=== PATIENT | male | born 1960 | race Caucasian/White ===

== ENCOUNTER 2020-01-01 16:14 | Emergency (ER) | payer MEDICARE, SELFPAY ==
--- NOTE | 2020-01-01 | XR_ITS ---
EXAMINATION: XR FINGER, RIGHT CLINICAL INFORMATION: Cut right second digit with saw COMPARISON: None TECHNIQUE: 3 views of the right second digit. FINDINGS: There is mild soft tissue swelling. On 2 views, there is a faint radiopacity seen just lateral to the PIP joint - this may be related to the skin disruption. No metallic foreign bodies are seen. The underlying bones appear unremarkable without evidence of fracture. IMPRESSION: No bony injury. Soft tissues as described above.
--- NOTE | 2020-01-01 19:10 | ED_ITS ---
HPI - Wound/Laceration General Chief Complaint: Wound/Laceration Stated Complaint: FINGER LAC Time Seen by Provider: 01/01/20 19:09 Source: patient Mode of arrival: ambulatory Limitations: no limitations History of Present Illness HPI narrative: Patient using a hole saw which bounced and cut his finger Onset (ago): hour(s) (3) Extremity Location: right: hand (2nd digit) Place: home Patient tetanus UTD: No Context: accidental Associated symptoms: pain Related Data Previous Rx's Medication Instructions Recorded cephalexin [Keflex] 500 mg PO QID #20 cap 01/01/20 oxycodone-acetaminophen [Percocet] 1 tab PO Q8H PRN #10 tab 01/01/20 Allergies Allergy/AdvReac Type Severity Reaction Status Date / Time morphine [MORPHINE] Allergy Unknown ITCHY Unverified 12/17/19 15:33 Sulfa (Sulfonamide Allergy Unknown ITCHY Unverified 12/17/19 15:33 Antibiotics) [SULFA (SULFONAMIDE ANTIBIOTICS)] morphine Allergy Unknown Itching Uncoded 01/01/20 20:06 Sulfa Allergy Unknown Itching Uncoded 01/01/20 20:06 Review of Systems Constitutional: Constitutional: Reports no additional constitutional complaints Eyes: Eyes: Reports no additional eye complaints ENT: Denies dizziness Cardiovascular: Cardiovascular: Reports no additional cardiovascular complaints Respiratory: Respiratory: Reports as per HPI Gastrointestinal: Gastrointestinal: Reports no additional gastrointestinal complaints Musculoskeletal: Musculoskeletal: Reports no additional musculoskeletal complaints Integumentary/Breasts: Skin/Breast: Denies rash Neurologic: Reports system reviewed and no additional complaints, except as documented, Denies dizziness and Denies Sensory deficit (Neuro) Psychiatric: Psychiatric: Denies anxiety [facility] Past Medical History Medical History (Updated 01/01/20 @ 20:52 by Alexi Ackerman MD) Blood clot in vein Social History Social History Smoking Status: Former smoker Smoked in Last 30 Days: No Use of substances other than those prescribed or required for medical reasons: No Advance Directives: No Advance Directives Information Provided: Yes Physical Exam Vital Signs and I&O and Narrative: Vital Signs and I&O: Vital Signs Temp 98.1 F 01/01/20 19:54 Pulse 71 01/01/20 19:54 Resp 20 01/01/20 19:54 BP 129/76 01/01/20 19:54 Pulse Ox 97 01/01/20 19:54 Intake & Output 01/01/20 01/01/20 01/02/20 06:59 18:59 06:59 Weight 83.007 kg Body Mass Index 27.0 Const: General: healthy appearing Nutritional Appearance: average body habitus Orientation/consciousness: oriented to person and patient oriented x3 Limitations: no limitations HENMT: Head: Yes normal to inspection Ears: external ears normal General nose exam: Normal external nose present Mouth: Normal oral and palatal mucosa present and oropharynx normal Throat: Yes posterior oropharynx normal Eyes: General: appearance normal, both eyes and all related structures Neck: Other: supple Neck: Yes normal visual inspection Chest: Chest palpation & inspection: normal inspection of the chest Resp: Auscultation: clear to auscultation bilaterally Cardio: Jugular venous distension: no JVD Rate: regular rate Rhythm: regular rhythm Heart sounds: S1 normal heart sound present and S2 normal heart sound present GI: Inspection: Yes normal to inspection Palpation (GI): Soft to palpation, nontender and No hepatosplenomegaly present Auscultation: normal bowel sounds : General: Yes no CVA tenderness Back/Spine/Pelvis: Back: no CVA tenderness Skin: Other: 5 cm laceration curved and jagged Neuro: General: oriented to person and patient oriented x3 Cranial nerves: Yes CN's II-XII intact bilaterally Motor exam (neuro): 5/5 motor strength present throughout Sensory Exam: No Sensory deficit (Neuro) Extrem: Other: 2nd digit right with laceration over dip. Patient unable to e xtend finger consistent with extensor tendon laceration. sensory intact. laceration 4cm Psych: Appearance: grossly normal Course Reevaluation(s) Reevaluation #1: sutured and splinted Time: 20:48 Procedures Laceration Laceration 1: Site: hand (2nd digit dorsal surface) Side (If applicable): right Size (cm): 5 Depth: involves tendon Local Anesthetic: lidocaine 1% Pre-repair: wound explored and irrigated extensively Skin layer closed with: nylon (5-0) Size (cm): 5-0 Number of sutures: 9 Technique: simple, interrupted MDM - Wound/Laceration MDM Narrative Medical decision making narrative: laceration with extensor tendon laceration Discharge Plan Discharge Clinical Impression: Laceration Patient Disposition: Home, Self-Care Instructions: Care For Your Stitches (ED), Finger Laceration (ED) Additional Instructions: Call Dr. Horner hand surgeon Prescriptions: New cephalexin [Keflex] 500 mg capsule 500 mg PO QID Qty: 20 RF: 0 oxycodone-acetaminophen [Percocet] 5-325 mg tablet 1 tab PO Q8H PRN (Reason: pain) Qty: 10 RF: 0
[2020-01-01 19:20] VITALS: BP 133/80; PULSE 88; RESP 16; TEMP 37.2; O2SAT 97; BMI 27.0
[2020-01-01 19:54] VITALS: BP 129/76; PULSE 71; RESP 20; TEMP 36.7; O2SAT 97
[2020-01-01] MEDS: cephALEXin 500 MG CAPSULE PO (20:07)
[2020-01-01] MEDS: Lidocaine HCl 1 % MPF 5 ML VIAL ×2 (21:00)
== END 2020-01-01 21:00 | disposition home or self-care (01) ==
PROVIDERS: Emergency Provider Emergency Medicine; PCP Internal Medicine
DX: S61.210A Laceration without foreign body of right index finger without damage to nail, initial encounter (principal); M79.641 Pain in right hand; W29.8XXA Contact with other powered hand tools and household machinery, initial encounter; Y93.9 Activity, unspecified; Y92.009 Unspecified place in unspecified non-institutional (private) residence as the place of occurrence of the external cause; Z87.891 Personal history of nicotine dependence; Z23 Encounter for immunization
CPT/HCPCS: 12002; 73140; 90471; 99284

== ENCOUNTER 2020-01-19 05:47 | Outpatient (REF) | payer MEDICARE, SELFPAY ==
--- NOTE | 2020-01-19 10:38 | FL_ITS ---
EXAMINATION: XR FLUOROSCOPY WITH IMAGES CLINICAL INFORMATION: Intervertebral disc degeneration, lumbosacral region COMPARISON: Fluoroscopy with images 09/08/2019 TECHNIQUE: Fluoroscopy performed by Dr. Eddi Smith. Fluoroscopy time: 0.3 minutes DAP: 3.59 Gycm2 Images: 1 FINDINGS: There is a spinal needle overlying the outer left L5 neural foramen. There is contrast in the nerve sheath with transforaminal epidural extension. No visible vascular communication. IMPRESSION: Fluoroscopy for pain management procedure.
== END 2020-01-19 05:48 | disposition home or self-care (01) ==
LOC: HO.RADIR 05:47
PROVIDERS: Visit Provider Anesthesiology
DX: M51.37 Other intervertebral disc degeneration, lumbosacral region (principal)
CPT/HCPCS: 64483; J3300; Q9967

== ENCOUNTER 2020-01-20 08:38 | Outpatient (REF) | payer MEDICARE, SELFPAY ==
[2020-01-20 12:08] LABS: Free T4 (Free Thyroxine) 0.75 ng/dL (0.71-1.85); Thyroid Stimulating Hormone 0.36 mIU/mL (0.32-4.0)
[2020-01-21 20:02] LABS: Triiodothyronine T3 Free 2.2 pg/mL (2.3-4.2)
== END 2020-01-20 08:39 | disposition home or self-care (01) ==
LOC: HO.HMGCLDS 08:38
PROVIDERS: PCP Internal Medicine; Visit Provider Nurse Practitioner Family
DX: E03.8 Other specified hypothyroidism (principal)
CPT/HCPCS: 84439; 84443; 84481

== ENCOUNTER 2020-02-15 10:57 | Outpatient (REF) | payer MEDICARE, SELFPAY ==
[2020-02-15 13:56] LABS: MANUAL DIFF FLAG NO
[2020-02-15 14:03] LABS: Basophils Percent Auto 0.5 % (0-2); Eosinophils Absolute Auto 0.1 X10*3/uL (0.0-0.4); Eosinophils Percent Auto 1.3 % (0-4); Hematocrit 50.4 % (42-52); Hemoglobin 16.5 g/dl (14.0-18.0); Imm Gran Abs Auto 0.03 X10*3/uL (0.00-0.03); Imm Gran Pct Auto 0.4 % (0.0-0.4); Lymphocytes Absolute Auto 2.2 X10*3/uL (1.2-4.9); Lymphocytes Percent Auto 25.8 % (20-40); Mean Corpuscular HGB Conc 32.7 g/dl (31.0-36.0); Mean Corpuscular Hemoglobin 30.3 pg (27.0-33.0); Mean Corpuscular Volume 92.6 fL (80-98); Mean Platelet Volume 9.3 fL (9.4-12.4); Monocytes Absolute Auto 0.4 X10*3/uL (0.1-1.2); Monocytes Percent Auto 5.1 % (2-11); Neutrophils Absolute Auto 5.6 X10*3/uL (2.0-8.3); Neutrophils Percent Auto 66.9 % (45-73); Platelet Count 283 X10*3/uL (160-400); Red Blood Count 5.44 X10*6/uL (4.60-5.80); Red Cell Distribution Width 13.3 % (11.0-16.0); White Blood Count 8.4 X10*3/uL (4.8-10.8)
[2020-02-15 14:21] LABS: Alanine Aminotransferase 17 U/L (0-40); Albumin Level 4.2 g/dL (3.5-5.0); Alkaline Phosphatase 54 U/L (39-117); Anion Gap 13 (12-20); Aspartate Amino Transferase 14 U/L (5-37); Bilirubin Total 0.4 mg/dL (0.0-1.0); Blood Urea Nitrogen 9 mg/dL (9-16); Calcium 8.8 mg/dL (8.4-10.2); Carbon Dioxide 28 mmol/L (22-29); Chloride 102 mmol/L (96-108); Estimated Glomerular Filt Rate > 60; Glucose Random 84 mg/dL (60-115); Magnesium 2.4 mg/dL (1.6-2.6); Potassium 4.8 mmol/l (3.3-5.1); Sodium 138 mmol/L (135-145); Total Protein 6.4 g/dL (6.5-8.0)
[2020-02-18 16:47] LABS: Iodine, Serum/Plasma 47 mcg/L (52-109)
== END 2020-02-15 10:58 | disposition home or self-care (01) ==
LOC: HO.HMGCLDS 10:57
PROVIDERS: PCP Internal Medicine; Visit Provider Nurse Practitioner Family
DX: R53.82 Chronic fatigue, unspecified (principal); M79.18 Myalgia, other site
CPT/HCPCS: 36415; 80053; 83735; 83789; 85025

== ENCOUNTER 2020-04-14 11:02 | Outpatient (REF) | payer BC, SELFPAY ==
[2020-04-14 14:55] LABS: Influenza A PCR NEGATIVE (Negative); Influenza B PCR NEGATIVE (Negative); Resp Syncy Virus RNA Qual PCR NEGATIVE (Negative); SARS COV2 PCR INHOUSE NEGATIVE (Negative)
== END 2020-04-14 11:03 | disposition home or self-care (01) ==
LOC: HO.LAB 11:02
PROVIDERS: Visit Provider Nurse Practitioner Family
DX: J06.9 Acute upper respiratory infection, unspecified (principal); Z20.822 Contact with and (suspected) exposure to COVID-19
CPT/HCPCS: 0241U; 36415

== ENCOUNTER 2020-05-03 07:57 | Outpatient (REF) | payer BC, SELFPAY ==
--- NOTE | 2020-05-03 08:04 | FL_ITS ---
INDICATION: Intraoperative fluoroscopy. FLUOROSCOPY: Fluoroscopy Time: 0.2 minutes Dose: 14.1 mGy Images saved: 1 FINDINGS: A single intraoperative fluoroscopic image is submitted during lumbar spine injection. Correlation with operative report. Evaluation is limited secondary to fluoroscopic technique. IMPRESSION: Intra-operative fluoroscopic imaging provided by radiology during lumbar spine injection. Please refer to operative note for further information.
== END 2020-05-03 07:58 | disposition home or self-care (01) ==
LOC: HO.RADIR 07:57
PROVIDERS: Visit Provider Anesthesiology
DX: M51.37 Other intervertebral disc degeneration, lumbosacral region (principal)
CPT/HCPCS: 64483; J3300; Q9967

== ENCOUNTER → 2020-06-06 11:44 | Outpatient (BNVA) | payer BC, SELFPAY | PROVIDERS: PCP Internal Medicine; Visit Provider Anesthesiology ==

== ENCOUNTER 2020-06-20 09:01 | Outpatient (REF) | payer MEDICARE, SELFPAY ==
--- NOTE | ~2020-06-20 | CT_ITS ---
EXAMINATION: CT CHEST SCREENING CLINICAL INFORMATION: Smoking history COMPARISON: Previous chest CT scans most recent May 2019 TECHNIQUE: Multidetector volumetric CT imaging of the chest is performed without contrast using low dose technique. Additional 2D coronal and sagittal reformatted images and axial 3D maximum intensity projection (MIP) images are generated on the CT workstation. This CT examination was performed using dose optimization techniques as appropriate, variously including the following: *Automated exposure control *Adjustment of mA and/or kV according to patient size (this includes techniques or standardized protocols for targeted exams where dose is matched to indication/reason for exam; i.e. extremities or head) *Use of iterative reconstruction technique DLP: 65 mGy-cm FINDINGS: LUNGS: There is evidence of paraseptal emphysema. There is a linear scarring or subsegmental atelectasis seen in both lower lobes. There is mild bilateral lower lobe traction bronchiolectasis. No endobronchial or endotracheal lesion is seen. MEDIASTINUM: There is mild coronary artery calcification. The mediastinum is otherwise normal. PLEURA: There is no pleural effusion. No pleural mass or thickening. AXILLA: No chest wall mass or enlarged axillary lymph nodes are seen. There are collateral vessels seen in the right anterior chest wall. UPPER ABDOMEN: The gallbladder has been removed. OSSEOUS STRUCTURES: There are degenerative changes of the spine. CT/CT lung screening IMPRESSION: Emphysema. Bilateral lower lobe scarring or subsegmental atelectasis and traction bronchiolectasis. Mild coronary artery calcification. ASSESSMENT: Lung-RADS category 2: Benign RECOMMENDATION: Annual low-dose chest CT follow-up recommended.
== END 2020-06-20 09:02 | disposition home or self-care (01) ==
LOC: HO.CT 09:01
PROVIDERS: Visit Provider Surgery
DX: Z12.2 Encounter for screening for malignant neoplasm of respiratory organs (principal); F17.210 Nicotine dependence, cigarettes, uncomplicated
CPT/HCPCS: 71271

== ENCOUNTER → 2020-07-26 11:15 | Outpatient (BNVA) | payer MEDICARE, SELFPAY | PROVIDERS: PCP Internal Medicine; Visit Provider Physician Assistant | DX: M77.02 Medial epicondylitis, left elbow (principal) | CPT/HCPCS: 20550; 20600; 99202; J1020 ==

== ENCOUNTER 2020-08-23 06:13 | Outpatient (REF) | payer MEDICARE, SELFPAY ==
--- NOTE | ~2020-08-23 | FL_ITS ---
EXAMINATION: XR FLUOROSCOPY WITH IMAGES CLINICAL INFORMATION: Lumbar radiculopathy. COMPARISON: None. TECHNIQUE: Fluoroscopy performed by Jimena Barillas NP Fluoroscopy time: 0.3 minutes DAP: 1.99 Gycm2 Images: 1 FINDINGS: A single PA projection image obtained in OR reveals needle positioned lateral to the L5 vertebra with contrast opacifying the epidural space. The soft tissues are unremarkable. FL/FL guidance in treatment room IMPRESSION: Fluoroscopy was provided to ELLEN Patel for L5-S1 epidural injection.
== END 2020-08-23 06:14 | disposition home or self-care (01) ==
LOC: HO.RADIR 06:13
PROVIDERS: Visit Provider Anesthesiology
DX: M54.16 Radiculopathy, lumbar region (principal)
CPT/HCPCS: 64483; J3300; Q9967

== ENCOUNTER 2020-10-12 10:21 | Outpatient (REF) | payer MEDICARE, SELFPAY ==
[2020-10-12 11:12] LABS: MANUAL DIFF FLAG NO
[2020-10-12 11:26] LABS: Basophils Percent Auto 0.5 % (0-2); Eosinophils Absolute Auto 0.1 X10*3/uL (0.0-0.4); Eosinophils Percent Auto 1.2 % (0-4); Hematocrit 49.9 % (42-52); Hemoglobin 16.3 g/dl (14.0-18.0); Imm Gran Abs Auto 0.03 X10*3/uL (0.00-0.03); Imm Gran Pct Auto 0.4 % (0.0-0.4); Lymphocytes Absolute Auto 2.3 X10*3/uL (1.2-4.9); Lymphocytes Percent Auto 30.4 % (20-40); Mean Corpuscular HGB Conc 32.7 g/dl (31.0-36.0); Mean Corpuscular Hemoglobin 30.9 pg (27.0-33.0); Mean Corpuscular Volume 94.7 fL (80-98); Mean Platelet Volume 8.8 fL (9.4-12.4); Monocytes Absolute Auto 0.4 X10*3/uL (0.1-1.2); Monocytes Percent Auto 5.1 % (2-11); Neutrophils Absolute Auto 4.6 X10*3/uL (2.0-8.3); Neutrophils Percent Auto 62.4 % (45-73); Platelet Count 267 X10*3/uL (160-400); Red Blood Count 5.27 X10*6/uL (4.60-5.80); Red Cell Distribution Width 13.5 % (11.0-16.0); White Blood Count 7.4 X10*3/uL (4.8-10.8)
[2020-10-16 17:32] LABS: Testosterone, Free 172.1 pg/mL (35.0-155.0); Testosterone, Total 667 ng/dL (250-1100)
== END 2020-10-12 10:22 | disposition home or self-care (01) ==
LOC: HO.HMGCLDS 10:21
PROVIDERS: PCP Internal Medicine; Visit Provider Nurse Practitioner Family
DX: E29.1 Testicular hypofunction (principal)
CPT/HCPCS: 36415; 84402; 84403; 85025

== ENCOUNTER 2020-12-08 11:01 | Outpatient (REF) | payer MEDICARE, SELFPAY ==
[2020-12-08 14:43] LABS: Free T4 (Free Thyroxine) 0.65 ng/dL (0.71-1.85); Thyroid Stimulating Hormone 1.71 uIU/mL (0.32-4.0)
[2020-12-10 01:56] LABS: DHEA Sulfate 84 mcg/dL (24-244)
[2020-12-10 03:05] LABS: Triiodothyronine T3 Free 2.5 pg/mL (2.3-4.2)
[2020-12-15 18:47] LABS: Testosterone, Total 288 ng/dL (250-1100)
[2020-12-15 19:52] LABS: Dihydrotestosterone 19 ng/dL (12-65)
[2020-12-17 03:32] LABS: Estradiol Free 0.28 pg/mL; Estradiol, Ultrasensitive 10 pg/mL
== END 2020-12-08 11:02 | disposition home or self-care (01) ==
LOC: HO.HMGCLDS 11:01
PROVIDERS: PCP Internal Medicine; Visit Provider Nurse Practitioner Family
DX: E29.1 Testicular hypofunction (principal); E03.8 Other specified hypothyroidism
CPT/HCPCS: 36415; 82627; 82642; 82670; 82681; 84402; 84403; 84439; 84443; 84481

== ENCOUNTER → 2020-12-14 16:08 | Outpatient (BNVA) | payer MEDICARE, SELFPAY | PROVIDERS: PCP Internal Medicine; Visit Provider Anesthesiology | DX: M51.36 Other intervertebral disc degeneration, lumbar region (principal); M54.16 Radiculopathy, lumbar region; M51.37 Other intervertebral disc degeneration, lumbosacral region | CPT/HCPCS: Q3014 ==

== ENCOUNTER 2020-12-27 06:29 | Outpatient (REF) | payer MEDICARE, SELFPAY ==
--- NOTE | ~2020-12-27 | FL_ITS ---
EXAMINATION: FL FLUOROSCOPY GUIDANCE FOR EPIDURAL INJECTION CLINICAL INFORMATION: Radiculopathy. COMPARISON: None TECHNIQUE: A single AP view of the lumbar spine was obtained under fluoroscopy. FINDINGS: A single AP view of the lumbar spine reveals the needle positioned at the right L5-S1 extradural space with contrast opacifying the epidural space and the adjacent soft tissues. The visualized disc heights and the vertebral heights are normal. FLUOROSCOPY TIME: 0.5 minutes DOSE: 23.7 mGy DAP: 6.46 Gy/cm2 FL/FL guidance in treatment room IMPRESSION: Fluoroscopy was provided to Jimena Barillas for pain management.
== END 2020-12-27 06:30 | disposition home or self-care (01) ==
LOC: HO.RADIR 06:29
PROVIDERS: Visit Provider Anesthesiology
DX: M51.37 Other intervertebral disc degeneration, lumbosacral region (principal)
CPT/HCPCS: 64483; J3300; Q9967

== ENCOUNTER 2021-03-14 06:00 | Outpatient (REF) | payer MEDICARE, SELFPAY ==
--- NOTE | ~2021-03-14 | FL_ITS ---
EXAMINATION: XR FLUOROSCOPY WITH IMAGES CLINICAL INFORMATION: M54.16 - Radiculopathy, lumbar region COMPARISON: Fluoroscopic spot 12/27/2020 TECHNIQUE: Fluoroscopy performed by Dr. Eddi Smith. Fluoroscopy time: 0.2 minutes DAP: 1.35 Gycm2 Images: 1 FINDINGS: There is a spinal needle overlying the outer left L5 neural foramen. There is contrast seen in the respective nerve sheath along with transforaminal epidural extension is suggested. No visible vascular communication. FL/FL guidance in treatment room IMPRESSION: Fluoroscopy for pain management procedures.
== END 2021-03-14 06:01 | disposition home or self-care (01) ==
LOC: HO.RADIR 06:00
PROVIDERS: Visit Provider Anesthesiology
DX: M54.16 Radiculopathy, lumbar region (principal); M51.37 Other intervertebral disc degeneration, lumbosacral region
CPT/HCPCS: 64483; J3300; Q9967

== ENCOUNTER 2021-05-05 11:58 | Outpatient (REF) | payer MEDICARE, SELFPAY ==
[2021-05-05 14:23] LABS: Prostate Specific Antigen 2.09 ng/mL (<0.05-4.0)
== END 2021-05-05 11:59 | disposition home or self-care (01) ==
LOC: HO.HMGCLDS 11:58
PROVIDERS: Visit Provider Nurse Practitioner Family
DX: Z12.5 Encounter for screening for malignant neoplasm of prostate (principal); N39.43 Post-void dribbling; R39.11 Hesitancy of micturition
CPT/HCPCS: 36415; 84153

== ENCOUNTER 2021-05-31 08:53 | Outpatient (REF) | payer MEDICARE, SELFPAY ==
[2021-05-31 11:15] LABS: Hematocrit 49.7 % (42.0-52.0); Mean Corpuscular HGB Conc 32.2 g/dl (31.0-36.0); Mean Corpuscular Hemoglobin 30.7 pg (27.0-33.0); Mean Corpuscular Volume 95.4 fL (80.0-98.0); Mean Platelet Volume 8.9 fL (9.4-12.4); Platelet Count 319 X10*3/uL (160-400); Red Blood Count 5.21 X10*6/uL (4.60-5.80); Red Cell Distribution Width 13.1 % (11.0-16.0); White Blood Count 7.3 X10*3/uL (4.8-10.8)
[2021-05-31 11:18] LABS: Appearance Urine CLEAR; Color Urine YELLOW; Glucose Urine UA NEG (NEG); Leukocyte Esterase Urine NEG (NEG); Nitrite Urine NEG (NEG); Urine Blood NEG (NEG); Urine Ketones NEG (NEG); Urine Protein NEG (NEG-TRACE)
[2021-05-31 11:46] LABS: TSH reflex Free T4 1.55 uIU/mL (0.32-4.0)
[2021-05-31 11:48] LABS: Mucus Urine 3+ /LPF; RBC Urine 0 /HPF (0); Squamous Epithelial Cell Urine TRACE /LPF; WBC Urine 0-2 /HPF (0-4)
[2021-05-31 12:03] LABS: Alanine Aminotransferase 28 U/L (0-40); Albumin Level 4.2 g/dL (3.5-5.0); Alkaline Phosphatase 61 U/L (39-117); Anion Gap 12 (12-20); Aspartate Amino Transferase 21 U/L (5-37); Bilirubin Total 0.7 mg/dL (0.0-1.0); Blood Urea Nitrogen 7 mg/dL (9-16); Calcium 9.7 mg/dL (8.4-10.2); Carbon Dioxide 27 mmol/L (22-29); Chloride 106 mmol/L (96-108); Cholesterol 302 mg/dL; Estimated Glomerular Filt Rate > 60; Glucose Fasting 105 mg/dL (60-99); HDL Cholesterol 49 mg/dL; LDL Cholesterol Calculated 202 mg/dl; Potassium 4.9 mmol/L (3.3-5.1); Sodium 140 mmol/L (135-145); Total Protein 6.7 g/dL (6.5-8.0); Triglycerides 259 mg/dL
== END 2021-05-31 08:54 | disposition home or self-care (01) ==
LOC: HO.HMGCLDS 08:53
PROVIDERS: PCP Internal Medicine; Visit Provider Internal Medicine
DX: Z00.00 Encounter for general adult medical examination without abnormal findings (principal); J44.9 Chronic obstructive pulmonary disease, unspecified; F17.200 Nicotine dependence, unspecified, uncomplicated
CPT/HCPCS: 36415; 80053; 80061; 81001; 84443; 85027

== ENCOUNTER 2021-06-02 09:35 | Outpatient (REF) | payer MEDICARE, SELFPAY | END 2021-06-02 09:36 | disposition home or self-care (01) | LOC: HO.LNP 09:35 | PROVIDERS: PCP Internal Medicine | DX: N40.0 Benign prostatic hyperplasia without lower urinary tract symptoms (principal); F17.200 Nicotine dependence, unspecified, uncomplicated; Z71.6 Tobacco abuse counseling | CPT/HCPCS: 51798; 87086; 99202 ==

== ENCOUNTER 2021-07-20 13:39 | Outpatient (REF) | payer MEDICARE, SELFPAY ==
--- NOTE | ~2021-07-20 | US_ITS ---
EXAMINATION: COLOR-FLOW DUPLEX IMAGING OF THE BILATERAL LOWER EXTREMITY ARTERIAL SYSTEM. VELOCITY MEASUREMENTS THROUGHOUT THE FEMORAL ARTERIES Interventional Radiologist: Imer Valdez M.D., F.S.I.R., F.A.C.R. CLINICAL INFORMATION: This is a 61-year-old male with history of smoking, hyperlipidemia, peripheral vascular disease. RIGHT FEMORAL RUNOFF VELOCITIES: The right common femoral artery measures 101 cm/s and triphasic. The right profunda femoral artery is 53 cm/s and is triphasic. Right proximal superficial femoral artery measures 102 cm/s and triphasic. Mid superficial femoral artery is 99 cm/s and triphasic. Distal right superficial femoral artery measures 94 cm/s and is triphasic. Right popliteal velocity measures 75 cm/s and is triphasic. The posterior tibial artery velocity measures 89 cm/s and was monophasic. LEFT FEMORAL RUNOFF VELOCITIES: The left common femoral artery measures 146 cm/s and triphasic. The left profunda femoral artery is 71 cm/s and is triphasic. Left proximal superficial femoral artery measures 98 cm/s and triphasic. Mid superficial femoral artery is 90 cm/s and triphasic. Distal left superficial femoral artery measures 109 cm/s and is triphasic. Left popliteal velocity measures 69 cm/s and is triphasic. The posterior tibial artery velocity measures 139 cm/s and was monophasic. US/US arterial duplex LE BI IMPRESSION: 1. There is no evidence of hemodynamically significant stenosis on noninvasive testing.
== END 2021-07-20 13:40 | disposition home or self-care (01) ==
LOC: HO.US 13:39
PROVIDERS: Visit Provider Internal Medicine
DX: I73.9 Peripheral vascular disease, unspecified (principal)
CPT/HCPCS: 93925

== ENCOUNTER 2021-08-29 08:47 | Outpatient (REF) | payer MEDICARE, SELFPAY ==
[2021-08-29 11:52] LABS: Alanine Aminotransferase 25 U/L (0-40); Albumin Level 4.2 g/dL (3.5-5.0); Alkaline Phosphatase 62 U/L (39-117); Anion Gap 10 (12-20); Aspartate Amino Transferase 17 U/L (5-37); Bilirubin Total 0.8 mg/dL (0.0-1.0); Blood Urea Nitrogen 11 mg/dL (9-16); Calcium 9.5 mg/dL (8.4-10.2); Carbon Dioxide 26 mmol/L (22-29); Chloride 109 mmol/L (96-108); Cholesterol 169 mg/dL; Estimated Glomerular Filt Rate > 60; Glucose Fasting 95 mg/dL (60-99); HDL Cholesterol 42 mg/dL; LDL Cholesterol Calculated 98 mg/dl; Potassium 4.9 mmol/L (3.3-5.1); Sodium 140 mmol/L (135-145); Total Protein 6.5 g/dL (6.5-8.0); Triglycerides 147 mg/dL
== END 2021-08-29 08:48 | disposition home or self-care (01) ==
LOC: HO.HMGCLDS 08:47
PROVIDERS: Visit Provider Internal Medicine
DX: E78.5 Hyperlipidemia, unspecified (principal)
CPT/HCPCS: 36415; 80053; 80061

== ENCOUNTER 2022-03-20 07:59 | Outpatient (REF) | payer MEDICARE, SELFPAY ==
--- NOTE | ~2022-03-20 | CT_ITS ---
EXAMINATION: CT CHEST SCREENING CLINICAL INFORMATION: Nicotine dependence COMPARISON: 06/20/2020 TECHNIQUE: Multidetector volumetric CT imaging of the chest is performed without contrast using low dose technique. Additional 2D coronal and sagittal reformatted images and axial 3D maximum intensity projection (MIP) images are generated on the CT workstation. This CT examination was performed using dose optimization techniques as appropriate, variously including the following: *Automated exposure control *Adjustment of mA and/or kV according to patient size (this includes techniques or standardized protocols for targeted exams where dose is matched to indication/reason for exam; i.e. extremities or head) *Use of iterative reconstruction technique DLP: 58 mGy-cm FINDINGS: LUNGS: The central airways are patent. Mild bibasilar atelectasis. Mild paraseptal emphysema with apical predominance. No dense consolidation. No pulmonary nodule identified. MEDIASTINUM: Normal heart size. No pericardial effusion. No mediastinal lymphadenopathy. CORONARY ARTERY CALCIFICATION: Mild. PLEURA: There is no pleural effusion. No pleural mass or thickening. No pneumothorax. AXILLA: No lymphadenopathy. Superficial varices in the right chest wall. UPPER ABDOMEN: No acute abnormality. Cholecystectomy. OSSEOUS STRUCTURES: No acute or suspicious osseous abnormality. Mild degenerative changes throughout the spine. CT/CT lung screening IMPRESSION: Mild emphysema. No pulmonary nodule identified. ASSESSMENT: Lung-RADS category 1: Negative RECOMMENDATION: Routine annual low-dose CT screening in 12 months.
== END 2022-03-20 08:00 | disposition home or self-care (01) ==
LOC: HO.CT 07:59
PROVIDERS: PCP Internal Medicine; Visit Provider Surgery
DX: Z12.2 Encounter for screening for malignant neoplasm of respiratory organs (principal); F17.210 Nicotine dependence, cigarettes, uncomplicated
CPT/HCPCS: 71271

== ENCOUNTER 2022-06-28 06:50 | Day surgery (SDC) | payer MEDICARE, SELFPAY ==
--- NOTE | ~2022-06-28 | IR_ITS ---
EXAMINATION: FL FLUOROSCOPY GUIDANCE FOR SPINE INJECTION CLINICAL INFORMATION: Low back pain. COMPARISON: 03/14/2021 TECHNIQUE: Intraoperative fluoroscopy for left L5-S1 transforaminal injection. FINDINGS: Needle and contrast seen overlying the L5 neural foramina. FLUOROSCOPY TIME: 4.1 minutes DOSE AREA PRODUCT: 2736 cGy-cm2 (centigray-centimeter squared) IR/IR inj epidural lumb/sac IMPRESSION: Intraoperative fluoroscopy for pain management procedure.
[2022-06-28 06:56] VITALS: BP 138/85; PULSE 79; RESP 19; TEMP 36.1; O2SAT 95; BMI 26.6
[2022-06-28 07:28] LABS: MANUAL DIFF FLAG NO
[2022-06-28 07:31] LABS: Basophils Percent Auto 0.6 % (0-2); Eosinophils Absolute Auto 0.1 X10*3/uL (0.0-0.4); Hematocrit 44.5 % (42.0-52.0); Hemoglobin 14.6 g/dl (14.0-18.0); Imm Gran Abs Auto 0.01 X10*3/uL (0.00-0.03); Imm Gran Pct Auto 0.2 % (0.0-0.4); Lymphocytes Absolute Auto 1.9 X10*3/uL (1.2-4.9); Lymphocytes Percent Auto 27.9 % (20-40); Mean Corpuscular HGB Conc 32.8 g/dl (31.0-36.0); Mean Corpuscular Hemoglobin 29.4 pg (27.0-33.0); Mean Corpuscular Volume 89.7 fL (80.0-98.0); Mean Platelet Volume 8.7 fL (9.4-12.4); Monocytes Absolute Auto 0.4 X10*3/uL (0.1-1.2); Monocytes Percent Auto 6.6 % (2-11); Neutrophils Absolute Auto 4.2 x10*3/uL (2.0-8.3); Neutrophils Percent Auto 62.7 % (45-73); Platelet Count 253 X10*3/uL (160-400); Red Blood Count 4.96 X10*6/uL (4.60-5.80); Red Cell Distribution Width 13.4 % (11.0-16.0); White Blood Count 6.6 X10*3/uL (4.8-10.8)
[2022-06-28 07:35] LABS: INTERNATIONAL NORM RATIO 0.9 (0.9-1.1); Prothrombin Time 9.7 SEC (10.0-13.1)
[2022-06-28 07:37] LABS: Partial Thromboplastin Time 31.4 SEC (26.0-36.4)
[2022-06-28] MEDS: iohexoL 300 MG/ML 100 ML INFUS..BTL IV (09:37)
[2022-06-28 09:40] VITALS: BP 131/80; PULSE 77; RESP 18; TEMP 36.3; O2SAT 97
[2022-06-28] MEDS: Betamet Acet/Betamet Na Ph 30 MG/5 ML VIAL 12 MG IM (09:40)
[2022-06-28] MEDS: BUPivacaine MPF 0.25 % 10 ML VIAL 2 ML INFILTRATI (09:40)
[2022-06-28] MEDS: Lidocaine HCl 1 % MPF 2 ML VIAL 6 ML INFILTRATI (09:47)
[2022-06-28 10:10] VITALS: BP 139/84; PULSE 74; RESP 16; TEMP 36.6; O2SAT 96
[2022-06-28 10:24] VITALS: BP 140/89; PULSE 70; RESP 16; TEMP 36.6; O2SAT 96
== END 2022-06-28 10:30 | disposition home or self-care (01) ==
PROVIDERS: Radiology Diagnostic Radiology; PCP Internal Medicine; Visit Provider Physician Assistant
PROC: 3E0R3GC Introduction of Other Therapeutic Substance into Spinal Canal, Percutaneous Approach (ICD-10-PCS; principal; 2022-06-28 08:30)
DX: M54.16 Radiculopathy, lumbar region (principal); M79.652 Pain in left thigh; M79.651 Pain in right thigh; M51.36 Other intervertebral disc degeneration, lumbar region; Z79.82 Long term (current) use of aspirin; Z79.899 Other long term (current) drug therapy; F17.210 Nicotine dependence, cigarettes, uncomplicated; Z98.890 Other specified postprocedural states
CPT/HCPCS: 36415; 62323; 85025; 85610; 85730; J0702; Q9967

== ENCOUNTER → 2022-09-03 10:00 | Outpatient (BNVA) | payer MEDICARE, SELFPAY | PROVIDERS: PCP Internal Medicine; Referring Provider Internal Medicine; Visit Provider Internal Medicine | DX: R10.9 Unspecified abdominal pain (principal); R14.0 Abdominal distension (gaseous); R19.7 Diarrhea, unspecified; F17.210 Nicotine dependence, cigarettes, uncomplicated | CPT/HCPCS: 99202 ==

== ENCOUNTER 2022-09-18 11:44 | Outpatient (REF) | payer MEDICARE, SELFPAY ==
[2022-09-18 12:08] LABS: MANUAL DIFF FLAG NO
[2022-09-18 12:55] LABS: Hematocrit 46.7 % (42.0-52.0); Hemoglobin 15.2 g/dl (14.0-18.0); Mean Corpuscular HGB Conc 32.5 g/dl (31.0-36.0); Mean Corpuscular Hemoglobin 30.1 pg (27.0-33.0); Mean Corpuscular Volume 92.5 fL (80.0-98.0); Mean Platelet Volume 8.8 fL (9.4-12.4); Platelet Count 280 X10*3/uL (160-400); Red Blood Count 5.05 X10*6/uL (4.60-5.80); Red Cell Distribution Width 13.2 % (11.0-16.0); White Blood Count 7.1 X10*3/uL (4.8-10.8)
[2022-09-18 12:56] LABS: Basophils Percent Auto 0.4 % (0-2); Eosinophils Absolute Auto 0.2 X10*3/uL (0.0-0.4); Eosinophils Percent Auto 2.1 % (0-4); Hematocrit 46.5 % (42.0-52.0); Hemoglobin 15.9 g/dl (14.0-18.0); Imm Gran Abs Auto 0.02 X10*3/uL (0.00-0.03); Imm Gran Pct Auto 0.3 % (0.0-0.4); Lymphocytes Absolute Auto 2.3 X10*3/uL (1.2-4.9); Lymphocytes Percent Auto 32.7 % (20-40); Mean Corpuscular HGB Conc 34.2 g/dl (31.0-36.0); Mean Corpuscular Hemoglobin 31.7 pg (27.0-33.0); Mean Corpuscular Volume 92.8 fL (80.0-98.0); Mean Platelet Volume 8.9 fL (9.4-12.4); Monocytes Absolute Auto 0.4 X10*3/uL (0.1-1.2); Monocytes Percent Auto 5.7 % (2-11); Neutrophils Absolute Auto 4.2 x10*3/uL (2.0-8.3); Neutrophils Percent Auto 58.8 % (45-73); Platelet Count 296 X10*3/uL (160-400); Red Blood Count 5.01 X10*6/uL (4.60-5.80); Red Cell Distribution Width 13.3 % (11.0-16.0); White Blood Count 7.2 X10*3/uL (4.8-10.8)
[2022-09-18 13:56] LABS: C Reactive Protein 0.55 mg/dL (< or = 0.50)
[2022-09-18 14:16] LABS: Ferritin 135 ng/mL (20-250); Vitamin D 25-OH Total 41.5 ng/mL (>30)
[2022-09-19 04:27] LABS: HBS Num1 65.73 mIU/mL (0-7.99); HBc Num1 0.05 S/CO (0.00-0.79); HBsAGNum1 0.47 S/CO (0.00-0.99); HIV AB/AG Nonreactive (Nonreactive); HIV Num 1 0.07 S/CO (0.00-0.99); Hepatitis B Core Antibody Nonreactive (Nonreactive); Hepatitis B Surface Antigen Negative (Negative); ~HepC Num1 0.11 S/CO (0.00-0.79); ~Hepatitis B Surface Antibody REACTIVE (Nonreactive); ~Hepatitis C Antibody Nonreactive (Nonreactive)
[2022-09-19 04:44] LABS: Hepatitis A Antibody IgG Nonreactive (Nonreactive); ~Hepatitis A Antibody IgG 0.19 S/CO (0.00-0.99)
[2022-09-20 17:53] LABS: Immunoglobulin A 168 mg/dL (70-320)
[2022-09-20 22:40] LABS: Transglutaminase IgA <1.0 U/mL
== END 2022-09-18 11:45 | disposition home or self-care (01) ==
LOC: HO.LAB 11:44
PROVIDERS: PCP Internal Medicine; Visit Provider Internal Medicine
DX: Z00.00 Encounter for general adult medical examination without abnormal findings (principal); R10.9 Unspecified abdominal pain; R14.0 Abdominal distension (gaseous); R19.7 Diarrhea, unspecified; E78.5 Hyperlipidemia, unspecified; J44.9 Chronic obstructive pulmonary disease, unspecified
CPT/HCPCS: 36415; 82306; 82728; 82784; 85025; 85027; 86140; 86364; 86704; 86706; 86708; 86803; 87340; 87389

== ENCOUNTER 2022-09-21 07:13 | Outpatient (REF) | payer MEDICARE, SELFPAY ==
[2022-09-21 12:49] LABS: Alanine Aminotransferase 21 U/L (0-40); Albumin Level 4.2 g/dL (3.5-5.0); Alkaline Phosphatase 57 U/L (39-117); Aspartate Amino Transferase 21 U/L (5-37); Bilirubin Total 0.8 mg/dL (0.0-1.0); Blood Urea Nitrogen 12 mg/dL (9-16); Calcium 9.1 mg/dL (8.4-10.2); Chloride 104 mmol/L (96-108); Cholesterol 160 mg/dL; Estimated Glomerular Filt Rate > 60; Glucose Fasting 104 mg/dL (60-99); HDL Cholesterol 46 mg/dL; LDL Cholesterol Calculated 85 mg/dl; Potassium 4.3 mmol/L (3.3-5.1); Sodium 140 mmol/L (135-145); Total Protein 6.5 g/dL (6.5-8.0); Triglycerides 148 mg/dL
[2022-09-21 13:11] LABS: Anion Gap 12 (12-20); Carbon Dioxide 27 mmol/L (22-29)
[2022-09-27 19:59] LABS: Calprotectin, Fecal 219 mcg/g
== END 2022-09-21 07:14 | disposition home or self-care (01) ==
LOC: HO.HMGCLDS 07:13
PROVIDERS: Absent Provider Internal Medicine; PCP Internal Medicine; Visit Provider Internal Medicine
DX: Z00.00 Encounter for general adult medical examination without abnormal findings (principal); E78.5 Hyperlipidemia, unspecified; J44.9 Chronic obstructive pulmonary disease, unspecified; R10.9 Unspecified abdominal pain; R14.0 Abdominal distension (gaseous); R19.7 Diarrhea, unspecified
CPT/HCPCS: 36415; 80053; 80061; 83993

== ENCOUNTER 2022-10-08 09:01 | Outpatient (REF) | payer MEDICARE, SELFPAY ==
--- NOTE | ~2022-10-08 | CT_ITS ---
EXAMINATION: CT ABDOMEN AND PELVIS WITH CONTRAST CLINICAL INFORMATION: R19.7 - Diarrhea, unspecified COMPARISON: Upper chest seen on the 03/20/[address] scan TECHNIQUE: Multidetector volumetric imaging was performed from the superior aspect of the liver through the pubic symphysis following administration of 85 mL Omnipaque 300 intravenous contrast. Sagittal and coronal reformatted images were obtained on the technologist workstation.. This CT examination was performed using dose optimization techniques as appropriate, variously including the following: *Automated exposure control *Adjustment of mA and/or kV according to patient size (this includes techniques or standardized protocols for targeted exams where dose is matched to indication/reason for exam; i.e. extremities or head) *Use of iterative reconstruction technique DLP: 562 mGy-cm FINDINGS: LUNG BASES: Emphysematous changes of the visualized lung bases. No dense consolidation or focal airspace disease. LIVER, GALLBLADDER, AND BILIARY TREE: The liver is normal in size, shape, and attenuation. No focal hepatic lesion or biliary ductal dilatation is present. The gallbladder surgically absent PANCREAS: Unremarkable. SPLEEN: Unremarkable. ADRENAL GLANDS: Unremarkable. KIDNEYS AND URETERS: The kidneys are normal in size, shape, and attenuation. Tiny low-attenuation cortical cysts seen in the kidneys, too small to characterize further. No hydronephrosis, hydroureter, or calculi seen. No perinephric stranding. BLADDER: Decompressed GASTROINTESTINAL TRACT: Scattered colonic diverticulosis but no colonic wall thickening or pericolonic inflammatory change. Normal-appearing appendix in the right lower quadrant. Visualized small bowel is unremarkable. Stomach is decompressed and difficult to assess ABDOMINAL WALL: Postoperative changes from right inguinal hernia repair. No abdominal wall hernia at this time LYMPHOVASCULAR STRUCTURES: Vascular calcification within the aorta iliac system. No bulky adenopathy PELVIC VISCERA: Unremarkable. OSSEOUS STRUCTURES: No acute bony abnormality CT/CT abdomen pelvis w IV con IMPRESSION: Chronic appearing and postoperative changes as described. I do not appreciate any acute intra-abdominal process.
== END 2022-10-08 09:02 | disposition home or self-care (01) ==
LOC: HO.CT 09:01
PROVIDERS: PCP Internal Medicine; Visit Provider Internal Medicine
DX: R10.9 Unspecified abdominal pain (principal); R19.7 Diarrhea, unspecified
CPT/HCPCS: 74177; Q9967

== ENCOUNTER 2022-10-22 13:18 | Outpatient (AMB) | payer MEDICARE, SELFPAY ==
--- NOTE | 2022-10-22 13:20 | A.OFFVIS_ITS ---
Intake Vital Signs 10/22/22 13:21 Height 5 ft 9.5 in Weight 185 lb 3.013 oz BMI 27.0 BP 117/67 Blood Pressure Location Lt brachial Position Sitting Pulse 100 Intake Visit Reasons: 4 week fu Intake Note: Francois presents in the office as a 4 week follow up. CC: Here for lab results - no concerns today. Integration Assistant Required: No Allergies morphine [MORPHINE] Allergy (Unknown, Verified 10/22/22 13:21) ITCHY Sulfa (Sulfonamide Antibiotics) [SULFA (SULFONAMIDE ANTIBIOTICS)] Allergy (Unknown, Verified 10/22/22 13:21) ITCHY HPI HPI Comments History of Present Illness Details This is a 62y.o M with PMH of COPD, BPH, anxiety who presents for screening colonoscopy however as multiple GI issues as below. Pt reports that almost for the past 20 years he has had intermittent RLQ abdominal pain associated with bloating and diarrhea. It feels as if he is blocked up and when he switches himselt to NPO/clear liquids for a few days, it gets better. He also notices worsening of sx with gluten containing foods but has never been diagnsoed with celiac disease. Not associated with fevers, nausea, vomiting. Has been seen by GI in the past, most recently at [facility] and underwent EGD/colo, VCE and was eventually given the diagnosis of IBS. Also describes getting a CTE through a different provider and was told he has narrowing of small intestine but again does not recall being told about IBD. He reports similar sx in his daughter who is in her 30s and is undergoing work up for it. Does smoke 0.5PPD daily, also repors frequent NSAID use at least 2-3 times a week. 10/22/22: Reviewed labs with the pt and that specifically fecal calprotectin came back elevated along with the CRP. CT Abd/pel appeared grossly normal. Pt reports persistent bloating but diarrhea is better now that hes back on gluten restricted diet. [facility] Medical History Annual physical exam Anxiety Benign prostatic hyperplasia Bladder pain Blood clot in vein Claudication COPD (chronic obstructive pulmonary disease) Disc degeneration, lumbar Disc degeneration, lumbosacral Hyperlipidemia Hypothyroidism Left lumbar radiculopathy Thoracic outlet syndrome Tobacco dependence Surgical History History of surgery Hx of colonoscopy Family History Paternal Uncle Colon cancer Paternal Grandmother Colon cancer Other Mental health disorder Social History Housing: House Patient Tobacco Use Status: Current everyday Tobacco user Cigarette Packs Per Day: 0.5 e-Cigarette/Vaping Use: Never Used Current occupational status: disabled Current occupation: left handed Cognitive needs: No Hearing needs: No Vision needs: No Review of Systems Const All systems reviewed & are unremarkable except as noted in HPI and below Physical Exam Vital Signs: Last Vital Signs Pulse 100 10/22/22 13:21 BP 117/67 10/22/22 13:21 BMI result Body Mass Index 27.0 Gen appear: NAD HEENT: nonicteric, no cervical lymphadenopathy Chest: CTA CVS: Regular S1/S2 Abd: soft, nontender, nondistended, bowel sounds + Ext: no peripheral edema Neuro: A/Ox3, noted to move all extremities spontaneously Psych: interacting appropriately Assessment & Plan Assessment & Plan (1) Abdominal pain: Code(s): R10.9 - Unspecified abdominal pain (2) Bloating: Code(s): R14.0 - Abdominal distension (gaseous) (3) Diarrhea: Code(s): R19.7 - Diarrhea, unspecified (4) Tobacco dependence: Code(s): F17.200 - Nicotine dependence, unspecified, uncomplicated Plan Will proceed with diagnostic colo to further investigate change in bowel habits and abd pain to r/o IBD claudette in the light of abnormal fecal calpro. Plan: - Split PEG prep isntructions reviewed the patient - [facility] to be booked in 6-8 weeks - Follow up after colo Medications: New peg 3350-electrolytes 236-22.74-6.74 -5.86 gram (Golytely) as per split prep instructions, until fecal effluent is clear 240 mL PO Q10M 4,000 mL 0RF colonoscopy Discontinued citalopram 30 mg (1.5 x 20 mg) PO DAILY 30 days 45 tabs 6RF Coding Level of Care Code Est Pt Level 4 (33948) Diagnoses Abdominal pain R10.9 Bloating R14.0 Diarrhea R19.7 Tobacco dependence F17.200
[2022-10-22 13:21] VITALS: BP 117/67; PULSE 100; BMI 27.0
== END 2022-10-22 14:34 | disposition home or self-care (01) ==
PROVIDERS: PCP Internal Medicine; Visit Provider Internal Medicine
DX: R10.9 Unspecified abdominal pain (principal); R14.0 Abdominal distension (gaseous); R19.7 Diarrhea, unspecified; F17.200 Nicotine dependence, unspecified, uncomplicated
CPT/HCPCS: 99214

== ENCOUNTER → 2022-10-22 13:18 | Outpatient (BNVA) | payer MEDICARE, SELFPAY | PROVIDERS: PCP Internal Medicine; Visit Provider Internal Medicine | DX: R10.9 Unspecified abdominal pain (principal); R14.0 Abdominal distension (gaseous); R19.7 Diarrhea, unspecified; F17.210 Nicotine dependence, cigarettes, uncomplicated | CPT/HCPCS: 99212 ==

== ENCOUNTER 2022-11-23 15:26 | Outpatient (REF) | payer MEDICARE, SELFPAY ==
[2022-11-23 16:48] LABS: Hematocrit 48.6 % (42.0-52.0); Mean Corpuscular HGB Conc 32.9 g/dl (31.0-36.0); Mean Corpuscular Volume 91.2 fL (80.0-98.0); Mean Platelet Volume 9.1 fL (9.4-12.4); Platelet Count 294 X10*3/uL (160-400); Red Blood Count 5.33 X10*6/uL (4.60-5.80); Red Cell Distribution Width 12.7 % (11.0-16.0); White Blood Count 9.1 X10*3/uL (4.8-10.8)
[2022-11-23 17:04] LABS: Alanine Aminotransferase 17 U/L (0-40); Albumin Level 4.3 g/dL (3.5-5.0); Alkaline Phosphatase 52 U/L (39-117); Anion Gap 12 (12-20); Aspartate Amino Transferase 16 U/L (5-37); Bilirubin Total 0.5 mg/dL (0.0-1.0); Blood Urea Nitrogen 14 mg/dL (9-16); Calcium 9.5 mg/dL (8.4-10.2); Carbon Dioxide 27 mmol/L (22-29); Chloride 103 mmol/L (96-108); Estimated Glomerular Filt Rate > 60; Glucose Random 103 mg/dL (60-115); Potassium 3.7 mmol/L (3.3-5.1); Sodium 138 mmol/L (135-145)
== END 2022-11-23 15:27 | disposition home or self-care (01) ==
LOC: HO.LAB 15:26
PROVIDERS: PCP Internal Medicine; Visit Provider Internal Medicine
DX: R10.9 Unspecified abdominal pain (principal); K57.90 Diverticulosis of intestine, part unspecified, without perforation or abscess without bleeding
CPT/HCPCS: 36415; 80053; 85027; 99212

== ENCOUNTER 2022-11-23 15:26 | Outpatient (AMB) | payer MEDICARE, SELFPAY ==
--- NOTE | 2022-11-23 15:37 | A.OFFVIS_ITS ---
Intake Vital Signs 11/23/22 15:39 Height 5 ft 9.5 in Weight 180 lb 12.465 oz BMI 26.3 BP 135/78 Blood Pressure Location Lt brachial Position Sitting Pulse 89 Intake Visit Reasons: Severe Abdominal Pains Intake Note: Francois presents in the office as a follow up for severe abdominal pains. CC: He states he is feeling terrible. He gets attacks in his stomach that are in the right side of the abdomen and to the back. It happens very frequently and he states that no one seems to be able to find out whats going on. When the pains happen he gets nausea with burping. He has diarrhea at times. 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 Pt reports that almost for the past 20 years he has had intermittent RLQ abdominal pain associated with bloating and diarrhea. It feels as if he is blocked up and when he switches himselt to NPO/clear liquids for a few days, it gets better. He also notices worsening of sx with gluten containing foods but has never been diagnsoed with celiac disease. Not associated with fevers, nausea, vomiting. Has been seen by GI in the past, most recently at [facility] and underwent EGD/colo, VCE and was eventually given the diagnosis of IBS. Also describes getting a CTE through a different provider and was told he has narrowing of small intestine but again does not recall being told about IBD. He reports similar sx in his daughter who is in her 30s and is undergoing work up for it. Does smoke 0.5PPD daily, also repors frequent NSAID use at least 2-3 times a week. 10/22/22: Reviewed labs with the pt and that specifically fecal calprotectin came back elevated along with the CRP. CT Abd/pel appeared grossly normal. Pt reports persistent bloating but diarrhea is better now that hes back on gluten restricted diet. 11/23/22: Came in for urgent visit today for lower abd pain and cramping x 5 days. Went camping last weekend and reports onset of abd pain even before it but got wore within 2 days. Assoc with low grade fevers, chills, nausea and aversion to food. No diarrhea. No sick contacts. Now eating but pain is still persistent and just as severe. Describes it as RLQ pain which radiates to his back. No relation to bowel movements. No dysuria reported. CT Abd/pel from last month with diverticulosis but otherwise normal. Mat for colo in Dec for elevated fecal calpro. [facility] Medical History Annual physical exam Anxiety Benign prostatic hyperplasia Bladder pain Blood clot in vein Claudication COPD (chronic obstructive pulmonary disease) Disc degeneration, lumbar Disc degeneration, lumbosacral Hyperlipidemia Hypothyroidism Left lumbar radiculopathy Thoracic outlet syndrome Tobacco dependence Surgical History History of surgery Hx of colonoscopy Family History Paternal Uncle Colon cancer Paternal Grandmother Colon cancer Other Mental health disorder Social History Housing: House Patient Tobacco Use Status: Current everyday Tobacco user Cigarette Packs Per Day: 0.5 e-Cigarette/Vaping Use: Never Used Current occupational status: disabled Current occupation: left handed Cognitive needs: No Hearing needs: No Vision needs: No Review of Systems Const All systems reviewed & are unremarkable except as noted in HPI and below Physical Exam Vital Signs: Last Vital Signs Pulse 89 11/23/22 15:39 BP 135/78 11/23/22 15:39 BMI result Body Mass Index 26.3 Gen appear: NAD HEENT: nonicteric, no cervical lymphadenopathy Chest: CTA CVS: Regular S1/S2 Abd: soft, tenderness localised to RLQ just below and lateral to umbilicus Ext: no peripheral edema Neuro: A/Ox3, noted to move all extremities spontaneously Psych: interacting appropriately Assessment & Plan Assessment & Plan (1) Abdominal pain: Code(s): R10.9 - Unspecified abdominal pain (2) Diverticulosis: Code(s): K57.90 - Diverticulosis of intestine, part unspecified, without perforation or abscess without bleeding Plan Differentials include infectious colitis, diverticulitis, kidney stone. Strongly recommend CT imaging however pt reluctant to pursue at this time due to high out of pocket cost. Reviewed that can empirically tx with antibiotics for diverticulitis vs colitis however low threshold to go to ER if sx worsen despite it. Labs ordered as below. Cipro 500 BID and Flagyl 500 TID x 10 days sent to pharmacy. Orders: Orders CT abdomen pelvis w IV con Today R10.9 - Unspecified abdominal pain Comprehensive Met. Panel Today R10.9 - Unspecified abdominal pain Complete Blood Count no Diff Today R10.9 - Unspecified abdominal pain GI Panel Today R10.9 - Unspecified abdominal pain Medications: New ciprofloxacin HCl (Cipro) 500 mg PO BID 10 days 20 tabs 0RF metronidazole 500 mg PO TID 10 days 30 tabs 0RF Discontinued citalopram 30 mg (1.5 x 20 mg) PO DAILY 30 days 45 tabs 6RF Coding Level of Care Code Est Pt Level 4 (91846) Diagnoses Abdominal pain R10.9 Diverticulosis K57.90
[2022-11-23 15:39] VITALS: BP 135/78; PULSE 89; BMI 26.3
== END 2022-11-23 16:26 | disposition home or self-care (01) ==
PROVIDERS: PCP Internal Medicine; Visit Provider Internal Medicine
DX: R10.9 Unspecified abdominal pain (principal); K57.90 Diverticulosis of intestine, part unspecified, without perforation or abscess without bleeding
CPT/HCPCS: 99214

== ENCOUNTER 2022-11-24 | Outpatient (REF) | payer MEDICARE, SELFPAY ==
[2022-11-24 13:11] LABS: Campylobacter Not Detected (Not Detect.); Cryptosporidium Not Detected (Not Detect.); Cyclospora cayetanensis Not Detected (Not Detect.); E. coli EAEC Not Detected (Not Detect.); E. coli EPEC Not Detected (Not Detect.); E. coli ETEC Not Detected (Not Detect.); E. coli STEC Not Detected (Not Detect.); Entamoeba histolytica Not Detected (Not Detect.); Giardia lamblia Not Detected (Not Detect.); Plesiomonas shigelloides Not Detected (Not Detect.); Salmonella Not Detected (Not Detect.); Shigella sp./EIEC Not Detected (Not Detect.); Vibrio Not Detected (Not Detect.); Vibrio Cholerae Not Detected (Not Detect.); Yersinia enterocolitica Not Detected (Not Detect.)
[2022-11-24 13:12] LABS: Adenovirus F 40/41 Not Detected (Not Detect.); Astrovirus Not Detected (Not Detect.); Norovirus GI/GII Not Detected (Not Detect.); Rotavirus A Not Detected (Not Detect.); Sapovirus Not Detected (Not Detect.)
== END 2022-11-24 00:01 | disposition home or self-care (01) ==
LOC: HO.LNP
PROVIDERS: Visit Provider Internal Medicine
DX: R10.9 Unspecified abdominal pain (principal)
CPT/HCPCS: 87507

== ENCOUNTER 2023-01-03 06:12 | Day surgery (SDC) | payer MEDICARE, SELFPAY ==
[2023-01-01 08:52] VITALS: BMI 26.6
--- NOTE | 2023-01-02 20:22 | HO.ANESPROP2 ---
HPI - Anesthesia Eval Consult details Narrative: Colonoscopy PMFSH Active Problems Active Problems: All Active Problems (Updated 11/23/22 @ 16:10 by Rosamaria Bustillos MD) Diverticulosis (Acute) Diarrhea (Acute) Bloating (Acute) Abdominal pain (Acute) Claudication (Acute) Hyperlipidemia (Acute) Bladder pain (Acute) Benign prostatic hyperplasia (Acute) Tobacco dependence (Acute) Annual physical exam (Acute) Thoracic outlet syndrome (Acute) Hx of colonoscopy (Acute) Anxiety (Acute) COPD (chronic obstructive pulmonary disease) (Acute) Hypothyroidism (Acute) Medial epicondylitis of left elbow (Acute) Left lumbar radiculopathy (Acute) Disc degeneration, lumbar (Acute) Upper respiratory infection, viral (Acute) Disc degeneration, lumbosacral (Acute) Past Medical History Medical History Annual physical exam Anxiety Benign prostatic hyperplasia Bladder pain Blood clot in vein Claudication COPD (chronic obstructive pulmonary disease) Disc degeneration, lumbar Disc degeneration, lumbosacral Hyperlipidemia Hypothyroidism Left lumbar radiculopathy Thoracic outlet syndrome Tobacco dependence Family History Family History Paternal Uncle Colon cancer Paternal Grandmother Colon cancer Other Mental health disorder Family history of problems with anesthesia: No Surgical History Surgical History History of surgery Hx of colonoscopy History of Problems with Anesthesia: No Social History Social History Housing: House Patient Tobacco Use Status: Current everyday Tobacco user Cigarette Packs Per Day: 0.5 e-Cigarette/Vaping Use: Never Used Current occupational status: disabled Current occupation: left handed Cognitive needs: No Hearing needs: No Vision needs: No Meds Allergies Allergy/AdvReac Type Severity Reaction Status Date / Time morphine [MORPHINE] Allergy Unknown ITCHY Verified 11/23/22 15:40 Sulfa (Sulfonamide Allergy Unknown ITCHY Verified 11/23/22 15:40 Antibiotics) [SULFA (SULFONAMIDE ANTIBIOTICS)] Home Medications Medication Instructions Recorded Confirmed Last Taken Type albuterol sulfate 90 mcg/actuation inhalation 04/14/20 03/19/22 06/28/22 History aerosol inhaler liothyronine 5 mcg tablet mcg PO 04/14/20 03/19/22 06/27/22 History thyroid (pork) 30 mg tablet 30 mg PO DAILY 04/14/20 03/19/22 06/27/22 History aspirin 81 mg tablet,delayed 81 mg PO DAILY 05/31/21 03/19/22 06/25/22 History release (Adult Low Dose Aspirin) nystatin 500,000 unit tablet 500,000 unit PO ONCE 05/31/21 03/19/22 06/27/22 History citalopram 40 mg tablet 40 mg PO 09/03/22 Unknown History testosterone 50 mg/5 gram (1 %) 1 packet topical 09/03/22 Unknown History transdermal gel ciclopirox 8 % topical solution ml topical DAILY 11/23/22 Unknown History Exam Exam Date and Time: January 02, 20232021 Height,Weight and Vital Signs: Height 5 ft 9 in Weight 81.647 kg Airway Mallampati Class: II TM Dist: >3cm Neck ROM: Full Heart: rrr Lungs: cta Assessment and Plan Assessment Anesthesia Assessment: Anesthesia Plan Discussed and Chart Reviewed Final Anesthetic Review Family History of Problems with Anesthesia: No History of Problems with Anesthesia: No NPO: Yes ASA Class: III Final Preanesthetic Review: No Changes in Pt Med Stat, Meds/Allgs Chart Reviewed, Consent Obtained/Reviewed and Anes Risks/Benef Reviewed Patient Risk: Intermediate Procedure Risk: Low Anesthetic Plan Anesthetic Plan: MAC: Disposition: Standard PACU
[2023-01-03 06:56] VITALS: BP 145/82; PULSE 78; RESP 16; TEMP 36.4; O2SAT 96
[2023-01-03 07:11] VITALS: PULSE 75; RESP 16; O2SAT 95
--- NOTE | 2023-01-03 07:47 | MHC.SHP ---
Pre-Procedural Eval Section A Date of Service: 01/03/23 Section B Chief Complaint: Abdominal distension (gaseous), abdominal pain Details of Present Illness: PMH: Annual physical exam Anxiety Benign prostatic hyperplasia Bladder pain Blood clot in vein Claudication COPD (chronic obstructive pulmonary disease) Disc degeneration, lumbar Disc degeneration, lumbosacral Hyperlipidemia Hypothyroidism Left lumbar radiculopathy Thoracic outlet syndrome Tobacco dependence Surgical History History of surgery Hx of colonoscopy Present Medications: see Short Stay Collaborative assessment Allergies: Allergies Allergy/AdvReac Type Severity Reaction Status Date / Time morphine [MORPHINE] Allergy Unknown ITCHY Verified 11/23/22 15:40 Sulfa (Sulfonamide Allergy Unknown ITCHY Verified 11/23/22 15:40 Antibiotics) [SULFA (SULFONAMIDE ANTIBIOTICS)] Review of Systems Review of Systems Comment: 10 point ROS negative Exam Exam Comment: Gen appear: No acute distress HEENT: no icterus Chest: No overt resp distress Abd: soft, nontender, nondistended Psych: Stable affect, answering questions appropriately Neuro: A/Ox3 noted to move all extremities spontaneously Ext: no peripheral edema Plan Diagnosis/Plan: Unchanged I have reviewed the history and physical and performed a pertinent physical examination on my patient. No changes have occurred unless specified. Time Spent With Patient Time: Total time managing care of this patient today ____ minutes.
--- NOTE | 2023-01-03 08:12 | P.OP_ITS ---
Operative Note Operative Note Date of Service: 01/03/23 Narrative: Procedure: Colonoscopy Indication: Chronic diarrhea, elevated fecal calpro Endoscopist: Rosamaria Bustillos MD Anesthesia Provider: Dr Billie Harris Anesthesia type: MAC Instrument: Olympus [id number]-[id number] Consent: Indication, risks vs benefits, and alternatives were discussed with the patient who gave written informed consent to proceed. EKG, pulse, pulse oximetry and blood pressure were monitored throughout the procedure. Please see anesthesia flowsheet. Procedure: The patient was brought to the procedure room and placed in the left lateral decubitus position. IV medications were administered by the anesthesia provider in attendance. A digital rectal exam was performed which was abnormal due to finding of hemorrhoids and enlarged prostate. The colonoscope was then inserted through the anus and advanced through the colon to the cecum at 70 cm,and terminal ileum. Mucosa was carefully examined under high definition white light as the instrument was slowly withdrawn in a retrograde panoramic fashion. Retroflexion was performed in rectum. The procedure was not difficult. There were no immediate obvious complications. The quality of the prep was BBPS: 2+2+2 = adequate Withdrawal time 17 minutes. Limitations: No limitations. Findings: Mucosa: Normal to cecum and terminal ileum. Random cold forceps biopsies were taken from R and L side of the colon to r/o microscopic colitis. Protruding lesions: * 1 sessile polyp of size 4 mm in ascending colon. Cold snare polypectomy was performed. The polyp was completely removed and retrieved. * 2 sessile polyp of size 5-6 mm in sigmoid colon. Cold snare polypectomy was p erformed. The polyps were completely removed and retrieved. * Large internal hemorrhoids without stigmata of recent bleeding. Impression: 1. Normal colon and terminal ileum mucosa (biopsy) 2. Total of 3 polyps removed. 3. External and internal hemorrhoids 4. Prostatomegaly Recommendations: - Follow path results. - Repeat colonoscopy in 3-5 years if all polyps are adenomas, otherwise 7-10 years.
[2023-01-03 08:20] VITALS: BP 131/77; PULSE 76; RESP 16; TEMP 36.1; O2SAT 97
[2023-01-03 08:34] VITALS: BP 150/85; PULSE 75; RESP 16; TEMP 36.1; O2SAT 99
== END 2023-01-03 09:00 | disposition home or self-care (01) ==
PROVIDERS: PCP Internal Medicine; Visit Provider Internal Medicine
PROC: 0DJD8ZZ Inspection of Lower Intestinal Tract, Via Natural or Artificial Opening Endoscopic (ICD-10-PCS; CPT 45378; principal; 2023-01-03 07:30)
DX: R19.5 Other fecal abnormalities (principal); K52.9 Noninfective gastroenteritis and colitis, unspecified; K63.5 Polyp of colon; R10.9 Unspecified abdominal pain; R14.0 Abdominal distension (gaseous); K57.90 Diverticulosis of intestine, part unspecified, without perforation or abscess without bleeding; K64.8 Other hemorrhoids; K64.4 Residual hemorrhoidal skin tags; N40.0 Benign prostatic hyperplasia without lower urinary tract symptoms; J44.9 Chronic obstructive pulmonary disease, unspecified; F17.210 Nicotine dependence, cigarettes, uncomplicated; Z79.82 Long term (current) use of aspirin; Z79.899 Other long term (current) drug therapy; Z88.2 Allergy status to sulfonamides
CPT/HCPCS: 45385; 45380; 88305; 94640

== ENCOUNTER → 2023-01-03 06:12 | Outpatient (BNV) | payer MEDICARE, SELFPAY | PROVIDERS: PCP Internal Medicine; Visit Provider Internal Medicine | DX: K52.9 Noninfective gastroenteritis and colitis, unspecified (principal); D12.2 Benign neoplasm of ascending colon; D12.5 Benign neoplasm of sigmoid colon; K64.8 Other hemorrhoids; K63.89 Other specified diseases of intestine | CPT/HCPCS: 45380; 45385 ==

== ENCOUNTER 2023-01-10 08:30 | Outpatient (AMB) | payer MEDICARE, SELFPAY ==
[2023-01-10 08:31] VITALS: BP 126/74; PULSE 51; O2SAT 100; BMI 26.9
--- NOTE | 2023-01-10 08:31 | MHC.PC.OV ---
Vital Signs 01/10/23 08:31 Height 5 ft 9 in Weight 182 lb BMI 26.9 BP 126/74 Blood Pressure Location Lt brachial Position Sitting Pulse 51 Pulse Source Pulse Oximeter Pulse Oximetry (%) 100 Oxygen Delivery Method Room Air Intake Visit Reasons: Annual PE Intake Note: Pt is here today for PE. Allergies morphine [MORPHINE] Allergy (Unknown, Verified 01/10/23 08:33) ITCHY Sulfa (Sulfonamide Antibiotics) [SULFA (SULFONAMIDE ANTIBIOTICS)] Allergy (Unknown, Verified 01/10/23 08:33) ITCHY Medication List - Last Reconciled 01/10/23 by Mallory Locke MD albuterol sulfate 90 mcg/actuation inhalation aspirin (Adult Low Dose Aspirin) 81 mg PO DAILY atorvastatin 20 mg PO DAILY ciclopirox 8% mL topical DAILY citalopram 40 mg PO mgwafgvkcdf-nmlvbskfh-fdgosknh 100-62.5-25 mcg (Trelegy Ellipta) 1 inh inhalation DAILY liothyronine mcg PO nystatin 500,000 units PO ONCE tamsulosin (Flomax) 0.4 mg PO BEDTIME testosterone 1 packet topical thyroid (pork) 30 mg PO DAILY Tobacco use date assessed: 01/10/23 Dental Screening Dental Screen Date: 01/10/23 Did you have a dental visit in the last 12 months?: Yes Did you have a dental problem in the last 6 months where you did not have access to dental care?: No Was dental information given to patient?: Patient has dentist HPI Annual PE HPI Details Pt presents for PE. PFS Medical History (Updated 01/10/23 @ 09:03 by Mallory Locke MD) History of fracture of left ankle Hyperlipidemia Bladder pain Benign prostatic hyperplasia Tobacco dependence Annual physical exam Thoracic outlet syndrome Anxiety COPD (chronic obstructive pulmonary disease) Hypothyroidism Left lumbar radiculopathy Disc degeneration, lumbar Disc degeneration, lumbosacral Blood clot in vein Surgical History History of cholecystectomy History of surgery Hx of colonoscopy Family History Paternal Uncle Colon cancer Paternal Grandmother Colon cancer Other Mental health disorder Social History Housing: House Patient Tobacco Use Status: Current everyday Tobacco user Tobacco use type: Cigarette Cigarette Packs Per Day: 0.5 Cigarettes Per Day: 10 e-Cigarette/Vaping Use: Never Used Current occupational status: disabled Current occupation: left handed Cognitive needs: No Hearing needs: No Vision needs: No Questionnaire PHQ-9 Over the last 2 weeks, how often have you been bothered by any of the following problems? 1. Little interest or pleasure in doing things: several days 2. Feeling down, depressed, or hopeless: several days 3. Trouble falling or staying asleep, or sleeping too much: not at all 4. Feeling tired or having little energy: more than half the days 5. Poor appetite or overeating: not at all 6. Feeling bad about yourself - or that you are a failure or have let yourself or your family down: several days 7. Trouble concentrating on things, such as reading the newspaper or watching television: not at all 8. Moving or speaking so slowly that other people could have noticed. Or the opposite - being so fidgety or restless that you have been moving around a lot more than usual: not at all 9. Thoughts that you would be better off or of hurting yourself in some way: not at all Total score: 5 Depression Screening Interpretation: Negative Depression Screening Done: Yes Source: Developed by Drs. Rusty Morales, Roxana Mercer, Devante Cote and colleagues, with an educational milton from [employer]. Thrive Questionnaire Date Thrive assessed: 01/10/23 I am a: Patient What is your living situation today?: I have a steady place to live Within the past 12 months, did the food you bought not last and you didn't have the money to get more?: Never true Within the past 12 months, did you worry whether your food would run out before you got money to buy more?: Never true Do you have trouble paying for medicines?: No Do you have trouble getting transportation to medical appointments?: No Do you have trouble paying your heating and electricity bill?: No Do you have trouble taking care of your child, family member or friend?: No Do you have trouble with day-to-day activities such as bathing, preparing meals, shopping, managing finances, etc.?: No Are you currently unemployed and looking for a job?: No Are you interested in more education?: No Please select the resources that you would like help with: None AUDIT C Alcohol Use Questionnaire (AUDIT-C) 1. How often do you have a drink containing alcohol?: Monthly or less 2. How many drinks containing alcohol do you have on a typical day when you are drinking?: 1 or 2 3. How often do you have six or more drinks on one occasion?: Never Total Score: 1 CLAUDE-7 AMB Questionnaire CLAUDE-7 Date CLAUDE - 7 assessed: 01/10/23 Feeling nervous, anxious, or on edge: 1 = Several days Not being able to stop or control worryin = Several days Worrying too much about different things: 2 = More than half the days Trouble relaxin = Not at all Being so restless that it is hard to sit still: 0 = Not at all Becoming easily annoyed or irritable: 1 = Several days Feeling afraid as if something awful might happen: 0 = Not at all Total CLAUDE-7 score (0-4 normal; 5-9 mild; 10-14 moderate; 15-21 severe): 5 Source: Developed by Drs. Rusty Morales, Roxana Mercer, Devante Cote and colleagues, with an educational milton from [employer]. Review of Systems Const All systems reviewed & are unremarkable except as noted in HPI and below Reports no additional complaints Eyes Reports no additional complaints ENT Reports no additional complaints Card Reports no additional complaints Resp Reports no additional complaints GI Reports no additional complaints Reports no additional complaints Musc Reports no additional complaints Physical exam (Primary Care) Vital Signs: Last Vital Signs Pulse 51 01/10/23 08:31 BP 126/74 01/10/23 08:31 Pulse Ox 100 01/10/23 08:31 Oxygen Delivery Method Room Air 01/10/23 08:31 BMI result Body Mass Index 26.9 Tobacco/Smoking Status: Tobacco use Status Tobacco use date assessed 01/10/23 01/10/23 08:37 Patient Tobacco Use Status Current everyday Tobacco 01/10/23 08:31 Tobacco use type Cigarette 01/10/23 08:31 e-Cigarette/Vaping Use Never Used 01/10/23 08:31 Depression Screening Interpretation: Negative Thrive Assessment: Date of Thrive Assessment Date Thrive assessed 05/31/21 01/10/23 08:31 Const General: no acute distress HENMT Ears: hearing grossly normal bilaterally Mouth: Normal oral and palatal mucosa present Throat: Yes posterior oropharynx normal Neck Neck: Yes no lymphadenopathy and Yes supple Resp Effort & Inspection: normal respiratory effort Auscultation: clear to auscultation bilaterally Cardio Rhythm: regular rhythm Heart sounds: S1 normal heart sound present and S2 normal heart sound present GI Inspection: Yes normal to inspection Palpation (GI): Soft to palpation Percussion: Yes normal to percussion Assessment and Plan Assessment & Plan (1) Hyperlipidemia: Code(s): E78.5 - Hyperlipidemia, unspecified Plan: cont statin (2) Annual physical exam: Code(s): Z00.00 - Encounter for general adult medical examination without abnormal findings Plan: well balanced diet, regular exercise, tobacco quitting discussed (3) COPD (chronic obstructive pulmonary disease): Comment: f/u Dr. Saavedra Code(s): J44.9 - Chronic obstructive pulmonary disease, unspecified Plan: cont Trelegy (4) Hypothyroidism: Comment: [facility] Code(s): E03.9 - Hypothyroidism, unspecified Plan: cont thyroid replacement, check TSH Orders: Orders Comprehensive [place]. Panel Fast Today E03.9 - Hypothyroidism, unspecified, E78.5 - Hyperlipidemia, unspecified, J44.9 - Chronic obstructive pulmonary disease, unspecified, Z00.00 - Encounter for general adult medical examination without abnormal findings Complete Blood Count Auto Diff Today E03.9 - Hypothyroidism, unspecified, E78.5 - Hyperlipidemia, unspecified, J44.9 - Chronic obstructive pulmonary disease, unspecified, Z00.00 - Encounter for general adult medical examination without abnormal findings Lipid Panel Today E03.9 - Hypothyroidism, unspecified, E78.5 - Hyperlipidemia, unspecified, J44.9 - Chronic obstructive pulmonary disease, unspecified, Z00.00 - Encounter for general adult medical examination without abnormal findings Testosterone, Free/Total Today E03.9 - Hypothyroidism, unspecified, E78.5 - Hyperlipidemia, unspecified, J44.9 - Chronic obstructive pulmonary disease, unspecified, Z00.00 - Encounter for general adult medical examination without abnormal findings TSH reflex Free T4 Today E03.9 - Hypothyroidism, unspecified, E78.5 - Hyperlipidemia, unspecified, J44.9 - Chronic obstructive pulmonary disease, unspecified, Z00.00 - Encounter for general adult medical examination without abnormal findings PSA,Total (Free>4and<10) Today E03.9 - Hypothyroidism, unspecified, E78.5 - Hyperlipidemia, unspecified, J44.9 - Chronic obstructive pulmonary disease, unspecified, Z00.00 - Encounter for general adult medical examination without abnormal findings UA w Microscopic Today E03.9 - Hypothyroidism, unspecified, E78.5 - Hyperlipidemia, unspecified, J44.9 - Chronic obstructive pulmonary disease, unspecified, Z00.00 - Encounter for general adult medical examination without abnormal findings Coding Level of Care Code Est Pt Prev Care 40-64y(97050) Diagnoses Hyperlipidemia E78.5 Annual physical exam Z00.00 COPD (chronic obstructive pulmonary disease) J44.9 Hypothyroidism E03.9
== END 2023-01-10 09:14 | disposition home or self-care (01) ==
PROVIDERS: PCP Internal Medicine; Visit Provider Internal Medicine
DX: E78.5 Hyperlipidemia, unspecified (principal); Z00.00 Encounter for general adult medical examination without abnormal findings; J44.9 Chronic obstructive pulmonary disease, unspecified; E03.9 Hypothyroidism, unspecified
CPT/HCPCS: 99396

== ENCOUNTER 2023-01-14 09:03 | Outpatient (AMB) | payer MEDICARE, SELFPAY ==
--- NOTE | 2023-01-14 09:07 | A.OFFVIS_ITS ---
Intake Vital Signs 01/14/23 09:13 Height 5 ft 9 in Weight 182 lb 15.739 oz BMI 27.0 BP 141/79 H Blood Pressure Location Lt brachial Position Sitting Pulse 82 Intake Visit Reasons: S/p colon Intake Note: Francois presents in the office as a follow up colonoscopy. CC: No concerns since his procedure. He states that the antibiotics worked - he is no longer bloated but he still has diarrhea in the mornings. Allergies morphine [MORPHINE] Allergy (Unknown, Verified 01/14/23 09:13) ITCHY Sulfa (Sulfonamide Antibiotics) [SULFA (SULFONAMIDE ANTIBIOTICS)] Allergy (Unknown, Verified 01/14/23 09:13) ITCHY HPI HPI Comments History of Present Illness Details This is a 62y.o M with PMH of COPD, BPH, anxiety who presents for screening colonoscopy however as multiple GI issues as below. Pt reports that almost for the past 20 years he has had intermittent RLQ abdominal pain associated with bloating and diarrhea. It feels as if he is blocked up and when he switches himselt to NPO/clear liquids for a few days, it gets better. He also notices worsening of sx with gluten containing foods but has never been diagnsoed with celiac disease. Not associated with fevers, nausea, vomiting. Has been seen by GI in the past, most recently at [facility] and un derwent EGD/colo, VCE and was eventually given the diagnosis of IBS. Also describes getting a CTE through a different provider and was told he has narrowing of small intestine but again does not recall being told about IBD. He reports similar sx in his daughter who is in her 30s and is undergoing work up for it. Does smoke 0.5PPD daily, also repors frequent NSAID use at least 2-3 times a week. 10/22/22: Reviewed labs with the pt and that specifically fecal calprotectin came back elevated along with the CRP. CT Abd/pel appeared grossly normal. Pt reports persistent bloating but diarrhea is better now that hes back on gluten restricted diet. 11/23/22: Came in for urgent visit today for lower abd pain and cramping x 5 days. Went camping last weekend and reports onset of abd pain even before it but got wore within 2 days. Assoc with low grade fevers, chills, nausea and aversion to food. No diarrhea. No sick contacts. Now eating but pain is still persistent and just as severe. Describes it as RLQ pain which radiates to his back. No relation to bowel movements. No dysuria reported. CT Abd/pel from last month with diverticulosis but otherwise normal. Mat for colo in Dec for elevated fecal calpro. 01/03/23: [place] Impression: 1. Normal colon and terminal ileum mucos a (biopsy) 2. Total of 3 polyps removed. 3. External and internal hemorrhoids 4. Prostatomegaly Path: A. Colon, right, biopsy: Mildly active colitis. B. Colon, ascending, polypectomy: Colonic mucosa with mild surface hyperplastic changes. C. Colon, left, biopsy: Colonic mucosa within normal limits. D. Colon, sigmoid, polypectomies (2): Hyperplastic mucosal polyp 01/14/23: Pt had already started to feel better even before the colo since taking Abx prescribed empirically for infectious colitis vs diverticulitis. See documentation 11/23. [place] results and path reviewed. Acute colitis, likely had resolving infectious colitis, no stigmata of background chronicity noted on path - this was reviewed and confirmed by the reading pathologist again. Pt also wonders if had SIBO since sx resolved after Abx course and advised that given overlapping sx of infectious colitis, SIBO and IBS difficult to determine and while mildly elevated fecal calpro can be seen with SIBO would not expect acute colitis changes. Also reports 3-4 frequent BMs in the morning which has been a chronic issue for him. To recall pt is s/p CCY. [facility] Medical History (Updated 01/10/23 @ 09:03 by Mallory Locke MD) History of fracture of left ankle Hyperlipidemia Bladder pain Benign prostatic hyperplasia Tobacco dependence Annual physical exam Thoracic outlet syndrome Anxiety COPD (chronic obstructive pulmonary disease) Hypothyroidism Left lumbar radiculopathy Disc degeneration, lumbar Disc degeneration, lumbosacral Blood clot in vein Surgical History History of cholecystectomy History of surgery Hx of colonoscopy Family History Paternal Uncle Colon cancer Paternal Grandmother Colon cancer Other Mental health disorder Social History Housing: House Patient Tobacco Use Status: Current everyday Tobacco user Tobacco use type: Cigarette Cigarette Packs Per Day: 0.5 Cigarettes Per Day: 10 e-Cigarette/Vaping Use: Never Used Current occupational status: disabled Current occupation: left handed Cognitive needs: No Hearing needs: No Vision needs: No Review of Systems Const All systems reviewed & are unremarkable except as noted in HPI and below Physical Exam Vital Signs: Last Vital Signs Pulse 82 01/14/23 09:13 BP 141/79 H 01/14/23 09:13 BMI result Body Mass Index 27.0 Gen appear: NAD HEENT: nonicteric, no cervical lymphadenopathy Chest: CTA CVS: Regular S1/S2 Abd: soft, mild tenderness in RLQ, small reducible umbilical hernia Ext: no peripheral edema Neuro: A/Ox3, noted to move all extremities spontaneously Psych: interacting appropriately Assessment & Plan Assessment & Plan (1) Abdominal pain: Code(s): R10.9 - Unspecified abdominal pain (2) Diarrhea: Code(s): R19.7 - Diarrhea, unspecified Plan Abd bloating and pain resolved since receivng Abx at last visit. As above, reviewed that in hind sight difficult to determine if his sx were due to infectious colitis vs diverticulitis vs SIBO as a CT was not pursued at that time. Limited role of breath test for SIBO at this juncture since sx resolved but can be considered in future if they recur. No evidence of chronic including microscopic colitis on colo/path. Reviewed that morning diarrhea in the absence of correlating abd pain could be secondary to bile acid diarrhea and to trial loperamide in AM which can be repeated through the day as needed. If no significant response to loperamide, can trial cholestyramine. In terms of CRC screening, next colo due in 10 years. Pt prefers to follow up as needed. Medications: New loperamide (Anti-Diarrheal (loperamide)) 2 mg PO BID 30 days 60 caps 0RF loose stool Coding Level of Care Code Est Pt Level 4 (33376) Diagnoses Abdominal pain R10.9 Diarrhea R19.7
[2023-01-14 09:13] VITALS: BP 141/79; PULSE 82; BMI 27.0
== END 2023-01-14 09:35 | disposition home or self-care (01) ==
PROVIDERS: PCP Internal Medicine; Visit Provider Internal Medicine
DX: R10.9 Unspecified abdominal pain (principal); R19.7 Diarrhea, unspecified
CPT/HCPCS: 99214

== ENCOUNTER → 2023-01-14 09:03 | Outpatient (BNVA) | payer MEDICARE, SELFPAY | PROVIDERS: PCP Internal Medicine; Visit Provider Internal Medicine | DX: R10.9 Unspecified abdominal pain (principal); R19.7 Diarrhea, unspecified | CPT/HCPCS: 99212 ==

== ENCOUNTER 2023-02-19 10:21 | Outpatient (AMB) | payer MEDICARE, SELFPAY ==
--- NOTE | 2023-02-19 10:23 | MHC.OFFVIS ---
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 He was last seen in our office in [address] Smith and has underwent repeated Left L5-S1 TFESI injection for left sided radiculopathy with good relief. Patient reports since then he underwent left L5-S1 discectomy on 04/20/21 and redo left L5-S1 minimally invasive discectomy on 12/21/[address] Kelly. His last follow up with Dr. Kelly was on 06/15/22 for ongoing left buttock and left leg pain and had another left L5-S1 TFESI at [facility]. He was supposed to follow up if pain is not improved but has not made any follow up since last injection by Neurosurgery providers. Today he reports of low back pain that radiates to his left buttock and left thigh and into his lower leg laterally and posteriorly with associated intermittent weakness. Patient notes that he has history of left ankle surgery with metalic hardware in place. Patient reports he does not have any significant numbness or tingling in his left lower extremity. He reports about 4 weeks ago he was getting out of car and felt a stabbing pain with spasming and locking sensation in his left lower back for about 2 weeks. This improved after seeing chiropractors, NSAIDs and heat therapy. Patient reports his movements improved but he continues to be in significant pain that affects his daily functioning, activities, mood, sleep and social interactions. Pain is worse with walking, weight bearing or bending down and relieved in reclined supine position. He rates pain at 8/10 and cannot tolerate standing, sitting or walking during today's visit. Patient constantly adjusts his reclined position to alleviate his symptoms. Denies any fever, chills, weight loss, abdominal or groin pain, bladder or bowel dysfunction or saddle anesthesia. PRIOR Dr. Smith 12/14/20: Francois presents today as a follow-up after yet another L5-S1 left transforaminal epidural steroid injection. He reports better activities of daily living pain reduction about 80%, better social interaction, better mobility. The injection was done on 05/03/2020. It has been 6 months of excellent pain relief. Patient reported that his pain started to come back when he up lift the weight more than 30 lb and immediately felt pain going back into his leg. I will schedule his injection as L5-S1 left transforaminal epidural steroid injection accordingly without sedation. History of pain for 8 years, without any inciting events or trauma. He denies any surgical history to his back. He had some injections in his lower back about 7 years ago by thoracic medicine specialist at [place] however does not recall if these were particularly helpful. He has previously tried PT, home traction, chiropractic treatment, and Tylenol/Ibuprofen for his pain without significant benefit. . He reports a constant aching left-sided lower back pain with shooting radiation down his posterior left leg extending to bottom of his left foot. This is associated with numbness and tingling. At times he feels weakness in the left leg. His PCP ordered an MRI of his lumbar spine however this was apparently denied. He denies any fever, chills, saddle anesthesia, or bowel/bladder dysfunction. [facility] Medical History (Updated 02/19/23 @ 20:20 by SONA Almendarez) History of fracture of left ankle Hyperlipidemia Bladder pain Benign prostatic hyperplasia Tobacco dependence Annual physical exam Thoracic outlet syndrome Anxiety COPD (chronic obstructive pulmonary disease) Hypothyroidism Left lumbar radiculopathy Disc degeneration, lumbar Disc degeneration, lumbosacral Blood clot in vein Surgical History (Updated 02/19/23 @ 20:20 by SONA Almendarez) History of lumbar discectomy (12/21/21) History of cholecystectomy History of surgery Hx of colonoscopy Family History Paternal Uncle Colon cancer Paternal Grandmother Colon cancer Other Mental health disorder (Reviewed 02/19/23 @ 10:34 by KASSY Almendarez Housing: House Patient Tobacco Use Status: Current everyday Tobacco user Tobacco use type: Cigarette Cigarette Packs Per Day: 0.5 Cigarettes Per Day: 10 e-Cigarette/Vaping Use: Never Used Current occupational status: disabled Current occupation: left handed Cognitive needs: No Hearing needs: No Vision needs: No Review of Systems Const All systems reviewed & are unremarkable except as noted in HPI and below Physical Exam Vital Signs: Last Vital Signs Pulse 98 02/19/23 10:30 BP 165/74 H 02/19/23 10:30 Pulse Ox 97 02/19/23 10:30 Oxygen Delivery Method Room Air 02/19/23 10:30 BMI result Body Mass Index 27.1 General: Appears afebrile. Alert and oriented. Mood and affect appropriate. Follows and participates in conversation appropriately. Respiratory effort is unlabored. No cough. Able to transition from sit to stand unassisted. Ambulates with bilaterally normal heel strike and toe off, reports pain with heel walking on the left. Back/Spine/Pelvis Other: Limited back exam due to moderate to severe pain reproduced with extension, flexion and bending. Antalgic gait with limping. Demonstrates 5/5 right and 4/5 left strength of quadriceps as well as flexion/dorsiflexion of bilateral feet against resistance. 2+ pedal pulses bilaterally. Seated straight leg rise with dorsiflexion negative bilaterally. Diminished patellar and achilles reflexes bilaterally. Facet loading test positive bilaterally. Parul sign, Saad?s, Pelvic compression and Stinchfield tests are negative bilaterally. No groin pain with I/E hip rotations. Significant paraspinals tenderness mostly on the left side, lower back. Valsalva maneuver negative. Cervical Spine: cervical ROM normal and No Cervical spine tenderness Thoracic/Lumbar Spine: thoracic and lumbar spine normal to inspection, Thoracic/lumbar spine scar(s), pain with thoraco-lumbar ROM, paraspinal muscle tenderness, thoraco-lumbar ROM limited, No thoracic spinal tenderness and lumbar spinal tenderness at L5 Pelvis: buttock tenderness on the left Sacroiliac joints: bilaterally nontender Results Reviewed Results Reviewed: Assessment & Plan Assessment & Plan (1) Lumbar post-laminectomy syndrome: Code(s): M96.1 - Postlaminectomy syndrome, not elsewhere classified (2) Muscle spasm of back: Code(s): M62.830 - Muscle spasm of back (3) Left lumbar radiculopathy: Code(s): M54.16 - Radiculopathy, lumbar region (4) Disc degeneration, lumbar: Code(s): M51.36 - Other intervertebral disc degeneration, lumbar region (5) History of lumbar discectomy: Onset Date: 12/21/21 Comment: 04/20/21 Left L5-S1 discectomy Dr. Kelly 12/21/21 Redo Left L5-S1 Minimally invasive discectomy Code(s): Z98.890 - Other specified postprocedural states Plan Lumbar spine imaging to assess degree of degenerative changes, any subluxation, listhesis, compression fractures or pars defects. Patient is status post back surgeries x2 left L5-S1 discectomy and redo MIS with symptoms similar prior to his back surgeries. He underwent multiple Left L5-S1 TFESI prior back surgery by Dr. Smith and earlier this year by Neurosurgically with continued symptoms. We discussed interventional treatments for short and longer term pain management as well as consideration of returning to Dr. Kelly. At this time, will proceed with Caudal LISA with catheter with sedation and fluoroscopy. Expectations, risks and benefits were reviewed. Patient is aware he will be contacted to schedule this procedure. In meantime, for significant acute on chronic back pain with chronic left radiculopathy, I will provide him short script of oxycodone, lidocaine patch, NSAID and muscle relaxant. Side effects and precautions were discussed with patient and his today. We also discussed neuromodulation with SCS trial and implant for a longer term pain relief if no sustained relief after Caudal ILSA. All questions were answered and the patient is in agreement of plan. Follow-up after injections and sooner as needed. Orders: Orders XR lumbar spine 6V w bending Today M54.16 - Radiculopathy, lumbar region, M96.1 - Postlaminectomy syndrome, not elsewhere classified Medications: New lidocaine 5% 1 patch topical DAILY 30 days 30 ea 0RF pain M54.16 - Radiculopathy, lumbar region, M96.1 - Postlaminectomy syndrome, not elsewhere classified diclofenac potassium Take it with food and full glass of water. Avoid other NSAIDs. 50 mg PO BID PRN 60 tabs 0RF pain M54.16 - Radiculopathy, lumbar region, M96.1 - Postlaminectomy syndrome, not elsewhere classified cyclobenzaprine 5 mg PO TID PRN 90 tabs 0RF muscle spasm M54.16 - Radiculopathy, lumbar region, M62.830 - Muscle spasm of back, M96.1 - Postlaminectomy syndrome, not elsewhere classified oxycodone Partial Fill upon patient request. 5 mg PO Q8H 10 days PRN 30 tabs 0RF pain M54.16 - Radiculopathy, lumbar region, M96.1 - Postlaminectomy syndrome, not elsewhere classified Coding Level of Care Code Est Pt Level 4 (85351) Diagnoses Lumbar post-laminectomy syndrome M96.1 Muscle spasm of back M62.830 Left lumbar radiculopathy M54.16 Disc degeneration, lumbar M51.36 History of lumbar discectomy Z98.890
[2023-02-19 10:30] VITALS: BP 165/74; PULSE 98; O2SAT 97; BMI 27.1
== END 2023-02-19 11:06 | disposition home or self-care (01) ==
PROVIDERS: PCP Internal Medicine; Visit Provider Nurse Practitioner Family
DX: M96.1 Postlaminectomy syndrome, not elsewhere classified (principal); M62.830 Muscle spasm of back; M54.16 Radiculopathy, lumbar region; M51.36 Other intervertebral disc degeneration, lumbar region; Z98.890 Other specified postprocedural states
CPT/HCPCS: 99214

== ENCOUNTER → 2023-02-19 10:21 | Outpatient (BNVA) | payer MEDICARE, SELFPAY | PROVIDERS: PCP Internal Medicine; Visit Provider Nurse Practitioner Family | DX: M96.1 Postlaminectomy syndrome, not elsewhere classified (principal); M62.830 Muscle spasm of back; M54.16 Radiculopathy, lumbar region; M51.36 Other intervertebral disc degeneration, lumbar region; Z98.890 Other specified postprocedural states | CPT/HCPCS: 99212 ==

== ENCOUNTER 2023-02-19 11:13 | Outpatient (REF) | payer MEDICARE, SELFPAY ==
--- NOTE | ~2023-02-19 | XR_ITS ---
EXAMINATION: XR LUMBOSACRAL SPINE WITH OBLIQUES CLINICAL INFORMATION: Postlaminectomy syndrome, not elsewhere classified. Best obtainable images due to patient pain per technologist. COMPARISON: MRI lumbar spine of 03/04/2019. Radiographs lumbar spine of 02/16/2019. TECHNIQUE: 9 views of the lumbar spine inclusive of flexion and extension views. FINDINGS: Surgical clips in the right upper quadrant of the abdomen. Redemonstration of multiple endplate changes characteristic of Schmorl's nodes, better characterized on prior MRI. Slight rightward curvature of the lumbar spine. Facet arthritis in the lower lumbar spine. Mild multilevel lumbar spondylosis. Alignment maintained on flexion and extension views. Moderate loss of disc space height at L5-S1. Degenerative changes in the imaged lower thoracic spine. XR/XR lumbar spine 6V w bending IMPRESSION: Multilevel lumbar spondylosis with moderate loss of disc space height at L5-S1.
== END 2023-02-19 11:14 | disposition home or self-care (01) ==
LOC: HO.XRAY 11:13
PROVIDERS: PCP Internal Medicine; Visit Provider Nurse Practitioner Family
DX: M96.1 Postlaminectomy syndrome, not elsewhere classified (principal); M54.16 Radiculopathy, lumbar region
CPT/HCPCS: 72114

== ENCOUNTER 2023-03-08 08:47 | Outpatient (REF) | payer MEDICARE, SELFPAY ==
--- NOTE | ~2023-03-08 | CT_ITS ---
EXAMINATION: CT CHEST LOW-DOSE SCREENING WITHOUT CONTRAST HISTORY: Asymptomatic patient meeting criteria for lung screening. No history of lung carcinoma. PATIENT PACK-YEAR HISTORY: 39 Current Smoker: Yes If former smoker, years since quitting: Not applicable COMPARISON: Low dose screening CT scan of lungs on 03/20/2022 TECHNIQUE: Multidetector volumetric non-contrast CT imaging of the chest was obtained on a Definition 64 scanner using low dose screening CT technique. Axial thin section 0.625 mm reformations in soft tissue and lung windows were obtained. Sagittal and coronal reformations were obtained. Axial MIP images were also created and reviewed. RECONSTRUCTED WIDTH: 1.25 mm x 1.[address] examination was performed using dose optimization techniques as appropriate, variously including the following: *Automated exposure control *Adjustment of mA and/or kV according to patient size (this includes techniques or standardized protocols for targeted exams where dose is matched to indication/reason for exam; i.e. extremities or head) *Use of iterative reconstruction technique TOTAL EXAM DLP: 54 mGy-cm CTDIvol: 1.40 mGy FINDINGS: LUNGS: Paraseptal emphysematous bullae are seen at medial border of right middle lobe medial inferior left lower lobe beneath the left ventricle. Sagittal reoriented atelectasis is seen along the medial border of bilateral lower lobe posterior basal segments. No effusion or pneumothorax. Central airways patent. -At least one micronodule (nodule measuring less than 4 mm) is present without interval change. LYMPHATIC STRUCTURES: No mediastinal, hilar or axillary adenopathy or free fluid collection. THYROID GLAND: Unremarkable to the extent seen. CARDIOVASCULAR STRUCTURES: Aortic and heart size normal. Moderate coronary artery calcifications. No pericardial effusion. UPPER ABDOMEN: Included portions of the solid organs in the upper abdomen unremarkable on noncontrast imaging. Surgical clips are seen in the gallbladder fossa. OSSEOUS STRUCTURES: No suspicious focal findings. SPINAL COMPRESSION: Absent. Multilevel degenerative thoracic disc disease is seen. CT/CT lung screening IMPRESSION: No findings suspicious for malignancy/pulmonary nodule(s)/other. LUNG-RADS CATEGORY ASSESSMENT: 2: Benign INCIDENTAL FINDINGS (S CATEGORY): Finding: No incidental findings. Significance category: Normal or normal variant. RECOMMENDATION: Low dose lung CT. overall in 1 year. Visual estimate of coronary calcified plaque burden: Moderate. However, this exam cannot replace a dedicated cardiac CT calcium score for accurate assessment.
== END 2023-03-08 08:48 | disposition home or self-care (01) ==
LOC: HO.CT 08:47
PROVIDERS: PCP Internal Medicine; Visit Provider Physician Assistant Medical
DX: Z12.2 Encounter for screening for malignant neoplasm of respiratory organs (principal); F17.210 Nicotine dependence, cigarettes, uncomplicated
CPT/HCPCS: 71271

== ENCOUNTER 2023-03-14 10:43 | Day surgery (SDC) | payer MEDICARE, SELFPAY ==
[2023-03-12 11:52] VITALS: BMI 27.1
[2023-03-12 14:35] VITALS: BMI 27.0
--- NOTE | 2023-03-13 10:26 | HO.ANESPROP2 ---
Documented by User: Grace Osorio NP 03/13/23 10:29 HPI - Anesthesia Eval Consult details Narrative: 63yo M for Caudal Epidural Steroid Injection with catheter s/p colo 12/2022 with MAC PMF Active Problems Active Problems: All Active Problems (Updated 02/19/23 @ 20:20 by SONA Almendarez) History of lumbar discectomy (Acute 12/21/21) Muscle spasm of back (Acute) Lumbar radiculopathy (Acute) Lumbar post-laminectomy syndrome (Acute) Diverticulosis (Acute) Diarrhea (Acute) Bloating (Acute) Abdominal pain (Acute) Medial epicondylitis of left elbow (Acute) Upper respiratory infection, viral (Acute) Hyperlipidemia (Acute) Bladder pain (Acute) Benign prostatic hyperplasia (Acute) Tobacco dependence (Acute) Annual physical exam (Acute) Thoracic outlet syndrome (Acute) Hx of colonoscopy (Acute) Anxiety (Acute) COPD (chronic obstructive pulmonary disease) (Acute) Hypothyroidism (Acute) Left lumbar radiculopathy (Acute) Disc degeneration, lumbar (Acute) Disc degeneration, lumbosacral (Acute) Past Medical History Medical History History of fracture of left ankle Hyperlipidemia Bladder pain Benign prostatic hyperplasia Tobacco dependence Annual physical exam Thoracic outlet syndrome Anxiety COPD (chronic obstructive pulmonary disease) Hypothyroidism Left lumbar radiculopathy Disc degeneration, lumbar Disc degeneration, lumbosacral Blood clot in vein Family History Family History Paternal Uncle Colon cancer Paternal Grandmother Colon cancer Other Mental health disorder Family history of problems with anesthesia: No Surgical History Surgical History (Updated 03/14/23 @ 10:55 by Sharifa Shane RN) Hx of hand surgery History of ankle surgery History of lumbar discectomy (12/21/21) History of cholecystectomy History of surgery Hx of colonoscopy History of Problems with Anesthesia: No Social History Social History (Updated 03/12/23 @ 14:39 by Catia Butcher RN) Housing: House Are you a primary out of school hours care worker to a significant other at home: No Do you presently have visiting nurse or other home services: No Patient Tobacco Use Status: Current everyday Tobacco user Tobacco use type: Cigarette Cigarette Packs Per Day: 0.75 Cigarettes Per Day: 15.0 Years Smoked: 40 Smoked in Last 30 Days: Yes e-Cigarette/Vaping Use: Never Used Use of substances other than those prescribed or required for medical reasons: Yes Substance Use Type: Marijuana Substance Use Frequency: Occasionally Have you been hit, kicked, punched, or otherwise hurt by someone within the past year? If so, by whom?: No Are you DNR?: No Advance Directives: No Advance Directives Information Provided: Yes Advance Directives on File: No Recently lost weight without trying: No Nutrition Risks: No Nutritional Risk Poor oral hygiene: No Current occupational status: disabled Current occupation: left handed Cognitive needs: No Hearing needs: No Vision needs: No Meds Allergies Allergy/AdvReac Type Severity Reaction Status Date / Time morphine [MORPHINE] Allergy Intermediate ITCHY Verified 03/14/23 10:55 Sulfa (Sulfonamide Allergy Intermediate ITCHY Verified 03/14/23 10:55 Antibiotics) [SULFA (SULFONAMIDE ANTIBIOTICS)] Home Medications Medication Instructions Recorded Confirmed Last Taken Type albuterol sulfate 90 mcg/actuation inhalation Q4-6H PRN Shortness Of 04/14/20 01/10/23 06/28/22 History aerosol inhaler Breath Or Wheezing liothyronine 5 mcg tablet mcg PO 04/14/20 01/10/23 03/14/23 08:00 History thyroid (pork) 30 mg tablet 30 mg PO DAILY 04/14/20 03/12/23 03/14/23 08:00 History aspirin 81 mg tablet,delayed 81 mg PO DAILY 05/31/21 03/12/23 02/28/23 History release (Adult Low Dose Aspirin) citalopram 40 mg tablet 40 mg PO 09/03/22 01/10/23 Unknown History testosterone 50 mg/5 gram (1 %) 1 packet topical 09/03/22 01/10/23 Unknown History transdermal gel ciclopirox 8 % topical solution ml topical DAILY 11/23/22 01/10/23 Unknown History Exam Height,Weight and Vital Signs: Height 5 ft 9 in Weight 83.007 kg Pertinent Lab Results Pertinent Lab Results: Laboratory Tests 11/23/22 16:18 WBC 9.1 Hgb 16.0 Hct 48.6 Plt Count 294 Sodium 138 Potassium 3.7 Chloride 103 Carbon Dioxide 27 BUN 14 Creatinine 0.89 Assessment and Plan Assessment Anesthesia Assessment: Chart Reviewed Final Anesthetic Review Family History of Problems with Anesthesia: No History of Problems with Anesthesia: No Documented by User: Marquis Monterroso MD 03/14/23 12:55 PMFSH Past Medical History Medical History History of fracture of left ankle Hyperlipidemia Bladder pain Benign prostatic hyperplasia Tobacco dependence Annual physical exam Thoracic outlet syndrome Anxiety COPD (chronic obstructive pulmonary disease) Hypothyroidism Left lumbar radiculopathy Disc degeneration, lumbar Disc degeneration, lumbosacral Blood clot in vein Family History Family History Paternal Uncle Colon cancer Paternal Grandmother Colon cancer Other Mental health disorder Surgical History Surgical History (Updated 03/14/23 @ 10:55 by Sharifa Shane RN) Hx of hand surgery History of ankle surgery History of lumbar discectomy (12/21/21) History of cholecystectomy History of surgery Hx of colonoscopy Social History Social History (Updated 03/12/23 @ 14:39 by Catia Butcher RN) Housing: House Are you a primary out of school hours care worker to a significant other at home: No Do you presently have visiting nurse or other home services: No Patient Tobacco Use Status: Current everyday Tobacco user Tobacco use type: Cigarette Cigarette Packs Per Day: 0.75 Cigarettes Per Day: 15.0 Years Smoked: 40 Smoked in Last 30 Days: Yes e-Cigarette/Vaping Use: Never Used Use of substances other than those prescribed or required for medical reasons: Yes Substance Use Type: Marijuana Substance Use Frequency: Occasionally Have you been hit, kicked, punched, or otherwise hurt by someone within the past year? If so, by whom?: No Are you DNR?: No Advance Directives: No Advance Directives Information Provided: Yes Advance Directives on File: No Recently lost weight without trying: No Nutrition Risks: No Nutritional Risk Poor oral hygiene: No Current occupational status: disabled Current occupation: left handed Cognitive needs: No Hearing needs: No Vision needs: No Meds Allergies Allergy/AdvReac Type Severity Reaction Status Date / Time morphine [MORPHINE] Allergy Intermediate ITCHY Verified 03/14/23 10:55 Sulfa (Sulfonamide Allergy Intermediate ITCHY Verified 03/14/23 10:55 Antibiotics) [SULFA (SULFONAMIDE ANTIBIOTICS)] Home Medications Medication Instructions Recorded Confirmed Last Taken Type albuterol sulfate 90 mcg/actuation inhalation Q4-6H PRN Shortness Of 04/14/20 01/10/23 06/28/22 History aerosol inhaler Breath Or Wheezing liothyronine 5 mcg tablet mcg PO 04/14/20 01/10/23 03/14/23 08:00 History thyroid (pork) 30 mg tablet 30 mg PO DAILY 04/14/20 03/12/23 03/14/23 08:00 History aspirin 81 mg tablet,delayed 81 mg PO DAILY 05/31/21 03/12/23 02/28/23 History release (Adult Low Dose Aspirin) citalopram 40 mg tablet 40 mg PO 09/03/22 01/10/23 Unknown History testosterone 50 mg/5 gram (1 %) 1 packet topical 09/03/22 01/10/23 Unknown History transdermal gel ciclopirox 8 % topical solution ml topical DAILY 11/23/22 01/10/23 Unknown History Exam Airway Mallampati Class: I TM Dist: >3cm Neck ROM: Full Loose/Missing/Broken Teeth: No Heart: ok Lungs: ok Assessment and Plan Assessment Anesthesia Assessment: Anesthesia Plan Discussed Final Anesthetic Review NPO: Yes ASA Class: II Final Preanesthetic Review: No Changes in Pt Med Stat, Meds/Allgs Chart Reviewed, Consent Obtained/Reviewed and Anes Risks/Benef Reviewed Patient Risk: Intermediate Procedure Risk: Intermediate Anesthetic Plan Anesthetic Plan: MAC: and Agree w/ Assess. and Plan Disposition: Standard PACU
--- NOTE | ~2023-03-14 | FL_ITS ---
EXAMINATION: XR FLUOROSCOPY WITH IMAGES CLINICAL INFORMATION: Caudal epidural steroid injection with catheter. COMPARISON: None available. TECHNIQUE: Fluoroscopy Supervised By: Dr. Eddi Smith. Fluoroscopy Time: 0.2 minutes. Cumulative Dose: 3.62 mGy. DAP: 0.0629 Gycm2. Images: 3. FINDINGS: Initial image demonstrates needle projecting over the spinal canal of the lower sacrum. Later images demonstrate left-sided epidural contrast opacification of the lower lumbar spine and sacrum on the left. FL/FL guidance in OR IMPRESSION: Fluoroscopy guidance for pain management procedure.
[2023-03-14 10:58] VITALS: BMI 26.1
[2023-03-14 11:00] VITALS: BP 160/94; PULSE 83; RESP 15; TEMP 36.3; O2SAT 98
[2023-03-14] MEDS: Lactated Ringers 1,000 ML 100 ML IVCONT (11:15)
--- NOTE | 2023-03-14 13:13 | PM.OP ---
Brief Operative Note Date of Service: 03/14/23 Pre-op diagnosis: postlaminectomy syndrome Post-op diagnosis: same Procedure: caudal LISA with catheter Surgeon: Eddi Smith MD Anesthesia: MAC Was an Tape Edge Machine Operator used for this Procedure?: No Estimated blood loss (mL): 0 Condition: stable Disposition: PACU
--- NOTE | 2023-03-14 13:14 | W.PM.OPN ---
Operative Note Operative Note Date of Service: 03/14/23 Narrative: CAUDAL EPIDURAL STEROID INJECTION WITH CATHETER AFTER OBTAINING INFORMED CONSENT AND EXPLANATION ABOUT RISKS AND BENEFITS, INCLUDING BUT NOT LIMITED TO NERVE DAMAGE EPIDURAL HEMATOMA EPIDURAL ABSCESS AND OTHER UNSPECIFIED RISKS. THE PATIENT WAS POSITIONED PRONE ON THE OPERATING TABLE [employer] MONITORS WERE APPLIED AND PATIENT WAS DEEPLY SEDATED. TIME-OUT WAS OBTAINED DELINEATING CORRECT SIDE AND SITE OF THE PROCEDURE, PATIENT NAME AND DATE OF , NEED OF THE ANTIBIOTIC WHICH IS NONE FOR THIS PROCEDURE, RISK OF FIRE. LOWER BACK IN TIRE BUTTOCKS AND INTERGLUTEAL CREASE WERE PREPPED WITH CHLORAPREP AND DRAPED WITH STERILE UTILITY TOWELS. C-ARM WAS BROUGHT OVER THE OPERATING FIELD AND PICTURE OF PATIENT'S PELVIS WITH SACRAL HIATUS SUPERIMPOSED ON SYMPHYSIS PUBIS IMAGE WAS OBTAINED ON THE SCREEN. 2.CM BELOW THE SACRAL HIATUS OPENING INJECTION OF THE LOCAL ANESTHETIC 2.% WAS PERFORMED INTO THE SKIN. AFTER THAT 18 GAUGE 10 CM TOUHY NEEDLE WAS INSERTED THROUGH THE SKIN WHEAL AND ADVANCED TO WERE THE OPENING OF SACRAL HIATUS AND SACRAL CANAL UNDER ANTERIOR POSTERIOR LATERAL INTERMITTENT VIEWS. WHEN TIP OF THE NEEDLE ENTERED THE SACRAL CANAL INJECTION OF THE CONTRAST PERFORMED DELINEATING EPIDURAL SPREAD OF THE CONTRAST. AFTER THAT 22 GAUGE EPIDURAL CATHETER WAS INSERTED THROUGH THE NEEDLE AND ADVANCED INTO THE NEEDLE UNTIL RESISTANCE WAS MET AT 22 CM. C-ARM WAS TURNED INTO AP POSITION AND INJECTION OF THE CONTRAST WAS PERFORMED INTO THE CATHETER. THE SPREAD OF THE CONTRAST WAS IN ANTERIOR EPIDURAL SPACE L5-S1 VERTEBRA. AFTER THAT NORMAL SALINE 0.9% 30 CC WAS INJECTED INTO THE CATHETER. AFTER THAT INJECTION OF THE LIDOCAINE 2% 3 CC MIXED WITH KENALOG 40 MG WAS INJECTED INTO THE CATHETER. THE PATIENT TOLERATED PROCEDURE FAIRLY WELL. THE NEEDLE WAS REMOVED EN MASS RESIDUAL CATHETER THE TIP OF THE EPIDURAL CATHETER WAS INTACT . STERILE DRESSING WITH BACITRACIN WAS APPLIED..
[2023-03-14 13:23] VITALS: BP 123/75; PULSE 84; RESP 18; TEMP 36.7; O2SAT 94
[2023-03-14 13:28] VITALS: BP 127/76; PULSE 76; RESP 16; O2SAT 94
[2023-03-14 13:30] VITALS: BP 133/80; PULSE 72; RESP 18; O2SAT 94
[2023-03-14 13:35] VITALS: BP 141/84; PULSE 72; RESP 16; O2SAT 94
[2023-03-14 13:50] VITALS: BP 147/90; PULSE 74; RESP 16; TEMP 36.7; O2SAT 94
== END 2023-03-14 14:30 | disposition home or self-care (01) ==
PROVIDERS: PCP Internal Medicine; Visit Provider Anesthesiology
PROC: 3E0R3GC Introduction of Other Therapeutic Substance into Spinal Canal, Percutaneous Approach (ICD-10-PCS; CPT 62322; principal; 2023-03-14 12:20)
DX: M96.1 Postlaminectomy syndrome, not elsewhere classified (principal); M54.16 Radiculopathy, lumbar region; M51.36 Other intervertebral disc degeneration, lumbar region; M62.830 Muscle spasm of back; J44.9 Chronic obstructive pulmonary disease, unspecified; E78.5 Hyperlipidemia, unspecified; E03.9 Hypothyroidism, unspecified; N40.0 Benign prostatic hyperplasia without lower urinary tract symptoms; Z98.890 Other specified postprocedural states; Z88.2 Allergy status to sulfonamides; Z88.5 Allergy status to narcotic agent; F17.210 Nicotine dependence, cigarettes, uncomplicated
CPT/HCPCS: 62323; J2250; J2704; J2795; J3010; J3301; Q9965

== ENCOUNTER → 2023-03-14 10:43 | Outpatient (BNV) | payer MEDICARE, SELFPAY | PROVIDERS: PCP Internal Medicine; Visit Provider Anesthesiology | DX: M96.1 Postlaminectomy syndrome, not elsewhere classified (principal) | CPT/HCPCS: 62323 ==

== ENCOUNTER 2023-03-28 09:53 | Outpatient (AMB) | payer MEDICARE, SELFPAY ==
--- NOTE | 2023-03-28 09:59 | A.OFFVIS_ITS ---
Intake Vital Signs 03/28/23 10:07 Height 5 ft 9.5 in Weight 181 lb BMI 26.3 BP 138/88 Blood Pressure Location Lt brachial Position Sitting Respiration 17 Pulse 96 Pulse Source Pulse Oximeter Pulse Oximetry (%) 98 Oxygen Delivery Method Room Air Intake Visit Reasons: Follow Up/Procedure Discussion Allergies morphine [MORPHINE] Allergy (Intermediate, Verified 03/28/23 10:07) ITCHY Sulfa (Sulfonamide Antibiotics) [SULFA (SULFONAMIDE ANTIBIOTICS)] Allergy (Intermediate, Verified 03/28/23 10:07) ITCHY HPI HPI Comments History of Present Illness Details Francois is back in my office after the Caudal LISA with catheter which was performed on . He denies significant pain relieve from this injection, pain relieve was less than 25% and lasted less than the week. After that his pain came back to pre-existing level.He was last seen in our office in 2020 underwent repeated Left L5-S1 TFESI injection for left sided radiculopathy with good relief. H/o left L5-S1 discectomy on 04/20/21 and redo left L5-S1 minimally invasive discectomy on 12/21/[address] Kelly. His last follow up with Dr. Kelly was on 06/15/22 for ongoing left buttock and left leg pain and had another left L5-S1 TFESI at [facility]. He was supposed to follow up if pain is not improved but has not made any follow up since last injection by Neurosurgery providers. Immediately after his surgery he experience up to 80% of pain relieve. He enjoyed good pain relieve for 6-8 months until mis December 2022 when he was sitting up into his truck he started to fill again pain to his left buttock and left thigh and into his lower leg laterally and posteriorly with associated intermittent weakness in the left LE. This improved after seeing chiropractors, NSAIDs and heat therapy. Patient reports his movements improved but he continues to be in significant pain that affects his daily functioning, activities, mood, sleep and social interactions. Pain is worse with walking, weight bearing or bending down and relieved in reclined supine position. He rates pain at 8/10 and cannot tolerate standing, sitting or walking during today's visit. Patient constantly adjusts his reclined position to alleviate his symptoms. Denies any fever, chills, weight loss, abdominal or groin pain, bladder or bowel dysfunction or saddle anesthesia.He did not go with this pain complaints back to DR. Kelly. He wants to schedule an appointment with this surgeon in the nearest future. H/o left ankle surgery with metalic hardware in place. Denies numbness or tingling in his left lower extremity. This improved after seeing chiropractors, NSAIDs and heat therapy. L5-S1 left transforaminal epidural steroid injection 05/03/2020 resulted in improvement activities of daily living pain reduction about 80%, better social interaction, better mobility for 6 months of excellent pain relief. the same procedure was performed on. Before that on 01/18/2021 he went for yet another L5-S1 left TFESI after which he had 5-6 months susteained pain relieve. History of pain for 8 years, without any inciting events or trauma. He denies any surgical history to his back. He had some injections in his lower back about 7 years ago by personal lines agent at [place] however does not recall if these were particularly helpful. He has previously tried PT, home traction, chiropractic treatment, and Tylenol/Ibuprofen for his pain without significant benefit. [facility] Medical History History of fracture of left ankle Hyperlipidemia Bladder pain Benign prostatic hyperplasia Tobacco dependence Annual physical exam Thoracic outlet syndrome Anxiety COPD (chronic obstructive pulmonary disease) Hypothyroidism Left lumbar radiculopathy Disc degeneration, lumbar Disc degeneration, lumbosacral Blood clot in vein Surgical History (Updated 03/14/23 @ 10:55 by Sharifa Shane RN) Hx of hand surgery History of ankle surgery History of lumbar discectomy (12/21/21) History of cholecystectomy History of surgery Hx of colonoscopy Family History Paternal Uncle Colon cancer Paternal Grandmother Colon cancer Other Mental health disorder Social History (Updated 03/12/23 @ 14:39 by Catia Butcher RN) Housing: House Are you a primary director day care center to a significant other at home: No Do you presently have visiting nurse or other home services: No Patient Tobacco Use Status: Current everyday Tobacco user Tobacco use type: Cigarette Cigarette Packs Per Day: 0.75 Cigarettes Per Day: 15.0 Years Smoked: 40 e-Cigarette/Vaping Use: Never Used Substance Use Type: Marijuana Current occupational status: disabled Current occupation: left handed Cognitive needs: No Hearing needs: No Vision needs: No Review of Systems Const All systems reviewed & are unremarkable except as noted in HPI and below Physical Exam Vital Signs: Last Vital Signs Pulse 96 03/28/23 10:07 Resp 17 03/28/23 10:07 BP 138/88 03/28/23 10:07 Pulse Ox 98 03/28/23 10:07 Oxygen Delivery Method Room Air 03/28/23 10:07 BMI result Body Mass Index 26.3 General: Appears afebrile. Alert and oriented. Mood and affect appropriate. Follows and participates in conversation appropriately. Respiratory effort is unlabored. No cough. Able to transition from sit to stand unassisted. Ambulates with bilaterally normal heel strike and toe off, reports pain with heel walking on the left. Back/Spine/Pelvis Other: Limited back exam due to moderate to severe pain reproduced with extension, flexion and bending. Antalgic gait with limping. Demonstrates 5/5 right and 4/5 left strength of quadriceps as well as flexion/dorsiflexion of bilateral feet against resistance. 2+ pedal pulses bilaterally. Seated straight leg rise with dorsiflexion negative bilaterally. Diminished patellar and achilles reflexes bilaterally. Facet loading test positive bilaterally. Parul sign, Saad?s, Pelvic compression and Stinchfield tests are negative bilaterally. No groin pain with I/E hip rotations. Significant paraspinals tenderness mostly on the left side, lower back. Valsalva maneuver negative. Cervical Spine: cervical ROM normal and No Cervical spine tenderness Thoracic/Lumbar Spine: thoracic and lumbar spine normal to inspection, Thoracic/lumbar spine scar(s), pain with thoraco-lumbar ROM, paraspinal muscle tenderness, thoraco-lumbar ROM limited, No thoracic spinal tenderness and lumbar spinal tenderness at L5 Pelvis: buttock tenderness on the left Sacroiliac joints: bilaterally nontender Assessment & Plan Assessment & Plan (1) Lumbar post-laminectomy syndrome: Code(s): M96.1 - Postlaminectomy syndrome, not elsewhere classified (2) Muscle spasm of back: Code(s): M62.830 - Muscle spasm of back (3) Left lumbar radiculopathy: Code(s): M54.16 - Radiculopathy, lumbar region (4) Disc degeneration, lumbar: Code(s): M51.36 - Other intervertebral disc degeneration, lumbar region (5) History of lumbar discectomy: Onset Date: 12/21/21 Comment: 04/20/21 Left L5-S1 discectomy Dr. Kelly 12/21/21 Redo Left L5-S1 Minimally invasive discectomy Code(s): Z98.890 - Other specified postprocedural states Plan Patient is status post back surgeries x2 left L5-S1 discectomy and redo MIS with symptoms similar prior to his back surgeries. He underwent multiple Left L5-S1 TFESI prior back surgery by Dr. Smith and earlier this year by Neurosurgically with continued symptoms. We discussed interventional treatments for short and longer term pain management as well as consideration of returning to Dr. Kelly. He will schedule a f/u appointment with Dr. Kelly. Caudal LISA with catheter resulted in minimal pain relive less than a week. Neuromodulation explained, brochures about ITDD and SCS were given to the patient. He will go for psychological evaluation while getting information from the brochures. I explained him that I do not mind to try both modalities and see which one will give him the best pain relive. Patient Instructions: I hereby testify that I spent 30 minutes in conversation with this patient, evaluating his prior record, planning his care and organizing his note. Coding Level of Care Code Est Pt Level 4 (84923) Diagnoses Lumbar post-laminectomy syndrome M96.1 Muscle spasm of back M62.830 Left lumbar radiculopathy M54.16 Disc degeneration, lumbar M51.36 History of lumbar discectomy Z98.890
[2023-03-28 10:07] VITALS: BP 138/88; PULSE 96; RESP 17; O2SAT 98; BMI 26.3
== END 2023-03-28 10:49 | disposition home or self-care (01) ==
PROVIDERS: PCP Internal Medicine; Visit Provider Anesthesiology
DX: M96.1 Postlaminectomy syndrome, not elsewhere classified (principal); M62.830 Muscle spasm of back; M54.16 Radiculopathy, lumbar region; M51.36 Other intervertebral disc degeneration, lumbar region; Z98.890 Other specified postprocedural states
CPT/HCPCS: 99214

== ENCOUNTER → 2023-03-28 09:53 | Outpatient (BNVA) | payer MEDICARE, SELFPAY | PROVIDERS: PCP Internal Medicine; Visit Provider Anesthesiology | DX: M96.1 Postlaminectomy syndrome, not elsewhere classified (principal); M62.830 Muscle spasm of back; M54.16 Radiculopathy, lumbar region; M51.36 Other intervertebral disc degeneration, lumbar region; Z98.890 Other specified postprocedural states | CPT/HCPCS: 99212 ==

== ENCOUNTER 2023-06-05 13:55 | Outpatient (AMB) | payer MEDICARE, SELFPAY ==
--- NOTE | 2023-06-05 13:59 | A.OFFVIS_ITS ---
Intake Vital Signs 06/05/23 14:00 Height 5 ft 9.5 in Weight 189 lb 9.561 oz BMI 27.6 BP 137/70 Blood Pressure Location Lt brachial Position Sitting Pulse 90 Intake Visit Reasons: Abdominal pain Intake Note: Francois presents in the office for abdominal pains. CC: He states that he gets bloating in his abdomen. He states Abx took care of it but now he is back to bloating and diarrhea. Allergies morphine [MORPHINE] Allergy (Intermediate, Verified 06/05/23 14:04) ITCHY Sulfa (Sulfonamide Antibiotics) [SULFA (SULFONAMIDE ANTIBIOTICS)] Allergy (Intermediate, Verified 06/05/23 14:04) ITCHY HPI HPI Comments History of Present Illness Details This is a 62y.o M with PMH of COPD, BPH, anxiety who presents for screening colonoscopy however as multiple GI issues as below. Pt reports that almost for the past 20 years he has had intermittent RLQ abdominal pain associated with bloating and diarrhea. It feels as if he is blocked up and when he switches himselt to NPO/clear liquids for a few days, it gets better. He also notices worsening of sx with gluten containing foods but has never been diagnsoed with celiac disease. Not associated with fevers, nausea, vomiting. Has been seen by GI in the past, most recently at [facility] and underwent EGD/colo, VCE and was eventually given the diagnosis of IBS. Also describes getting a CTE through a different provider and was told he has narrowing of small intestine but again does not recall being told about IBD. He reports similar sx in his daughter who is in her 30s and is undergoing work up for it. Does smoke 0.5PPD daily, also repors frequent NSAID use at least 2-3 times a week. 10/22/22: Reviewed labs with the pt and that specifically fecal calprotectin came back elevated along with the CRP. CT Abd/pel appeared grossly normal. Pt reports persistent bloating but diarrhea is better now that hes back on gluten restricted diet. 11/23/22: Came in for urgent visit today for lower abd pain and cramping x 5 days. Went camping last weekend and reports onset of abd pain even before it but got wore within 2 days. Assoc with low grade fevers, chills, nausea and aversion to food. No diarrhea. No sick contacts. Now eating but pain is still persistent and just as severe. Describes it as RLQ pain which radiates to his back. No relation to bowel movements. No dysuria reported. CT Abd/pel from last month with diverticulosis but otherwise normal. Mat for colo in Dec for elevated fecal calpro. 01/03/23: [facility] Impression: 1. Normal colon and terminal ileum mucos a (biopsy) 2. Total of 3 polyps removed. 3. External and internal hemorrhoids 4. Prostatomegaly Path: A. Colon, right, biopsy: Mildly active colitis. B. Colon, ascending, polypectomy: Colonic mucosa with mild surface hyperplastic changes. C. Colon, left, biopsy: Colonic mucosa within normal limits. D. Colon, sigmoid, polypectomies (2): Hyperplastic mucosal polyp 01/14/23: Pt had already started to feel better even before the colo since taking Abx prescribed empirically for infectious colitis vs diverticulitis. See documentation 11/23. [facility] results and path reviewed. Acute colitis, likely had resolving infectious colitis, no stigmata of background chronicity noted on path - this was reviewed and confirmed by the reading pathologist again. Pt also wonders if had SIBO since sx resolved after Abx course and advised that given overlapping sx of infectious colitis, SIBO and IBS difficult to determine and while mildly elevated fecal calpro can be seen with SIBO would not expect acute colitis changes. Also reports 3-4 frequent BMs in the morning which has been a chronic issue for him. To recall pt is s/p CCY. 06/05/23: Reports sx had gone away after Abx trial for 3 months and then returned a couple of months ago - mainly bloating, burping. Some nausea without vomiting. Also has frequent BMs with up to 5-6 BMs per day which are formed but soft. No fevers or chills. No unintentional weight loss. [facility] Medical History History of fracture of left ankle Hyperlipidemia Bladder pain Benign prostatic hyperplasia Tobacco dependence Annual physical exam Thoracic outlet syndrome Anxiety COPD (chronic obstructive pulmonary disease) Hypothyroidism Left lumbar radiculopathy Disc degeneration, lumbar Disc degeneration, lumbosacral Blood clot in vein Surgical History (Updated 06/05/23 @ 14:04 by JAXON Trevizo) History of esophagogastroduodenoscopy (EGD) Hx of hand surgery History of ankle surgery History of lumbar discectomy (12/21/21) History of cholecystectomy History of surgery Hx of colonoscopy Family History Paternal Uncle Colon cancer Paternal Grandmother Colon cancer Other Mental health disorder Social History Housing: House Are you a primary critical care clinical nurse specialist to a significant other at home: No Do you presently have visiting nurse or other home services: No Patient Tobacco Use Status: Current everyday Tobacco user Tobacco use type: Cigarette Cigarette Packs Per Day: 0.75 Cigarettes Per Day: 15.0 Years Smoked: 40 e-Cigarette/Vaping Use: Never Used Substance Use Type: Marijuana Current occupational status: disabled Current occupation: left handed Cognitive needs: No Hearing needs: No Vision needs: No Review of Systems Const All systems reviewed & are unremarkable except as noted in HPI and below Physical Exam Vital Signs: Last Vital Signs Pulse 90 06/05/23 14:00 BP 137/70 06/05/23 14:00 BMI result Body Mass Index 27.6 Gen appear: NAD HEENT: nonicteric, no cervical lymphadenopathy Chest: CTA CVS: Regular S1/S2 Abd: soft, nontender, mildly distended, bowel sounds + Ext: no peripheral edema Neuro: A/Ox3, noted to move all extremities spontaneously Psych: interacting appropriately Assessment & Plan Assessment & Plan (1) Abdominal pain: Code(s): R10.9 - Unspecified abdominal pain (2) Diarrhea: Code(s): R19.7 - Diarrhea, unspecified Plan Has episodic abd bloating, pain and diarrhea which resolved with Abx last time. Offered testing for SIBO vs empirically treating again and pt prefers testing. Informed of OOP cost. No evidence of chronic including microscopic colitis on colo/path. Plan: - SIBO testing - Soluble fiber supplementation - F/up in 8 weeks Coding Level of Care Code Est Pt Level 3 (65033) Diagnoses Abdominal pain R10.9 Diarrhea R19.7
[2023-06-05 14:00] VITALS: BP 137/70; PULSE 90; BMI 27.6
== END 2023-06-05 14:17 | disposition home or self-care (01) ==
PROVIDERS: PCP Internal Medicine; Visit Provider Internal Medicine
DX: R10.9 Unspecified abdominal pain (principal); R19.7 Diarrhea, unspecified
CPT/HCPCS: 99213

== ENCOUNTER → 2023-06-05 13:55 | Outpatient (BNVA) | payer MEDICARE, SELFPAY | PROVIDERS: PCP Internal Medicine; Visit Provider Internal Medicine | DX: R10.9 Unspecified abdominal pain (principal); R19.7 Diarrhea, unspecified | CPT/HCPCS: 99212 ==

== ENCOUNTER 2023-08-09 07:19 | Outpatient (REF) | payer MEDICARE, SELFPAY ==
[2023-08-09 10:26] LABS: MANUAL DIFF FLAG NO
[2023-08-09 10:52] LABS: Basophils Percent Auto 0.6 % (0-2); Eosinophils Absolute Auto 0.1 X10*3/uL (0.0-0.4); Eosinophils Percent Auto 2.1 % (0-4); Hematocrit 45.5 % (42.0-52.0); Imm Gran Abs Auto 0.01 X10*3/uL (0.00-0.03); Imm Gran Pct Auto 0.2 % (0.0-0.4); Lymphocytes Absolute Auto 1.8 X10*3/uL (1.2-4.9); Lymphocytes Percent Auto 27.8 % (20-40); Mean Corpuscular Hemoglobin 30.5 pg (27.0-33.0); Mean Corpuscular Volume 92.7 fL (80.0-98.0); Mean Platelet Volume 9.2 fL (9.4-12.4); Monocytes Absolute Auto 0.4 X10*3/uL (0.1-1.2); Monocytes Percent Auto 5.8 % (2-11); Neutrophils Percent Auto 63.5 % (45-73); Platelet Count 291 X10*3/uL (160-400); Red Blood Count 4.91 X10*6/uL (4.60-5.80); White Blood Count 6.3 X10*3/uL (4.8-10.8)
[2023-08-09 11:15] LABS: Alanine Aminotransferase 18 U/L (0-40); Albumin Level 4.1 g/dL (3.5-5.0); Alkaline Phosphatase 48 U/L (39-117); Anion Gap 13 (12-20); Aspartate Amino Transferase 17 U/L (5-37); Bilirubin Total 0.2 mg/dL (0.0-1.0); Blood Urea Nitrogen 13 mg/dL (9-16); Calcium 9.5 mg/dL (8.4-10.2); Carbon Dioxide 25 mmol/L (22-29); Chloride 108 mmol/L (96-108); Cholesterol 186 mg/dL (<200); Estimated Glomerular Filt Rate > 60; Glucose Fasting 117 mg/dL (60-99); HDL Cholesterol 43 mg/dL (>40); LDL Cholesterol Calculated 118 mg/dL (<100); Potassium 4.2 mmol/L (3.3-5.1); Sodium 142 mmol/L (135-145); Total Protein 6.6 g/dL (6.5-8.0); Triglycerides 128 mg/dL (<150)
[2023-08-09 11:23] LABS: PSA,Total (Free>4and<10) 1.64 ng/mL (0.00-4.00)
[2023-08-09 11:31] LABS: TSH reflex Free T4 2.02 uIU/mL (0.32-4.0)
[2023-08-09 11:32] LABS: Free T4 (Free Thyroxine) 0.68 ng/dL (0.71-1.85); Thyroid Stimulating Hormone 2.26 uIU/mL (0.32-4.0)
[2023-08-10 10:23] LABS: Triiodothyronine T3 Free 2.9 pg/mL (2.3-4.2)
[2023-08-10 20:57] LABS: DHEA Sulfate 54 mcg/dL (20-217)
[2023-08-12 13:13] LABS: Thyroglobulin 14.8 ng/mL; Thyroglobulin Antibodies <1 IU/mL (< or = 1); Thyroid Peroxidase Antibodies <1 IU/mL (<9)
[2023-08-15 18:08] LABS: Testosterone, Free 81.6 pg/mL (35.0-155.0); Testosterone, Total 434 ng/dL (250-1100)
[2023-08-17 04:19] LABS: Dihydrotestosterone 53 ng/dL (12-65)
== END 2023-08-09 07:20 | disposition home or self-care (01) ==
LOC: HO.HMGCLDS 07:19
PROVIDERS: Physician Assistant Surgical; PCP Internal Medicine; Referring Provider Nurse Practitioner Family; Visit Provider Internal Medicine
DX: Z00.00 Encounter for general adult medical examination without abnormal findings (principal); Z12.5 Encounter for screening for malignant neoplasm of prostate; E78.5 Hyperlipidemia, unspecified; J44.9 Chronic obstructive pulmonary disease, unspecified; E03.9 Hypothyroidism, unspecified; N40.1 Benign prostatic hyperplasia with lower urinary tract symptoms
CPT/HCPCS: 36415; 80053; 80061; 82627; 82642; 84153; 84402; 84403; 84432; 84439; 84443; 84481; 85025; 86376; 86800

== ENCOUNTER 2023-08-12 09:27 | Outpatient (AMB) | payer MEDICARE, SELFPAY ==
--- NOTE | 2023-08-12 09:30 | MHC.OFFVIS ---
Vital Signs 08/12/23 09:39 Height 5 ft 9 in Weight 188 lb 6 oz BMI 27.8 BP 163/91 H Blood Pressure Location Lt brachial Position Sitting Pulse 83 Intake Visit Reasons: 8 week follow up Sibo Intake Note: Patient is seen in office for 8 weeks follow up visit, following Sibo. Pt c/o: continued bloating was better after antbx then came back a month later, waiting for breath test results. Instructor Of Spanish Required: No Accompanied by: Self / Same As Patient Allergies morphine [MORPHINE] Allergy (Intermediate, Verified 08/12/23 09:41) ITCHY Sulfa (Sulfonamide Antibiotics) [SULFA (SULFONAMIDE ANTIBIOTICS)] Allergy (Intermediate, Verified 08/12/23 09:41) ITCHY HPI Comments Details: This is a 62y.o M with PMH of COPD, BPH, anxiety who presents for screening colonoscopy however as multiple GI issues as below. Pt reports that almost for the past 20 years he has had intermittent RLQ abdominal pain associated with bloating and diarrhea. It feels as if he is blocked up and when he switches himselt to NPO/clear liquids for a few days, it gets better. He also notices worsening of sx with gluten containing foods but has never been diagnsoed with celiac disease. Not associated with fevers, nausea, vomiting. Has been seen by GI in the past, most recently at [facility] and underwent EGD/colo, VCE and was eventually given the diagnosis of IBS. Also describes getting a CTE through a different provider and was told he has narrowing of small intestine but again does not recall being told about IBD. He reports similar sx in his daughter who is in her 30s and is undergoing work up for it. Does smoke 0.5PPD daily, also repors frequent NSAID use at least 2-3 times a week. 10/22/22: Reviewed labs with the pt and that specifically fecal calprotectin came back elevated along with the CRP. CT Abd/pel appeared grossly normal. Pt reports persistent bloating but diarrhea is better now that hes back on gluten restricted diet. 11/23/22: Came in for urgent visit today for lower abd pain and cramping x 5 days. Went camping last weekend and reports onset of abd pain even before it but got wore within 2 days. Assoc with low grade fevers, chills, nausea and aversion to food. No diarrhea. No sick contacts. Now eating but pain is still persistent and just as severe. Describes it as RLQ pain which radiates to his back. No relation to bowel movements. No dysuria reported. CT Abd/pel from last month with diverticulosis but otherwise normal. Mat for colo in Dec for elevated fecal calpro. 01/03/23: [place] Impression: 1. Normal colon and terminal ileum mucosa (biopsy) 2. Total of 3 polyps removed. 3. External and internal hemorrhoids 4. Prostatomegaly Path: A. Colon, right, biopsy: Mildly active colitis. B. Colon, ascending, polypectomy: Colonic mucosa with mild surface hyperplastic changes. C. Colon, left, biopsy: Colonic mucosa within normal limits. D. Colon, sigmoid, polypectomies (2): Hyperplastic mucosal polyp 01/14/23: Pt had already started to feel better even before the colo since taking Abx prescribed empirically for infectious colitis vs diverticulitis. See documentation 11/23. [place] results and path reviewed. Acute colitis, likely had resolving infectious colitis, no stigmata of background chronicity noted on path - this was reviewed and confirmed by the reading pathologist again. Pt also wonders if had SIBO since sx resolved after Abx course and advised that given overlapping sx of infectious colitis, SIBO and IBS difficult to determine and while mildly elevated fecal calpro can be seen with SIBO would not expect acute colitis changes. Also reports 3-4 frequent BMs in the morning which has been a chronic issue for him. To recall pt is s/p CCY. 06/05/23: Reports sx had gone away after Abx trial for 3 months and then returned a couple of months ago - mainly bloating, burping. Some nausea without vomiting. Also has frequent BMs with up to 5-6 BMs per day which are formed but soft. No fevers or chills. No unintentional weight loss. 08/12/23: Had to take another course of antibiotic. Cipro sent, which he completed just 2 days ago. Reports improvement in bloating, belching and bowel habits. Currently no abdominal pain. SIBO results negative. [facility] Medical History (Updated 07/29/23 @ 08:59 by Rosamaria Bustillos MD) History of fracture of left ankle Hyperlipidemia Bladder pain Benign prostatic hyperplasia Tobacco dependence Annual physical exam Thoracic outlet syndrome Anxiety COPD (chronic obstructive pulmonary disease) Hypothyroidism Left lumbar radiculopathy Disc degeneration, lumbar Disc degeneration, lumbosacral Blood clot in vein Surgical History History of esophagogastroduodenoscopy (EGD) Hx of hand surgery History of ankle surgery History of lumbar discectomy (12/21/21) History of cholecystectomy History of surgery Hx of colonoscopy Family History Paternal Uncle Colon cancer Paternal Grandmother Colon cancer Other Mental health disorder Social History Housing: House Are you a primary animal care supervisor to a significant other at home: No Do you presently have visiting nurse or other home services: No Patient Tobacco Use Status: Current everyday Tobacco user Tobacco use type: Cigarette Cigarette Packs Per Day: 0.75 Cigarettes Per Day: 15.0 Years Smoked: 40 e-Cigarette/Vaping Use: Never Used Substance Use Type: Marijuana Current occupational status: disabled Current occupation: left handed Cognitive needs: No Hearing needs: No Vision needs: No Review of Systems Const All systems reviewed & are unremarkable except as noted in HPI and below Physical Exam Vital Signs: Last Vital Signs Pulse 83 08/12/23 09:39 BP 163/91 H 08/12/23 09:39 BMI result Body Mass Index 27.8 No acute distress Abdomen soft, nontender Alert and oriented x3, normal gait Assessment & Plan Assessment & Plan (1) Abdominal pain: Code(s): R10.9 - Unspecified abdominal pain Category: Medical (2) Diarrhea: Code(s): R19.7 - Diarrhea, unspecified Category: Medical (3) Small intestinal bacterial overgrowth: Code(s): K63.8219 - Small intestinal bacterial overgrowth, unspecified Category: Medical Plan Discussed with the patient, the clinically most consistent with SIBO. We will recommend titrating off omeprazole to minimize recurrence. In addition, also reviewed low FODMAP diet. If has recurrence in <3m, will review other options such as elemental diet versus prophylactic antibiotic therapy. Also reviewed potential adverse effects to frequent antibiotic use including but not limited to C diff. Follow-up in 3-4 months Medications: Discontinued ciprofloxacin HCl (Cipro) Discontinued Reason: Doctor's Order 500 mg PO BID 10 days 20 tabs 0RF K63.8219 - Small intestinal bacterial overgrowth, unspecified Coding Level of Care Code Est Pt Level 3 (09322) Diagnoses Abdominal pain R10.9 Diarrhea R19.7 Small intestinal bacterial overgrowth K63.8219
[2023-08-12 09:39] VITALS: BP 163/91; PULSE 83; BMI 27.8
== END 2023-08-12 10:12 | disposition home or self-care (01) ==
PROVIDERS: PCP Internal Medicine; Visit Provider Internal Medicine
DX: R10.9 Unspecified abdominal pain (principal); R19.7 Diarrhea, unspecified; K63.8219 Small intestinal bacterial overgrowth, unspecified
CPT/HCPCS: 99213

== ENCOUNTER → 2023-08-12 09:27 | Outpatient (BNVA) | payer MEDICARE, SELFPAY | PROVIDERS: PCP Internal Medicine; Visit Provider Internal Medicine | DX: R10.9 Unspecified abdominal pain (principal); K63.8219 Small intestinal bacterial overgrowth, unspecified; R19.7 Diarrhea, unspecified | CPT/HCPCS: 99212 ==

== ENCOUNTER 2023-08-14 09:12 | Outpatient (AMB) | payer MEDICARE, SELFPAY ==
[2023-08-14 09:16] VITALS: BP 138/88; PULSE 77; O2SAT 97; BMI 27.5
--- NOTE | 2023-08-14 09:16 | A.OFFPC_ITS ---
Vital Signs 08/14/23 09:16 Height 5 ft 9 in Weight 186 lb BMI 27.5 BP 138/88 Blood Pressure Location Rt brachial Position Sitting Pulse 77 Pulse Source Pulse Oximeter Pulse Oximetry (%) 97 Oxygen Delivery Method Room Air Intake Visit Reasons: patient feel weak and tired Intake Note: Pt is here today for a sick visit. Pt c/o feeling weak and tired,headaches at night amd sweating. Allergies morphine [MORPHINE] Allergy (Intermediate, Verified 08/14/23 09:19) ITCHY Sulfa (Sulfonamide Antibiotics) [SULFA (SULFONAMIDE ANTIBIOTICS)] Allergy (Intermediate, Verified 08/14/23 09:19) ITCHY atorvastatin Adverse Reaction (Intermediate, Verified 08/14/23 10:33) myalgia Medication List - Last Reconciled 08/14/23 by Mallory Locke MD albuterol sulfate 90 mcg/actuation inhalation Q4-6H PRN aspirin (Adult Low Dose Aspirin) 81 mg PO DAILY citalopram 30 mg PO ihnlgfpuvhp-eyhhctkdx-kjrroddo 100-62.5-25 mcg (Trelegy Ellipta) 1 inh inhalation DAILY liothyronine mcg PO rosuvastatin (Crestor) 20 mg PO DAILY tamsulosin (Flomax) 0.4 mg PO BEDTIME testosterone 1 packet topical thyroid (pork) 30 mg PO DAILY Tobacco use date assessed: 08/14/23 Fall risk assessment: No Falls in past year Last assessed Fall Risk: 08/14/23 Dental Screening Dental Screen Date: 08/14/23 Did you have a dental visit in the last 12 months?: Yes Did you have a dental problem in the last 6 months where you did not have access to dental care?: No Was dental information given to patient?: Patient has dentist HPI patient feel weak and tired HPI Details Patient presents for the follow-up of hyperlipidemia and COPD. He stopped taking atorvastatin because of muscle aches. He reports episode of chest pain radiating to his back occasionally with physical activity but also at rest lasting a few minutes and worsening dyspnea on exertion. Patient denies palpitations, PND orthopnea. he has intermittent wheezing and cough on and off but COPD is overall well controlled on Trelegy. Patient continues to smoke a pack a day and is trying to quit. he follows up with [facility] for hypothyroidism. [facility] Medical History History of fracture of left ankle Hyperlipidemia Bladder pain Benign prostatic hyperplasia Tobacco dependence Annual physical exam Thoracic outlet syndrome Anxiety COPD (chronic obstructive pulmonary disease) Hypothyroidism Left lumbar radiculopathy Disc degeneration, lumbar Disc degeneration, lumbosacral Blood clot in vein Surgical History History of esophagogastroduodenoscopy (EGD) Hx of hand surgery History of ankle surgery History of lumbar discectomy (12/21/21) History of cholecystectomy History of surgery Hx of colonoscopy Family History Paternal Uncle Colon cancer Paternal Grandmother Colon cancer Other Mental health disorder Social History Housing: House Are you a primary nursing care attendant to a significant other at home: No Do you presently have visiting nurse or other home services: No Patient Tobacco Use Status: Current everyday Tobacco user Tobacco use type: Cigarette Cigarette Packs Per Day: 0.75 Cigarettes Per Day: 15.0 Years Smoked: 40 e-Cigarette/Vaping Use: Never Used Substance Use Type: Marijuana service: No Current occupational status: disabled Current occupation: left handed Cognitive needs: No Hearing needs: No Vision needs: No Questionnaire Thrive Questionnaire Date Thrive assessed: 01/10/23 AUDIT C Alcohol Use Questionnaire (AUDIT-C) 1. How often do you have a drink containing alcohol?: Monthly or less 2. How many drinks containing alcohol do you have on a typical day when you are drinking?: 1 or 2 3. How often do you have six or more drinks on one occasion?: Never Total Score: 1 CLAUDE-7 AMB Questionnaire CLAUDE-7 Date CLAUDE - 7 assessed: 01/10/23 Source: Developed by Drs. Rusty Morales, Roxana Mercer, Devante Cote and colleagues, with an educational milton from [employer] Review of Systems Const All systems reviewed & are unremarkable except as noted in HPI and below Eyes Reports no additional complaints ENT Reports no additional complaints Card Reports no additional complaints Resp Reports no additional complaints GI Reports no additional complaints Reports no additional complaints Physical exam (Primary Care) Vital Signs: Last Vital Signs Pulse 77 08/14/23 09:16 Pulse Ox 97 08/14/23 09:16 Oxygen Delivery Method Room Air 08/14/23 09:16 BMI result Body Mass Index 27.5 Tobacco/Smoking Status: Tobacco use Status Tobacco use date assessed 08/14/23 08/14/23 09:19 Patient Tobacco Use Status Current everyday Tobacco 08/14/23 09:17 Tobacco use type Cigarette 08/14/23 09:17 e-Cigarette/Vaping Use Never Used 08/14/23 09:17 Thrive Assessment: Date of Thrive Assessment Date Thrive assessed 01/10/23 08/14/23 09:17 Const General: no acute distress HENMT Head: Yes normal to inspection Mouth: Normal oral and palatal mucosa present Resp Effort & Inspection: normal respiratory effort Auscultation: clear to auscultation bilaterally Cardio Rhythm: regular rhythm Heart sounds: S1 normal heart sound present and S2 normal heart sound present GI Inspection: Yes normal to inspection Palpation (GI): Soft to palpation Assessment and Plan Assessment & Plan (1) Chest pain: Code(s): R07.9 - Chest pain, unspecified Plan: EKG showed normal sinus rhythm no ST-T changes, patient will be referred for nuclear stress test (2) COPD (chronic obstructive pulmonary disease): Comment: f/u Dr. Saavedra Code(s): J44.9 - Chronic obstructive pulmonary disease, unspecified Plan: Continue Trelegy and tobacco quitting discussed with the patient (3) HTN (hypertension): Code(s): I10 - Essential (primary) hypertension Plan: Start 80 mg of valsartan ,check basic metabolic panel in 2 weeks ,follow-up in 6 weeks. Low-sodium diet regular physical activity discussed with the (4) Hyperlipidemia: Comment: Intolerant to atorvastatin Code(s): E78.5 - Hyperlipidemia, unspecified Plan: Start 20 mg of Crestor and Co Q10 check lipid profile in 6 weeks (5) Hypothyroidism: Comment: [facility] Code(s): E03.9 - Hypothyroidism, unspecified Plan: Continue thyroid replacement Orders: Orders NM cardiolite stress test Today R07.9 - Chest pain, unspecified Comprehensive [place]. Panel Fast 6 Weeks E78.5 - Hyperlipidemia, unspecified, I10 - Essential (primary) hypertension, J44.9 - Chronic obstructive pulmonary disease, unspecified AMB EKG-In Office Today I10 - Essential (primary) hypertension, R07.9 - Chest pain, unspecified CA stress test Today R07.9 - Chest pain, unspecified Basic Metabolic Panel 2 Weeks E78.5 - Hyperlipidemia, unspecified, I10 - Essential (primary) hypertension, J44.9 - Chronic obstructive pulmonary disease, unspecified Lipid Panel 6 Weeks E78.5 - Hyperlipidemia, unspecified, I10 - Essential (primary) hypertension, J44.9 - Chronic obstructive pulmonary disease, unspecified Complete Blood Count Auto Diff 6 Weeks E78.5 - Hyperlipidemia, unspecified, I10 - Essential (primary) hypertension, J44.9 - Chronic obstructive pulmonary disease, unspecified Medications: New rosuvastatin (Crestor) 20 mg PO DAILY 90 tabs 1RF Coding Level of Care Code Est Pt Level 5 (11549) Diagnoses Chest pain R07.9 COPD (chronic obstructive pulmonary disease) J44.9 HTN (hypertension) I10 Hyperlipidemia E78.5 Hypothyroidism E03.9
== END 2023-08-14 10:34 | disposition home or self-care (01) ==
PROVIDERS: PCP Internal Medicine; Visit Provider Internal Medicine
DX: R07.9 Chest pain, unspecified (principal); J44.9 Chronic obstructive pulmonary disease, unspecified; I10 Essential (primary) hypertension; E78.5 Hyperlipidemia, unspecified; E03.9 Hypothyroidism, unspecified
CPT/HCPCS: 93000; 99214

== ENCOUNTER 2023-09-04 14:36 | Outpatient (AMB) | payer MEDICARE, SELFPAY ==
[2023-09-04 14:41] VITALS: BP 120/82; PULSE 92; TEMP 37.1; O2SAT 93; BMI 27.5
--- NOTE | 2023-09-04 14:41 | MHC.OFFWIV ---
Intake Vital Signs 09/04/23 14:41 Height 5 ft 9 in Weight 186 lb BMI 27.5 BP 120/82 Blood Pressure Location Rt brachial Position Sitting Pulse 92 Pulse Source Pulse Oximeter Temp 98.8 F Temp Source Oral Pulse Oximetry (%) 93 Oxygen Delivery Method Room Air Intake Visit Reasons: EP diarrhea, tired ?medication change Intake Note: pt is here for diarrhea, fatigue due to changing his cholesterol medication for the last 4 days Patient Tobacco Use Status: Current everyday Tobacco user Allergies morphine [MORPHINE] Allergy (Intermediate, Verified 09/04/23 14:42) ITCHY Sulfa (Sulfonamide Antibiotics) [SULFA (SULFONAMIDE ANTIBIOTICS)] Allergy (Intermediate, Verified 09/04/23 14:42) ITCHY atorvastatin Adverse Reaction (Intermediate, Verified 09/04/23 14:42) myalgia Do you need a note to return to daycare/school/sports/work: No HPI HPI Comments History of Present Illness Details 63 y/o male c/o diarrhea x 4 days after change of cholesterol med (Crestor) by PCP. WAs on atorvastatin and D/C due to myalgias. Denies other symptoms PFSH Medical History History of fracture of left ankle Hyperlipidemia Bladder pain Benign prostatic hyperplasia Tobacco dependence Annual physical exam Thoracic outlet syndrome Anxiety COPD (chronic obstructive pulmonary disease) Hypothyroidism Left lumbar radiculopathy Disc degeneration, lumbar Disc degeneration, lumbosacral Blood clot in vein Surgical History History of esophagogastroduodenoscopy (EGD) Hx of hand surgery History of ankle surgery History of lumbar discectomy (12/21/21) History of cholecystectomy History of surgery Hx of colonoscopy Family History Paternal Uncle Colon cancer Paternal Grandmother Colon cancer Other Mental health disorder Social History Housing: House Are you a primary patient care provider to a significant other at home: No Do you presently have visiting nurse or other home services: No Patient Tobacco Use Status: Current everyday Tobacco user Tobacco use type: Cigarette Cigarette Packs Per Day: 0.75 Cigarettes Per Day: 15.0 Years Smoked: 40 e-Cigarette/Vaping Use: Never Used Substance Use Type: Marijuana service: No Current occupational status: disabled Current occupation: left handed Cognitive needs: No Hearing needs: No Vision needs: No Review of Systems Const All systems reviewed & are unremarkable except as noted in HPI and below Physical Exam Vital Signs: Last Vital Signs Temp 98.8 F 09/04/23 14:41 Pulse 92 09/04/23 14:41 BP 120/82 09/04/23 14:41 Pulse Ox 93 09/04/23 14:41 Oxygen Delivery Method Room Air 09/04/23 14:41 BMI result Body Mass Index 27.5 Assessment & Plan Assessment & Plan (1) Medication adverse effect: Code(s): T50.905A - Adverse effect of unspecified drugs, medicaments and biological substances, initial encounter Plan: The patient will D/C Crestor and contact PCP for new recommendation Plan see plan Coding Level of Care Code Est Pt Level 3 (85283) Diagnoses Medication adverse effect T50.905A
== END 2023-09-04 15:45 | disposition home or self-care (01) ==
PROVIDERS: PCP Internal Medicine; Visit Provider Physician Assistant Medical
DX: T50.905A Adverse effect of unspecified drugs, medicaments and biological substances, initial encounter (principal)
CPT/HCPCS: 99213

== ENCOUNTER 2023-09-21 08:11 | Outpatient (REF) | payer MEDICARE, SELFPAY ==
[2023-09-21 11:29] LABS: MANUAL DIFF FLAG NO
[2023-09-21 11:33] LABS: Basophils Percent Auto 0.5 % (0-2); Eosinophils Absolute Auto 0.2 X10*3/uL (0.0-0.4); Eosinophils Percent Auto 1.9 % (0-4); Hematocrit 46.3 % (42.0-52.0); Hemoglobin 15.2 g/dl (14.0-18.0); Imm Gran Abs Auto 0.02 X10*3/uL (0.00-0.03); Imm Gran Pct Auto 0.2 % (0.0-0.4); Lymphocytes Percent Auto 23.9 % (20-40); Mean Corpuscular HGB Conc 32.8 g/dl (31.0-36.0); Mean Corpuscular Hemoglobin 30.2 pg (27.0-33.0); Monocytes Absolute Auto 0.6 X10*3/uL (0.1-1.2); Monocytes Percent Auto 6.8 % (2-11); Neutrophils Absolute Auto 5.7 x10*3/uL (2.0-8.3); Neutrophils Percent Auto 66.7 % (45-73); Platelet Count 292 X10*3/uL (160-400); Red Blood Count 5.03 X10*6/uL (4.60-5.80); Red Cell Distribution Width 13.7 % (11.0-16.0); White Blood Count 8.5 X10*3/uL (4.8-10.8)
[2023-09-21 11:59] LABS: Alanine Aminotransferase 14 U/L (0-40); Albumin Level 4.1 g/dL (3.5-5.0); Alkaline Phosphatase 51 U/L (39-117); Anion Gap 10 (12-20); Aspartate Amino Transferase 14 U/L (5-37); Bilirubin Total 0.5 mg/dL (0.0-1.0); Blood Urea Nitrogen 11 mg/dL (9-16); Calcium 9.3 mg/dL (8.4-10.2); Carbon Dioxide 28 mmol/L (22-29); Chloride 106 mmol/L (96-108); Cholesterol 230 mg/dL (<200); Estimated Glomerular Filt Rate > 60; Glucose Fasting 102 mg/dL (60-99); Glucose Random 101 mg/dL (60-115); HDL Cholesterol 42 mg/dL (>40); LDL Cholesterol Calculated 155 mg/dL (<100); Potassium 4.5 mmol/L (3.3-5.1); Sodium 139 mmol/L (135-145); Total Protein 6.5 g/dL (6.5-8.0); Triglycerides 165 mg/dL (<150)
[2023-09-21 12:05] LABS: PSA,Total (Free>4and<10) 1.91 ng/mL (0.00-4.00)
[2023-09-21 14:32] LABS: Appearance Urine Turbid; Color Urine Yellow; Glucose Urine UA Negative (Negative); Leukocyte Esterase Urine Negative (Negative); Nitrite Urine Negative (Negative); Specific Gravity - Urine >= 1.030 (1.005-1.025); Urine Blood Negative (Negative); Urine Ketones Trace mg/dL (Negative); Urine Protein Trace mg/dL (Neg-Trace)
[2023-09-21 14:38] LABS: Bacteria Urine None Seen (None Seen); Hyaline Casts Urine 0-2 /LPF (0-2); RBC Urine 0-2 /HPF (0-2); Squamous Epithelial Cell Urine 0-2 /HPF (0-2); WBC Urine 0-5 /HPF (0-5)
[2023-09-26 21:09] LABS: Testosterone, Free 53.3 pg/mL (35.0-155.0); Testosterone, Total 323 ng/dL (250-1100)
== END 2023-09-21 08:12 | disposition home or self-care (01) ==
LOC: HO.HMGCLDS 08:11
PROVIDERS: PCP Internal Medicine; Visit Provider Internal Medicine
DX: Z00.00 Encounter for general adult medical examination without abnormal findings (principal); E78.5 Hyperlipidemia, unspecified; J44.9 Chronic obstructive pulmonary disease, unspecified; E03.9 Hypothyroidism, unspecified; I10 Essential (primary) hypertension; Z12.5 Encounter for screening for malignant neoplasm of prostate
CPT/HCPCS: 36415; 80048; 80053; 80061; 81001; 84153; 84402; 84403; 85025

== ENCOUNTER 2023-09-26 07:54 | Outpatient (AMB) | payer MEDICARE, SELFPAY ==
[2023-09-26 07:49] VITALS: BP 128/64; PULSE 97; O2SAT 92; BMI 27.6
--- NOTE | 2023-09-26 07:49 | MHC.PC.OV ---
Vital Signs 09/26/23 07:49 Height 5 ft 9 in Weight 187 lb BMI 27.6 BP 128/64 Blood Pressure Location Lt brachial Position Sitting Pulse 97 Pulse Source Pulse Oximeter Pulse Oximetry (%) 92 Oxygen Delivery Method Room Air Intake Visit Reasons: 6 week follow up Intake Note: Pt is here today for his 6 wks f/u Allergies morphine [MORPHINE] Allergy (Intermediate, Verified 09/26/23 07:50) ITCHY Sulfa (Sulfonamide Antibiotics) [SULFA (SULFONAMIDE ANTIBIOTICS)] Allergy (Intermediate, Verified 09/26/23 07:50) ITCHY atorvastatin Adverse Reaction (Intermediate, Verified 09/26/23 07:50) myalgia rosuvastatin [From Crestor] Adverse Reaction (Intermediate, Verified 09/26/23 08:21) Diarrhea Medication List - Last Reconciled 09/26/23 by Mallory Locke MD albuterol sulfate 90 mcg/actuation inhalation Q4-6H PRN aspirin (Adult Low Dose Aspirin) 81 mg PO DAILY citalopram 40 mg PO doxycycline hyclate 100 mg PO BID mahgoepvsmg-kacqguggd-wondogtt 100-62.5-25 mcg (Trelegy Ellipta) 1 inh inhalation DAILY tamsulosin (Flomax) 0.4 mg PO BEDTIME testosterone 1 packet topical thyroid (pork) 30 mg PO DAILY valsartan 80 mg PO DAILY Tobacco use date assessed: 09/26/23 Dental Screening Dental Screen Date: 09/26/23 Did you have a dental visit in the last 12 months?: Yes Did you have a dental problem in the last 6 months where you did not have access to dental care?: No Was dental information given to patient?: Patient has dentist HPI 6 week follow up HPI Details Pt presents for f/u HTN, COPD, hyperlipid. Patient could not tolerate Crestor , developed diarrhea. [facility] Medical History History of fracture of left ankle Hyperlipidemia Bladder pain Benign prostatic hyperplasia Tobacco dependence Annual physical exam Thoracic outlet syndrome Anxiety COPD (chronic obstructive pulmonary disease) Hypothyroidism Left lumbar radiculopathy Disc degeneration, lumbar Disc degeneration, lumbosacral Blood clot in vein Surgical History History of esophagogastroduodenoscopy (EGD) Hx of hand surgery History of ankle surgery History of lumbar discectomy (12/21/21) History of cholecystectomy History of surgery Hx of colonoscopy Family History Paternal Uncle Colon cancer Paternal Grandmother Colon cancer Other Mental health disorder Social History Housing: House Are you a primary wound care coordinator to a significant other at home: No Do you presently have visiting nurse or other home services: No Patient Tobacco Use Status: Current everyday Tobacco user Tobacco use type: Cigarette Cigarette Packs Per Day: 0.75 Cigarettes Per Day: 15.0 Years Smoked: 40 e-Cigarette/Vaping Use: Never Used Substance Use Type: Marijuana service: No Current occupational status: disabled Current occupation: left handed Cognitive needs: No Hearing needs: No Vision needs: No Questionnaire PHQ-9 Over the last 2 weeks, how often have you been bothered by any of the following problems? 1. Little interest or pleasure in doing things: not at all 2. Feeling down, depressed, or hopeless: not at all 3. Trouble falling or staying asleep, or sleeping too much: not at all 4. Feeling tired or having little energy: not at all 5. Poor appetite or overeating: not at all 6. Feeling bad about yourself - or that you are a failure or have let yourself or your family down: not at all 7. Trouble concentrating on things, such as reading the newspaper or watching television: not at all 8. Moving or speaking so slowly that other people could have noticed. Or the opposite - being so fidgety or restless that you have been moving around a lot more than usual: not at all 9. Thoughts that you would be better off or of hurting yourself in some way: not at all Total score: 0 Depression Screening Interpretation: Negative Depression Screening Done: Yes 60654 - PHQ-9 Billing: Yes Source: Developed by Drs. Rusty Morales, Roxana Mercer, Devante Cote and colleagues, with an educational milton from [employer]. Thrive Questionnaire Date Thrive assessed: 09/26/23 I am a: Patient What is your living situation today?: I have a steady place to live Within the past 12 months, did the food you bought not last and you didn't have the money to get more?: Never true Within the past 12 months, did you worry whether your food would run out before you got money to buy more?: Never true Do you have trouble paying for medicines?: No Do you have trouble getting transportation to medical appointments?: No Do you have trouble paying your heating and electricity bill?: No Do you have trouble taking care of your child, family member or friend?: No Do you have trouble with day-to-day activities such as bathing, preparing meals, shopping, managing finances, etc.?: No Are you currently unemployed and looking for a job?: No Are you interested in more education?: No THRIVE Score: 0 AUDIT C Alcohol Use Questionnaire (AUDIT-C) 1. How often do you have a drink containing alcohol?: Monthly or less 2. How many drinks containing alcohol do you have on a typical day when you are drinking?: 1 or 2 3. How often do you have six or more drinks on one occasion?: Never Total Score: 1 CLAUDE-7 AMB Questionnaire CLAUDE-7 Date CLAUDE - 7 assessed: 09/26/23 Feeling nervous, anxious, or on edge: 0 = Not at all Not being able to stop or control worryin = Not at all Worrying too much about different things: 0 = Not at all Trouble relaxin = Not at all Being so restless that it is hard to sit still: 0 = Not at all Becoming easily annoyed or irritable: 0 = Not at all Feeling afraid as if something awful might happen: 0 = Not at all Total CLAUDE-7 score (0-4 normal; 5-9 mild; 10-14 moderate; 15-21 severe): 0 Source: Developed by Drs. Rusty Morales, Roxana Mercer, Devante Cote and colleagues, with an educational milton from [employer]. Review of Systems Const All systems reviewed & are unremarkable except as noted in HPI and below Eyes Reports no additional complaints ENT Reports no additional complaints Card Reports no additional complaints Resp Reports no additional complaints GI Reports no additional complaints Reports no additional complaints Physical exam (Primary Care) Vital Signs: Last Vital Signs Pulse 97 09/26/23 07:49 BP 128/64 09/26/23 07:49 Pulse Ox 87 L 09/26/23 07:49 Oxygen Delivery Method Room Air 09/26/23 07:49 BMI result Body Mass Index 27.6 Tobacco/Smoking Status: Tobacco use Status Tobacco use date assessed 09/26/23 09/26/23 07:52 Patient Tobacco Use Status Current everyday Tobacco 09/26/23 07:52 Tobacco use type Cigarette 09/26/23 07:52 e-Cigarette/Vaping Use Never Used 09/26/23 07:52 PHQ-9: PHQ-9 Score PHQ-9: Total score 0 09/26/23 07:55 Depression Screening Interpretation: Negative Thrive Assessment: Date of Thrive Assessment Date Thrive assessed 09/26/23 09/26/23 07:55 Const General: no acute distress HENMT Head: Yes normal to inspection Ears: hearing grossly normal bilaterally Face and sinus: Yes normal facial exam Eyes General: appearance normal, both eyes and all related structures Neck Neck: Yes no lymphadenopathy and Yes supple Resp Effort & Inspection: normal respiratory effort Auscultation: clear to auscultation bilaterally Cardio Rhythm: regular rhythm Heart sounds: S1 normal heart sound present and S2 normal heart sound present GI Inspection: Yes normal to inspection Palpation (GI): Soft to palpation Percussion: Yes normal to percussion Auscultation: normal bowel sounds Assessment and Plan Assessment & Plan (1) Hypothyroidism: Comment: [facility] Code(s): E03.9 - Hypothyroidism, unspecified Plan: Continue thyroid replacement (2) Annual physical exam: Code(s): Z00.00 - Encounter for general adult medical examination without abnormal findings Plan: Well-balanced diet regular physical activity discussed with the patient. (3) HTN (hypertension): Code(s): I10 - Essential (primary) hypertension Plan: Continue valsartan (4) Hyperlipidemia: Comment: Intolerant to atorvastatin, myalgia and Crestor, diarrhea Code(s): E78.5 - Hyperlipidemia, unspecified Plan: Try simvastatin/ezetimibe and check lipid profile in 2 months (5) Tobacco dependence: Code(s): F17.200 - Nicotine dependence, unspecified, uncomplicated Plan: Tobacco quitting discussed with the patient (6) COPD (chronic obstructive pulmonary disease): Comment: f/u Dr. Saavedra Code(s): J44.9 - Chronic obstructive pulmonary disease, unspecified Plan: Continue Trelegy and follow-up with lung cancer screening program, follow-up in 4 months with a fasting labs before Orders: Orders Lipid Panel 4 Months E03.9 - Hypothyroidism, unspecified, I10 - Essential (primary) hypertension, Z00.00 - Encounter for general adult medical examination without abnormal findings Comprehensive [place]. Panel Fast 4 Months E03.9 - Hypothyroidism, unspecified, I10 - Essential (primary) hypertension, Z00.00 - Encounter for general adult medical examination without abnormal findings Complete Blood Count Auto Diff 4 Months E03.9 - Hypothyroidism, unspecified, I10 - Essential (primary) hypertension, Z00.00 - Encounter for general adult medical examination without abnormal findings TSH reflex Free T4 4 Months E03.9 - Hypothyroidism, unspecified, I10 - Essential (primary) hypertension, Z00.00 - Encounter for general adult medical examination without abnormal findings Medications: New ezetimibe-simvastatin 10-40 mg 1 tab PO DAILY 90 tabs 0RF Coding Level of Care Code Est Pt Level 4 (89057) Diagnoses Hypothyroidism E03.9 Annual physical exam Z00.00 HTN (hypertension) I10 Hyperlipidemia E78.5 Tobacco dependence F17.200 COPD (chronic obstructive pulmonary disease) J44.9
== END 2023-09-26 10:02 | disposition home or self-care (01) ==
LOC: HO.HMGC 07:54
PROVIDERS: PCP Internal Medicine; Visit Provider Internal Medicine
DX: E03.9 Hypothyroidism, unspecified (principal); J44.9 Chronic obstructive pulmonary disease, unspecified; Z00.00 Encounter for general adult medical examination without abnormal findings; I10 Essential (primary) hypertension; E78.5 Hyperlipidemia, unspecified
CPT/HCPCS: 99214

== ENCOUNTER 2023-09-26 08:27 | Outpatient (REF) | payer MEDICARE, SELFPAY ==
[2023-09-27 11:43] LABS: Lyme Abs Screen <0.90 index
== END 2023-09-26 08:28 | disposition home or self-care (01) ==
LOC: HO.HMGCLDS 08:27
PROVIDERS: PCP Internal Medicine; Visit Provider Internal Medicine
DX: T14.8XXA Other injury of unspecified body region, initial encounter (principal); W57.XXXA Bitten or stung by nonvenomous insect and other nonvenomous arthropods, initial encounter; Y93.9 Activity, unspecified; Y92.9 Unspecified place or not applicable; Y99.9 Unspecified external cause status
CPT/HCPCS: 36415; 86617; 86618

== ENCOUNTER → 2023-10-14 08:04 | Outpatient (REF) | payer MEDICARE, SELFPAY ==
--- NOTE | ~2023-10-14 | NM_ITS ---
Lexiscan Myocardial perfusion study Indication: Chest pain Technique: The patient was brought in for a Lexiscan perfusion study on 10/14/2023 and was injected 0.4 mg of Lexiscan intravenously. Within a minute of this injection 25 mCi of sestamibi was given intravenously. Images were obtained using the SPECT gamma camera interlaced with the gating device. Images were obtained in supine position. Resting perfusion study was performed on 10/15/2023. Patient was administered 25 mCi of sestamibi intravenously at rest. Images were then obtained in supine position. Images were processed with the software and compared side to side in short axis, horizontal long axis and vertical long axis views. Total DLP 84mGy-cm. Findings: Raw acquisition reviewed. The stress perfusion study showed diminished tracer uptake along the inferior wall, basal part of septum/inferior septum. There is some improvement with CT attenuation correction suggesting components of diaphragmatic attenuation artifact The gated study shows normal LV systolic function with calculated LVEF of 55%. LV cavity is normal in size. The gated study shows diminished contractility in the inferior wall and basal parts of inferior septum/septum. Resting study shows diminished tracer uptake along the inferior wall mostly towards the apex. There is improvement with CT attenuation correction suggestive of diaphragmatic attenuation artifact. Gating at rest reveals diminished inferior wall motion with ejection fraction at 38%. The findings are consistent with mixed reversible/fixed perfusion defect along the inferior wall. NM/NM cardiolite stress test Impression: 1. Myocardial perfusion imaging study shows mixed ischemia/infarct pattern along the inferior wall. 2. Gated LVEF is 55% during stress and 38% during rest. Correlate with echocardiogram. 3. Transient ischemic dilatation not present. EKG component of the test reported separately.
--- NOTE | 2023-10-14 08:08 | CA_ITS ---
Acquisition Time: 2023-10-14 08:05:46 Total Exercise Time: 00:06:18 Test Indications: Chest Pain Medications: SEE H Protocol: TIFFANIE Max HR: 125 BPM 80% of Pred: 156 BPM Max BP: 146/082 mmHG Max Work Load: 7.0 METS Exercise stress test exercise 6 min 18 sec of Tiffanie protocol achieving 78-80%, with moderate SOB, no chest discomfort, without arrhythmias, with normotensive response to exercise, with nondiagnositic EKGs. Once breathing returned to normal test changed to pharmacoligical stress test. Pharmacological stress test with Lexiscan injection while sitting and kicking his legs, without anginal symptoms, without arrhythmias, with normotensive response to exercise, with nondiagnoisitic EKGs. Aminophylline 75mg IVP given to reverse Lexiscan,.Nuclear images pending. Test reviewed with Dr. Bose Referred By: Mallory Locke Overread By: Zaina Yarbrough
== END ==
LOC: HO.CARD 08:04
PROVIDERS: PCP Internal Medicine; Visit Provider Internal Medicine
DX: R07.9 Chest pain, unspecified (principal)
CPT/HCPCS: 78452; 93017; A9500; J0280; J2785

== ENCOUNTER → 2023-10-14 08:08 | Outpatient (BNV) | payer MEDICARE, SELFPAY | PROVIDERS: PCP Internal Medicine; Visit Provider Nurse Practitioner | DX: R07.9 Chest pain, unspecified (principal) | CPT/HCPCS: 78452; 93016; 93018 ==

== ENCOUNTER → 2023-10-31 12:48 | Outpatient (REF) | payer MEDICARE, SELFPAY ==
--- NOTE | 2023-10-31 12:53 | CA_ITS ---
Transthoracic Echocardiogram Patient (Last, First, Middle): Francois Howard, Gender: Male Date of : 1960 Age: 63 Procedure Date: 10/31/2023 Procedure Type: Transthoracic Echocardiogram Location: OP Height: 175.26 cm Weight: 83.46 kg BSA: 1.99 m2 Heart Rate: 82 bpm BP: 132 / 78 mmHg Core Analyst: TO Referring MD: Mallory Locke MD Shop Estimator: Quintin Bose MD Symptoms: I25.10 - Atherosclerotic heart disease of [place] coronary artery without... Study Quality: Adequate ECG Rhythm: Sinus Conclusions: - Low normal LV ejection fraction, otherwise normal study Findings Procedure Information Contrast agent, definity, is being given per protocol without apparent complications. Left Ventricle Normal left ventricular cavity size. There is normal left ventricular wall thickness. The left ventricular systolic function is low normal. The visually estimated ejection fraction is between 50-55%. Spectral Doppler is indicative of an impaired relaxation filling pattern. E/E prime ratio is <8, consistent with normal filling pressures. Right Ventricle Normal right ventricular cavity size and systolic function. Atria Both atria are normal in size. There is no evidence of interatrial shunt. Aortic Valve Normal aortic valve structure and function. There is no aortic valve stenosis. There is no aortic valve regurgitation. Mitral Valve Normal mitral valve structure and function. There is trace mitral valve regurgitation. There is no mitral valve stenosis. Pulmonic Valve The pulmonic valve is likely normal. Tricuspid Valve Normal tricuspid valve structure. Tricuspid regurgitation envelope is inadequate for calculation of right ventricular systolic pressure. Normal right atrial pressure. Great Vessels The aorta was not well visualized. The pulmonary artery was not well visualized. Venous The inferior vena cava is normal in size and collapses greater than 50% with inspiration. Pericardium/Pleural There is no evidence of pericardial effusion. Prior Study Comparison No prior study available for comparison. Measurements 2D Linear Measurements IVSd: 0.84 0.6-0.9/0.6-1.0 cm LVIDd: 5.19 3.9-5.3/4.2-5.9 cm LVIDd Index: 2.61 2.4-3.2/2.2-3.1 cm/m2 LVIDs: 3.59 2.0-3.6 cm LVPWd: 0.81 0.7-1.1 cm LA Diam: 2.80 2.7-3.8/3.0-4.0 cm LAIDs Index: 1.41 1.5-2.3 cm/m2 LV Mass: 187.28 67-162/88-224 g LV Mass Index: 94.11 43-95/49-115 g/m2 LVOT Diam: 2.10 3.0+(-)1.3 cm 2D Systolic Function EF 4C: 53.10 >55% EF 2C: 52.90 >55% EF BiP: 53.50 >55% Mitral Valve MV Pk E: 0.49 MV PK A: 0.71 MV Decel Time: 199.00 E/A: 0.70 E'Lateral: 8.70 E'Medial: 5.22 E/E' Med: 9.40 E/E' Lat: 5.70 PHT: 58.00 MVA PHT: 3.79 Decel Cascade: 2.48 Aortic Valve AoV Pk Tavo: 1.12 AoV Mn Tavo: 0.79 AoV VTI: 0.22 AoV Pk Grad: 5.00 Aov Mn Grad: 3.00 LATASHA Cont.VTI: 2.39 LVOT LVOT Pk Tavo: 0.74 LVOT Mn Tavo: 0.50 LVOT VTI: 0.15 LVOT Pk Grad: 2.00 LVOT Mn Grad: 1.00 LVOT Diam: 2.10 LVOT Area: 3.46 Diastolic Function MV Pk E: 0.49 MV Pk A: 0.71 E/A: 0.70 E'Medial: 5.22 E/E' Med: 9.40 E' Laterial: 8.70 E/E' Lat: 5.70 Right Ventricle TAPSE (mm): 19.10 TVS' Tavo: 9.68 Tricuspid Valve RA Press: 3.00 Great Vessels Aorta Sinus of Valsalva: 3.43 2.0-3.5 cm Updated in Other Vendor System with Status of Final Quintin Bose MD electronically signed on 10/31/2023 3:41:52 PM with status of Final
== END ==
LOC: HO.CARD 12:48
PROVIDERS: PCP Internal Medicine; Visit Provider Internal Medicine
DX: I25.10 Atherosclerotic heart disease of native coronary artery without angina pectoris (principal)
CPT/HCPCS: 93306; Q9957

== ENCOUNTER → 2023-10-31 12:53 | Outpatient (BNV) | payer MEDICARE, SELFPAY | PROVIDERS: PCP Internal Medicine; Visit Provider Internal Medicine Cardiovascular Disease | DX: I25.10 Atherosclerotic heart disease of native coronary artery without angina pectoris (principal) | CPT/HCPCS: 93306 ==

== ENCOUNTER 2023-11-21 08:26 | Outpatient (REF) | payer MEDICARE, SELFPAY ==
[2023-11-21 10:46] LABS: Free T4 (Free Thyroxine) 0.74 ng/dL (0.71-1.85)
== END 2023-11-21 08:27 | disposition home or self-care (01) ==
LOC: HO.HMGCLDS 08:26
PROVIDERS: PCP Internal Medicine; Visit Provider Nurse Practitioner Family
DX: E03.8 Other specified hypothyroidism (principal)
CPT/HCPCS: 36415; 84439; 84443; 84481

== ENCOUNTER 2024-01-03 07:39 | Outpatient (REF) | payer MEDICARE, SELFPAY ==
[2024-01-03 10:01] LABS: MANUAL DIFF FLAG NO
[2024-01-03 10:05] LABS: Basophils Absolute Auto 0.1 X10*3/uL (0.0-0.2); Basophils Percent Auto 0.6 % (0-2); Eosinophils Absolute Auto 0.2 X10*3/uL (0.0-0.4); Eosinophils Percent Auto 2.5 % (0-4); Hematocrit 47.9 % (42.0-52.0); Hemoglobin 15.9 g/dl (14.0-18.0); Imm Gran Abs Auto 0.02 X10*3/uL (0.00-0.03); Imm Gran Pct Auto 0.3 % (0.0-0.4); Lymphocytes Absolute Auto 2.5 X10*3/uL (1.2-4.9); Lymphocytes Percent Auto 32.6 % (20-40); Mean Corpuscular HGB Conc 33.2 g/dl (31.0-36.0); Mean Corpuscular Hemoglobin 30.8 pg (27.0-33.0); Mean Corpuscular Volume 92.6 fL (80.0-98.0); Mean Platelet Volume 8.9 fL (9.4-12.4); Monocytes Absolute Auto 0.5 X10*3/uL (0.1-1.2); Monocytes Percent Auto 6.3 % (2-11); Neutrophils Absolute Auto 4.5 x10*3/uL (2.0-8.3); Neutrophils Percent Auto 57.7 % (45-73); Platelet Count 278 X10*3/uL (160-400); Red Blood Count 5.17 X10*6/uL (4.60-5.80); Red Cell Distribution Width 13.5 % (11.0-16.0); White Blood Count 7.7 X10*3/uL (4.8-10.8)
[2024-01-03 11:04] LABS: Alanine Aminotransferase 16 U/L (0-40); Albumin Level 4.1 g/dL (3.5-5.0); Alkaline Phosphatase 51 U/L (39-117); Anion Gap 13 (12-20); Aspartate Amino Transferase 16 U/L (5-37); Bilirubin Total 0.5 mg/dL (0.0-1.0); Blood Urea Nitrogen 11 mg/dL (9-16); Calcium 9.4 mg/dL (8.4-10.2); Carbon Dioxide 25 mmol/L (22-29); Chloride 107 mmol/L (96-108); Cholesterol 291 mg/dL (<200); Estimated Glomerular Filt Rate > 60; Glucose Fasting 112 mg/dL (60-99); HDL Cholesterol 47 mg/dL (>40); LDL Cholesterol Calculated 212 mg/dL (<100); Potassium 4.8 mmol/L (3.3-5.1); Sodium 140 mmol/L (135-145); TSH reflex Free T4 2.29 uIU/mL (0.32-4.0); Total Protein 6.8 g/dL (6.5-8.0); Triglycerides 161 mg/dL (<150)
== END 2024-01-03 07:40 | disposition home or self-care (01) ==
LOC: HO.HMGCLDS 07:39
PROVIDERS: PCP Internal Medicine; Visit Provider Internal Medicine
DX: Z00.00 Encounter for general adult medical examination without abnormal findings (principal); I10 Essential (primary) hypertension; E03.9 Hypothyroidism, unspecified
CPT/HCPCS: 36415; 80053; 80061; 84443; 85025

== ENCOUNTER 2024-01-06 09:32 | Outpatient (AMB) | payer MEDICARE, SELFPAY ==
--- NOTE | 2024-01-06 09:34 | A.OFFVIS_ITS ---
Vital Signs 01/06/24 09:38 Height 5 ft 9 in Weight 192 lb 3.889 oz BMI 28.4 BP 147/76 H Blood Pressure Location Lt brachial Position Sitting Pulse 89 Pulse Source Pulse Oximeter Pulse Oximetry (%) 97 Oxygen Delivery Method Room Air Intake Visit Reasons: 4 month follow up SIBO Intake Note: Patient is seen in office for a 4 month follow up, following Sibo. Pt c/o: still having issues with diarrhea. Cigar Tobacco Rehandler Required: No Accompanied by: Self / Same As Patient Allergies morphine [MORPHINE] Allergy (Intermediate, Verified 01/06/24 09:34) ITCHY Sulfa (Sulfonamide Antibiotics) [SULFA (SULFONAMIDE ANTIBIOTICS)] Allergy (Intermediate, Verified 01/06/24 09:34) ITCHY atorvastatin Adverse Reaction (Intermediate, Verified 01/06/24 09:34) myalgia rosuvastatin [From Crestor] Adverse Reaction (Intermediate, Verified 01/06/24 09:34) Diarrhea HPI Comments Details: This is a 62y.o M with PMH of COPD, BPH, anxiety who presents for screening colonoscopy however as multiple GI issues as below. Pt reports that almost for the past 20 years he has had intermittent RLQ abdominal pain associated with bloating and diarrhea. It feels as if he is blocked up and when he switches himselt to NPO/clear liquids for a few days, it gets better. He also notices worsening of sx with gluten containing foods but has never been diagnsoed with celiac disease. Not associated with fevers, nausea, vomiting. Has been seen by GI in the past, most recently at [facility] and underwent EGD/colo, VCE and was eventually given the diagnosis of IBS. Also describes getting a CTE through a different provider and was told he has narr owing of small intestine but again does not recall being told about IBD. He reports similar sx in his daughter who is in her 30s and is undergoing work up for it. Does smoke 0.5PPD daily, also repors frequent NSAID use at least 2-3 times a week. 10/22/22: Reviewed labs with the pt and that specifically fecal calprotectin came back elevated along with the CRP. CT Abd/pel appeared grossly normal. Pt reports persistent bloating but diarrhea is better now that hes back on gluten restricted diet. 11/23/22: Came in for urgent visit today for lower abd pain and cramping x 5 days. Went camping last weekend and reports onset of abd pain even before it but got wore within 2 days. Assoc with low grade fevers, chills, nausea and aversion to food. No diarrhea. No sick contacts. Now eating but pain is still persistent and just as severe. Describes it as RLQ pain which radiates to his back. No relation to bowel movements. No dysuria reported. CT Abd/pel from last month with diverticulosis but otherwise normal. [facility] for colo in Dec for elevated fecal calpro. 01/03/23: [facility] Impression: 1. Normal colon and terminal ileum mucosa (biopsy) 2. Total of 3 polyps removed. 3. External and internal hemorrhoids 4. Prostatomegaly Path: A. Colon, right, biopsy: Mildly active colitis. B. Colon, ascending, polypectomy: Colonic mucosa with mild surface hyperplastic changes. C. Colon, left, biopsy: Colonic mucosa within normal limits. D. Colon, sigmoid, polypectomies (2): Hyperplastic mucosal polyp 01/14/23: Pt had already started to feel better even before the colo since taking Abx prescribed empirically for infectious colitis vs diverticulitis. See documentation 11/23. [facility] results and path reviewed. Acute colitis, likely had resolving infectious colitis, no stigmata of background chronicity noted on path - this was reviewed and confirmed by the reading pathologist again. Pt also wonders if had SIBO since sx resolved after Abx course and advised that given overlapping sx of infectious colitis, SIBO and IBS difficult to determine and while mildly elevated fecal calpro can be seen with SIBO would not expect acute colitis changes. Also reports 3-4 frequent BMs in the morning which has been a chronic issue for him. To recall pt is s/p CCY. 06/05/23: Reports sx had gone away after Abx trial for 3 months and then returned a couple of months ago - mainly bloating, burping. Some nausea without vomiting. Also has frequent BMs with up to 5-6 BMs per day which are formed but soft. No fevers or chills. No unintentional weight loss. 08/12/23: Had to take another course of antibiotic. Cipro sent, which he completed just 2 days ago. Reports improvement in bloating, belching and bowel habits. Currently no abdominal pain. SIBO results negative. 01/06/24: Here for routine follow up. Happily reports resolution of bloating which was one of his main concerns previously. Has persistent frequent BMs up to 4-5 times per day claudette in AM. Sometimes does have formed BMs. Sticking to gluten free diet. Does not avoid dairy but tries to consume lactose free milk. Has coffee in the morning. s/p CCY as above. [facility] Medical History History of fracture of left ankle Hyperlipidemia Bladder pain Benign prostatic hyperplasia Tobacco dependence Annual physical exam Thoracic outlet syndrome Anxiety COPD (chronic obstructive pulmonary disease) Hypothyroidism Left lumbar radiculopathy Disc degeneration, lumbar Disc degeneration, lumbosacral Blood clot in vein Surgical History History of esophagogastroduodenoscopy (EGD) Hx of hand surgery History of ankle surgery History of lumbar discectomy (12/21/21) History of cholecystectomy History of surgery Hx of colonoscopy Family History Paternal Uncle Colon cancer Paternal Grandmother Colon cancer Other Mental health disorder Social History Housing: House Are you a primary technical healthcare consultant to a significant other at home: No Do you presently have visiting nurse or other home services: No Patient Tobacco Use Status: Current everyday Tobacco user Tobacco use type: Cigarette Cigarette Packs Per Day: 0.75 Cigarettes Per Day: 15.0 Years Smoked: 40 e-Cigarette/Vaping Use: Never Used Substance Use Type: Marijuana service: No Current occupational status: disabled Current occupation: left handed Cognitive needs: No Hearing needs: No Vision needs: No Review of Systems Const All systems reviewed & are unremarkable except as noted in HPI and below Physical Exam No apparent distress Nonicteric Abdomen soft, nondistended Alert and oriented x3, normal gait Assessment & Plan Assessment & Plan (1) Abdominal pain: Code(s): R10.9 - Unspecified abdominal pain Category: Medical (2) Diarrhea: Code(s): R19.7 - Diarrhea, unspecified Category: Medical (3) Small intestinal bacterial overgrowth: Code(s): K63.8219 - Small intestinal bacterial overgrowth, unspecified Category: Medical Plan Ddx include SIBO vs BAM vs IBS. Bloating resolved. Diarrhea persistent claudette in AM. Some foods seem to trigger this more than usual. Plan: - Trial of cholestyramine - pt aware to space this out from his meds - Start slow once a day and increase to BID if needed - Also encouraged to follow up with his sand cutter for food allergy testing - Colorectal ca screening due in 2029. Follow up 4 months Medications: New cholestyramine-aspartame 4 gram (Cholestyramine Light) administer w/meal; avoid other meds within 1hr before or 4-6hr after dose. Start with once a day and can increase to twice a day if needed. 4 grams PO BID 30 days PRN 239.4 grams 1RF diarrhea Coding Level of Care Code Est Pt Level 4 (63721) Diagnoses Abdominal pain R10.9 Diarrhea R19.7 Small intestinal bacterial overgrowth K63.8219
[2024-01-06 09:38] VITALS: BP 147/76; PULSE 89; O2SAT 97; BMI 28.4
== END 2024-01-06 10:00 | disposition home or self-care (01) ==
PROVIDERS: PCP Internal Medicine; Visit Provider Internal Medicine
DX: R10.9 Unspecified abdominal pain (principal); R19.7 Diarrhea, unspecified; K63.8219 Small intestinal bacterial overgrowth, unspecified
CPT/HCPCS: 99214

== ENCOUNTER → 2024-01-06 09:32 | Outpatient (BNVA) | payer MEDICARE, SELFPAY | PROVIDERS: PCP Internal Medicine; Visit Provider Internal Medicine | DX: R10.9 Unspecified abdominal pain (principal); R19.7 Diarrhea, unspecified; K63.8219 Small intestinal bacterial overgrowth, unspecified | CPT/HCPCS: 99212 ==

== ENCOUNTER 2024-01-13 12:29 | Outpatient (AMB) | payer MEDICARE, SELFPAY ==
[2024-01-13 12:31] VITALS: BP 150/82; PULSE 83; O2SAT 97; BMI 28.5
--- NOTE | 2024-01-13 12:31 | MHC.PC.OV ---
Vital Signs 01/13/24 12:31 01/13/24 13:10 Height 5 ft 9 in Weight 193 lb BMI 28.5 BP 150/82 H 146/80 H Blood Pressure Location Rt brachial Rt brachial Position Sitting Sitting Pulse 83 Pulse Source Pulse Oximeter Pulse Oximetry (%) 97 Oxygen Delivery Method Room Air Intake Visit Reasons: Transfer of care, trevon Bustamante Intake Note: pt is here for transfer of care from Dr. Locke, patient is due for PE today. Type Disk Quality Control Supervisor Required: No Accompanied by: Spouse Allergies morphine [MORPHINE] Allergy (Intermediate, Verified 01/13/24 12:33) ITCHY Sulfa (Sulfonamide Antibiotics) [SULFA (SULFONAMIDE ANTIBIOTICS)] Allergy (Intermediate, Verified 01/13/24 12:33) ITCHY atorvastatin Adverse Reaction (Intermediate, Verified 01/13/24 12:33) myalgia rosuvastatin [From Crestor] Adverse Reaction (Intermediate, Verified 01/13/24 12:33) Diarrhea Medication List - Last Reconciled 01/13/24 by FADIA FontanezP- albuterol sulfate 90 mcg/actuation inhalation Q4-6H PRN aspirin (Adult Low Dose Aspirin) 81 mg PO DAILY cholestyramine-aspartame 4 gram (Cholestyramine Light) 4 grams PO BID PRN 30 days citalopram 40 mg PO aqyffeulazh-sxyeomagb-sqgzadww 100-62.5-25 mcg (Trelegy Ellipta) 1 inh inhalation DAILY tamsulosin (Flomax) 0.4 mg PO BEDTIME testosterone 1 packet topical thyroid (pork) 30 mg PO DAILY valsartan 80 mg PO DAILY Tobacco use date assessed: 09/26/23 Fall risk assessment: No Falls in past year Last assessed Fall Risk: 01/13/24 Dental Screening Dental Screen Date: 01/13/24 Did you have a dental visit in the last 12 months?: Yes Did you have a dental problem in the last 6 months where you did not have access to dental care?: No Was dental information given to patient?: Patient has dentist HPI Transfer of care, trevon Bustamante HPI Details New pt is here for a PE. Labs were already performed. Colon screen is up to date. PSA is up to date. Denies dribbling with urination, weak stream, and frequent nocturia. Dyslipidemia: Pt has tried multiple meds in the past including statins and he could not tolerate them. Will send livalo. HTN: Blood pressure is managed with valsartan 80mg. Will increase to 80mg bid. Will have pt monitor his BP at home and record readings. Denies chest pain, shortness of breath, headache, dizziness, and blurred vision. Pt follows up with urology, pulmonology (COPD), and endo (thyroid). Pt goes for low-dose CTs yearly (smoker). [facility] Medical History History of fracture of left ankle Hyperlipidemia Bladder pain Benign prostatic hyperplasia Tobacco dependence Annual physical exam Thoracic outlet syndrome Anxiety COPD (chronic obstructive pulmonary disease) Hypothyroidism Left lumbar radiculopathy Disc degeneration, lumbar Disc degeneration, lumbosacral Blood clot in vein Surgical History History of esophagogastroduodenoscopy (EGD) Hx of hand surgery History of ankle surgery History of lumbar discectomy (12/21/21) History of cholecystectomy History of surgery Hx of colonoscopy Family History Paternal Uncle Colon cancer Paternal Grandmother Colon cancer Other Mental health disorder Social History Housing: House Are you a primary long term acute care registered nurse to a significant other at home: No Do you presently have visiting nurse or other home services: No Patient Tobacco Use Status: Current everyday Tobacco user Tobacco use type: Cigarette Cigarette Packs Per Day: 0.75 Cigarettes Per Day: 15.0 Years Smoked: 40 e-Cigarette/Vaping Use: Never Used Substance Use Type: Marijuana service: No Current occupational status: disabled Current occupation: left handed Cognitive needs: No Hearing needs: No Vision needs: Yes Questionnaire PHQ-9 Over the last 2 weeks, how often have you been bothered by any of the following problems? 1. Little interest or pleasure in doing things: not at all 2. Feeling down, depressed, or hopeless: not at all 3. Trouble falling or staying asleep, or sleeping too much: not at all 4. Feeling tired or having little energy: several days 5. Poor appetite or overeating: several days 6. Feeling bad about yourself - or that you are a failure or have let yourself or your family down: not at all 7. Trouble concentrating on things, such as reading the newspaper or watching television: not at all 8. Moving or speaking so slowly that other people could have noticed. Or the opposite - being so fidgety or restless that you have been moving around a lot more than usual: not at all 9. Thoughts that you would be better off or of hurting yourself in some way: not at all Total score: 2 Depression Screening Interpretation: Negative Depression Screening Done: Yes 85001 - PHQ-9 Billing: Yes Source: Developed by Drs. Rusty Morales, Roxana Mercer, Devante Cote and colleagues, with an educational milton from [employer]. Thrive Questionnaire Date Thrive assessed: 01/13/24 I am a: Patient What is your living situation today?: I have a steady place to live Within the past 12 months, did the food you bought not last and you didn't have the money to get more?: Never true Within the past 12 months, did you worry whether your food would run out before you got money to buy more?: Never true Do you have trouble paying for medicines?: Yes Do you have trouble getting transportation to medical appointments?: No Do you have trouble paying your heating and electricity bill?: No Do you have trouble taking care of your child, family member or friend?: No Do you have trouble with day-to-day activities such as bathing, preparing meals, shopping, managing finances, etc.?: No Are you currently unemployed and looking for a job?: I choose not to answer this question Are you interested in more education?: No Please select the resources that you would like help with: Paying for medicine Currently or been in a relationship where the following occur: No concerns reported THRIVE Score: 0 AUDIT C Alcohol Use Questionnaire (AUDIT-C) 1. How often do you have a drink containing alcohol?: Monthly or less 2. How many drinks containing alcohol do you have on a typical day when you are drinking?: 1 or 2 3. How often do you have six or more drinks on one occasion?: Never Total Score: 1 Score Reviewed/Action Taken: Yes CLAUDE-7 AMB Questionnaire CLAUDE-7 Date CLAUDE - 7 assessed: 01/13/24 Feeling nervous, anxious, or on edge: 1 = Several days Not being able to stop or control worryin = Several days Worrying too much about different things: 1 = Several days Trouble relaxin = Not at all Being so restless that it is hard to sit still: 0 = Not at all Becoming easily annoyed or irritable: 0 = Not at all Feeling afraid as if something awful might happen: 0 = Not at all Total CLAUDE-7 score (0-4 normal; 5-9 mild; 10-14 moderate; 15-21 severe): 3 Source: Developed by Drs. Rusty Morales, Roxana Mercer, Devante Cote and colleagues, with an educational milton from [employer]. CLADUE-7 Assessment Billing CLAUDE-7 Assessment Tool: CLAUDE-7 Assessment 93036 Review of Systems Const Denies chills and Denies fever(s) Eyes Denies blurry vision ENT Denies vertigo, Denies dizziness and Denies sore throat Card Denies chest pain at rest, Denies chest pain with activity, Denies diaphoresis, Denies dyspnea and Denies dyspnea on exertion Resp Denies cough, Denies dyspnea, Denies dyspnea on exertion and Denies wheezing GI Denies abdominal pain, Denies melena, Denies hematochezia, Denies constipation, Denies diarrhea and Denies loose stools Denies hematuria Musc Denies numbness and Denies tingling Skin/Breast Denies lesions Neuro Denies vertigo, Denies dizziness, Denies numbness and Denies tingling Psych Denies anxiety, Denies depression, Denies homicidal ideation, Denies suicidal ideation and Denies other (substance abuse) Aller/Immun Denies wheezing Physical exam (Primary Care) Vital Signs: Last Vital Signs Pulse 83 01/13/24 12:31 BP 150/82 H 01/13/24 12:31 Pulse Ox 97 01/13/24 12:31 Oxygen Delivery Method Room Air 01/13/24 12:31 BMI result Body Mass Index 28.5 Tobacco/Smoking Status: Tobacco use Status Tobacco use date assessed 09/26/23 01/13/24 12:36 Patient Tobacco Use Status Current everyday Tobacco 01/13/24 12:36 Tobacco use type Cigarette 01/13/24 12:36 e-Cigarette/Vaping Use Never Used 01/13/24 12:36 PHQ-9: PHQ-9 Score PHQ-9: Total score 2 01/13/24 12:51 Depression Screening Interpretation: Negative Thrive Assessment: Date of Thrive Assessment Date Thrive assessed 01/13/24 01/13/24 12:36 Currently or been in a relationship where the following occur: No concerns reported Const General: cooperative Nutritional Appearance: well nourished Orientation/consciousness: patient oriented x3 HENMT Head: Yes normal to inspection, Yes normocephalic and Yes atraumatic Ears: TM's normal bilaterally Eyes General: appearance normal, both eyes and all related structures Alignment and Position: alignment normal and position normal Neck Neck: Yes normal visual inspection, Yes no lymphadenopathy and Yes supple Resp Effort & Inspection: normal respiratory effort Auscultation: clear to auscultation bilaterally Cardio Rate: regular rate Rhythm: regular rhythm Heart sounds: S1 normal heart sound present, S2 normal heart sound present and no murmurs GI Palpation (GI): Soft to palpation and nontender Auscultation: normal bowel sounds Male General Exam: Yes normal external exam Penis: normal penis Scrotum: scrotum normal, testes descended bilaterally and no inguinal hernias Testes: no testicular mass Skin Other: right inguinal region with area of macular erythema (tinea) Neuro General: patient oriented x3 Romberg Test: Negative Psych Appearance: grossly normal Mental Status: mental status grossly normal Speech and movement: Normal speech and movement present Affect: normal affect Attitude: cooperative Thought process: Normal thought process present Thought content: Normal thought content present Insight: Good insight present (Psych) Judgement: Good judgement present (Psych) Coding Level of Care Code New Pt Level 3 (12137) New Pt Prev Care 40-64y(99558) Diagnoses Screening PSA (prostate specific antigen) Z12.5 Hyperlipidemia E78.5 HTN (hypertension) I10 Tinea cruris B35.6 COPD (chronic obstructive pulmonary disease) J44.9 Encounter for routine adult physical exam with abnormal findings Z00.01 Additional Codes CLAUDE-7 Assessment Billing - CLAUDE-7 Assessment Tool: CLAUDE-7 Assessment 63330 ([id number]) Assessment & Plan Assessment & Plan (1) Screening PSA (prostate specific antigen): Code(s): Z12.5 - Encounter for screening for malignant neoplasm of prostate Category: Medical Plan: sees a urologist (2) Hyperlipidemia: Comment: Intolerant to atorvastatin, myalgia and Crestor, diarrhea Code(s): E78.5 - Hyperlipidemia, unspecified Category: Medical Plan: starting livalo, repeat labs in 2 months (3) HTN (hypertension): Code(s): I10 - Essential (primary) hypertension Category: Medical Plan: increased valsartan from 80mg daily to 80mg bid, will purchase a cuff, take his BPs at home, send me these. (4) Tinea cruris: Code(s): B35.6 - Tinea cruris Category: Medical Plan: cream sent (5) COPD (chronic obstructive pulmonary disease): Comment: f/u Dr. Saavedra Code(s): J44.9 - Chronic obstructive pulmonary disease, unspecified Category: Medical (6) Encounter for routine adult physical exam with abnormal findings: Code(s): Z00.01 - Encounter for general adult medical examination with abnormal findings Category: Medical Plan: labs Plan The patient agreed to the use of a medical malpractice paralegal for this encounter. Scribed for SONA Da Silva- by barry Chapa scribe, on 01/13/2024 at 12:45 EST. Orders: Orders Prostate Specific Antigen Scr Today Z12.5 - Encounter for screening for malignant neoplasm of prostate Comprehensive [place]. Panel Fast 2 Months E78.5 - Hyperlipidemia, unspecified Lipid Panel 2 Months E78.5 - Hyperlipidemia, unspecified Medications: New pitavastatin calcium (Livalo) 1 mg PO DAILY 30 tabs 2RF clotrimazole-betamethasone 1-0.05 % 1 appl topical BID 2 weeks 45 grams 0RF Changed From valsartan 80 mg PO DAILY 90 tabs 0RF To valsartan 80 mg PO BID 90 days 180 tabs 0RF Refilled valsartan 80 mg PO BID 90 days 180 tabs 0RF
[2024-01-13 13:10] VITALS: BP 146/80
== END 2024-01-13 14:13 | disposition home or self-care (01) ==
PROVIDERS: PCP Internal Medicine; Visit Provider Nurse Practitioner Family
DX: Z00.00 Encounter for general adult medical examination without abnormal findings (principal); E78.5 Hyperlipidemia, unspecified; J44.9 Chronic obstructive pulmonary disease, unspecified; Z12.5 Encounter for screening for malignant neoplasm of prostate; I10 Essential (primary) hypertension; B35.6 Tinea cruris

== ENCOUNTER → 2024-01-13 12:29 | Outpatient (BNVA) | payer MEDICARE, SELFPAY | PROVIDERS: PCP Internal Medicine; Visit Provider Nurse Practitioner Family | DX: Z00.01 Encounter for general adult medical examination with abnormal findings (principal); J44.9 Chronic obstructive pulmonary disease, unspecified; E78.5 Hyperlipidemia, unspecified; I10 Essential (primary) hypertension; B35.6 Tinea cruris | CPT/HCPCS: 96127; 99202; 99386 ==

== ENCOUNTER 2024-01-20 08:52 | Outpatient (AMB) | payer MEDICARE, SELFPAY ==
[2024-01-20 09:22] VITALS: BP 126/80; PULSE 86; O2SAT 97; BMI 28.5
--- NOTE | 2024-01-20 09:22 | AM.OFFWIN_ITS ---
Intake Vital Signs 01/20/24 09:22 Height 5 ft 9 in Weight 193 lb BMI 28.5 BP 126/80 Blood Pressure Location Lt brachial Position Sitting Pulse 86 Pulse Source Pulse Oximeter Pulse Oximetry (%) 97 Oxygen Delivery Method Room Air Intake Visit Reasons: EP ?Tick/belly button [id number] Intake Note: Pt is here today c/o ? tick belly button red Patient Tobacco Use Status: Current everyday Tobacco user Allergies morphine [MORPHINE] Allergy (Intermediate, Verified 01/20/24 09:23) ITCHY Sulfa (Sulfonamide Antibiotics) [SULFA (SULFONAMIDE ANTIBIOTICS)] Allergy (Intermediate, Verified 01/20/24 09:23) ITCHY atorvastatin Adverse Reaction (Intermediate, Verified 01/20/24 09:23) myalgia rosuvastatin [From Crestor] Adverse Reaction (Intermediate, Verified 01/20/24 09:23) Diarrhea HPI EP ?Tick/belly button [id number] HPI Details This note is constructed using voice recognition software. While every effort has been made to ensure accuracy, spacecraft systems engineer errors may have been included. The patient is a 63 year old male who presents to the clinic today with tick bite. He notes that he woke around 01:00 o'clock in the morning with some pain in his umbilical area, and noticed a dark spot there. He has a dog that goes outside, and [place], but he does not know when he would have had the tick attached to him. He denies fever, chills, body aches. [facility] Medical History History of fracture of left ankle Hyperlipidemia Bladder pain Benign prostatic hyperplasia Tobacco dependence Annual physical exam Thoracic outlet syndrome Anxiety COPD (chronic obstructive pulmonary disease) Hypothyroidism Left lumbar radiculopathy Disc degeneration, lumbar Disc degeneration, lumbosacral Blood clot in vein Surgical History History of esophagogastroduodenoscopy (EGD) Hx of hand surgery History of ankle surgery History of lumbar discectomy (12/21/21) History of cholecystectomy History of surgery Hx of colonoscopy Family History Paternal Uncle Colon cancer Paternal Grandmother Colon cancer Other Mental health disorder Social History Housing: House Are you a primary healthcare management consultant to a significant other at home: No Do you presently have visiting nurse or other home services: No Patient Tobacco Use Status: Current everyday Tobacco user Tobacco use type: Cigarette Cigarette Packs Per Day: 0.75 Cigarettes Per Day: 15.0 Years Smoked: 40 e-Cigarette/Vaping Use: Never Used Substance Use Type: Marijuana service: No Current occupational status: disabled Current occupation: left handed Cognitive needs: No Hearing needs: No Vision needs: Yes Review of Systems Const All systems reviewed & are unremarkable except as noted in HPI and below Physical Exam Vital Signs: Last Vital Signs Pulse 86 01/20/24 09:22 BP 126/80 01/20/24 09:22 Pulse Ox 97 01/20/24 09:22 Oxygen Delivery Method Room Air 01/20/24 09:22 BMI result Body Mass Index 28.5 Const General: cooperative, healthy appearing, comfortable, no acute distress and well developed Orientation/consciousness: patient oriented x3 Limitations: no limitations Resp Effort & Inspection: normal respiratory effort and able to speak in complete sentences Skin Other: Tick imbedded in umbilicus. Removed using Medical instruments. No erythema, warmth, discharge to the area. Neuro General: patient oriented x3 Assessment & Plan Assessment & Plan (1) Tick bite: Code(s): W57.XXXA - Bitten or stung by nonvenomous insect and other nonvenomous a rthropods, initial encounter Qualifiers: Encounter type: initial encounter Site of tick bite: abdominal wall Qualified Code(s): S30.861A - Insect bite (nonvenomous) of abdominal wall, initial encounter; W57.XXXA - Bitten or stung by nonvenomous insect and other nonvenomous arthropods, initial encounter Plan: Tick not engorged, however unknown how long this has been on him. We discussed prophylactic treatment versus walk-in wait approach, and elected prophylactic treatment. Advised to take doxycycline with full meal, and sunscreen to prevent photosensitivity. Advised to monitor herself for the next month for any symptoms of tick-borne illness. Plan See above for full details and plan. Medications: New doxycycline hyclate 200 mg (2 x 100 mg) PO ONCE 10 days 2 caps 0RF Coding Level of Care Code Est Pt Level 3 (05920) Diagnoses Tick bite of abdominal wall, initial encounter S30.861A; W57.XXXA Encounter type: initial encounter Site of tick bite: abdominal wall
== END 2024-01-20 09:48 | disposition home or self-care (01) ==
PROVIDERS: PCP Nurse Practitioner Family; Visit Provider Registered Nurse
DX: S30.861A Insect bite (nonvenomous) of abdominal wall, initial encounter (principal); W57.XXXA Bitten or stung by nonvenomous insect and other nonvenomous arthropods, initial encounter

== ENCOUNTER → 2024-01-20 08:52 | Outpatient (BNVA) | payer MEDICARE, SELFPAY | PROVIDERS: PCP Nurse Practitioner Family; Visit Provider Registered Nurse | DX: S30.861A Insect bite (nonvenomous) of abdominal wall, initial encounter (principal); W57.XXXA Bitten or stung by nonvenomous insect and other nonvenomous arthropods, initial encounter; Y93.9 Activity, unspecified; Y92.9 Unspecified place or not applicable; Y99.9 Unspecified external cause status | CPT/HCPCS: 99212 ==

== ENCOUNTER 2024-03-12 09:59 | Outpatient (REF) | payer MEDICARE, SELFPAY | END 2024-03-12 10:00 | disposition home or self-care (01) | LOC: HO.CT 09:59 | PROVIDERS: PCP Nurse Practitioner Family; Visit Provider Physician Assistant Medical | DX: Z12.2 Encounter for screening for malignant neoplasm of respiratory organs (principal); F17.210 Nicotine dependence, cigarettes, uncomplicated | CPT/HCPCS: 71271 ==

== ENCOUNTER → 2024-03-12 10:01 | Outpatient (BNV) | payer MEDICARE, SELFPAY | PROVIDERS: PCP Nurse Practitioner Family; Visit Provider Radiology Diagnostic Radiology | DX: J43.2 Centrilobular emphysema (principal); F17.210 Nicotine dependence, cigarettes, uncomplicated; J98.11 Atelectasis | CPT/HCPCS: 71271 ==

== ENCOUNTER 2024-04-15 08:17 | Outpatient (REF) | payer MEDICARE, SELFPAY ==
[2024-04-15 10:25] LABS: Alanine Aminotransferase 20 U/L (0-40); Albumin Level 4.1 g/dL (3.5-5.0); Anion Gap 12 (12-20); Aspartate Amino Transferase 27 U/L (5-37); Bilirubin Total 0.8 mg/dL (0.0-1.0); Blood Urea Nitrogen 12 mg/dL (9-16); Calcium 9.5 mg/dL (8.4-10.2); Carbon Dioxide 27 mmol/L (22-29); Chloride 107 mmol/L (96-108); Cholesterol 224 mg/dL (<200); Estimated Glomerular Filt Rate > 60; Glucose Fasting 114 mg/dL (60-99); HDL Cholesterol 48 mg/dL (>40); LDL Cholesterol Calculated 149 mg/dL (<100); Sodium 141 mmol/L (135-145); Triglycerides 138 mg/dL (<150)
[2024-04-15 10:35] LABS: Alkaline Phosphatase 47 U/L (39-117)
[2024-04-15 10:36] LABS: Prostate Specific Antigen Scr 2.31 ng/mL (<0.05-4.0)
== END 2024-04-15 08:18 | disposition home or self-care (01) ==
LOC: HO.HMGCLDS 08:17
PROVIDERS: PCP Nurse Practitioner Family; Visit Provider Nurse Practitioner Family
DX: E78.5 Hyperlipidemia, unspecified (principal); Z12.5 Encounter for screening for malignant neoplasm of prostate
CPT/HCPCS: 36415; 80053; 80061; 84153

== ENCOUNTER 2024-04-22 11:13 | Outpatient (REF) | payer MEDICARE, SELFPAY ==
--- NOTE | ~2024-04-22 | XR_ITS ---
CLINICAL HISTORY: RIGHT SHOULDER PAIN Right shoulder three views Comparison: None Findings: Mild degenerative arthritis AC joint. No inferior osteophytes. Intact glenohumeral joint. No acute fracture or dislocation. Soft tissues unremarkable. No acute process evident included right lung. Impression: Mild degenerative arthritis right AC joint. This document has been electronically signed by: Sammy Neff MD on 04/23/2024 12:42:31
--- OUTSIDE RECORDS SUMMARY | 2024-04-22 12:51 | XMS_ITS | Patient Health Record ---
Author Organization [facility] Address [address] [place] [address] Care Team Providers Care Finance Analyst Name Role Phone Mallory Locke MD Primary Care Provider Yanet Terry Unavailable [phone] Allergies Allergen (clinical drug ingredient) Drug/Non Drug Allergy documented on EMR Reaction Allergy Type Onset Date Status sulfamethoxazole / trimethoprim Bactrim itchy skin Drug Allergy Active morphine Morphine itchy skin Drug Allergy Active Reason For Referral No Information Medications Medication SIG (Take, Route, Frequency, Duration) Notes Start Date End Date Status Levothyroxine Sodium Active Nystatin 824491 UNIT 1 tablet Orally Active Citalopram Hydrobromide 20 MG 1 tablet Orally Once a day Active Immunizations Vaccine Route Administration Date Status Comme nts COVID-19 Pfizer BioNTech Vaccine Unknown 06/08/2020 Adm inistered 05/18/2020 Social History Tobacco Use: Social History Observation Description Date Details (start date - stop date) Current Smoker NA - NA Tobacco Use/Smoking Question Answer Notes Are you a: current smoker How many cigarettes a day do you smoke? 31 or mo re Alcohol Screen Question Answer Notes Did you have a drink containing alcohol in the p ast year? Yes Points 0 Interpretation Negative Tobacco use other than smoking: Question Answer Notes Are you an other tobacco user? No Plan Of Treatment No Information Insurance Providers Payer Name Payer Address Payer Phone Subscriber Number Group Number Insured Name Patient Relationship to Insured Coverage Start Date Coverage End Date [employer] [address] [place] [address] [id number] Francois Howard Self - patient is the insured Medical (General) History Medical History History ICD Code Anxiety Back,Hip,and Knee pain Broken bones Lung disease Psoriasis/eczema Reflux ( GERD) thyroid Measles Mumps Chicken pox Surgical History Surgery Date(Month/Year) ankle surgery left 2019 finger surgery Right index 12/2019
--- OUTSIDE RECORDS SUMMARY | 2024-04-22 12:51 | XMS_ITS | Clinical Summary ---
Author Organization [facility] Address [address] [place] [address] Care Team Providers Care Reporting Analyst Name Role Phone Mallory Locke MD Primary Care Provider [phone] Allergies Active Allergy Reactions Criticality Noted Date Comments Morphine 07/03/2013 ER years ago Sulfa (Sulfonamide Antibiotics) 08/2005 Medications Medication Sig Dispensed Refills Start Date End Date Status coenzyme Q-10 200 mg capsule Take by mouth. 300 mg daily Active valsartan (DIOVAN) 80 mg tablet Take 1 tablet (80 mg total) by mouth 1 (one) time each day. Active albuterol HFA (PROAIR HFA ; PROVENTIL HFA ; VENTOLIN HFA) 90 mcg/actuation inhaler INHALE 2 PUFFS INTO THE LUNGS EVERY 6 HOURS NEEDED FOR WHEEZING OR SHORTNESS OF BREATH FOR UP TO 90 DAYS. THIS IS A RESCUE MEDICATION NOT EXCEED 12 INHALATIONS/24 HRS 03/27/2023 Active umeclidinium-vilante roL (Anoro Ellipta) 62.5-25 mcg/actuation inhaler Inhale by mouth. Active econazole nitrate 1 % cream APPLY TWICE DAILY TO FEET FOR 3-4 WEEKS THEN ONCE WEEKLY FOR MAINTENANCE 04/18/2022 Active ketoconazole (NIZORAL) 2 % cream APPLY TWICE DAILY TO FEET FOR 3-4 WEEKS THEN ONCE WEEKLY FOR MAINTENANCE 05/10/2022 Active levothyroxine sodium (TIROSINT) 50 mcg capsule Take 1 capsule (50 mcg total) by mouth 1 (one) time each day. 06/07/2022 Active tamsulosin (FLOMAX) 0.4 mg 24 hr capsule TAKE 1 CAPSULE BY MOUTH AT BEDTIME FOR RETENTION OF URINE 09/25/2021 Active thyroid, pork, (ARMOUR THYROID) 30 mg tablet Take 1 tablet (30 mg total) by mouth 1 (one) time each day. 05/08/2021 Active aspirin 81 mg EC tablet Take 1 tablet (81 mg total) by mouth 1 (one) time each day. Active nystatin (MYCOSTATIN) 500,000 unit tablet 04/26/2021 Active testosterone 50 mg/5 gram (1 %) gel 04/05/2021 Active liothyronine (CYTOMEL) 5 mcg tablet 01/08/2021 Active citalopram (CeleXA) 10 mg tablet Take 0.5 tablets (5 mg total) by mouth 1 (one) time each day. Active Active Problems Problem Noted Date Diagnosed Date Lumbar back pain with radicu lopathy affecting left lower extremity 09/15/2021 Overview (03/10/2024): Last Assessment & Plan: Mr. Howard is status post left L5-S1 microlumbar discectomy x2 with the last surgery in November 2021. He has had a couple of months of pain in the left buttock which is very similar to his preoperative symptoms. He said that he would not consider any more surgery at this time as his pain is not as bad as it was prior to his last surgery. He has had injection therapy in the past with some relief. He aked to get another injection and we will arrange for a left L5-S1 transforaminal epidural steroid injection. He will follow-up afterwards if his pain is not improved. Scarring of lung 10/28/2018 Gastroparesis 02/24/2018 Nicotine dependence, uncomplicated 08/05/2017 Stage 2 moderate COPD by GOLD classification 09/2017 Exposure to asbestos 06/27/2016 Lumbar disc herniation with radiculopathy 2015 Overview (03/10/2024): Last Assessment & Plan: Mr. Howard is here for his second postop visit since a redo left L5-S1 MIS discectomy. Since then, he feels great and is now able to walk up to 1/2 mile at a time. His lower back will get a little sore but it is nowhere near the crippling pain he had preoperatively. He will get some recurrent left buttock pain a few times a week with random activity. There are no radiating symptoms down his left leg. On exam, seated SLR is negative, strength 5/5, sensation light touch intact, gait is steady. Note is made that his hamstrings are very tight. I am glad to see that Mr. Howard is doing so well. We discussed him starting a stretching routine possibly with yoga. He is welcome to see us in the future if there are any new concerns. Scheuermann's disease 02/06/2016 Tobacco use disorder 02/06/2016 Testosterone deficiency 11/01/2010 COPD, moderate 05/17/2010 Overview (03/10/2024): 03/16/10 PFTs Vitamin D deficiency 04/07/2010 Hyperlipidemia 11/04/2009 Anxiety 03/23/2009 HSV-2 (herpes simplex virus 2) infection 009 Erectile dysfunction 05/04/2008 Eustachian tube dysfunction 11/27/2007 Chronic fatigue syndrome 10/27/2005 Overview (03/10/2024): ? porphyria Irritable bowel syndrome 10/27/2005 Immunizations Name Administration Dates Next Due Hepatitis B (Wtnhupr-N-Guqdr , Recombivax HB-Adult) 19yo and older 04/25/2009,10/20/2008,09/21/2008 Pneumococcal polysaccharide 23 valent (Pneumovax 23) 2yo and older 11/05/2017 Td Tetanus diptheria (Tdvax) 7yo and older 11/05 Tdap Tetanus diptheria acell ular pertussis (Boostrix; Adacel) 7yo and older 01/01/2020,10/06/2007 Surgical History Surgery Date Site/Laterality Comments CHOLECYSTECTOMY PROCEDURE: HISTORICAL CHOLECYSTECTOMY OTHER SURGICAL HISTORY PROCEDURE: HISTORY OTHER; COMMENT: anal polyps dr car 2009 ESOPHAGOGASTRODUODENOSCOPY 2007 PROCEDURE: [place] ESOPHAGOGASTRODUODENOSCOPY TRANSORAL DIAGNOSTIC; COMMENT: normal ESOPHAGOGASTRODUODENOSCOPY 07/04/2011 PROCEDURE: [place] ESOPHAGOGASTRODUODENOSCOPY TRANSORAL DIAGNOSTIC; COMMENT: normal; no Lopez's on biopsy COLONOSCOPY 2007 PROCEDURE: HISTORICAL COLONOSCOPY; COMMENT: normal COLONOSCOPY 08/24/2016 PROCEDURE: HISTORICAL COLONOSCOPY; COMMENT: normal, with nl terminal ileum and normal random colonic biopsies LUMBAR LAMINECTOMY 04/20/2021 Left PROCEDURE: HISTORICAL LUMB LAMINECTOMY; COMMENT: left L5-S1 discectomy, Dr. Kelly ANKLE SURGERY PROCEDURE: HISTORICAL ANKLE SURGERY; COMMENT: foot/ankle surgery OTHER SURGICAL HISTORY PROCEDURE: HISTORY OTHER; COMMENT: hemorrhoidectomy OTHER SURGICAL HISTORY 12/21/2021 PROCEDURE: MT LAMOT PRTL FFD EXC DISC REEXPL 1 NTRSPC LUMBAR; COMMENT: Redo left L5-S1 minimally invasive discectomy, Dr. 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 porphyria - abdominal pain attacks HSV-2 (herpes simplex virus 2) infection DX:HSV-2 (herpes simplex vir us 2) infection Vitamin D deficiency 04/07/2010 DX:Vitamin D deficiency Tobacco abuse 11/01/2010 DX:Tobacco abuse Controlled substance agreeme nt terminated 08/24/2015 DX:Controlled substance agre ement terminated; COMMENT: Positive urine drug screen for marijuana he has no medical marijuana card Hypothyroidism DX:Hypothyroidis m Family History Medical History Relation Name Comments Other: 82, alive and well Father as of 10/2009 CABG Mother at the age of 7 0 Relation Name Status Comments Father Alive mild dm djd shahzad anoma liver disease Maternal Grandfather dm stro ke Maternal Grandmother (Age 98) Mother Alive cabg x3 a t age 73 melanoma Paternal Grandfather Alive lung ca ncer Paternal Grandmother (Age 70) co alex liver cancer Sister 1 Alive Sister 2 Alive colon polyps Social History Tobacco Use Types Packs/Day Years Used Date Smoking Tobacco: Light Smoker Cigarettes 0.2 50.5 Started: 11/05/1973 Smokeless Tobacco: Never Alcohol Use Standard Drinks/Week Comments No 0 (1 standard drink = 0.6 oz pur e alcohol) Sex and Gender Information Value Date Recorded Sex Assigned at Not on file Gender Identity Not on file Sexual Orientation Not on file Obstetrics History Last Filed Vital Signs Vital Sign Reading Time Taken Comments Blood Pressure 130/78 12/19/2023 10:48 AM EDT Sitting L Arm Pulse 88 12/19/2023 10:48 AM EDT Temperature - - Respiratory Rate - - Oxygen Saturation - - Inhaled Oxygen Concentration - - Weight 85.6 kg (188 lb 12.8 oz) 12/19/2023 10:48 AM EDT Height 175.3 cm (5' 9 ) 12/19/2023 10:4 8 AM EDT Body Mass Index 27.88 12/19/2023 10:48 AM EDT Plan of Treatment Upcoming Encounters Date Type Department Care Team (Late st Contact Info) Description 06/17/2024 9:45 AM EDT Office Visit Pulmonolgy - [place] [address] [facility] [address] [place] [phone] Arturo Saavedra MD [address] [facility] [address] [place] [address] Health Maintenance Due Date Last Done Comments Hepatitis A Vaccines (1 of 2 - Risk 2-dose series) 1978 Zoster Vaccines (1 of 2) 2009 Pneumococcal Vaccine: 65+ Years (2 of 2 - PCV) 11/05/2018 11/05/2017 Pneumococcal Vaccine: Pediatrics (0 to 5 Years) and At-Risk Patients (6 to 64 Years) (2 of 2 - PCV) 11/05/2018 11/05/2017 RSV Immunization Patients 60 + Years Old (1 - Risk 60-74 years 1-dose series) 2019 Abdominal Aortic Aneurysm (AAA) Screen 03/10/2022 Cholesterol Screening (Lipid Panel) 03/10/2022 08/11/2015 Depression Screening 03/10/2022 Social Influencers of Health Screening 03/10/2022 COVID-19 Vaccine (4 - 2023-2 5 season) 2023 01/10/2021, 06/08/2020, 05/18/2020 Influenza Vaccine (#1) 2023 Falls Risk Assessment 02/06/2024 Colorectal Cancer Screening: Colonoscopy 08/24/2026 08/24/2016 DTaP,Tdap,and Td Vaccines (4 - Td or Tdap) 12/31/2029 01/01/2020, 11/05/2017, 10/06/2007 Hepatitis B Vaccines Completed 04/25/2009, 10/20/2008, 09/21/2008 Hepatitis C Screening Completed 08/24/2015 HIB Vaccines Aged Out No longer eligi ble based on patient's age to complete this topic HPV Vaccines Aged Out No longer eligi ble based on patient's age to complete this topic IPV Vaccines Aged Out No longer eligi ble based on patient's age to complete this topic MMR Vaccines Aged Out No longer eligi ble based on patient's age to complete this topic Meningococcal ACWY Vaccine Aged Out N o longer eligible based on patient's age to complete this topic RSV Immunization Patients Under 20 months Aged Out No longer eligible b ased on patient's age to complete this topic Varicella Vaccines Aged Out No longer eligible based on patient's age to complete this topic Procedures Procedure Name Priority Date/Time Associated Diagnosis Comments COLONOSCOPY Routine 08/24/2016 HEPATITIS C SCREENING Routine 08/24/2015 LIPID PANEL Routine 08/11/2015 from Last 3 Months or Most Recently Relevant to Health Maintenance Results * Colonoscopy (08/24/2016) Colonoscopy No Interpretation , Abstracted Anatomical Region Laterality Modality Other Historical Provider MD SCARLET GLASS E * Hepatitis C Screening (08/24/2015) Hepatitis C Screening Abstracted Historical Provider MD SCARLET GLASS E * (ABNORMAL) Lipid panel (08/11/2015) LDL/HDL Ratio 6(A) 0 - 4 Triglycerides 249(A) 0 - 150 mg/dL Cholesterol 295(A) 0 - 200 mg/dL HDL 50 40 mg/dL LDL Cholesterol 196(A) 0 - 100 mg/dL Blood Venous blood specimen / Unknown Historical Provider LAB BLOOD ORDERAB LES from Last 3 Months or Most Recently Relevant to Health Maintenance Care Teams Reporting Analyst Relationship Specialty Start Date End Date Mallory Locke MD PCP - General Internal Medicine 10/24/18
== END 2024-04-22 11:14 | disposition home or self-care (01) ==
LOC: HO.XRAY 11:13
PROVIDERS: PCP Nurse Practitioner Family; Visit Provider Chiropractor
DX: M25.511 Pain in right shoulder (principal)
CPT/HCPCS: 73030

== ENCOUNTER 2024-05-04 15:28 | Outpatient (AMB) | payer MEDICARE, SELFPAY ==
--- NOTE | 2024-05-04 15:47 | MHC.OFFVIS ---
Vital Signs 05/04/24 15:54 Height 5 ft 9 in Weight 190 lb 8 oz BMI 28.1 BP 134/77 Blood Pressure Location Lt brachial Position Sitting Pulse 101 H Pulse Source Pulse Oximeter Intake Visit Reasons: Radiculopathy, lumbar region Intake Note: Pain today 11/08 Pill Maker Required: No Accompanied by: Self / Same As Patient Allergies morphine [MORPHINE] Allergy (Intermediate, Verified 05/04/24 15:51) ITCHY Sulfa (Sulfonamide Antibiotics) [SULFA (SULFONAMIDE ANTIBIOTICS)] Allergy (Intermediate, Verified 05/04/24 15:51) ITCHY atorvastatin Adverse Reaction (Intermediate, Verified 05/04/24 15:51) myalgia rosuvastatin [From Crestor] Adverse Reaction (Intermediate, Verified 05/04/24 15:51) Diarrhea HPI Comments Details: Francois is back in my office with a new complaint. She reports severe pain in the projection of the right AC joint. The pain prevents him from performing forward thrusting arm inward and outward turning. On the x-ray dictated as below he had very good description of the right AC joint pathology. I offered him to schedule therapeutic right AC joint injection. Patient agreed to go for the procedure. He does not complain on radiculopathic pain in the left lower extremity. In 2022 he received caudal epidural steroid injection with catheter. He reports today that while immediately after the procedure the pain relief was not that dramatic with time it provided him better pain control and he does not complain on lower back or radiculopathic pain today. Prior: H/o left L5-S1 discectomy on 04/20/21 and redo left L5-S1 minimally invasive discectomy on 12/21/[address] Kelly. His last follow up with Dr. Kelly was on 06/15/22 for ongoing left buttock and left leg pain and had another left L5-S1 TFESI at [facility]. He was supposed to follow up if pain is not improved but has not made any follow up since last injection by Neurosurgery providers. Immediately after his surgery he experience up to 80% of pain relieve. He enjoyed good pain relieve for 6-8 months until mis December 2022 when he was sitting up into his truck he started to fill again pain to his left buttock and left thigh and into his lower leg laterally and posteriorly with associated intermittent weakness in the left LE. This improved after seeing chiropractors, NSAIDs and heat therapy. Patient reports his movements improved but he continues to be in significant pain that affects his daily functioning, activities, mood, sleep and social interactions. Pain is worse with walking, weight bearing or bending down and relieved in reclined supine position. He rates pain at 8/10 and cannot tolerate standing, sitting or walking during today's visit. Patient constantly adjusts his reclined position to alleviate his symptoms. Denies any fever, chills, weight loss, abdominal or groin pain, bladder or bowel dysfunction or saddle anesthesia.He did not go with this pain complaints back to DR. Kelly. He wants to schedule an appointment with this surgeon in the nearest future. H/o left ankle surgery with metalic hardware in place. Denies numbness or tingling in his left lower extremity. This improved after seeing chiropractors, NSAIDs and heat therapy. L5-S1 left transforaminal epidural steroid injection 05/03/2020 resulted in improvement activities of daily living pain reduction about 80%, better social interaction, better mobility for 6 months of excellent pain relief. the same procedure was performed on. Before that on 01/18/2021 he went for yet another L5-S1 left TFESI after which he had 5-6 months susteained pain relieve. History of pain for 8 years, without any inciting events or trauma. He denies any surgical history to his back. He had some injections in his lower back about 7 years ago by cook helper fruit at [facility] however does not recall if these were particularly helpful. He has previously tried PT, home traction, chiropractic treatment, and Tylenol/Ibuprofen for his pain without significant benefit. [facility] Medical History (Updated 01/27/24 @ 11:02 by Gloria Vasquez PA-C) Nicotine dependence, cigarettes, uncomplicated History of fracture of left ankle Hyperlipidemia Bladder pain Benign prostatic hyperplasia Thoracic outlet syndrome Anxiety COPD (chronic obstructive pulmonary disease) Hypothyroidism Left lumbar radiculopathy Disc degeneration, lumbar Disc degeneration, lumbosacral Blood clot in vein Surgical History (Updated 01/27/24 @ 11:10 by Gloria Vasquez PA-C) History of hemorrhoidectomy History of esophagogastroduodenoscopy (EGD) Hx of hand surgery History of ankle surgery History of lumbar discectomy (12/21/21) History of cholecystectomy (~2004) Hx of colonoscopy Family History Paternal Uncle Colon cancer Paternal Grandmother Colon cancer Other Mental health disorder Social History Housing: House Are you a primary youth care worker to a significant other at home: No Do you presently have visiting nurse or other home services: No Patient Tobacco Use Status: Current everyday Tobacco user Tobacco use type: Cigarette Cigarette Packs Per Day: 0.75 Cigarettes Per Day: 15.0 Years Smoked: 40 e-Cigarette/Vaping Use: Never Used Substance Use Type: Marijuana service: No Current occupational status: disabled Current occupation: left handed Cognitive needs: No Hearing needs: No Vision needs: Yes Review of Systems Const All systems reviewed & are unremarkable except as noted in HPI and below Physical Exam General: Appears afebrile. Alert and oriented. Mood and affect appropriate. Follows and participates in conversation appropriately. Respiratory effort is unlabored. No cough. Able to transition from sit to stand unassisted. Ambulates with bilaterally normal heel strike and toe off, reports pain with heel walking on the left. Back/Spine/Pelvis Other: Limited back exam due to moderate to severe pain reproduced with extension, flexion and bending. Antalgic gait with limping. Demonstrates 5/5 right and 4/5 left strength of quadriceps as well as flexion/dorsiflexion of bilateral feet against resistance. 2+ pedal pulses bilaterally. Seated straight leg rise with dorsiflexion negative bilaterally. Diminished patellar and achilles reflexes bilaterally. Facet loading test positive bilaterally. Parul sign, Saad?s, Pelvic compression and Stinchfield tests are negative bilaterally. No groin pain with I/E hip rotations. Significant paraspinals tenderness mostly on the left side, lower back. Valsalva maneuver negative. Cervical Spine: cervical ROM normal and No Cervical spine tenderness Thoracic/Lumbar Spine: thoracic and lumbar spine normal to inspection, Thoracic/lumbar spine scar(s), pain with thoraco-lumbar ROM, paraspinal muscle tenderness, thoraco-lumbar ROM limited, No thoracic spinal tenderness and lumbar spinal tenderness at L5 Pelvis: buttock tenderness on the left Sacroiliac joints: bilaterally nontender Extrem Other: On inspection there is large varicosity in the projection of the medial surface of the right arm. Patient states that he has thoracic outlet syndrome. He states that it does not bother him. There is severe tenderness on palpation in projection of the right AC joint. Range of motion in the right arm is significantly limited. Unable to rotate are medially or laterally because it causes him severe pain. Results Reviewed Results Reviewed: RIGHT SHOULDER PAIN Right shoulder three views Comparison: None Findings: Mild degenerative arthritis AC joint. No inferior osteophytes. Intact glenohumeral joint. No acute fracture or dislocation. Soft tissues unremarkable. No acute process evident included right lung. Impression: Mild degenerative arthritis right AC joint. Assessment & Plan Assessment & Plan (1) Lumbar post-laminectomy syndrome: Code(s): M96.1 - Postlaminectomy syndrome, not elsewhere classified Category: Medical (2) Muscle spasm of back: Code(s): M62.830 - Muscle spasm of back Category: Medical (3) Left lumbar radiculopathy: Code(s): M54.16 - Radiculopathy, lumbar region Category: Medical (4) Disc degeneration, lumbar: Code(s): M51.36 - Other intervertebral disc degeneration, lumbar region Category: Medical (5) History of lumbar discectomy: Onset Date: 12/21/21 Comment: 04/20/21 Left L5-S1 discectomy Dr. Kelly 12/21/21 Redo Left L5-S1 Minimally invasive discectomy Code(s): Z98.890 - Other specified postprocedural states Category: Surgical Plan Eventually it looks like that the patient received very good results from a caudal epidural steroid injection with catheter. He had this procedure in 2022 in January and since then he is not complaining on lower back pain anymore. Today he presents in my office with complains on pain in the right shoulder. On physical exam as well as on x-ray dictated as above patient suffers from AC joint arthritis. I offered him intra articular AC joint injection on the right. Patient agreed to go for the procedure. Risks and benefits were explained. I will see him on the injection. Coding Level of Care Code Est Pt Level 3 (15574) Diagnoses Lumbar post-laminectomy syndrome M96.1 Muscle spasm of back M62.830 Left lumbar radiculopathy M54.16 Disc degeneration, lumbar M51.36 History of lumbar discectomy Z98.890
[2024-05-04 15:54] VITALS: BP 134/77; PULSE 101; BMI 28.1
--- OUTSIDE RECORDS SUMMARY | 2024-05-04 16:59 | XMS_ITS | Clinical Summary ---
Author Organization [facility] Address [address] [place] [address] Care Team Providers Care Reel Blade Bender Furnace Tender Name Role Phone Mallory Locke MD Primary Care Provider [phone] Allergies Active Allergy Reactions Criticality Noted Date [...] Name Administration Dates Next Due Hepatitis B (Xqwkfeu-V-Wwgkq , Recombivax HB-Adult) 19yo and older 04/25/2009,10/20/2008,09/21/2008 Pneumococcal polysaccharide 23 valent (Pneumovax 23) 2yo and older 11/05/2017 Td Tetanus diptheria (Tdvax) 7yo and older 11/05 Tdap Tetanus diptheria acell ular pertussis (Boostrix; Adacel) 7yo and older 01/01/2020,10/06/2007 Surgical History Surgery Date Site/Laterality Comments CHOLECYSTECTOMY PROCEDURE: HISTORICAL CHOLECYSTECTOMY OTHER SURGICAL HISTORY PROCEDURE: HISTORY OTHER; COMMENT: anal polyps dr car 2009 ESOPHAGOGASTRODUODENOSCOPY 2007 PROCEDURE: [place] ESOPHAGOGASTRODUODENOSCOPY TRANSORAL DIAGNOSTIC; COMMENT: normal ESOPHAGOGASTRODUODENOSCOPY 07/04/2011 PROCEDURE: [place] ESOPHAGOGASTRODUODENOSCOPY TRANSORAL DIAGNOSTIC; COMMENT: normal; no Lopez's [...] COMMENT: hemorrhoidectomy OTHER SURGICAL HISTORY 12/21/2021 PROCEDURE: [place] LAMOT PRTL FFD EXC DISC REEXPL 1 NTRSPC LUMBAR; COMMENT: Redo left L5-S1 minimally invasive discectomy, Dr. 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 porphyria - [...] 9:45 AM EDT Office Visit Pulmonolgy - [place] [address] [facility] [address] [place] [phone] Arturo Saavedra MD [address] [facility] [address] [place] [address] Health Maintenance Due Date Last Done Comments [...] Procedure Name Priority Date/Time Associated Diagnosis Comments EXTERNAL CT REPORT 04/28/2024 COLONOSCOPY Routine 08/24/2016 HEPATITIS C SCREENING Routine 08/24/2015 LIPID PANEL Routine 08/11/2015 from Last 3 Months or Most Recently Relevant to Health Maintenance Results * External CT Report (04/28/2024) Anatomical Region Laterality Modality Computed Tomogra phy Provider [place] [facility] PROCEDURE S * Colonoscopy (08/24/2016) Colonoscopy No Interpretation , Abstracted Anatomical Region Laterality Modality Other Historical Provider MD SCARLET GLASS E * Hepatitis C Screening (08/24/2015) [facility]ologist [facility] Hepatitis C Screening Abstracted Historical Provider MD SCARLET GLASS E * (ABNORMAL) Lipid panel (08/11/2015) Pathologist [facility] LDL/HDL Ratio 6(A) 0 - 4 Triglycerides 249(A) 0 - 150 mg/dL Cholesterol 295(A) 0 - 200 mg/dL HDL 50 40 mg/dL LDL Cholesterol 196(A) 0 - 100 mg/dL Blood Venous blood specimen / Unknown Historical Provider LAB BLOOD ORDERAB LES from Last 3 Months or Most Recently Relevant to Health Maintenance Care Teams Reel Blade Bender Furnace Tender Relationship Specialty Start Date End Date Mallory Locke MD PCP - General Internal Medicine 10/24/18
== END 2024-05-04 15:58 | disposition home or self-care (01) ==
PROVIDERS: PCP Nurse Practitioner Family; Visit Provider Anesthesiology
DX: M96.1 Postlaminectomy syndrome, not elsewhere classified (principal); M62.830 Muscle spasm of back; M54.16 Radiculopathy, lumbar region; M51.369 Other intervertebral disc degeneration, lumbar region without mention of lumbar back pain or lower extremity pain; Z98.890 Other specified postprocedural states
CPT/HCPCS: 99213

== ENCOUNTER → 2024-05-04 15:28 | Outpatient (BNVA) | payer MEDICARE, SELFPAY | PROVIDERS: PCP Nurse Practitioner Family; Visit Provider Anesthesiology | DX: M96.1 Postlaminectomy syndrome, not elsewhere classified (principal); M62.830 Muscle spasm of back; M54.16 Radiculopathy, lumbar region; M51.360 Other intervertebral disc degeneration, lumbar region with discogenic back pain only; Z98.890 Other specified postprocedural states | CPT/HCPCS: 99212 ==

== ENCOUNTER 2024-06-18 13:16 | Outpatient (AMB) | payer MEDICARE, SELFPAY ==
--- NOTE | 2024-06-18 13:19 | MHC.OFFVIS ---
Vital Signs 06/18/24 13:23 Height 5 ft 9 in Weight 190 lb BMI 28.1 Handedness Left Intake Visit Reasons: New Prob - right shoulder pain Intake Note: Francois is a 64 year old left hand dominant male who presents today for a evaluation of his right shoulder pain, pain started in 04/2024. Patient woke up one day with pain in his shoulder were he is unable to . He states that his pain is on the lateral aspect of the shoulder and it radiates up to his neck and stops at his elbow. Patient notices that his pain is worse when he does overhead reaching, reaching for his back and lifting his arm to the side. He has tried and failed Tylenol, NSAIDs and Ice. Impression (X rays done on 04/23/24): Mild degenerative arthritis right AC joint. Allergies morphine [MORPHINE] Allergy (Intermediate, Verified 06/18/24 13:23) ITCHY Sulfa (Sulfonamide Antibiotics) [SULFA (SULFONAMIDE ANTIBIOTICS)] Allergy (Intermediate, Verified 06/18/24 13:23) ITCHY atorvastatin Adverse Reaction (Intermediate, Verified 06/18/24 13:23) myalgia rosuvastatin [From Crestor] Adverse Reaction (Intermediate, Verified 06/18/24 13:23) Diarrhea HPI HPI New Prob - right shoulder pain: Details: Mr. Howard is a 64-year-old right-hand dominant male who presents to the office today for evaluation of right shoulder pain and stiffness. He reports back in April he was reaching above his head stretching and felt a sharp pain. Ever since then he has had difficulty with overhead activities. Has extreme pain with range of motion. He reports that the pain radiates up to his neck and down to his elbow. Denies any numbness or tingling. [facility] Medical History (Updated 06/18/24 @ 13:39 by Margaret Avendano PA-C) Nicotine dependence, cigarettes, uncomplicated History of fracture of left ankle Hyperlipidemia Bladder pain Benign prostatic hyperplasia Thoracic outlet syndrome Anxiety COPD (chronic obstructive pulmonary disease) Hypothyroidism Left lumbar radiculopathy Disc degeneration, lumbar Disc degeneration, lumbosacral Blood clot in vein Surgical History (Updated 01/27/24 @ 11:10 by Gloria Vasquez PA-C) History of hemorrhoidectomy History of esophagogastroduodenoscopy (EGD) Hx of hand surgery History of ankle surgery History of lumbar discectomy (12/21/21) History of cholecystectomy (~2004) Hx of colonoscopy Family History Paternal Uncle Colon cancer Paternal Grandmother Colon cancer Other Mental health disorder Social History Housing: House Are you a primary senior resident care director to a significant other at home: No Do you presently have visiting nurse or other home services: No Patient Tobacco Use Status: Current everyday Tobacco user Tobacco use type: Cigarette Cigarette Packs Per Day: 0.75 Cigarettes Per Day: 15.0 Years Smoked: 40 e-Cigarette/Vaping Use: Never Used Substance Use Type: Marijuana service: No Current occupational status: disabled Current occupation: left handed Cognitive needs: No Hearing needs: No Vision needs: Yes Review of Systems Const All systems reviewed & are unremarkable except as noted in HPI and below Physical Exam Vital Signs: BMI result Body Mass Index 28.1 Const General: cooperative, healthy appearing and no acute distress Resp Effort & Inspection: normal respiratory effort and able to speak in complete sentences Cardio Rate: regular rate Peripheral pulses: Peripheral pulses 2+ throughout Skin Lesions: no lesions Rashes: no rashes Extrem Other: Right shoulder forward flexion to 90 degrees abduction to 90 degrees able to reach greater trochanteric bursa. No motion with external rotation. Pain with cross-body reach. Unable to assess drop-arm and empty can do to pain on range of motion restrictions. NVI. Office Procedures AMB Joint Injection/Aspiration Joint Injection/Aspiration Primary Site: right shoulder Prep: site was prepped using aseptic technique, ethochloride spray was applied and injection warnings given Injected: 80 mg of, DepoMedrol, with 8 mL of (2% plain lido ) and in the subcromial space Approach Used: posterolateral Procedure: The patient tolerated the procedure well, but had some pain with the injection and there was some relief with the local anesthesia Coding 67319 - Large joint Procedure code (CPT) selection complete Assessment & Plan Assessment & Plan (1) Adhesive capsulitis of right shoulder: Code(s): M75.01 - Adhesive capsulitis of right shoulder Category: Medical Plan: Mr. Howard is a 64-year-old right-hand dominant male who presents to the office today for evaluation of right shoulder pain and stiffness. He reports back in April he was reaching above his head stretching and felt a sharp pain. Ever since then he has had difficulty with overhead activities. Has extreme pain with range of motion. He reports that the pain radiates up to his neck and down to his elbow. Denies any numbness or tingling. While in the office today, The patient was offered a cortisone injection in the right shoulder with ED mg of DepoMedrol. The patient was explained the risks, benefits, and alternatives to receiving this injection. After receiving consent for the injection, the patient had the procedure done while in the office today. The patient tolerated the procedure well with no complications. I have also recommended that the patient attend physical therapy to work on range of motion. Patient understands and accepts. An order has been placed while in the office today. I would like to see him back in 6 weeks, sooner if needed. X-rays of the right shoulder which were obtained on 04/22/2024 and were reviewed by me, Margaret Avendano PA-C, revealed Orders: Orders PT Evaluation and Treatment Today M75.01 - Adhesive capsulitis of right shoulder Coding Level of Care Code New Pt Level 3 (38344) Diagnoses Adhesive capsulitis of right shoulder M75.01 CPT Codes Coding - 28553 Large joint: 09881 - Large joint ([id number])
[2024-06-18 13:23] VITALS: BMI 28.1
--- OUTSIDE RECORDS SUMMARY | 2024-06-18 15:45 | XMS_ITS | Patient Health Record ---
[facility] Address [address] [place] [address] Care Team Providers Care Police Liaison Name Role Phone Mallory Locke MD Primary Care Provider Yanet Terry Unavailable [phone] Allergies Allergen (clinical drug ingredient) Drug/Non Drug Allergy documented on EMR Reaction Allergy Type Onset Date Status sulfamethoxazole / trimethoprim Bactrim itchy skin Drug Allergy Active morphine Morphine itchy skin Drug Allergy Active Reason For Referral No Information Medications Medication SIG (Take, Route, Frequency, Duration) Notes Start Date End Date Status Levothyroxine Sodium Active Nystatin 048954 UNIT 1 tablet Orally Active Citalopram Hydrobromide [...] End Date [employer] [address] [place] [address] [id number] Francois Howard Self - patient is the insured Medical (General) History Medical History History ICD Code Anxiety Back,Hip,and Knee pain Broken bones Lung disease Psoriasis/eczema Reflux ( GERD) thyroid Measles Mumps Chicken pox Surgical History Surgery Date(Month/Year) ankle surgery left 2019 finger surgery Right index 12/2019
--- OUTSIDE RECORDS SUMMARY | 2024-06-18 15:45 | XMS_ITS | Encounter Summary ---
Author Organization [facility] Address [address] [place] [address] Care Team Providers Care Legal Entity Controller Name Role Phone Mallory Locke MD Primary Care Provider [phone] Reason for Referral * Therapy (Routine) - Pending Review Specialty Diagnoses / Procedures Referred By Contac t Referred To Contact Pulmonology Diagnoses Stage 3 severe COPD by GOLD classification (CMS/HCC) Procedures Pulmonary function testing: Spirometry with Bronchodilator, Carbon Monoxide Diffusing Capacity Arturo Saavedra MD [address] [address] Phone: tel: fax: [facility] - [place] [address] [address] Phone: tel: fax: Referral ID Status Reason Start Date Expiration Date V isits Requested Visits Authorized [id number] Pending Review 06/17/2024 06/17/2025 1 1 Reason for Visit * Reason Comments COPD Follow up for COPD. No issues since last visit Encounter Details Date Type Department Care Team (Latest Contact Info) Description 06/17/2024 9:45 AM EDT Office Visit Pulmonol - [place] [address] [phone] Arturo Saavedra MD [address] [address] Stage 3 severe COPD by GOLD classification (CMS/HCC) (Primary Dx) Social History Tobacco Use Types Packs/Day Years Used Date Smoking Tobacco: Light Smoker Cigarettes 0.2 50.6 Started: 11/05/1973 Smokeless Tobacco: Never Tobacco Cessation:Ready to Q uit: Not Asked; Counseling Given: Not Answered Alcohol Use Standard Drinks/Week Comments No 0 (1 standard drink = 0.6 oz pur e alcohol) Sex and Gender Information Value Date Recorded Sex Assigned at Not on file Legal Sex Male 9:56 AM EST Gender Identity Not on file Sexual Orientation Not on file documented as of this encounter Last Filed Vital Signs Vital Sign Reading Time Taken Comments Blood Pressure 148/82 06/17/2024 9:54 AM EDT Pulse 87 06/17/2024 9:54 AM EDT Temperature 36.8 ??C (98.2 ??F) 06/17/2024 9:54 AM ED T Respiratory Rate 18 06/17/2024 9:54 AM EDT Oxygen Saturation 98% 06/17/2024 9:54 AM EDT Inhaled Oxygen Concentration - - Weight 86.2 kg (190 lb) 06/17/2024 9:54 AM EDT Height 177.8 cm (5' 10 ) 06/17/2024 9:54 AM EDT Body Mass Index 27.26 06/17/2024 9:54 AM EDT documented in this encounter Progress Notes * Arturo Saavedra MD - 06/17/2024 9:45 AM EDT ADULT PULMONARY CONSULT CHIEF COMPLAINT or REASON FOR CONSULTATION: COPD (Follow up for COPD. No issues since last visit ) History of Present Illness The patient is a 64-year-old male who presents for evaluation of COPD. He was last seen 6 months ago. He has made efforts to reduce his smoking habit, currently consuminghalf of his previous intake. Despite attempts, he has been unable to quit smoking entirely. He ensures that he smokes outdoors only. He has not required any hospitalizations since his last visit. He rarely uses albuterol, having used it twice in the past week. He typically uses his regular inhaler in the morning. He has previously tried Chantix for smoking cessation but found it unhelpful. He is on Trelegy. SOCIAL HISTORY He admits to smoking but has cut down by half. He is currently staying with his girlfriend. MEDICATIONS Trelegy, albuterol, Chantix (discontinued). ALLERGIES: Allergies Allergen Reactions Morphine ER years ago Sulfa (Sulfonamide Antibiotics) ACTIVE MEDICATIONS: Outpatient Medications Marked as Taking for the 06/17/24 encounter (Office Visit) with Atruro Saavedra MD Medication Sig Dispense Refill albuterol HFA (PROAIR HFA ; PROVENTIL HFA ; VENTOLIN HFA) 90 mcg/actuation inhaler INHALE 2 PUFFS INTO THE LUNGS EVERY 6 HOURS NEEDED FOR WHEEZING OR SHORTNESS OF BREATH FOR UP TO 90 DAYS. THIS AKTIE RESCUE MEDICATION NOT EXCEED 12 INHALATIONS/24 HRS aspirin 81 mg EC tablet Take 1 tablet (81 mg total) by mouth 1 (one) time each day. citalopram (CeleXA) 10 mg tablet Take 0.5 tablets (5 mg total) by mouth 1 (one) time each day. coenzyme Q-10 200 mg capsule Take by mouth. 300 mg daily econazole nitrate 1 % cream APPLY TWICE DAILY TO FEET FOR 3-4 WEEKS THEN ONCE WEEKLY FOR MAINTENANCE ketoconazole (NIZORAL) 2 % cream APPLY TWICE DAILY TO FEET FOR 3-4 WEEKS THEN ONCE WEEKLY FOR MAINTENANCE levothyroxine sodium (TIROSINT) 50 mcg capsule Take 1 capsule (50 mcg total) by mouth 1 (one) time each day. liothyronine (CYTOMEL) 5 mcg tablet nystatin (MYCOSTATIN) 500,000 unit tablet tamsulosin (FLOMAX) 0.4 mg 24 hr capsule TAKE 1 CAPSULE BY MOUTH AT BEDTIME FOR RETENTION OF URINE testosterone 50 mg/5 gram (1 %) gel thyroid, pork, (ARMOUR THYROID) 30 mg tablet Take 1 tablet (30 mg total) by mouth 1 (one) time eachday. umeclidinium-vilanteroL (Anoro Ellipta) 62.5-25 mcg/actuation inhaler Inhale by mouth. valsartan (DIOVAN) 80 mg tablet Take 1 tablet (80 mg total) by mouth 1 (one) time each day. PROVIDER ATTESTS THAT THE MEDICATION LIST WAS OBTAINED, REVIEWED AND UPDATED. REVIEW OF SYSTEMS: GENERAL: No wt lost or fever ENT: +snoring Eye: RESPIRATORY: + cough, wheezing and dyspnea CARDIOVASCULAR: No chest pain, leg swelling or palpitations GI: No abdominal discomfort, MUSCULOSKELETAL: +backpain HEMATOLOGY/LYMPHOLOGY No prolonged bleeding, easy bruisability ENDOCRINE: no DM NEURO: No focal weakness : Psych: no depression PAST MEDICAL HISTORY: Patient Active Problem List Diagnosis Date Noted Lumbar back pain with radiculopathy affecting left lower extremity 09/15/2021 Scarring of lung 10/28/2018 Gastroparesis 02/24/2018 Nicotine dependence, uncomplicated 08/05/2017 Stage 2 moderate COPD by GOLD classification ([facility]) 08/05/2017 Exposure to asbestos 06/27/2016 Lumbar disc herniation with radiculopathy 02/06/2016 Scheuermann's disease 02/06/2016 Tobacco use disorder 02/06/2016 Testosterone deficiency 11/01/2010 COPD, moderate ([facility]) 05/17/2010 Vitamin D deficiency 04/07/2010 Hyperlipidemia 11/04/2009 Anxiety 03/23/2009 HSV-2 (herpes simplex virus 2) infection 09/13/2008 Erectile dysfunction 05/04/2008 Eustachian tube dysfunction 11/27/2007 Chronic fatigue syndrome 10/27/2005 Irritable bowel syndrome 10/27/2005 Past Surgical History: Procedure Laterality Date ANKLE SURGERY PROCEDURE: HISTORICAL ANKLE SURGERY; COMMENT: foot/ankle surgery CHOLECYSTECTOMY PROCEDURE: HISTORICAL CHOLECYSTECTOMY COLONOSCOPY 2007stein PROCEDURE: HISTORICAL COLONOSCOPY; COMMENT: normal COLONOSCOPY 08/24/2016 PROCEDURE: HISTORICAL COLONOSCOPY; COMMENT: normal, with nl terminal ileum and normal random colonic biopsies ESOPHAGOGASTRODUODENOSCOPY 2007 PROCEDURE: NC ESOPHAGOGASTRODUODENOSCOPY TRANSORAL DIAGNOSTIC; COMMENT: normal ESOPHAGOGASTRODUODENOSCOPY 07/04/2011 PROCEDURE: NC ESOPHAGOGASTRODUODENOSCOPY TRANSORAL DIAGNOSTIC; COMMENT: normal; no Lopez's on biopsy LUMBAR LAMINECTOMY Left 04/20/2021 PROCEDURE: HISTORICAL LUMB LAMINECTOMY; COMMENT: left L5-S1 discectomy, Dr. Kelly OTHER SURGICAL HISTORY PROCEDURE: HISTORY OTHER; COMMENT: anal polyps dr car 2008 OTHER SURGICAL HISTORY PROCEDURE: HISTORY OTHER; COMMENT: hemorrhoidectomy OTHER SURGICAL HISTORY 12/21/2021 PROCEDURE: NC LAMOT PRTL FFD EXC DISC REEXPL 1 NTRSPC LUMBAR; COMMENT: Redo left L5-S1 minimally invasive discectomy, Dr. Kelly FAMILY HISTORY: Family History Problem Relation Name Age of Onset CABG Mother at the age of 70 Other (Other: 82, alive and well) Father as of 10/2009 OCCUPATION OR OCCUPATION EXPOSURE: SOCIAL HISTORY Social History Socioeconomic History Marital status: Spouse name: Not on file Number of children: Not on file Years of education: Not on file Highest education level: Not on file Occupational History Not on file Tobacco Use Smoking status: Light Smoker Current packs/day: 0.20 Average packs/day: 0.2 packs/day for 50.6 years (10.1 ttl pk-yrs) Types: Cigarettes Start date: 11/05/1973 Smokeless tobacco: Never Substance and Sexual Activity Alcohol use: No Drug use: No Sexual activity: Not on file Other Topics Concern Not on file Social History Narrative Not on file IMMUNIZATION: Immunization History Administered Date(s) Administered Hepatitis B (Aqudipn-J-Crnjc, Recombivax HB-Adult) 19yo and older 09/21/2008, 10/20/2008, 04/25/2009 Pfizer (ages 12 & older) Bivalent, COVID-19 02/14/2022 Pfizer SARS-CoV-2 COVID-19, mRNA, LNP-S, preservative free 05/18/2020, 06/08/2020, 01/10/2021 Pneumococcal polysaccharide 23 valent (Pneumovax 23) 2yo and older 11/05/2017 Td Tetanus diptheria (Tdvax) 7yo and older 11/05/2017 Tdap Tetanus diptheria acellular pertussis (Boostrix; Adacel) 7yo and older 10/06/2007, 01/01/2020 PHYSICAL EXAM: Visit Vitals BP (!) 148/82 (BP Location: Left arm, Patient Position: Sitting, BP Cuff Size: Adult long) Pulse 87 Temp 36.8 ??C (98.2 ??F) (Temporal) Resp 18 Ht 1.778 m (70 ) Wt 86.2 kg (190 lb) SpO2 98% BMI 27.26 kg/m?? Smoking Status Light Smoker BSA 2.04 m?? PPEARANCE: Alert and in no acute distress. Well nourished, looks his stated age. EYES: Conjunctiva and sclera normal. NOSE/SINUS: Nares normal. Septum midline. Mucosa No drainage or sinus tenderness. MOUTH/THROAT: no erythema or exudates. Mallampati class 2 NECK: Neck supple, thyroid symmetric and of normal size. HEART: RRR with normal S1 and S2, no murmurs, no gallops, no JVD appreciated. LUNG: CTA b/l, no wheezing or bronchial bs. No tenderness, no wheezing, diminished bs ABDOMEN: Bowel sounds normoactive, soft, non-tender EXTREMITIES: no clubbing, cyanosis, or edema. LYMPH NODES: No cervical and supra-clavicular lymphadenopathy. Derm: Prominent veins in right arm NEURO: Awake, alert and oriented x 3, no focalization. DIAGNOSTIC DATA: CARDIOPULMONARY TEST: 08/14/22 INDICATION: SPIROMETRY: FEV1 is 41 % predicted and an FVC is 64 % predicted.The FEV1/FVC ratio is 64% of normal, No significant response to bronchodilators noted. Maximum voluntary ventilation 49% predicted. LUNG VOLUMES: Total lung capacity (TLC): 98% predicted. Residual volume (RV): 149% predicted RV/TLC ratio is 136% of normal End respiratory volume (ERV): 61% predicted DIFFUSION CAPACITY: DLCO 48% predicted. DlCO/VA 51% of predicted COMPARISONS: INTERPRETATION: This pulmonary function test shows Severe obstructive changes with gas trapping consistent with emphysema. The degree of obstruction has worsened significantly since last test in 2018 RADIOLOGIST IMAGING: CT chest [facility]- 03/2024 emphysema- no suspicious nodules ASSESSMENT: ICD-10-CM ICD-9-CM 1. Stage 3 severe COPD by GOLD classification ([facility]) J44.9 496 Pulmonary function testing: Spirometry with Bronchodilator, Carbon Monoxide Diffusing Capacity PLAN: Assessment & Plan 1. Chronic Obstructive Pulmonary Disease (COPD). His lung function has shown a concerning decline over time, with the most recent lung test from 2019 indicating severe COPD and emphysema. The low-dose CT scan from March 12, 2024, did not reveal any suspicious findings but confirmed emphysema. He is currently on Trelegy for COPD management, which is considered effective. He has been strongly advised to cease smoking due to its detrimental impact on his lung health. He has reduced his smoking by half and plans to cut back further. He was encouraged to smoke outdoors if necessary to minimize indoor exposure. He declined additional smoking cessation aids such as patches or Chantix at this time. A pulmonary function test will be scheduled to assess his current lung status. I will check an alpha-1 level Follow-up The patient will follow up in 6 months. - Follow up with Mallory Locke MD for the other co-morbilities. - I spend 32 Minutes on this visit. The patient was educated about his problems, where assessment and plan was reviewed and explained, All questions were answered. This includes: Preparing to see the patient, obtaining and/or reviewing separately obtained history, performing a medically appropriate exam, ordering medications, tests, or procedures, documenting clinical information in the electronic health record, and independently interpreting results. RETURN TO THE NEXT VISIT: Based on physical exam, symptomatology, tests requested and baseline pulmonary evaluation/disease, I instructed the patient to come back to see me in 6 mths for reevaluation after the test has been done or earlier if the patient needed. Thanks Mallory Locke MD for allowing me to have the opportunity to assist in the care of this patient. I have obtained verbal consent from Francois Howard prior to the recording. I have advised Nataly Howard that he may refuse the recording and require the recording to be turned off at any time during this encounter. documented in this encounter Plan of Treatment Upcoming Encounters Date Type Department Care Team (Late st Contact Info) Description 07/22/2024 9:00 AM EDT Ancillary Procedure Pulmonolgy - [place] [address] [phone] Nakia Thorpe 12/28/2024 1:00 PM EDT [facility] [address] [phone] Arturo Saavedra MD [address] [address] Scheduled Orders Name Type Priority Associated Diagnoses Orde r Schedule Pulmonary function testing: Spirometry with Bronchodilator, Carbon Monoxide Diffusing Capacity PFT Routine Stage 3 severe COPD by GOLD classification (CMS/HCC) 1 Occurrences starting 06/17/2024 until 06/17/2025 [id number] Lab Routine Stage 3 severe COPD by GOLD classification (CMS/HCC) 1 Occurrences starting 06/17/2024 until 06/17/2025 documented as of this encounter Visit Diagnoses Diagnosis Stage 3 severe COPD by GOLD classification (CMS/HCC)- Primary documented in this encounter Care Teams Legal Entity Controller Relationship Specialty Start Date End Date Mallory Locke MD PCP - General Internal Medicine 06/05/24 documented as of this encounter
--- OUTSIDE RECORDS SUMMARY | 2024-06-18 15:45 | XMS_ITS | Clinical Summary ---
Author Organization [address] [place] [address] Address [address] [place] [address] Phone Care Team Providers Care Tread Cutter Name Role Phone Mallory Locke MD Primary Care Provider [phone] Allergies Active Allergy Reactions Criticality Noted Date Comments Morphine 07/03/2013 ER years ago Sulfa (Sulfonamide Antibiotics) 08/2005 Medications coenzyme Q-10 200 mg capsule Take by [...] RESCUE MEDICATION NOT EXCEED 12 INHALATIONS/24 HRS 3 Active umeclidinium-vi lanteroL (Anoro Ellipta) 62.5-25 mcg/actuation inhaler Inhale by mouth. Act ava econazole nitrate 1 % cream APPLY TWICE DAILY TO FEET FOR 3-4 WEEKS THEN ONCE WEEKLY FOR MAINTENANCE 3 Active ketoconazole (NIZORAL) 2 % cream APPLY TWICE DAILY TO FEET FOR 3-4 WEEKS THEN ONCE WEEKLY FOR MAINTENANCE 3 Active levothyroxine sodium (TIROSINT) 50 mcg capsule Take 1 capsule (50 mcg total) by mouth 1 (one) time each day. 3 Active tamsulosin (FLOMAX) 0.4 mg 24 hr capsule TAKE 1 CAPSULE BY MOUTH AT BEDTIME FOR RETENTION OF URINE 2 Active thyroid, pork, (ARMOUR THYROID) 30 mg tablet Take 1 tablet (30 mg total) by mouth 1 (one) time each day. 2 Active aspirin 81 mg EC tablet Take 1 tablet (81 mg total) by mouth 1 (one) time each day. Active nystatin (MYCOSTATIN) 500,000 unit tablet 2 Active testosterone 50 mg/5 gram (1 %) gel 2 Active liothyronine (CYTOMEL) 5 mcg tablet 1 Active citalopram (CeleXA) 10 mg tablet Take [...] (03/10/2024): ? porphyria Irritable bowel syndrome 10/27/2005 Encounters Date Type Department Care Team Description 06/17/2024 9:45 AM EDT Office Visit Pulmonolgy - [address] [phone] Arturo Saavedra MD Stage 3 severe COPD by GOLD classification ([facility]) (Primary Dx) from Last 3 Months Immunizations Name Administration Dates Next Due Hepatitis B (Nrdijoi-D-Ndxdm , Recombivax HB-Adult) 19yo and older 04/25/2009,10/20/2008,09/21/2008 Pneumococcal polysaccharide 23 valent (Pneumovax 23) 2yo and older 11/05/2017 Td Tetanus diptheria (Tdvax) 7yo and older 11/05 Tdap Tetanus diptheria acell ular pertussis (Boostrix; Adacel) 7yo and older 01/01/2020,10/06/2007 Surgical History Surgery Date Site/Laterality Comments CHOLECYSTECTOMY PROCEDURE: HISTORICAL CHOLECYSTECTOMY OTHER SURGICAL HISTORY PROCEDURE: HISTORY OTHER; COMMENT: anal polyps dr car 2008 ESOPHAGOGASTRODUODENOSCOPY 2007 Lul PROCEDURE: CT ESOPHAGOGASTRODUODENOSCOPY TRANSORAL DIAGNOSTIC; COMMENT: normal ESOPHAGOGASTRODUODENOSCOPY 07/04/2011 PROCEDURE: CT ESOPHAGOGASTRODUODENOSCOPY TRANSORAL DIAGNOSTIC; COMMENT: normal; no Lopez's on biopsy COLONOSCOPY 2007 Lul PROCEDURE: HISTORICAL COLONOSCOPY; COMMENT: normal COLONOSCOPY 08/24/2016 PROCEDURE: HISTORICAL COLONOSCOPY; COMMENT: normal, with nl terminal ileum and normal random colonic biopsies LUMBAR LAMINECTOMY 04/20/2021 Left PROCEDURE: HISTORICAL LUMB LAMINECTOMY; COMMENT: left L5-S1 discectomy, Dr. Kelly ANKLE SURGERY PROCEDURE: HISTORICAL ANKLE SURGERY; COMMENT: foot/ankle surgery OTHER SURGICAL HISTORY PROCEDURE: HISTORY OTHER; COMMENT: hemorrhoidectomy OTHER SURGICAL HISTORY 12/21/2021 PROCEDURE: CT LAMOT PRTL FFD EXC DISC REEXPL 1 NTRSPC LUMBAR; COMMENT: Redo left L5-S1 minimally invasive discectomy, Dr. 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 porphyria - [...] Mass Index 27.26 06/17/2024 9:54 AM EDT Plan of Treatment Upcoming Encounters Date Type Department Care Team (Late st Contact Info) Description 07/22/2024 9:00 AM EDT Ancillary Procedure Pulmonolgy - [place] 175 [facility] [address] [place] [id number] Nakia Thorpe 12/28/2024 1:00 PM EDT Office Visit Pulmonol - [place] [address] [phone] Arturo Saavedra MD 175 [facility] [address] [place] [address] Health Maintenance Due Date Last Done Comments Hepatitis A Vaccines (1 of 2 - Risk 2-dose series) 1978 Zoster Vaccines (1 of 2) 2009 Abdominal Aortic Aneurysm (AAA) Screen 03/10/2022 Cholesterol Screening (Lipid Panel) 03/10/2022 08/11/2015 Depression Screening 03/10/2022 Medicare Annual Wellness Visit 03/10/2022 Social Influencers of Health Screening 03/10/2022 Pneumococcal Vaccine: 50+ Years (2 of 2 - PCV) 03/27/2022 03/27/2021, 11/05/2017 Pneumococcal Vaccine: Pediatrics (0 to 5 Years) and At-Risk Patients (6 to 64 Years) (2 of 2 - PCV) 03/27/2022 03/27/2021, 11/05/2017 COVID-19 Vaccine (5 - 2023- season) 2023 02/14/2022, 01/10/2021, 06/08/2020, Additional history exists Influenza Vaccine (#1) 2023 Falls Risk Assessment 02/06/2024 Colorectal Cancer Screening: Colonoscopy 08/24/2026 08/24/2016 DTaP,Tdap,and Td Vaccines (4 - Td or Tdap) 12/31/2029 01/01/2020, 11/05/2017, 10/06/2007 Hepatitis B Vaccines Completed 04/25/2009, 10/20/2008, 09/21/2008 Hepatitis C Screening Completed 08/24/2015 RSV Immunization Patients 60+ Years Old Completed 01/23/2023 HIB Vaccines Aged Out No longer eligi [...] patient's age to complete this topic Meningococcal B Vacine Aged Out No lo nger eligible based on patient's age to complete this topic RSV Immunization Patients Under 20 months Aged Out No longer eligible based on [...] Region Laterality Modality Computed Tomogra phy Provider [facility] PROCEDURES Final Result * Colonoscopy (08/24/2016) Colonoscopy No Interpretation , Abstracted Anatomical Region Laterality Modality Other Historical Provider HEALTH MAINTENANCE Final Result * Hepatitis C Screening (08/24/2015) Hepatitis C Screening Abstracted Historical Provider HEALTH MAINTENANCE Final Result * (ABNORMAL) Lipid panel (08/11/2015) Pathologist [facility] [place] LDL/HDL Ratio 6(A) 0 - 4 Triglycerides 249(A) 0 - 150 mg/dL Cholesterol 295(A) 0 - 200 mg/dL HDL 50 >=40 mg/dL LDL Cholesterol 196(A) 0 - 100 mg/dL Blood Venous blood specimen / Unknown Historical Provider LAB BLOOD ORDERABLES Leigh Ann l Result from Last 3 Months or Most Recently Relevant to Health Maintenance Insurance [employer] - [place] MEDICARE ADVANTAGE Care Teams Tread Cutter Relationship Specialty Start Date End Date Mallory Locke MD PCP - General Internal Medicine 06/05/24
== END 2024-06-18 13:38 | disposition home or self-care (01) ==
LOC: HO.HOS 13:17
PROVIDERS: PCP Nurse Practitioner Family; Visit Provider Physician Assistant
DX: M75.01 Adhesive capsulitis of right shoulder (principal)
CPT/HCPCS: 20610; 99203

== ENCOUNTER → 2024-06-18 13:16 | Outpatient (BNVA) | payer MEDICARE, SELFPAY | PROVIDERS: PCP Nurse Practitioner Family; Visit Provider Physician Assistant | DX: M75.01 Adhesive capsulitis of right shoulder (principal) | CPT/HCPCS: 20610; 99202; J1010; J2003 ==

== ENCOUNTER 2024-07-15 09:00 | Outpatient (AMB) | payer MEDICARE, SELFPAY ==
--- NOTE | 2024-07-15 09:04 | A.OFFPC_ITS ---
Vital Signs 07/15/24 09:05 Height 5 ft 9 in Weight 187 lb BMI 27.6 BP 122/80 Blood Pressure Location Lt brachial Position Sitting Respiration 20 Pulse 84 Pulse Source Pulse Oximeter Temp 97.9 F Temp Source Oral Pulse Oximetry (%) 98 Oxygen Delivery Method Room Air Intake Visit Reasons: 6m follow up/HTN Intake Note: Pt is here today for 6 months follow up visit. Allergies morphine [MORPHINE] Allergy (Intermediate, Verified 07/15/24 09:38) ITCHY Sulfa (Sulfonamide Antibiotics) [SULFA (SULFONAMIDE ANTIBIOTICS)] Allergy (Intermediate, Verified 07/15/24 09:38) ITCHY atorvastatin Adverse Reaction (Intermediate, Verified 07/15/24 09:38) myalgia rosuvastatin [From Crestor] Adverse Reaction (Intermediate, Verified 07/15/24 09:38) Diarrhea Medication List - Last Reconciled 07/15/24 by Robby Harley, BLEACH PLANT OPERATOR- albuterol sulfate 90 mcg/actuation inhalation Q4-6H PRN aspirin (Adult Low Dose Aspirin) 81 mg PO DAILY bupropion HCl mg PO cholestyramine-aspartame 4 gram (Cholestyramine Light) 4 grams PO BID PRN 30 days citalopram mg PO DAILY nicotine (Nicoderm CQ) 1 patch transdermal DAILY nicotine (polacrilex) 2 mg buccal Q2H pravastatin 20 mg PO BEDTIME thyroid (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 History of Present Illness The patient is a 64-year-old male presenting with concerns revolving around hypertension management and smoking cessation. He reports stable blood pressure readings with no chest pain. However, he experiences shortness of breath with significant exertion, thought to be secondary to his ongoing smoking habit. The patient currently smokes, with consumption rates indicating a pack lasting approximately three days, and is motivated to cease smoking. Additionally, the patient reports ongoing right shoulder pain, attributed to confirmed mild arthritis as noted on a recent X-ray. He has already started physical therapy for his shoulder condition. Social History - Tobacco use: Currently smoking, with a pack lasting up to three days Health Maintenance - Discussion initiated regarding smoking cessation through patches and as-needed nicotine gum - Colon cancer screening is up to date - Low-dose CAT scans for lung assessment have been performed Review of Systems - Cardiovascular: Denies chest pain, DÍAZ, dizziness, or Blurred vision - Respiratory: Reports shortness of melanie th on exertion - Musculoskeletal: Reports right shoulde r pain Physical Exam General: Cooperative, healthy appearing, comfortable, no acute distress and well developed Orientation: Patient oriented x3 Limitations: No limitations Head: Normal to inspection Ears: Hearing grossly normal bilaterally Nose: Normal external nose present Face and sinus: Normal facial exam Eyes: Appearance normal, both eyes and all related structures Neck: Normal visual inspection and Yes full ROM Respiratory: Coarse, diminished breath sounds, though moving air with faint scattered wheezes Cardiovascular: Regular rate and rhythm. Normal S1 and S2 GI: Normal to inspection. Soft to palpation and nontender Skin: No rashes or lesions noted Neuro: Patient oriented x3 Results - Tests and diagnostics: Recent X-ray sh ows mild arthritis in right shoulder. Plan We will implement a plan for smoking cessation with nicotine replacement therapy, switching from Livalo to pravastatin for lipid management due to insurance constraints. Follow-up labs will occur in two months to re-assess hypertension status. The current management of mild right shoulder arthritis consists of ongoing physical therapy, with an intent to avoid further imaging unless clinically indicated by persistent symptoms. Discussion Notes I discussed the management plan for hypertension, emphasizing the switch to pravastatin due to insurance restrictions. For smoking cessation, the patient was informed about the use of nicotine patches and gum. Notable benefits and potential withdrawal symptoms were explained, highlighting the significant impact on respiratory health. The shoulder pain management was reviewed, emphasizing adherence to physical therapy and absence of further imaging unless symptoms persist. The importance of follow-up in approximately two months for lab reassessment and ongoing hypertension control was also noted. Patient Instructions - Begin nicotine patches and use nicotin e gum as needed for smoking cessation - Adhere to the prescribed pravastatin f or lipid management - Continue with physical therapy for [facility] arthritis management - Return for follow-up in two months for laboratory assessment and hypertension monitoring - Report any new or worsening symptoms t o the clinic promptly [facility] Medical History (Updated 07/15/24 @ 09:24 by Robby Harley [facility]) Nicotine dependence, cigarettes, uncomplicated History of fracture of left ankle Hyperlipidemia Bladder pain Benign prostatic hyperplasia Thoracic outlet syndrome Anxiety COPD (chronic obstructive pulmonary disease) Hypothyroidism Left lumbar radiculopathy Disc degeneration, lumbar Disc degeneration, lumbosacral Blood clot in vein Surgical History (Updated 01/27/24 @ 11:10 by Gloria Vasquez PA-C) History of hemorrhoidectomy History of esophagogastroduodenoscopy (EGD) Hx of hand surgery History of ankle surgery History of lumbar discectomy (12/21/21) History of cholecystectomy (~2004) Hx of colonoscopy Family History Paternal Uncle Colon cancer Paternal Grandmother Colon cancer Other Mental health disorder Social History Housing: House Are you a primary acute care surgeon to a significant other at home: No Do you presently have visiting nurse or other home services: No Patient Tobacco Use Status: Current everyday Tobacco user Tobacco use type: Cigarette Cigarette Packs Per Day: 0.75 Cigarettes Per Day: 15.0 Years Smoked: 40 e-Cigarette/Vaping Use: Never Used Substance Use Type: Marijuana service: No Current occupational status: disabled Current occupation: left handed Cognitive needs: No Hearing needs: No Vision needs: Yes Questionnaire PHQ-9 Over the last 2 weeks, how often have you been bothered by any of the following problems? 1. Little interest or pleasure in doing things: not at all 2. Feeling down, depressed, or hopeless: not at all 3. Trouble falling or staying asleep, or sleeping too much: nearly every day 4. Feeling tired or having little energy: several days 5. Poor appetite or overeating: not at all 6. Feeling bad about yourself - or that you are a failure or have let yourself or your family down: not at all 7. Trouble concentrating on things, such as reading the newspaper or watching television: not at all 8. Moving or speaking so slowly that other people could have noticed. Or the opposite - being so fidgety or restless that you have been moving around a lot more than usual: not at all 9. Thoughts that you would be better off or of hurting yourself in some way: not at all Total score: 4 Depression Screening Interpretation: Negative Depression Screening Done: Yes 57792 - PHQ-9 Billing: Yes Source: Developed by Drs. Rusty Morales, Roxana Mercer, Devante Cote and colleagues, with an educational milton from [employer]. Thrive Questionnaire Date Thrive assessed: 07/15/24 I am a: Patient What is your living situation today?: I have a steady place to live Within the past 12 months, did the food you bought not last and you didn't have the money to get more?: I choose not to answer this question Within the past 12 months, did you worry whether your food would run out before you got money to buy more?: I choose not to answer this question Do you have trouble paying for medicines?: Yes Do you have trouble getting transportation to medical appointments?: No Do you have trouble paying your heating and electricity bill?: No Do you have trouble with day-to-day activities such as bathing, preparing meals, shopping, managing finances, etc.?: I choose not to answer this question Are you currently unemployed and looking for a job?: I choose not to answer this question Are you interested in more education?: I choose not to answer this question Please select the resources that you would like help with: None Currently or been in a relationship where the following occur: I choose not to answer THRIVE Score: 0 AUDIT C Alcohol Use Questionnaire (AUDIT-C) 1. How often do you have a drink containing alcohol?: Never 3. How often do you have six or more drinks on one occasion?: Never Total Score: 0 CLAUDE-7 AMB Questionnaire CLAUDE-7 Date CLAUDE - 7 assessed: 07/15/24 Feeling nervous, anxious, or on edge: 0 = Not at all Not being able to stop or control worryin = Not at all Worrying too much about different things: 0 = Not at all Trouble relaxin = Not at all Being so restless that it is hard to sit still: 0 = Not at all Becoming easily annoyed or irritable: 0 = Not at all Feeling afraid as if something awful might happen: 0 = Not at all Total CLAUDE-7 score (0-4 normal; 5-9 mild; 10-14 moderate; 15-21 severe): 0 Source: Developed by Drs. Rusty Morales, Roxana Mercer, Devante Cote and colleagues, with an educational milton from [employer]. CLAUDE-7 Assessment Billing CLAUDE-7 Assessment Tool: CLAUDE-7 Assessment 35528 Physical exam (Primary Care) Vital Signs: Last Vital Signs Temp 97.9 F 07/15/24 09:05 Pulse 84 07/15/24 09:05 Resp 20 07/15/24 09:05 BP 122/80 07/15/24 09:05 Pulse Ox 98 07/15/24 09:05 Oxygen Delivery Method Room Air 07/15/24 09:05 BMI result Body Mass Index 27.6 Tobacco/Smoking Status: Tobacco use Status Tobacco use date assessed 07/15/24 07/15/24 09:10 Patient Tobacco Use Status Current everyday Tobacco 07/15/24 09:10 Tobacco use type Cigarette 07/15/24 09:10 e-Cigarette/Vaping Use Never Used 07/15/24 09:10 PHQ-9: PHQ-9 Score PHQ-9: Total score 4 07/15/24 09:10 Depression Screening Interpretation: Negative Thrive Assessment: Date of Thrive Assessment Date Thrive assessed 07/15/24 07/15/24 09:10 Currently or been in a relationship where the following occur: I choose not to answer Coding Level of Care Code Est Pt Level 3 (72735) Diagnoses HTN (hypertension) I10 Dyslipidemia E78.5 Additional Codes CLAUDE-7 Assessment Billing - CLAUDE-7 Assessment Tool: CLAUDE-7 Assessment 71119 ([id number]) PHQ-9 - 28483 - PHQ-9 Billing: Yes ([id number]) Assessment & Plan Assessment & Plan (1) HTN (hypertension): Code(s): I10 - Essential (primary) hypertension Category: Medical (2) Dyslipidemia: Code(s): E78.5 - Hyperlipidemia, unspecified Category: Medical Plan . Orders: Orders TSH reflex Free T4 Today E78.5 - Hyperlipidemia, unspecified, I10 - Essential (primary) hypertension Lipid Panel Today E78.5 - Hyperlipidemia, unspecified, I10 - Essential (primary) hypertension Complete Blood Count Auto Diff Today E78.5 - Hyperlipidemia, unspecified, I10 - Essential (primary) hypertension Comprehensive [place]. Panel Fast Today E78.5 - Hyperlipidemia, unspecified, I10 - Essential (primary) hypertension UA CC w/rflx Micro + Cult Today E78.5 - Hyperlipidemia, unspecified, I10 - Essential (primary) hypertension Medications: New pravastatin 20 mg PO BEDTIME 90 tabs 0RF nicotine (polacrilex) 2 mg buccal Q2H 50 ea 0RF nicotine (Nicoderm CQ) 1 patch transdermal DAILY 28 ea 0RF
[2024-07-15 09:05] VITALS: BP 122/80; PULSE 84; RESP 20; TEMP 36.6; O2SAT 98; BMI 27.6
--- OUTSIDE RECORDS SUMMARY | 2024-07-15 09:38 | XMS_ITS | Clinical Summary ---
Author Organization [address] [place] [address] Address [address] [place] [address] Phone Care Team Providers Care Retail Delivery Driver Name Role Phone Mallory Locke MD Primary Care Provider [phone] Allergies Active Allergy Reactions Criticality Noted Date [...] uncomplicated 08/05/2017 Stage 2 moderate COPD by GOL D classification ([facility] V24, [facility] V28) 08/05/2017 Exposure to asbestos 06/27/2016 Lumbar disc [...] disorder 02/06/2016 Testosterone deficiency 11/01/2010 COPD, moderate (CMS/HCC V24, CMS/HCC V28) 2010 Overview (03/10/2024): 03/16/10 PFTs Vitamin D deficiency 04/07/2010 Hyperlipidemia 11/04/2009 Anxiety 03/23/2009 HSV-2 (herpes simplex virus 2) infection 009 Erectile dysfunction 05/04/2008 Eustachian tube dysfunction 11/27/2007 Chronic fatigue syndrome 10/27/2005 Overview (03/10/2024): ? porphyria Irritable bowel syndrome 10/27/2005 Encounters Date Type Department Care Team Description 06/17/2024 9:45 AM EDT Office Visit Pulmonolgy - [address] [phone] Arturo Saavedra MD Stage 3 severe COPD by GOLD classification (CMS/HCC V24, CMS/HCC V28) (Primary Dx) from Last 3 Months Immunizations Name Administration Dates Next Due Hepatitis B (Refotci-U-Zqknr , Recombivax HB-Adult) 19yo and older 04/25/2009,10/20/2008,09/21/2008 Pneumococcal polysaccharide 23 valent (Pneumovax 23) 2yo and older 11/05/2017 Td Tetanus diptheria (Tdvax) 7yo and older 11/05 Tdap Tetanus diptheria acell ular pertussis (Boostrix; Adacel) 7yo and older 01/01/2020,10/06/2007 Surgical History Surgery Date Site/Laterality Comments CHOLECYSTECTOMY PROCEDURE: HISTORICAL CHOLECYSTECTOMY OTHER SURGICAL HISTORY PROCEDURE: HISTORY OTHER; COMMENT: anal polyps dr car 2009 ESOPHAGOGASTRODUODENOSCOPY 2007 PROCEDURE: ME ESOPHAGOGASTRODUODENOSCOPY TRANSORAL DIAGNOSTIC; COMMENT: normal ESOPHAGOGASTRODUODENOSCOPY 07/04/2011 PROCEDURE: ME ESOPHAGOGASTRODUODENOSCOPY TRANSORAL DIAGNOSTIC; COMMENT: normal; no Lopez's [...] COMMENT: hemorrhoidectomy OTHER SURGICAL HISTORY 12/21/2021 PROCEDURE: ME LAMOT PRTL FFD EXC DISC REEXPL 1 NTRSPC LUMBAR; COMMENT: Redo left L5-S1 minimally invasive discectomy, Dr. 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 porphyria - [...] Date Smoking Tobacco: Light Smoker Cigarettes 0.2 50.7 Started: 11/05/1973 Smokeless Tobacco: Never Tobacco Cessation:Ready [...] 9:00 AM EDT Ancillary Procedure Pulmonolgy - [place] [address] [phone] Nakia Thorpe 12/28/2024 1:00 PM EDT [facility] [address] [address] Arturo Saavedra MD [address] [address] Health Maintenance Due Date Last Done Comments Zoster Vaccines (1 of 2) 2009 Abdominal [...] 03/27/2022 03/27/2021, 11/05/2017 COVID-19 Vaccine (5 - season) 2023 02/14/2022, 01/10/2021, 06/08/2020, Additional history exists Falls Risk Assessment 02/06/2024 Influenza Vaccine (Season Ended) 2024 Colorectal Cancer Screening: Colonoscopy 08/24/2026 08/24/2016 DTaP,Tdap,and Td Vaccines (4 - Td or Tdap) 12/31/2029 01/01/2020, 11/05/2017, 10/06/2007 Hepatitis B Vaccines Completed 04/25/2009, 10/20/2008, 09/21/2008 Hepatitis C Screening Completed 08/24/2015 RSV Immunization Adult Patients Completed 01/23/2023 HIB Vaccines Aged Out No longer eligi ble based on patient's age to complete this topic HPV Vaccines Aged Out No longer eligi ble based on patient's age to complete this topic Hepatitis A Vaccines Aged Out No long er eligible based on patient's age to complete this topic IPV Vaccines Aged Out No longer eligi ble based on patient's age to complete this topic MMR Vaccines Aged Out No longer eligi ble based on patient's age to complete this topic Meningococcal ACWY Vaccine Aged Out N o longer eligible based on patient's age to complete this topic Meningococcal B Vaccine Aged Out No l onger eligible based on patient's age to complete [...] Region Laterality Modality Computed Tomogra phy Provider [place] Onbase IMG CT PROCEDURES Final Result * Colonoscopy (08/24/2016) Pathologist [facility] Colonoscopy No Interpretation , Abstracted Anatomical Region Laterality Modality Other Historical Provider HEALTH MAINTENANCE Final Result * Hepatitis C Screening (08/24/2015) Pathologist [facility] Hepatitis C Screening Abstracted [facility] Provider HEALTH MAINTENANCE Final Result * (ABNORMAL) Lipid panel (08/11/2015) [facility] LDL/HDL Ratio 6(A) 0 - 4 Triglycerides 249(A) 0 - 150 mg/dL Cholesterol 295(A) 0 - 200 mg/dL HDL 50 >=40 mg/dL LDL Cholesterol 196(A) 0 - 100 mg/dL Blood Venous blood specimen / Unknown Result [facility] Provider LAB BLOOD ORDERABLES Leigh Ann l Result from Last 3 Months or Most Recently Relevant to Health Maintenance Insurance BLUE CROSS - [place] MEDICARE ADVANTAGE Care Teams Retail Delivery Driver Relationship Specialty Start Date End Date Mallory Locke MD [address] [place] [address] PCP - General Internal Medicine 07/09/24
--- OUTSIDE RECORDS SUMMARY | 2024-07-15 09:39 | XMS_ITS | Patient Health Record ---
Author Organization [facility] Address [address] [place] [address] Care Team Providers Care School Community Relations Coordinator Name Role Phone Mallory Locke MD Primary Care Provider Yanet Terry Unavailable [phone] Allergies Allergen (clinical drug ingredient) Drug/Non Drug Allergy documented on EMR Reaction Allergy Type Onset Date Status sulfamethoxazole / trimethoprim Bactrim itchy skin Drug Allergy Active morphine Morphine itchy skin Drug Allergy Active Reason For Referral No Information Medications Medication SIG (Take, Route, Frequency, Duration) Notes Start Date End Date Status Levothyroxine Sodium Active Nystatin 454306 UNIT 1 tablet Orally Active Citalopram Hydrobromide [...] End Date [employer] [address] [place] [address] [id number] Francois Howard Self - patient is the insured Medical (General) History Medical History History ICD Code Anxiety Back,Hip,and Knee pain Broken bones Lung disease Psoriasis/eczema Reflux ( GERD) thyroid Measles Mumps Chicken pox Surgical History Surgery Date(Month/Year) ankle surgery left 2019 finger surgery Right index 12/2019
== END 2024-07-15 09:49 | disposition home or self-care (01) ==
LOC: HO.HMCC 09:01
PROVIDERS: PCP Internal Medicine; Visit Provider Nurse Practitioner Family
DX: I10 Essential (primary) hypertension (principal); E78.5 Hyperlipidemia, unspecified

== ENCOUNTER → 2024-07-15 09:00 | Outpatient (BNVA) | payer MEDICARE, SELFPAY | PROVIDERS: PCP Internal Medicine; Visit Provider Nurse Practitioner Family | DX: I10 Essential (primary) hypertension (principal); E78.5 Hyperlipidemia, unspecified | CPT/HCPCS: 96127; 99212 ==

== ENCOUNTER 2024-07-30 09:38 | Outpatient (AMB) | payer MEDICARE, SELFPAY ==
--- NOTE | 2024-07-30 09:45 | MHC.OFFVIS ---
Vital Signs 07/30/24 09:47 Height 5 ft 9 in Weight 187 lb BMI 27.6 Handedness Left Intake Visit Reasons: OV-RT shoulder OA last inj 06/18/24 Intake Note: Francois is a 64 year old left hand dominant male who presents today for a follow up of right shoulder OA. At patient last visit on 06/18/24 an injection was given, referred to PT and to follow up in office in 6 weeks. Patient reports he notices his pain is getting better and notices that his ROM is improving. Allergies morphine [MORPHINE] Allergy (Intermediate, Verified 07/15/24 09:38) ITCHY Sulfa (Sulfonamide Antibiotics) [SULFA (SULFONAMIDE ANTIBIOTICS)] Allergy (Intermediate, Verified 07/15/24 09:38) ITCHY atorvastatin Adverse Reaction (Intermediate, Verified 07/15/24 09:38) myalgia rosuvastatin [From Crestor] Adverse Reaction (Intermediate, Verified 07/15/24 09:38) Diarrhea HPI HPI OV-RT shoulder OA last inj 06/18/24: Details: Mr. Howard is a 64-year-old male who presents to the office today for follow-up of right shoulder adhesive capsulitis. At her last appointment on 06/18/2024 patient was given a cortisone injection and referred to physical therapy. He reports a cortisone injection followed by physical therapy has improved his pain and range of motion but continues to have limitations with range of motion. [facility] Medical History (Updated 07/15/24 @ 09:24 by SONA Fontanez-JASMIN) Nicotine dependence, cigarettes, uncomplicated History of fracture of left ankle Hyperlipidemia Bladder pain Benign prostatic hyperplasia Thoracic outlet syndrome Anxiety COPD (chronic obstructive pulmonary disease) Hypothyroidism Left lumbar radiculopathy Disc degeneration, lumbar Disc degeneration, lumbosacral Blood clot in vein Surgical History (Updated 01/27/24 @ 11:10 by Gloria Vasquez PA-C) History of hemorrhoidectomy History of esophagogastroduodenoscopy (EGD) Hx of hand surgery History of ankle surgery History of lumbar discectomy (12/21/21) History of cholecystectomy (~2004) Hx of colonoscopy Family History Paternal Uncle Colon cancer Paternal Grandmother Colon cancer Other Mental health disorder Social History Housing: House Are you a primary respiratory care instructor to a significant other at home: No Do you presently have visiting nurse or other home services: No Patient Tobacco Use Status: Current everyday Tobacco user Tobacco use type: Cigarette Cigarette Packs Per Day: 0.75 Cigarettes Per Day: 15.0 Years Smoked: 40 e-Cigarette/Vaping Use: Never Used Substance Use Type: Marijuana service: No Current occupational status: disabled Current occupation: left handed Cognitive needs: No Hearing needs: No Vision needs: Yes Review of Systems Const All systems reviewed & are unremarkable except as noted in HPI and below Physical Exam Const General: cooperative, healthy appearing and no acute distress Resp Effort & Inspection: normal respiratory effort and able to speak in complete sentences Cardio Rate: regular rate Peripheral pulses: Peripheral pulses 2+ throughout Skin Lesions: no lesions Rashes: no rashes Extrem Other: Right shoulder forward flexion to 120 degrees abduction to 90 degrees able to reach greater trochanteric bursa. No motion with external rotation. Pain with cross-body reach. Unable to assess drop-arm and empty can do to pain on range of motion restrictions. NVI. Assessment & Plan Assessment & Plan (1) Adhesive capsulitis of right shoulder: Code(s): M75.01 - Adhesive capsulitis of right shoulder Category: Medical Plan Mr. Howard is a 64-year-old male who presents to the office today for follow-up of right shoulder adhesive capsulitis. At her last appointment on 06/18/2024 patient was given a cortisone injection and referred to physical therapy. He reports a cortisone injection followed by physical therapy has improved his pain and range of motion but continues to have limitations with range of motion. While the office today, we discussed continuing physical therapy to work on motion. Additionally, we scheduled a follow up appointment for 3 months from his original cortisone injection to repeat another injection if needed. He will follow up around 09/18/2024 for repeat cortisone injection, sooner if needed. Coding Level of Care Code Est Pt Level 3 (57122) Diagnoses Adhesive capsulitis of right shoulder M75.01
[2024-07-30 09:47] VITALS: BMI 27.6
--- OUTSIDE RECORDS SUMMARY | 2024-07-30 10:38 | XMS_ITS | Patient Health Record ---
Author Organization [facility] Address [address] [facility] [place] [address] Care Team Providers Care Credit Charge Authorizer Name Role Phone Mallory Locke MD Primary Care Provider Yanet Terry Unavailable [phone] Allergies Allergen (clinical drug ingredient) Drug/Non Drug Allergy documented on EMR Reaction Allergy Type Onset Date Status sulfamethoxazole / trimethoprim Bactrim itchy skin Drug Allergy Active morphine Morphine itchy skin Drug Allergy Active Reason For Referral No Information Medications Medication SIG (Take, Route, Frequency, Duration) Notes Start Date End Date Status Levothyroxine Sodium Active Nystatin 629260 UNIT 1 tablet Orally Active Citalopram Hydrobromide [...] End Date [employer] [address] [place] [address] [id number] Francois Howard Self - patient is the insured Medical (General) History Medical History History ICD Code Anxiety Back,Hip,and Knee pain Broken bones Lung disease Psoriasis/eczema Reflux ( GERD) thyroid Measles Mumps Chicken pox Surgical History Surgery Date(Month/Year) ankle surgery left 2019 finger surgery Right index 12/2019
--- OUTSIDE RECORDS SUMMARY | 2024-07-30 10:38 | XMS_ITS | Clinical Summary ---
Author Organization 175 [facility] Address [address] [place] [address] Phone Care Team Providers Care Framing Mill Operator Helper Name Role Phone Mallory Locke MD Primary Care Provider [phone] Allergies Active Allergy Reactions Criticality Noted Date [...] 2 moderate COPD by GOL D classification ([facility] V24, [facility] V28) 08/05/2017 Exposure to asbestos 06/27/2016 [...] Encounters Date Type Department Care Team Description 07/22/2024 9:00 AM EDT Ancillary Procedure Pulmonolgy [facility] [address] [facility] [address] [place] [phone] Nakia Thorpe Stage 3 severe COPD by GOLD classification (CMS/HCC V24, CMS/HCC V28) 06/17/2024 9:45 AM EDT Office Visit Pulmonolgy [facility] [address] [facility] [address] [place] [phone] Arturo Saavedra MD Stage 3 severe COPD by GOLD classification (CMS/HCC V24, CMS/HCC V28) (Primary Dx) from Last 3 Months Immunizations Name Administration Dates Next Due Hepatitis B (Xbybltv-L-Yvkzz , Recombivax HB-Adult) 19yo and older 04/25/2009,10/20/2008,09/21/2008 Pneumococcal polysaccharide 23 valent (Pneumovax 23) 2yo and older 11/05/2017 Td Tetanus diptheria (Tdvax) 7yo and older 11/05 Tdap Tetanus diptheria acell ular pertussis (Boostrix; Adacel) 7yo and older 01/01/2020,10/06/2007 Surgical History Surgery Date Site/Laterality Comments CHOLECYSTECTOMY PROCEDURE: HISTORICAL CHOLECYSTECTOMY OTHER SURGICAL HISTORY PROCEDURE: HISTORY OTHER; COMMENT: anal polyps dr car 2008 ESOPHAGOGASTRODUODENOSCOPY 2007 PROCEDURE: NE ESOPHAGOGASTRODUODENOSCOPY TRANSORAL DIAGNOSTIC; COMMENT: normal ESOPHAGOGASTRODUODENOSCOPY 07/04/2011 PROCEDURE: NE ESOPHAGOGASTRODUODENOSCOPY TRANSORAL DIAGNOSTIC; COMMENT: normal; no Lopez's [...] COMMENT: hemorrhoidectomy OTHER SURGICAL HISTORY 12/21/2021 PROCEDURE: NE LAMOT PRTL FFD EXC DISC REEXPL 1 NTRSPC LUMBAR; COMMENT: Redo left L5-S1 minimally invasive discectomy, Dr. Kelly Medical History Medical History Date Comments Irritable bowel syndrome 10/27/2005 DX:Irri table bowel syndrome Thumb fracture 12/01/1979 DX:Thumb fractur e; COMMENT: left Chronic fatigue syndrome 10/27/2005 DX:Communication Spec jed fatigue syndrome; COMMENT: ? porphyria - [...] Care Team (Late st Contact Info) Description 12/28/2024 1:00 PM EDT Office Visit Pulmonol - [place] [address] [facility] [address] [place] [phone] Arturo Saavedra MD [address] [facility] [address] [place] [address] Health Maintenance Due Date Last Done Comments [...] - PCV) 03/27/2022 03/27/2021, 11/05/2017 COVID-19 Vaccine ( season) 2023 02/14/2022, 01/10/2021, 06/08/2020, Additional history [...] Procedure Name Priority Date/Time Associated Diagnosis Comments PULMONARY FUNCTION TESTING Routine 07/22/2024 9:18 AM EDT Stage 3 severe COPD by GOLD classification (CMS/HCC V24, [facility] V28) [id number] Routine 07/22/2024 8 :12 AM EDT Stage 3 severe COPD by GOLD classification (CMS/HCC V24, CMS/HCC V28) COLONOSCOPY Routine 08/24/2016 HEPATITIS C SCREENING Routine 08/24/2015 LIPID PANEL Routine 08/11/2015 from Last 3 Months or Most Recently Relevant to Health Maintenance Results * Pulmonary function testing: Spirometry with Bronchodilator, Carbon Monoxide Diffusing Capacity (07/22/2024 9:18 AM EDT) Impressions Arturo Saavedra MD - 07/22/2024 9:18 AM EDT 07/22/2024 Spirometry FEV1 is 40% normal, FVC 60% normal, FEV1/FVC ratio is decreased, no improvement in FEV1 post bronchodilators Lung volume TLC 104% predicted, RV/TLC is 156% predicted Diffusion DLCO is 51% predicted, DLCO/VA is 48% predicted In summary, this pulm function test is consistent with severe obstructive lung disease with gas trapping us Arturo Saavedra MD PFT ORDERABLES Final Result * [id number] (07/22/2024 8:12 AM EDT) [facility] A-1 Antitrypsin 155 90 - 200 mg/dL LAB CHEMISTRY METHOD 07/22/2024 10:32 AM EDT [facility] Blood Venous blood specimen / Unknown Venipuncture / Unknown 07/22/2024 8:12 AM EDT 07/22/2024 9:28 AM EDT Arturo Saavedra MD LAB BLOOD ORDERABLES Final Resul t [facility] [address] [place] [address], [place] [phone] * Colonoscopy (08/24/2016) [facility] Colonoscopy No Interpretation , Abstracted Anatomical Region Laterality Modality Other Historical Provider HEALTH MAINTENANCE Final Result * Hepatitis C Screening (08/24/2015) [facility]ologist [facility] Hepatitis C Screening Abstracted [facility] Provider HEALTH MAINTENANCE Final Result * (ABNORMAL) Lipid panel (08/11/2015) [facility] LDL/HDL Ratio 6(A) 0 - 4 Triglycerides 249(A) 0 - 150 mg/dL Cholesterol 295(A) 0 - 200 mg/dL HDL 50 >=40 mg/dL LDL Cholesterol 196(A) 0 - 100 mg/dL Blood Venous blood specimen / Unknown [facility] Provider LAB BLOOD ORDERABLES Leigh Ann l Result from Last 3 Months or Most Recently Relevant to Health Maintenance Insurance BLUE CR[place] - [place] MEDICARE ADVANTAGE Care Teams Framing Mill Operator Helper Relationship Specialty Start Date End Date Mallory Locke MD PCP - General Internal Medicine 07/09/24
== END 2024-07-30 09:51 | disposition home or self-care (01) ==
LOC: HO.HOS 09:39
PROVIDERS: PCP Nurse Practitioner Family; Visit Provider Physician Assistant
DX: M75.01 Adhesive capsulitis of right shoulder (principal)
CPT/HCPCS: 99213

== ENCOUNTER → 2024-07-30 09:38 | Outpatient (BNVA) | payer MEDICARE, SELFPAY | PROVIDERS: PCP Nurse Practitioner Family; Visit Provider Physician Assistant | DX: M75.01 Adhesive capsulitis of right shoulder (principal) | CPT/HCPCS: 99212 ==

== ENCOUNTER 2024-08-07 09:00 | Outpatient (RCR) | payer MEDICARE, SELFPAY ==
--- NOTE | 2024-07-10 09:46 | MHC.PT.EP ---
[facility] [place] Office [place] Office [place] Office [address] Lusi Manuel Perales [address] [phone] F: [phone] F: [phone] F: [phone] F: [phone] Physical Therapy Plan of Care Date of Evaluation: 07/10/24 Date of Surgery: n/a Diagnosis: adhesive capsulitis of R shoulder Assessment: Patient is a 64 year old male presenting to PT with complaints of pain in his R shoulder. Pt reports onset of pain began April 2024 due to insidious onset. He presents today with impairments in pain, ROM, shoulder strength, posture. Pt's current occupation is none, with baseline physical activities including ADLs, reaching, lifting, sleep, driving. Pt expresses mcc goal of returning to PLOF, and is motivated to work towards this in PT. Clinical presentation today is most consistent with signs and sx associated with R shoulder pain and pt will benefit from skilled PT 2 week x 4 weeks to address the following problems and impairments noted upon evaluation: pain, ROM, shoulder strength, posture. These problems limit the patient with the following functional activities: ADLs, reaching, lifting, sleep, driving. The prescribed treatment plan of care is medically necessary. Co-morbidities of hx blood clots on blood thinners were identified and taken into considerations of plan of care. Pt was educated on HEP, role of PT, prognosis, POC. Frequency and Duration: The patient will be seen 2 x week x 4 weeks Short Term Goals: Pt will demonstrate improved R shoulder ROM by 20 degrees in 2 weeks. Pt will demonstrate improved R shoulder MMT strength by 1/3 grade in 2 weeks. Catalog Librarian Goals: Pt will demonstrate improved SPADI score by 13 points in 4 weeks for improved functional mobility. Pt will demonstrate improved R shoulder ROM to equal B in 4 weeks for improved ability to reach. Pt will demonstrate ability to lift with min to no pain in 4 weeks for return to PLOF. Treatment Plan: Modalities to reduce pain, spasms and effusion. Manual therapy to restore motion and function. Therapeutic exercise to improve strength and flexibility. Neuromuscular re-education for posture and balance. Therapeutic activities to return to functional activities of daily living. Electronically signed by: Amy Carlton, PT, DPT, ATC Please sign and return to therapist. Thank you for your referral.
--- NOTE | 2024-08-07 09:31 | MHC.PT.DC ---
[facility] [place] Office [place] Office [place] Office [address] Perales [address] [phone] F: [phone] F: [phone] F: [phone] F: [phone] Physical Therapy Discharge Report Diagnosis: adhesive capsulitis of R shoulder Date of Surgery: n/a Date of Evaluation: 07/10/24 Date of Discharge: 08/07/24 Treatments to Date: 5 Cancellations to Date: 0 No Shows to Date: 0 Discharge Status: Patient Elected to Stop Discharge Summary: 08/07/2024: Pt is self d/c from PT. He states his pain is better. Offered to keep his chart open for 30 days incase pain increases however he declines this. Therefore pt will be d/c per his request. Electronically signed by: Amy Carlton, PT, DPT, ATC Please sign and return to therapist. Thank you for your referral.
== END 2024-08-07 09:31 | disposition home or self-care (01) ==
LOC: HO.PTCHIC 09:00
PROVIDERS: PCP Nurse Practitioner Family; Visit Provider Physician Assistant
DX: M75.01 Adhesive capsulitis of right shoulder (principal)
CPT/HCPCS: 97110; 97161

== ENCOUNTER 2024-09-01 08:13 | Outpatient (REF) | payer MEDICARE, SELFPAY ==
--- OUTSIDE RECORDS SUMMARY | 2024-09-01 08:18 | XMS_ITS | Clinical Summary ---
Author Organization 175 [facility] Address [address] [place] [address] Phone Care Team Providers Care Instructor Flying Name Role Phone Mallory Locke MD Primary Care Provider [phone] Allergies Active Allergy Reactions Criticality Noted Date [...] moderate COPD by GOL D classification ([facility] V24, [facility] V28) 08/05/2017 Exposure to asbestos 06/27/2016 Lumbar [...] 07/22/2024 9:00 AM EDT Ancillary Procedure Pulmonolgy [facility] [address] [facility] [address] [place] [phone] Nakia Thorpe Stage 3 severe COPD by GOLD classification (CMS/HCC V24, CMS/HCC V28) 06/17/2024 9:45 AM EDT Office Visit Pulmonolgy [facility] [address] [facility] [address] [place] [phone] Arturo Saavedra MD Stage 3 severe COPD by GOLD classification (CMS/HCC V24, CMS/HCC V28) (Primary Dx) from Last 3 Months Immunizations Name Administration Dates Next Due Hepatitis B (Hmbgbdb-M-Xoqaf , Recombivax HB-Adult) 19yo and older 04/25/2009,10/20/2008,09/21/2008 Pneumococcal polysaccharide 23 valent (Pneumovax 23) 2yo and older 11/05/2017 Td Tetanus diptheria (Tdvax) 7yo and older 11/05 Tdap Tetanus diptheria acell ular pertussis (Boostrix; Adacel) 7yo and older 01/01/2020,10/06/2007 Surgical History Surgery Date Site/Laterality Comments CHOLECYSTECTOMY PROCEDURE: HISTORICAL CHOLECYSTECTOMY OTHER SURGICAL HISTORY PROCEDURE: HISTORY OTHER; COMMENT: anal polyps dr car 2008 ESOPHAGOGASTRODUODENOSCOPY 2007 PROCEDURE: RI ESOPHAGOGASTRODUODENOSCOPY TRANSORAL DIAGNOSTIC; COMMENT: normal ESOPHAGOGASTRODUODENOSCOPY 07/04/2011 PROCEDURE: RI ESOPHAGOGASTRODUODENOSCOPY TRANSORAL DIAGNOSTIC; COMMENT: normal; no Lopez's [...] COMMENT: hemorrhoidectomy OTHER SURGICAL HISTORY 12/21/2021 PROCEDURE: [place] LAMOT PRTL FFD EXC DISC REEXPL 1 NTRSPC LUMBAR; COMMENT: Redo left L5-S1 minimally invasive discectomy, Dr. 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 porphyria - [...] Date Smoking Tobacco: Light Smoker Cigarettes 0.2 50.8 Started: 11/05/1973 Smokeless Tobacco: Never Tobacco Cessation:Ready [...] 1:00 PM EDT Office Visit Pulmonol - [place] [address] [facility] [address] [place] [phone] Arturo Saavedra MD [address] [facility] [address] [place] [address] Health Maintenance Due Date Last Done Comments [...] COPD by GOLD classification (CMS/HCC V24, [facility] V28) [id number] Routine 07/22/2024 8 :12 AM EDT Stage [...] Saavedra MD PFT ORDERABLES Final Result * [id number] (07/22/2024 8:12 AM EDT) [facility] A-1 Antitrypsin 155 90 - 200 mg/dL LAB CHEMISTRY METHOD 07/22/2024 10:32 AM EDT [facility] Blood Venous blood specimen / Unknown Venipuncture / Unknown 07/22/2024 8:12 AM EDT 07/22/2024 9:28 AM EDT Arturo Saavedra MD LAB BLOOD ORDERABLES Final Resul t [facility] [address] [place] [address], [place] [phone] * Colonoscopy (08/24/2016) [facility] Colonoscopy No Interpretation , Abstracted Anatomical Region Laterality Modality Other Historical Provider HEALTH MAINTENANCE Final Result * Hepatitis C Screening (08/24/2015) Pathologist [facility] Hepatitis C Screening Abstracted [facility] Provider HEALTH MAINTENANCE Final Result * (ABNORMAL) Lipid panel (08/11/2015) [facility] LDL/HDL Ratio 6(A) 0 - 4 Triglycerides 249(A) 0 - 150 mg/dL Cholesterol 295(A) 0 - 200 mg/dL HDL 50 >=40 mg/dL LDL Cholesterol 196(A) 0 - 100 mg/dL Blood Venous blood specimen / Unknown [facility] Provider LAB BLOOD ORDERABLES Leigh Ann l Result from Last 3 Months or Most Recently Relevant to Health Maintenance Insurance [employer] - [place] AD[place]ANTAGE Care Teams Instructor Flying Relationship Specialty Start Date End Date Mallory Locke MD PCP - General Internal Medicine 07/09/24
[2024-09-02 13:29] LABS: Free Prostate Spec Ag 0.3 ng/mL; Percent Free Prostate Spec Ag 14 % (calc) (>25); Prostate Specific Ag Total 2.1 ng/mL (< OR = 4.0)
== END 2024-09-01 08:14 | disposition home or self-care (01) ==
LOC: HO.HMGCLDS 08:13
PROVIDERS: PCP Nurse Practitioner Family; Visit Provider Urology
DX: N40.1 Benign prostatic hyperplasia with lower urinary tract symptoms (principal); Z12.5 Encounter for screening for malignant neoplasm of prostate
CPT/HCPCS: 36415; 84154

== ENCOUNTER 2024-09-16 13:06 | Outpatient (AMB) | payer MEDICARE, SELFPAY ==
--- NOTE | 2024-09-16 13:12 | A.OFFVIS_ITS ---
Vital Signs 09/16/24 13:13 Height 5 ft 9 in Weight 187 lb BMI 27.6 BP 129/81 Blood Pressure Location Lt brachial Position Sitting Respiration 18 Pulse 92 Pulse Source Pulse Oximeter Pulse Oximetry (%) 97 Oxygen Delivery Method Room Air Intake Visit Reasons: Back Pain Pin Feather Machine Operator Required: No Allergies morphine (MORPHINE) Allergy (Intermediate, Verified 09/16/24 13:12) ITCHY Sulfa (Sulfonamide Antibiotics) (SULFA (SULFONAMIDE ANTIBIOTICS)) Allergy (Intermediate, Verified 09/16/24 13:12) ITCHY atorvastatin Adverse Reaction (Intermediate, Verified 09/16/24 13:12) myalgia rosuvastatin (From Crestor) Adverse Reaction (Intermediate, Verified 09/16/24 13:12) Diarrhea HPI Comments Details: Francois is back in my office complaining again on the lower back pain. She reports that his pain is increases in severity with walking. Currently sitting his pain is 3/10 however he can not describe his pain as severe as 7/10 when he walks or stands. In the past his pain was successfully managed as the postlaminectomy syndrome pain with caudal epidural steroid injection with catheter. However now on the physical exam as below there is a suspicion that patient has facet joint arthropathy. On the x-ray of the lumbar spine there is multilevel facet joint arthritis and spondylosis. I will schedule this patient on bilateral medial branch block L3-L4 dorsal ramus L5. The patient is interested in the procedure. I will see the patient after the procedure. He did not complain today on acromioclavicular joint pain. Prior: H/o left L5-S1 discectomy on 04/20/21 and redo left L5-S1 minimally invasive discectomy on 12/21/[address] Kelly. His last follow up with Dr. Kelly was on 06/15/22 for ongoing left buttock and left leg pain and had another left L5-S1 TFESI at [facility]. He was supposed to follow up if pain is not improved but has not made any follow up since last injection by Neurosurgery providers. Immediately after his surgery he experience up to 80% of pain relieve. He enjoyed good pain relieve for 6-8 months until mis December 2022 when he was sitting up into his truck he started to fill again pain to his left buttock and left thigh and into his lower leg laterally and posteriorly with associated intermittent weakness in the left LE. This improved after seeing chiropractors, NSAIDs and heat therapy. Patient reports his movements improved but he continues to be in significant pain that affects his daily functioning, activities, mood, sleep and social interactions. Pain is worse with walking, weight bearing or bending down and relieved in reclined supine position. He rates pain at 8/10 and cannot tolerate standing, sitting or walking during today's visit. Patient constantly adjusts his reclined position to alleviate his symptoms. Denies any fever, chills, weight loss, abdominal or groin pain, bladder or bowel dysfunction or saddle anesthesia.He did not go with this pain complaints back to DR. Kelly. He wants to schedule an appointment with this surgeon in the nearest future. H/o left ankle surgery with metalic hardware in place. Denies numbness or tingling in his left lower extremity. This improved after seeing chiropractors, NSAIDs and heat therapy. L5-S1 left transforaminal epidural steroid injection 05/03/2020 resulted in improvement activities of daily living pain reduction about 80%, better social interaction, better mobility for 6 months of excellent pain relief. the same procedure was performed on. Before that on 01/18/2021 he went for yet another L5-S1 left TFESI after which he had 5-6 months susteained pain relieve. History of pain for 8 years, without any inciting events or trauma. He denies any surgical history to his back. He had some injections in his lower back about 7 years ago by airline flight attendant at [place] however does not recall if these were particularly helpful. He has previously tried PT, home traction, chiropractic treatment, and Tylenol/Ibuprofen for his pain without significant benefit. [facility] Medical History (Updated 07/15/24 @ 09:24 by Robby Harley, [facility]) Nicotine dependence, cigarettes, uncomplicated History of fracture of left ankle Hyperlipidemia Bladder pain Benign prostatic hyperplasia Thoracic outlet syndrome Anxiety COPD (chronic obstructive pulmonary disease) Hypothyroidism Left lumbar radiculopathy Disc degeneration, lumbar Disc degeneration, lumbosacral Blood clot in vein Surgical History (Updated 01/27/24 @ 11:10 by Gloria Vasquez PA-C) History of hemorrhoidectomy History of esophagogastroduodenoscopy (EGD) Hx of hand surgery History of ankle surgery History of lumbar discectomy (12/21/21) History of cholecystectomy (~2004) Hx of colonoscopy Family History Paternal Uncle Colon cancer Paternal Grandmother Colon cancer Other Mental health disorder Social History Housing: House Are you a primary manager intensive care unit to a significant other at home: No Do you presently have visiting nurse or other home services: No Patient Tobacco Use Status: Current everyday Tobacco user Tobacco use type: Cigarette Cigarette Packs Per Day: 0.75 Cigarettes Per Day: 15.0 Years Smoked: 40 e-Cigarette/Vaping Use: Never Used Substance Use Type: Marijuana service: No Current occupational status: disabled Current occupation: left handed Cognitive needs: No Hearing needs: No Vision needs: Yes Review of Systems Const All systems reviewed & are unremarkable except as noted in HPI and below Physical Exam Vital Signs: Last Vital Signs Pulse 92 09/16/24 13:13 Resp 18 09/16/24 13:13 BP 129/81 09/16/24 13:13 Pulse Ox 97 09/16/24 13:13 Oxygen Delivery Method Room Air 09/16/24 13:13 BMI result Body Mass Index 27.6 General: Appears afebrile. Alert and oriented. Mood and affect appropriate. Follows and participates in conversation appropriately. Respiratory effort is unlabored. No cough. Able to transition from sit to stand unassisted. Ambulates with bilaterally normal heel strike and toe off, reports pain with heel walking on the left. Back/Spine/Pelvis Other: Limited back exam due to moderate to severe pain reproduced with extension, flexion and bending. Antalgic gait with limping. Demonstrates 5/5 right and 4/5 left strength of quadriceps as well as flexion/dorsiflexion of bilateral feet against resistance. 2+ pedal pulses bilaterally. Seated straight leg rise with dorsiflexion negative bilaterally. Diminished patellar and achilles reflexes bilaterally. Facet loading test positive bilaterally. Parul sign, Saad?s, Pelvic compression and Stinchfield tests are negative bilaterally. No groin pain with I/E hip rotations. Significant paraspinals tenderness mostly on the left side, lower back. Valsalva maneuver negative. Cervical Spine: cervical ROM normal and No Cervical spine tenderness Thoracic/Lumbar Spine: thoracic and lumbar spine normal to inspection, Thoracic/lumbar spine scar(s), pain with thoraco-lumbar ROM, paraspinal muscle tenderness, thoraco-lumbar ROM limited, No thoracic spinal tenderness and lumbar spinal tenderness at L5 Pelvis: buttock tenderness on the left Sacroiliac joints: bilaterally nontender Extrem Other: On inspection there is large varicosity in the projection of the medial surface of the right arm. Patient states that he has thoracic outlet syndrome. He states that it does not bother him. There is severe tenderness on palpation in projection of the right AC joint. Range of motion in the right arm is significantly limited. Unable to rotate are medially or laterally because it causes him severe pain. Assessment & Plan Assessment & Plan (1) Lumbar post-laminectomy syndrome: Code(s): M96.1 - Postlaminectomy syndrome, not elsewhere classified Category: Medical (2) Muscle spasm of back: Code(s): M62.830 - Muscle spasm of back Category: Medical (3) Left lumbar radiculopathy: Code(s): M54.16 - Radiculopathy, lumbar region Category: Medical (4) Disc degeneration, lumbar: Code(s): M51.36 - Other intervertebral disc degeneration, lumbar region Category: Medical (5) History of lumbar discectomy: Onset Date: 12/21/21 Comment: 04/20/21 Left L5-S1 discectomy Dr. Kelly 12/21/21 Redo Left L5-S1 Minimally invasive discectomy Code(s): Z98.890 - Other specified postprocedural states Category: Surgical Plan In the past the patient received caudal epidural injection with catheter treating his postlaminectomy syndrome. However with time this fade ineffectiveness. I offered him today based on physical exam and prior x-ray examination is diagnostic medial branch block L3-L4 dorsal ramus L5. Patient agreed to go for the procedure. I will see him for the follow-up after the procedure. He did not complain today on AC joint pain. Coding Level of Care Code Est Pt Level 3 (12323) Diagnoses Lumbar post-laminectomy syndrome M96.1 Muscle spasm of back M62.830 Left lumbar radiculopathy M54.16 Disc degeneration, lumbar M51.36 History of lumbar discectomy Z98.890
[2024-09-16 13:13] VITALS: BP 129/81; PULSE 92; RESP 18; O2SAT 97; BMI 27.6
--- OUTSIDE RECORDS SUMMARY | 2024-09-16 15:00 | XMS_ITS | Clinical Summary ---
Author Organization [address] [facility] Address [address] [place] [address] Phone Care Team Providers Care Guest Services Ambassador Name Role Phone Mallory Locke MD Primary Care Provider [phone] Allergies Active Allergy Reactions Criticality Noted Date [...] 2 moderate COPD by GOL D classification (CMS/[facility] V24, CMS/[facility] V28) 08/05/2017 Exposure to asbestos 06/27/2016 [...] Ancillary Procedure Pulmonolgy [facility] [address] [place] [phone] Nakia Thorpe Stage 3 severe COPD by GOLD classification (CMS/HCC V24, CMS/HCC V28) 06/17/2024 9:45 AM EDT Office Visit Pulmonolgy [facility] [address] [place] [phone] Arturo Saavedra MD Stage 3 severe COPD by GOLD classification (CMS/HCC V24, CMS/HCC V28) (Primary Dx) from Last 3 Months Immunizations Name Administration Dates Next Due Hepatitis B (Ilndrcg-X-Amfkg , Recombivax HB-Adult) 19yo and older 04/25/2009,10/20/2008,09/21/2008 Pneumococcal polysaccharide 23 valent (Pneumovax 23) 2yo and older 11/05/2017 Td Tetanus diptheria (Tdvax) 7yo and older 11/05 Tdap Tetanus diptheria acell ular pertussis (Boostrix; Adacel) 7yo and older 01/01/2020,10/06/2007 Surgical History Surgery Date Site/Laterality Comments CHOLECYSTECTOMY PROCEDURE: HISTORICAL CHOLECYSTECTOMY OTHER SURGICAL HISTORY PROCEDURE: HISTORY OTHER; COMMENT: anal polyps dr car 2008 ESOPHAGOGASTRODUODENOSCOPY 2007 PROCEDURE: MI ESOPHAGOGASTRODUODENOSCOPY TRANSORAL DIAGNOSTIC; COMMENT: normal ESOPHAGOGASTRODUODENOSCOPY 07/04/2011 PROCEDURE: MI ESOPHAGOGASTRODUODENOSCOPY TRANSORAL DIAGNOSTIC; COMMENT: normal; no Lopez's [...] COMMENT: hemorrhoidectomy OTHER SURGICAL HISTORY 12/21/2021 PROCEDURE: MI LAMOT PRTL FFD EXC DISC REEXPL 1 NTRSPC LUMBAR; COMMENT: Redo left L5-S1 minimally invasive discectomy, Dr. 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 porphyria - [...] Date Smoking Tobacco: Light Smoker Cigarettes 0.2 50.9 Started: 11/05/1973 Smokeless Tobacco: Never Tobacco Cessation:Ready [...] 87 06/17/2024 9:54 AM EDT Temperature 36.8 C (98.2 F) 06/17/2024 9:54 AM EDT Respiratory Rate 18 06/17/2024 9:54 AM EDT [...] Description 12/28/2024 1:00 PM EDT Office Visit Pulmonolgy - [place] [address] [place] [phone] Arturo Saavedra MD [address] [place] [address] Health Maintenance Due Date Last Done Comments [...] by GOLD classification (CMS/HCC V24, CMS/HCC V28) [id number] Routine 07/22/2024 8 :12 AM EDT Stage [...] Saavedra MD PFT ORDERABLES Final Result * [id number] (07/22/2024 8:12 AM EDT) [facility] A-1 Antitrypsin 155 90 - 200 mg/dL LAB CHEMISTRY METHOD 07/22/2024 10:32 AM EDT [facility] Blood Venous blood specimen / Unknown Venipuncture / Unknown 07/22/2024 8:12 AM EDT 07/22/2024 9:28 AM EDT us Arturo Saavedra MD LAB BLOOD ORDERABLES Final Resul t [facility] [address] [place] [address], [place] [phone] * Colonoscopy (08/24/2016) Pathologist [facility] Colonoscopy No Interpretation , Abstracted Anatomical Region Laterality Modality Other Historical Provider HEALTH MAINTENANCE Final Result * Hepatitis C Screening (08/24/2015) Pathologist [facility] Hepatitis C Screening Abstracted Historical Provider HEALTH MAINTENANCE Final Result * (ABNORMAL) Lipid panel (08/11/2015) Pathologist [facility] LDL/HDL Ratio 6(A) 0 - 4 Triglycerides 249(A) 0 - 150 mg/dL Cholesterol 295(A) 0 - 200 mg/dL HDL 50 >=40 mg/dL LDL Cholesterol 196(A) 0 - 100 mg/dL Blood Venous blood specimen / Unknown [facility] Provider LAB BLOOD ORDERABLES Leigh Ann l Result from Last 3 Months or Most Recently Relevant to Health Maintenance Insurance BLUE CROSS - [place] MEDICARE ADVANTAGE Care Teams Guest Services Ambassador Relationship Specialty Start Date End Date Mallory Locke MD PCP - General Internal Medicine 07/09/24
== END 2024-09-16 13:51 | disposition home or self-care (01) ==
LOC: HO.PMC 13:07
PROVIDERS: PCP Nurse Practitioner Family; Visit Provider Anesthesiology
DX: M96.1 Postlaminectomy syndrome, not elsewhere classified (principal); M62.830 Muscle spasm of back; M54.16 Radiculopathy, lumbar region; M51.369 Other intervertebral disc degeneration, lumbar region without mention of lumbar back pain or lower extremity pain; Z98.890 Other specified postprocedural states
CPT/HCPCS: 99213

== ENCOUNTER → 2024-09-16 13:06 | Outpatient (BNVA) | payer MEDICARE, SELFPAY | PROVIDERS: PCP Nurse Practitioner Family; Visit Provider Anesthesiology | DX: M96.1 Postlaminectomy syndrome, not elsewhere classified (principal); M62.830 Muscle spasm of back; M54.16 Radiculopathy, lumbar region; M51.360 Other intervertebral disc degeneration, lumbar region with discogenic back pain only; Z98.890 Other specified postprocedural states | CPT/HCPCS: 99212 ==

== ENCOUNTER 2024-09-18 09:40 | Outpatient (AMB) | payer MEDICARE, SELFPAY ==
--- NOTE | 2024-09-18 09:44 | MHC.OFFVIS ---
Vital Signs 09/18/24 09:53 Height 5 ft 9 in Weight 187 lb BMI 27.6 Handedness Left Intake Visit Reasons: right shoulder OA, (80) last inj 06/18/24 Intake Note: Francois is a 64 year old left hand dominant male who presents today for repeat injection for his right shoulder OA, last injection 06/18/24. Patient reports his last injection gave him some relief. He continues to have difficulty with range of motion. He would like to repeat the cortisone injection today. Allergies morphine (MORPHINE) Allergy (Intermediate, Verified 09/18/24 09:52) ITCHY Sulfa (Sulfonamide Antibiotics) (SULFA (SULFONAMIDE ANTIBIOTICS)) Allergy (Intermediate, Verified 09/18/24 09:52) ITCHY atorvastatin Adverse Reaction (Intermediate, Verified 09/18/24 09:52) myalgia rosuvastatin (From Crestor) Adverse Reaction (Intermediate, Verified 09/18/24 09:52) Diarrhea HPI HPI right shoulder OA, (80) last inj 06/18/24: Details: Mr. Hoawrd is a 64-year-old right-hand dominant male who presents to the office today for continued right shoulder pain due to adhesive capsulitis. He last received a cortisone injection on 06/18/2024 which gave him some relief. He continues to have pain and difficulty with motion and would like to repeat the injection today. [facility] Medical History (Updated 07/15/24 @ 09:24 by Robby Harley, ONCOLOGY RADIATION PHYSICIAN-) Nicotine dependence, cigarettes, uncomplicated History of fracture of left ankle Hyperlipidemia Bladder pain Benign prostatic hyperplasia Thoracic outlet syndrome Anxiety COPD (chronic obstructive pulmonary disease) Hypothyroidism Left lumbar radiculopathy Disc degeneration, lumbar Disc degeneration, lumbosacral Blood clot in vein Surgical History (Updated 01/27/24 @ 11:10 by Gloria Vasquez PA-C) History of hemorrhoidectomy History of esophagogastroduodenoscopy (EGD) Hx of hand surgery History of ankle surgery History of lumbar discectomy (12/21/21) History of cholecystectomy (~2004) Hx of colonoscopy Family History Paternal Uncle Colon cancer Paternal Grandmother Colon cancer Other Mental health disorder Social History (Reviewed 07/30/24 @ 09:47 by Rajeev Aly Housing: House Are you a primary laboratory animal care veterinarian to a significant other at home: No Do you presently have visiting nurse or other home services: No Patient Tobacco Use Status: Current everyday Tobacco user Tobacco use type: Cigarette Cigarette Packs Per Day: 0.75 Cigarettes Per Day: 15.0 Years Smoked: 40 e-Cigarette/Vaping Use: Never Used Substance Use Type: Marijuana service: No Current occupational status: disabled Current occupation: left handed Cognitive needs: No Hearing needs: No Vision needs: Yes Review of Systems Const All systems reviewed & are unremarkable except as noted in HPI and below Physical Exam Const General: cooperative, healthy appearing and no acute distress Resp Effort & Inspection: normal respiratory effort and able to speak in complete sentences Extrem Other: Right shoulder forward flexion to 120 degrees abduction to 90 degrees able to reach greater trochanteric bursa. No motion with external rotation. Pain with cross-body reach. Unable to assess drop-arm and empty can do to pain on range of motion restrictions. NVI. Office Procedures AMB Joint Injection/Aspiration Joint Injection/Aspiration Primary Site: right knee Prep: site was prepped using aseptic technique, ethochloride spray was applied and injection warnings given Injected: 80 mg of, DepoMedrol and with 8 mL of (2% plain lidocaine) Approach Used: posterolateral Procedure: The patient tolerated the procedure well, but had some pain with the injection and there was some relief with the local anesthesia Coding 43438 - Large joint Procedure code (CPT) selection complete Assessment & Plan Assessment & Plan (1) Adhesive capsulitis of right shoulder: Code(s): M75.01 - Adhesive capsulitis of right shoulder Category: Medical Plan The patient was offered a cortisone injection in the right shoulder with 80 mg of DepoMedrol. The patient was explained the risks, benefits, and alternatives to receiving this injection. After receiving consent for the injection, the patient had the procedure done while in the office today. The patient tolerated the procedure well with no complications. We discussed the nature of this diagnosis and its difficulties with recovery. I discussed with the patient that if symptoms persist for 1 year or greater we would possibly consider surgical intervention to debride the anterior interval. I encouraged the patient to continue working on a home exercise program to maximize range of motion and function. Follow-up will be PRN, or sooner if needed Coding Level of Care Code Est Pt Level 3 (60273) Diagnoses Adhesive capsulitis of right shoulder M75.01 CPT Codes Coding - 06344 Large joint: 97816 - Large joint ([id number])
[2024-09-18 09:53] VITALS: BMI 27.6
--- OUTSIDE RECORDS SUMMARY | 2024-09-18 09:53 | XMS_ITS | Clinical Summary ---
Author Organization 175 [facility] Address [address] [place] [address] Phone Care Team Providers Care Ivory Polisher Name Role Phone Mallory Locke MD Primary Care Provider [phone] Allergies Active Allergy Reactions Criticality Noted Date [...] 2 moderate COPD by GOL D classification (CMS/[facility] V24, CMS/[facility] V28) 08/05/2017 Exposure to asbestos [...] disorder 02/06/2016 Testosterone deficiency 11/01/2010 COPD, moderate (CMS/[facility] V24, [facility] V28) 2010 Overview (03/10/2024): 03/16/10 PFTs Vitamin D deficiency 04/07/2010 Hyperlipidemia 11/04/2009 Anxiety 03/23/2009 HSV-2 (herpes simplex virus 2) infection 009 Erectile dysfunction 05/04/2008 Eustachian tube dysfunction 11/27/2007 Chronic fatigue syndrome 10/27/2005 Overview (03/10/2024): ? porphyria Irritable bowel syndrome 10/27/2005 Encounters Date Type Department Care Team Description 07/22/2024 9:00 AM EDT Ancillary Procedure Pulmonolgy - [address] [place] [address] Nakia Thorpe Stage 3 severe COPD by GOLD classification (CMS/[facility] V24, CMS/[facility] V28) from Last 3 Months Immunizations Name Administration Dates Next Due Hepatitis B (Lalnrht-C-Gnbom , Recombivax HB-Adult) 19yo and older 04/25/2009,10/20/2008,09/21/2008 [...] COMMENT: normal; no Lopez's on biopsy COLONOSCOPY 2007stein PROCEDURE: HISTORICAL COLONOSCOPY; COMMENT: normal [...] e; COMMENT: left Chronic fatigue syndrome 10/27/2005 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 porphyria - [...] 1:00 PM EDT Office Visit Pulmonolgy - [place] [address] [place] [address] Arturo Saavedra MD [address] [place] [address] Health Maintenance Due Date Last Done Comments [...] by GOLD classification (CMS/HCC V24, CMS/HCC V28) [id number] Routine 07/22/2024 8 :12 AM EDT Stage [...] severe obstructive lung disease with gas trapping Arturo Saavedra MD PFT ORDERABLES Final Result * Pxrnr-4-pdyyjlmftml (07/22/2024 8:12 AM EDT) [facility] A-1 Antitrypsin 155 90 - 200 mg/dL LAB CHEMISTRY METHOD 07/22/2024 10:32 AM EDT [facility] Blood Venous blood specimen / Unknown Venipuncture / Unknown 07/22/2024 8:12 AM EDT 07/22/2024 9:28 AM EDT Arturo Saavedra MD LAB BLOOD ORDERABLES Final Resul t [facility] [address] [place] [address], [place] [phone] * Colonoscopy (08/24/2016) [facility] Colonoscopy No Interpretation , Abstracted Anatomical Region Laterality Modality Other Historical Provider HEALTH MAINTENANCE Final Result * Hepatitis C Screening (08/24/2015) [facility] Hepatitis C Screening Abstracted Historical [facility] HEALTH MAINTENANCE Final Result * (ABNORMAL) Lipid panel (08/11/2015) LDL/HDL Ratio [...] [place] Care Teams Ivory Polisher Relationship Specialty Start Date End Date Mallory Locke MD PCP - General Internal Medicine 07/09/24
== END 2024-09-18 09:53 | disposition home or self-care (01) ==
LOC: HO.HOS 09:41
PROVIDERS: PCP Nurse Practitioner Family; Visit Provider Physician Assistant
DX: M75.01 Adhesive capsulitis of right shoulder (principal)
CPT/HCPCS: 20610; 99213

== ENCOUNTER → 2024-09-18 09:40 | Outpatient (BNVA) | payer MEDICARE, SELFPAY | PROVIDERS: PCP Nurse Practitioner Family; Visit Provider Physician Assistant | DX: M75.01 Adhesive capsulitis of right shoulder (principal) | CPT/HCPCS: 20610; 99212; J1010; J2003 ==

== ENCOUNTER 2024-11-20 10:00 | Outpatient (REF) | payer MEDICARE, SELFPAY ==
--- OUTSIDE RECORDS SUMMARY | 2024-11-20 10:04 | XMS_ITS | Clinical Summary ---
Author Organization 175 [facility] Address [address] [place] [address] Phone Care Team Providers Care Pencils Washer Name Role Phone Mallory Locke MD Primary Care Provider [phone] Allergies Active Allergy Reactions Criticality Noted Date [...] NOT EXCEED 12 INHALATIONS/24 HRS 3 Active umeclidinium-maryam anteroL (Anoro Ellipta) 62.5-25 mcg/actuation inhaler Inhale by [...] mouth 1 (one) time each day. Active Trelegy Ellipta 100-62.5-25 mcg inhalerIndicatio ns:Chronic obstructive pulmonary disease, unspecified ([facility] V24, [facility] V28) INHALE 1 PUFF INTO THE LUNGS DAILY FOR 30 DAYS. 60 each 11 5 Active Active Problems Problem Noted Date Diagnosed [...] 2 moderate COPD by GOL D classification ([facility] V24, [facility] V28) 08/05/2017 Exposure to asbestos 06/27/2016 Lumbar [...] Name Administration Dates Next Due Hepatitis B (Zcixaiv-C-Scfce , Recombivax HB-Adult) 19yo and older 04/25/2009,10/20/2008,09/21/2008 Pneumococcal polysaccharide 23 valent (Pneumovax 23) 2yo and older 11/05/2017 Td Tetanus diptheria (Tdvax) 7yo and older 11/05 Tdap Tetanus diptheria acell ular pertussis (Boostrix; Adacel) 7yo and older 01/01/2020,10/06/2007 Surgical History Surgery Date Site/Laterality Comments CHOLECYSTECTOMY PROCEDURE: HISTORICAL CHOLECYSTECTOMY OTHER SURGICAL HISTORY PROCEDURE: HISTORY OTHER; COMMENT: anal polyps dr car 2008 ESOPHAGOGASTRODUODENOSCOPY 2007 PROCEDURE: IN ESOPHAGOGASTRODUODENOSCOPY TRANSORAL DIAGNOSTIC; COMMENT: normal ESOPHAGOGASTRODUODENOSCOPY 07/04/2011 PROCEDURE: IN ESOPHAGOGASTRODUODENOSCOPY TRANSORAL DIAGNOSTIC; COMMENT: normal; no Lopez's [...] COMMENT: hemorrhoidectomy OTHER SURGICAL HISTORY 12/21/2021 PROCEDURE: IN LAMOT PRTL FFD EXC DISC REEXPL 1 NTRSPC LUMBAR; COMMENT: Redo left L5-S1 minimally invasive discectomy, Dr. 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 porphyria - [...] Date Smoking Tobacco: Light Smoker Cigarettes 0.2 51 Started: 11/05/1973 Smokeless Tobacco: Never Tobacco Cessation:Ready [...] 1:00 PM EDT Office Visit Pulmonolgy - [place] [address] [facility] [address] [place] [address] Arturo Saavedra MD [address] [facility] [address] [place] [address] Health Maintenance Due Date Last Done Comments Zoster Vaccines (1 of 2) 2009 Abdominal Aortic Aneurysm (AAA) Screen 03/10/2022 Cholesterol Screening (Lipid Panel) 03/10/2022 08/11/2015 Medicare Annual Wellness Visit 03/10/2022 Social Influencers of Health Screening 03/10/2022 Pneumococcal Vaccine: 50+ Years (2 of 2 - PCV) 03/27/2022 03/27/2021, 11/05/2017 COVID-19 Vaccine ( season) 2023 02/14/2022, 01/10/2021, 06/08/2020, Additional history exists Falls Risk Assessment 02/06/2024 Depression Screening 04/01/2024 Influenza Vaccine (#1) 2024 Colorectal Cancer Screening: Colonoscopy 08/24/2026 08/24/2016 [...] , Abstracted Anatomical Region Laterality Modality Other us Historical Provider HEALTH MAINTENANCE Final Result * Hepatitis C Screening (08/24/2015) Hepatitis C Screening Abstracted us Historical Provider HEALTH MAINTENANCE Final Result * (ABNORMAL) Lipid panel (08/11/2015) LDL/HDL Ratio 6(A) 0 - 4 Triglycerides 249(A) 0 - 150 mg/dL Cholesterol 295(A) 0 - 200 mg/dL HDL 50 >=40 mg/dL LDL Cholesterol 196(A) 0 - 100 mg/dL Blood Venous blood specimen / Unknown us Historical Provider LAB BLOOD ORDERABLES Leigh Ann l Result from Last 3 Months or Most Recently Relevant to Health Maintenance Insurance BLUE CR[place] - [place] MEDICARE ADVANTAGE Care Teams Pencils Washer Relationship Specialty Start Date End Date Mallory Locke MD PCP - General Internal Medicine 07/09/24
--- OUTSIDE RECORDS SUMMARY | 2024-11-20 10:04 | XMS_ITS | Patient Health Record ---
Author Organization [facility] Address [address] [place] [address] Care Team Providers Care Thread Separator Name Role Phone Mallory Locke MD Primary Care Provider Yanet Terry Unavailable [phone] Allergies Allergen (clinical drug ingredient) Drug/Non Drug Allergy documented on EMR Reaction Allergy Type Onset Date Status sulfamethoxazole / trimethoprim Bactrim itchy skin Drug Allergy Active morphine Morphine itchy skin Drug Allergy Active Reason For Referral No Information Medications Medication SIG (Take, Route, Frequency, Duration) Notes Start Date End Date Status Levothyroxine Sodium Active Nystatin 464636 UNIT 1 tablet Orally Active Citalopram Hydrobromide [...] End Date [employer] [address] [place] [address] [id number] Francois Howard Self - patient is the insured Medical (General) History Medical History History ICD Code Anxiety Back,Hip,and Knee pain Broken bones Lung disease Psoriasis/eczema Reflux ( GERD) thyroid Measles Mumps Chicken pox Surgical History Surgery Date(Month/Year) ankle surgery left 2019 finger surgery Right index 12/2019
--- OUTSIDE RECORDS SUMMARY | 2024-11-20 10:04 | XMS_ITS | Patient Health Record ---
Author Organization [facility] Address [address] [place] [address] Care Team Providers Care Aircraft Maintenance Director Name Role Phone Tobias Lau Primary Care Provider Rusty Mark [phone] Allergies Allergen (clinical drug ingredient) Drug/Non Drug Allergy documented on EMR Reaction Allergy Type Onset Date Status Sulfa Unknown Drug Allergy Active Reason For Referral No Information Medications Medication SIG (Take, Route, Fr equency, Duration) Notes Start Date End Date Status Amitriptyline HCl Ac tive Qvar Active LORazepam Active Ibuprofen Active PriLOSEC Active Problems Problem Type SNOMED Code ICD Code Onset Dates Problem Status W/U Status Risk Notes Problem Dysphagia (03075960) Dysphagia, unspecified (787.20) Active confirmed Problem Imaging of gastrointestinal tract abnormal (283701944) Nonspecific abnormal findings on radiological and other examination of gastrointestinal tract (793.4) Active confirmed Problem Family history o f malignant neoplasm of gastrointestinal tract (V16.0) Active confirmed Plan Of Treatment Future Test Test Name Order Date UPPER GI ENDOSCOPY 12/08/2010 Insurance Providers Payer Name Payer Address Payer Phone Subscriber Number Group Number Insured Name Patient Relationship to Insured Coverage Start Date Coverage End Date MEDICARE OF [place] [address] [place] [address] [id number] RADHA DEAL Self - patient is the insured Medical (General) History Medical History History ICD Code Fibromyalgia/CFS Early COPD Allergies Denies [place],DM,CVA,renal disease Surgical History Surgery Date(Month/Year) CCY Hemorrhoids
[2024-11-20 14:43] LABS: Hematocrit 43.9 % (42.0-52.0); Hemoglobin 14.3 g/dl (14.0-18.0); Imm Gran Abs Auto 0.02 X10*3/uL (0.00-0.03); Imm Gran Pct Auto 0.3 % (0.0-0.4); Lymphocytes Absolute Auto 2.1 X10*3/uL (1.2-4.9); MANUAL DIFF FLAG NO; Mean Corpuscular HGB Conc 32.6 g/dl (31.0-36.0); Mean Corpuscular Hemoglobin 30.2 pg (27.0-33.0); Mean Corpuscular Volume 92.8 fL (80.0-98.0); NRBC Abs Auto 0.000 X10*3/uL (0.0-0.012); NRBC Pct Auto 0.0 /100WBC (0.0-0.2); Platelet Count 283 X10*3/uL (160-400); Red Blood Count 4.73 X10*6/uL (4.60-5.80); White Blood Count 6.5 X10*3/uL (4.8-10.8)
[2024-11-20 14:51] LABS: Appearance Urine Clear; Glucose Urine UA Negative (Negative); PH 5.5 (5.0-9.0); Specific Gravity - Urine 1.015 (1.005-1.025)
[2024-11-20 15:01] LABS: Alanine Aminotransferase 16 U/L (0-40); Albumin Level 4.2 g/dL (3.5-5.0); Alkaline Phosphatase 55 U/L (39-117); Anion Gap 14 (12-20); Aspartate Amino Transferase 24 U/L (5-37); Blood Urea Nitrogen 14 mg/dL (9-16); Calcium 9.2 mg/dL (8.4-10.2); Carbon Dioxide 26 mmol/L (22-29); Chloride 107 mmol/L (96-108); Cholesterol 245 mg/dL (<200); Estimated Glomerular Filt Rate > 60; HDL Cholesterol 37 mg/dL (>40); Potassium 4.8 mmol/L (3.3-5.1); Sodium 142 mmol/L (135-145); Total Protein 6.6 g/dL (6.5-8.0); Triglycerides 225 mg/dL (<150)
[2024-11-20 16:13] LABS: Free T4 (Free Thyroxine) 0.79 ng/dL (0.71-1.85)
== END 2024-11-20 10:01 | disposition home or self-care (01) ==
LOC: HO.HMGCLDS 10:00
PROVIDERS: PCP Nurse Practitioner Family; Visit Provider Nurse Practitioner Family
DX: I10 Essential (primary) hypertension (principal); E78.5 Hyperlipidemia, unspecified
CPT/HCPCS: 36415; 80053; 80061; 81003; 84439; 84443; 85025

== ENCOUNTER 2024-11-23 08:19 | Outpatient (REF) | payer MEDICARE, SELFPAY ==
--- NOTE | ~2024-11-23 | CT_ITS ---
EXAMINATION: CT ABDOMEN AND PELVIS WITH CONTRAST CLINICAL INFORMATION: Left upper quadrant abdomen. COMPARISON: October 08, 2022. TECHNIQUE: Multidetector volumetric images were obtained from the superior aspect of the liver through the pubic symphysis following administration 85 mL of Omnipaque 350 intravenous contrast. Sagittal and coronal reformatted images were obtained on the technologist's workstation. Oral contrast: Yes This CT examination was performed using dose optimization techniques as appropriate, variously including the following: *Automated exposure control *Adjustment of mA and/or kV according to patient size (this includes techniques or standardized protocols for targeted exams where dose is matched to indication/reason for exam; i.e. extremities or head) *Use of iterative reconstruction technique. DLP: 358 mGy centimeter. FINDINGS: LUNG BASES: Centrilobular emphysematous changes. Patchy and nodular attenuation in the periphery of the lung bases pronounced on the right lung base. LIVER, GALLBLADDER, AND BILIARY TREE: Liver measures 13 cm. Normal enhancement pattern of the parenchyma. No focal mass. The main portal veins, hepatic veins and intrahepatic portion of the IVC are patent. Status post likely laparoscopic, cholecystectomy. No intrahepatic or extrahepatic biliary ductal dilatation. Common bile duct measures 3 mm. PANCREAS: No focal mass. No peripancreatic fluid collection. No main pancreatic ductal dilatation. SPLEEN: 9 cm. No focal mass. ADRENAL GLANDS: No nodular lesion. KIDNEYS AND URETERS: No gross renal mass. No hydronephrosis. No gross nephrolithiasis. Subcentimeter cystic lesions, both kidneys. No dilatation of the ureters. BLADDER: Fluid-filled nearly collapsed. GASTROINTESTINAL TRACT: Appendix is normal. No intestinal obstruction pattern. No pneumatosis intestinalis. No intestinal wall thickening. Collapsed appearance of the rectosigmoid colon. Few diverticula in the sigmoid colon. No pericolonic edema pattern. No peripheral enhancing fluid collection in the peritoneal cavity. No ascites. No pneumoperitoneum. ABDOMINAL WALL: No umbilical hernia. Postsurgical changes in the right inguinal canal. LYMPH NODES: There is a 11 mm lymph node in the upper left retroperitoneum superior to the left main renal vessels and adjacent to the celiac trunk region. There are prominent less than 10 mm lymph nodes in the mesentery. VASCULAR: Mixed plaques throughout the abdominal aorta wall and iliac arteries without aneurysm or dissection. PELVIC VISCERA: Heterogeneous and not enlarged. OSSEOUS STRUCTURES: Multilevel thoracolumbar spondylosis without acute fracture. Grade 1 retrolisthesis L5-S1 on a degenerative basis. Degenerative changes in the sacroiliac joints and both hips. CT/CT abdomen pelvis w IV con IMPRESSION: Nonspecific prominent 11 mm lymph node in the upper left retroperitoneum and prominent mesenteric lymph nodes. Diverticular disease, left hemicolon . Emphysematous changes with a 9 mm pulmonary nodule, right lung base. Atherosclerosis disease. Bilateral renal cysts. Fleischner guidelines were followed. Electronically signed by: Raleigh Noel MD 11/23/2024 09:49 AM EDT
--- OUTSIDE RECORDS SUMMARY | 2024-11-23 08:42 | XMS_ITS | Patient Health Record ---
Author Organization [facility] Address [address] [place] [address] Care Team Providers Care Elevator Repairer Helper Name Role Phone Tobias Lau Primary Care Provider [phone] Rusty Mark [phone] Allergies Allergen (clinical drug ingredient) Drug/Non Drug [...] Status W/U Status Risk Notes Problem Dysphagia (36871841) Dysphagia, unspecified (787.20) Active confirmed Problem Imaging of gastrointestinal tract abnormal (377703677) Nonspecific abnormal findings on radiological and other examination of gastrointestinal tract (793.4) Active confirmed Problem Family history of malignant neoplasm of gastrointestinal tract (023061419) Family history of malignant neoplasm of gastrointestinal tract (V16.0) Active confirmed Plan Of Treatment Future Test Test Name Order Date UPPER GI ENDOSCOPY 12/08/2010 Insurance Providers Payer Name Payer Address Payer Phone Subscriber Number Group Number Insured Name Patient Relationship to Insured Coverage Start Date Coverage End Date MEDICARE OF [employer] [address] [place] [address] [id number] RADHA DEAL Self - patient is the insured Medical (General) History Medical History History ICD Code Fibromyalgia/CFS Early COPD Allergies Denies [place],DM,CVA,renal disease Surgical History Surgery Date(Month/Year) CCY Hemorrhoids
--- OUTSIDE RECORDS SUMMARY | 2024-11-23 08:42 | XMS_ITS | Clinical Summary ---
Author Organization 175 [facility] Address [address] [place] [address] Phone Care Team Providers Care Oracle Soa Consultant Name Role Phone Mallory Locke MD Primary Care Provider [phone] Allergies Active Allergy Reactions Criticality Noted Date [...] mcg inhalerIndicatio ns:Chronic obstructive pulmonary disease, unspecified ([facility] V24, [facility] V28[facility] INHALE 1 PUFF INTO THE LUNGS [...] 2 moderate COPD by GOL D classification ([facility] V24[facility] V28) 08/05/2017 Exposure to asbestos [...] Name Administration Dates Next Due Hepatitis B (Eeukfvq-Y-Eouql , Recombivax HB-Adult) 19yo and older 04/25/2009,10/20/2008,09/21/2008 Pneumococcal polysaccharide 23 valent (Pneumovax 23) 2yo and older 11/05/2017 Td Tetanus diptheria (Tdvax) 7yo and older 11/05 Tdap Tetanus diptheria acell ular pertussis (Boostrix; Adacel) 7yo and older 01/01/2020,10/06/2007 Surgical History Surgery Date Site/Laterality Comments CHOLECYSTECTOMY PROCEDURE: HISTORICAL CHOLECYSTECTOMY OTHER SURGICAL HISTORY PROCEDURE: HISTORY OTHER; COMMENT: anal polyps dr car 2008 ESOPHAGOGASTRODUODENOSCOPY 2007 PROCEDURE: [place] ESOPHAGOGASTRODUODENOSCOPY TRANSORAL DIAGNOSTIC; COMMENT: normal ESOPHAGOGASTRODUODENOSCOPY 07/04/2011 PROCEDURE: [place] ESOPHAGOGASTRODUODENOSCOPY TRANSORAL DIAGNOSTIC; COMMENT: normal; no Lopez's [...] COMMENT: hemorrhoidectomy OTHER SURGICAL HISTORY 12/21/2021 PROCEDURE: [place] LAMOT PRTL FFD EXC DISC REEXPL 1 NTRSPC LUMBAR; COMMENT: Redo left L5-S1 minimally invasive discectomy, Dr. 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 porphyria - [...] 1:00 PM EDT Office Visit Pulmonolgy - [place] [address] [facility] [address] [place] [address] Arturo Saavedra MD [address] [facility] [address] [place] [address] Health Maintenance Due Date Last Done Comments [...] [place] - [place] Care Teams Oracle Soa Consultant Relationship Specialty Start Date End Date Mallory Locke MD PCP - General Internal Medicine 07/09/24
--- OUTSIDE RECORDS SUMMARY | 2024-11-23 08:43 | XMS_ITS | Patient Health Record ---
Author Organization [facility] Address [address] [facility] [place] [place] [address] Care Team Providers Care Tyre Retreader Name Role Phone Mallory Locke MD Primary Care Provider Yanet Terry Unavailable [phone] Allergies Allergen (clinical drug ingredient) Drug/Non Drug Allergy documented on EMR Reaction Allergy Type Onset Date Status sulfamethoxazole / trimethoprim Bactrim itchy skin Drug Allergy Active morphine Morphine itchy skin Drug Allergy Active Reason For Referral No Information Medications Medication SIG (Take, Route, Frequency, Duration) Notes Start Date End Date Status Levothyroxine Sodium Active Nystatin 022568 UNIT 1 tablet Orally Active Citalopram Hydrobromide [...] End Date [employer] [address] [place] [address] [id number] Francois Howard Self - patient is the insured Medical (General) History Medical History History ICD Code Anxiety Back,Hip,and Knee pain Broken bones Lung disease Psoriasis/eczema Reflux ( GERD) thyroid Measles Mumps Chicken pox Surgical History Surgery Date(Month/Year) ankle surgery left 2019 finger surgery Right index 12/2019
[2024-11-23] MEDS: iohexoL 350 MG/ML 100 ML INFUS..BTL 85 ML IV (09:19)
== END 2024-11-23 08:20 | disposition home or self-care (01) ==
LOC: HO.CT 08:19
PROVIDERS: PCP Nurse Practitioner Family; Visit Provider Nurse Practitioner Family
DX: R10.12 Left upper quadrant pain (principal); K44.9 Diaphragmatic hernia without obstruction or gangrene
CPT/HCPCS: 74177; Q9967

== ENCOUNTER → 2024-11-23 08:22 | Outpatient (BNV) | payer MEDICARE, SELFPAY | PROVIDERS: PCP Nurse Practitioner Family; Visit Provider Radiology Diagnostic Radiology | DX: N28.1 Cyst of kidney, acquired (principal) | CPT/HCPCS: 74177 ==

== ENCOUNTER 2025-01-06 08:58 | Outpatient (AMB) | payer MEDICARE, SELFPAY ==
--- NOTE | 2025-01-06 09:02 | MHC.OFFVIS ---
Vital Signs 01/06/25 09:03 Height 5 ft 9 in Weight 185 lb 3.013 oz BMI 27.3 BP 148/80 H Blood Pressure Location Lt brachial Position Sitting Pulse 68 Intake Visit Reasons: Abdominal pain Intake Note: Francois presents in the office as a follow up for abdominal pains. CC: States he is questioning a hernia - when he coughs, sneezes or anything he gets a pain in the LUQ. Allergies morphine (MORPHINE) Allergy (Intermediate, Verified 01/06/25 09:06) ITCHY Sulfa (Sulfonamide Antibiotics) (SULFA (SULFONAMIDE ANTIBIOTICS)) Allergy (Intermediate, Verified 01/06/25 09:06) ITCHY atorvastatin Adverse Reaction (Intermediate, Verified 01/06/25 09:06) myalgia rosuvastatin (From Crestor) Adverse Reaction (Intermediate, Verified 01/06/25 09:06) Diarrhea HPI Comments Details: This is a 62y.o M with PMH of COPD, BPH, anxiety who presents for screening colonoscopy however as multiple GI issues as below. Pt reports that almost for the past 20 years he has had intermittent RLQ abdominal pain associated with bloating and diarrhea. It feels as if he is blocked up and when he switches himselt to NPO/clear liquids for a few days, it gets better. He also notices worsening of sx with gluten containing foods but has never been diagnsoed with celiac disease. Not associated with fevers, nausea, vomiting. Has been seen by GI in the past, most recently at [facility] and underwent EGD/colo, VCE and was eventually given the diagnosis of IBS. Also describes getting a CTE through a different provider and was told he has narrowing of small intestine but again does not recall being told about IBD. He reports similar sx in his daughter who is in her 30s and is undergoing work up for it. Does smoke 0.5PPD daily, also repors frequent NSAID use at least 2-3 times a week. 10/22/22: Reviewed labs with the pt and that specifically fecal calprotectin came back elevated along with the CRP. CT Abd/pel appeared grossly normal. Pt reports persistent bloating but diarrhea is better now that hes back on gluten restricted diet. 11/23/22: Came in for urgent visit today for lower abd pain and cramping x 5 days. Went camping last weekend and reports onset of abd pain even before it but got wore within 2 days. Assoc with low grade fevers, chills, nausea and aversion to food. No diarrhea. No sick contacts. Now eating but pain is still persistent and just as severe. Describes it as RLQ pain which radiates to his back. No relation to bowel movements. No dysuria reported. CT Abd/pel from last month with diverticulosis but otherwise normal. Mat for colo in Dec for elevated fecal calpro. 01/03/23: Juda Impression: 1. Normal colon and terminal ileum mucosa (biopsy) 2. Total of 3 polyps removed. 3. External and internal hemorrhoids 4. Prostatomegaly Path: A. Colon, right, biopsy: Mildly active colitis. B. Colon, ascending, polypectomy: Colonic mucosa with mild surface hyperplastic changes. C. Colon, left, biopsy: Colonic mucosa within normal limits. D. Colon, sigmoid, polypectomies (2): Hyperplastic mucosal polyp 01/14/23: Pt had already started to feel better even before the colo since taking Abx prescribed empirically for infectious colitis vs diverticulitis. See documentation 11/23. Juda results and path reviewed. Acute colitis, likely had resolving infectious colitis, no stigmata of background chronicity noted on path - this was reviewed and confirmed by the reading pathologist again. Pt also wonders if had SIBO since sx resolved after Abx course and advised that given overlapping sx of infectious colitis, SIBO and IBS difficult to determine and while mildly elevated fecal calpro can be seen with SIBO would not expect acute colitis changes. Also reports 3-4 frequent BMs in the morning which has been a chronic issue for him. To recall pt is s/p CCY. 06/05/23: Reports sx had gone away after Abx trial for 3 months and then returned a couple of months ago - mainly bloating, burping. Some nausea without vomiting. Also has frequent BMs with up to 5-6 BMs per day which are formed but soft. No fevers or chills. No unintentional weight loss. 08/12/23: Had to take another course of antibiotic. Cipro sent, which he completed just 2 days ago. Reports improvement in bloating, belching and bowel habits. Currently no abdominal pain. SIBO results negative. 01/06/24: Here for routine follow up. Happily reports resolution of bloating which was one of his main concerns previously. Has persistent frequent BMs up to 4-5 times per day claudette in AM. Sometimes does have formed BMs. Sticking to gluten free diet. Does not avoid dairy but tries to consume lactose free milk. Has coffee in the morning. s/p CCY as above. 01/06/25: Here for routine 1 year follow up. reports main issue remains LUQ pain which is sharp. Triggered by coughing and then lasts for hours. Also gets aggravated by straining to have a BM. Had a CT abd pel done in Oct by PCP for the same reason - shows enlarged LN in LUQ. Otherwise, diarrhea is resolved, no further bloating. [facility] Medical History Nicotine dependence, cigarettes, uncomplicated History of fracture of left ankle Hyperlipidemia Bladder pain Benign prostatic hyperplasia Thoracic outlet syndrome Anxiety COPD (chronic obstructive pulmonary disease) Hypothyroidism Left lumbar radiculopathy Disc degeneration, lumbar Disc degeneration, lumbosacral Blood clot in vein Surgical History History of hemorrhoidectomy History of esophagogastroduodenoscopy (EGD) Hx of hand surgery History of ankle surgery History of lumbar discectomy (12/21/21) History of cholecystectomy (~2004) Hx of colonoscopy Family History Paternal Uncle Colon cancer Paternal Grandmother Colon cancer Other Mental health disorder Social History Housing: House Are you a primary multi care technician to a significant other at home: No Do you presently have visiting nurse or other home services: No Patient Tobacco Use Status: Current everyday Tobacco user Tobacco use type: Cigarette Cigarette Packs Per Day: 0.75 Cigarettes Per Day: 15.0 Years Smoked: 40 e-Cigarette/Vaping Use: Never Used Substance Use Type: Marijuana service: No Current occupational status: disabled Current occupation: left handed Cognitive needs: No Hearing needs: No Vision needs: Yes Review of Systems Const All systems reviewed & are unremarkable except as noted in HPI and below Physical Exam Exam Exam: No apparent distress Nonicteric pain under L subcostal margin, hook sign + Abdomen soft, nondistended Alert and oriented x3, normal gait Vital Signs: Last Vital Signs Pulse 68 01/06/25 09:03 BP 148/80 H 01/06/25 09:03 BMI result Body Mass Index 27.3 Assessment & Plan Assessment & Plan (1) Painful rib: Code(s): R07.89 - Other chest pain Category: Medical (2) COPD (chronic obstructive pulmonary disease): Comment: f/u Dr. Saavedra Code(s): J44.9 - Chronic obstructive pulmonary disease, unspecified Category: Medical (3) Nicotine dependence, cigarettes, uncomplicated: Comment: (smoker 3/4ppd x 40yrs - 30pyh) Code(s): F17.210 - Nicotine dependence, cigarettes, uncomplicated Category: Medical (4) Retroperitoneal lymphadenopathy: Code(s): R59.0 - Localized enlarged lymph nodes Category: Medical Plan Reviewed with the pt that based on description and exam findings pain is likely not intra-luminal and more consistent with slipped rib vs costochondritis. Encouraged to review COPD management and cough suppression with his organic chemistry professor (has appt next week - Dr Saavedra at [facility]). In the meantime recommend: - avoid smoking - Lozenges to reduce coughing - Lidocaine patches - Gabapentin at night time For lymphadenopathy noted on CT scan, likely reactive, will get a repeat scan to ensure resolution. - CT abd/pel with IV contrast ordered Follow up 2 months Orders: Orders CT abdomen pelvis w IV con Today R59.1 - Generalized enlarged lymph nodes Medications: New lidocaine 5% leave on most painful area for up to 12 hrs 1 patch topical DAILY 15 ea 0RF gabapentin 100 mg PO BEDTIME 30 caps 0RF Coding Level of Care Code Est Pt Level 4 (08221) Diagnoses Painful rib R07.89 COPD (chronic obstructive pulmonary disease) J44.9 Nicotine dependence, cigarettes, uncomplicated F17.210 Retroperitoneal lymphadenopathy R59.0
[2025-01-06 09:03] VITALS: BP 148/80; PULSE 68; BMI 27.3
== END 2025-01-06 09:48 | disposition home or self-care (01) ==
LOC: HO.HGI 08:59
PROVIDERS: PCP Nurse Practitioner Family; Visit Provider Internal Medicine
DX: R07.89 Other chest pain (principal); J44.9 Chronic obstructive pulmonary disease, unspecified; F17.210 Nicotine dependence, cigarettes, uncomplicated; R59.0 Localized enlarged lymph nodes
CPT/HCPCS: 99214

== ENCOUNTER → 2025-01-06 08:58 | Outpatient (BNVA) | payer MEDICARE, SELFPAY | PROVIDERS: PCP Nurse Practitioner Family; Visit Provider Internal Medicine | DX: J44.9 Chronic obstructive pulmonary disease, unspecified (principal); R07.89 Other chest pain; F17.210 Nicotine dependence, cigarettes, uncomplicated; R59.0 Localized enlarged lymph nodes | CPT/HCPCS: 99212 ==

== ENCOUNTER 2025-01-19 06:12 | Outpatient (REF) | payer MEDICARE, SELFPAY ==
--- NOTE | ~2025-01-19 | FL_ITS ---
EXAMINATION: FL GUIDANCE ONLY HISTORY: M51.36 - Other intervertebral disc degeneration, lumbar region COMPARISON: None available. TECHNIQUE: Fluoroscopy time: 0.5 minutes. Cumulative Dose: 3.90 mGy. DAP: 125.01 uGym2 Images: 12. FINDINGS: Fluoroscopic spot films of the lumbar spine demonstrate needles and contrast material in the regions of the bilateral L3-4, L4-5, and L5-S1 facet joints. FL/FL guidance in treatment room IMPRESSION: Fluoroscopy during procedure. Please see procedure report for additional information. Electronically signed by: Rusty Estrada MD 01/21/2025 09:12 AM EDT
--- OUTSIDE RECORDS SUMMARY | 2025-01-19 06:13 | XMS_ITS ---
Author Name [facility] Organization Unknown History of Medication Use Medication Directions Dispensed Refills Start Date End Date Stat us bupropion HCl 06/04/2024 active citalopram hydrobromide 04/24/2024 active valsartan active [employer] WORKER Thyroid active Allergies Allergen Reaction Severity Comment Documented Date Source Statu s MORPHINE [facility] SULFA (SULFONAMIDE ANTIBIOTICS) [facility]
--- OUTSIDE RECORDS SUMMARY | 2025-01-19 06:13 | XMS_ITS | Patient Health Record ---
[facility] Address [address] [place] [address] Care Team Providers Care Weekday Babysitter Name Role Phone Mallory Locke MD Primary Care Provider Yanet Terry Unavailable [phone] Allergies Allergen (clinical drug ingredient) Drug/Non Drug Allergy documented on EMR Reaction Allergy Type Onset Date Status sulfamethoxazole / trimethoprim Bactrim itchy skin Drug Allergy Active morphine Morphine itchy skin Drug Allergy Active Reason For Referral No Information Medications Medication SIG (Take, Route, Frequency, Duration) Notes Start Date End Date Status Levothyroxine Sodium Active Nystatin 176392 UNIT 1 tablet Orally Active Citalopram Hydrobromide [...] End Date [employer] [address] [place] [address] [id number] Francois Howard Self - patient is the insured Medical (General) History Medical History History ICD Code Anxiety Back,Hip,and Knee pain Broken bones Lung disease Psoriasis/eczema Reflux ( GERD) thyroid Measles Mumps Chicken pox Surgical History Surgery Date(Month/Year) ankle surgery left 2019 finger surgery Right index 12/2019
--- OUTSIDE RECORDS SUMMARY | 2025-01-19 06:13 | XMS_ITS | Patient Health Record ---
Author Organization [facility] Address [address] [place] [address] Care Team Providers Care Fruit And Vegetable Parer Name Role Phone Tobias Lau Primary Care Provider [phone] Rusty Mark [phone] Allergies Allergen (clinical drug ingredient) Drug/Non Drug [...] Status W/U Status Risk Notes Problem Dysphagia (10138735) Dysphagia, unspecified (787.20) Active confirmed Problem Imaging of gastrointestinal tract abnormal (713390987) Nonspecific abnormal findings on radiological and other examination of gastrointestinal tract (793.4) Active confirmed Problem Family history of malignant neoplasm of gastrointestinal tract (248325367) Family history of malignant neoplasm of gastrointestinal tract (V16.0) Active confirmed Plan Of Treatment Future Test Test Name Order Date UPPER GI ENDOSCOPY 12/08/2010 Insurance Providers Payer Name Payer Address Payer Phone Subscriber Number Group Number Insured Name Patient Relationship to Insured Coverage Start Date Coverage End Date MEDICARE OF [employer] [address] [place] [address] [phone] [id number] RADHA DEAL Self - patient is the insured Medical (General) History Medical History History ICD Code Fibromyalgia/CFS Early COPD Allergies Denies ME,DM,CVA,renal disease Surgical History Surgery Date(Month/Year) CCY Hemorrhoids
== END 2025-01-19 06:13 | disposition home or self-care (01) ==
LOC: CF 06:12
PROVIDERS: Visit Provider Anesthesiology
DX: M47.816 Spondylosis without myelopathy or radiculopathy, lumbar region (principal)
CPT/HCPCS: 64493; 64494; J2003; J2795; Q9967

== ENCOUNTER 2025-01-19 08:54 | Outpatient (AMB) | payer MEDICARE, SELFPAY ==
[2025-01-19 09:05] VITALS: BP 117/71; PULSE 75; RESP 16; O2SAT 97; BMI 27.3
--- NOTE | 2025-01-19 09:05 | MHC.OFFVIS ---
Vital Signs 01/19/25 09:05 01/19/25 09:35 Height 5 ft 9 in Weight 185 lb BMI 27.3 BP 117/71 131/71 Blood Pressure Location Lt brachial Lt brachial Position Sitting Sitting Respiration 16 16 Pulse 75 77 Pulse Source Pulse Oximeter Pulse Oximeter Pulse Oximetry (%) 97 99 Oxygen Delivery Method Room Air Room Air Intake Visit Reasons: BILATERAL DX L3, L4, DRL5 MBB Allergies morphine (MORPHINE) Allergy (Intermediate, Verified 01/06/25 09:06) ITCHY Sulfa (Sulfonamide Antibiotics) (SULFA (SULFONAMIDE ANTIBIOTICS)) Allergy (Intermediate, Verified 01/06/25 09:06) ITCHY atorvastatin Adverse Reaction (Intermediate, Verified 01/06/25 09:06) myalgia rosuvastatin (From Crestor) Adverse Reaction (Intermediate, Verified 01/06/25 09:06) Diarrhea [facility] Medical History Nicotine dependence, cigarettes, uncomplicated History of fracture of left ankle Hyperlipidemia Bladder pain Benign prostatic hyperplasia Thoracic outlet syndrome Anxiety COPD (chronic obstructive pulmonary disease) Hypothyroidism Left lumbar radiculopathy Disc degeneration, lumbar Disc degeneration, lumbosacral Blood clot in vein Surgical History History of hemorrhoidectomy History of esophagogastroduodenoscopy (EGD) Hx of hand surgery History of ankle surgery History of lumbar discectomy (12/21/21) History of cholecystectomy (~2004) Hx of colonoscopy Family History Paternal Uncle Colon cancer Paternal Grandmother Colon cancer Other Mental health disorder Social History Housing: House Are you a primary care connector to a significant other at home: No Do you presently have visiting nurse or other home services: No Patient Tobacco Use Status: Current everyday Tobacco user Tobacco use type: Cigarette Cigarette Packs Per Day: 0.75 Cigarettes Per Day: 15.0 Years Smoked: 40 e-Cigarette/Vaping Use: Never Used Substance Use Type: Marijuana service: No Current occupational status: disabled Current occupation: left handed Cognitive needs: No Hearing needs: No Vision needs: Yes Physical Exam Vital Signs: Last Vital Signs Pulse 77 01/19/25 09:35 Resp 16 01/19/25 09:35 BP 131/71 01/19/25 09:35 Pulse Ox 99 01/19/25 09:35 Oxygen Delivery Method Room Air 01/19/25 09:35 BMI result Body Mass Index 27.3 Assessment & Plan Assessment & Plan (1) Spondylosis of lumbar region without myelopathy or radiculopathy: Code(s): M47.816 - Spondylosis without myelopathy or radiculopathy, lumbar region Category: Medical Plan Diagnostic medial branch block L3,L4 dorsal ramus L5 bilateral.? ? ?Informed consent was explained to the patient. All questions were explained and? answered.? The patient was taken inside the operating room where he was positioned prone on the operating table. Time-out was performed delineating correct site, side, the nature of the procedure, patient's allergy, . All operating room staff was participating in OR time-out procedure. ? ? The lower back was prepped with ChloraPrep and draped with sterile utility towels.? C-arm was brought over the operating field and sq picture of L4-, L5 vertebra and S1 AREA were delineated on the screen.? Point of interest were delineated as confluence of superior articular process of L4 and L5 vertebra bilaterally with corresponding transverse processes as well as confluence of the sacral alae bilaterally with superior articular process of S1.? The projection of the point of interest to the skin were injected with the small amount of local anesthetic lidocaine 2% mixed with ropivacaine 0.5% 1-1 approximately 1 cc.? After that 22 gauge 3.5 inch spinal needle was driven sequentially to the points of interest in tunnel vision fashion. After needles gently contacted the bone at the point of interests the needle was injected with small amount of the contrast.? The injection of the contrast did not demonstrate any intravascular or intrathecal spread of the contrast.? After that injection of the? ropivacaine 0.5%-1cc was performed at each needle location.?After that the needles were removed and Bandaids were applied. Orders: Orders FL guidance in treatment room Today M51.36 - Other intervertebral disc degeneration, lumbar region Coding Level of Care Code Procedure Only Diagnoses Spondylosis of lumbar region without myelopathy or radiculopathy M47.816
[2025-01-19 09:35] VITALS: BP 131/71; PULSE 77; RESP 16; O2SAT 99
== END 2025-01-19 09:36 | disposition home or self-care (01) ==
LOC: HO.PMCPRC 08:54
PROVIDERS: PCP Nurse Practitioner Family; Visit Provider Anesthesiology
DX: M47.816 Spondylosis without myelopathy or radiculopathy, lumbar region (principal)
CPT/HCPCS: 64493; 64494

== ENCOUNTER 2025-01-21 08:54 | Outpatient (AMB) | payer MEDICARE, SELFPAY ==
--- NOTE | 2025-01-21 08:56 | MHC.OFFVIS ---
Vital Signs 01/21/25 08:58 Height 5 ft 9 in Weight 185 lb BMI 27.3 BP 136/88 Blood Pressure Location Lt brachial Position Sitting Respiration 16 Pulse 70 Pulse Source Pulse Oximeter Pulse Oximetry (%) 97 Oxygen Delivery Method Room Air Intake Visit Reasons: S/P BILATERAL DX L3, L4, DRL5 MBB Computer Aided Design Technician Required: No Accompanied by: Self / Same As Patient Allergies morphine (MORPHINE) Allergy (Intermediate, Verified 01/21/25 08:57) ITCHY Sulfa (Sulfonamide Antibiotics) (SULFA (SULFONAMIDE ANTIBIOTICS)) Allergy (Intermediate, Verified 01/21/25 08:57) ITCHY atorvastatin Adverse Reaction (Intermediate, Verified 01/21/25 08:57) myalgia rosuvastatin (From Crestor) Adverse Reaction (Intermediate, Verified 01/21/25 08:57) Diarrhea HPI Comments Details: Francois is back in my office after diagnostic medial branch block L3, L4, dorsal ramus L5 bilateral. Patient reports pain aggravation after the procedure and not pain alleviation at all. I offered the patient to consider spinal cord stimulator [employer] to help his pain. The patient will go for psychological evaluation. I will schedule appointment with him in 4 weeks. By that time hopefully his psychological evaluation will be done and we will start scheduling him for the trial of [employer] spinal cord stimulator. Most likely his pain is related to postlaminectomy syndrome. Prior: H/o left L5-S1 discectomy on 04/20/21 and redo left L5-S1 minimally invasive discectomy on 12/21/[address] Kelly. His last follow up with Dr. Kelly was on 06/15/22 for ongoing left buttock and left leg pain and had another left L5-S1 TFESI at [facility]. He was supposed to follow up if pain is not improved but has not made any follow up since last injection by Neurosurgery providers. Immediately after his surgery he experience up to 80% of pain relieve. He enjoyed good pain relieve for 6-8 months until mis December 2022 when he was sitting up into his truck he started to fill again pain to his left buttock and left thigh and into his lower leg laterally and posteriorly with associated intermittent weakness in the left LE. This improved after seeing chiropractors, NSAIDs and heat therapy. Patient reports his movements improved but he continues to be in significant pain that affects his daily functioning, activities, mood, sleep and social interactions. Pain is worse with walking, weight bearing or bending down and relieved in reclined supine position. He rates pain at 8/10 and cannot tolerate standing, sitting or walking during today's visit. Patient constantly adjusts his reclined position to alleviate his symptoms. Denies any fever, chills, weight loss, abdominal or groin pain, bladder or bowel dysfunction or saddle anesthesia.He did not go with this pain complaints back to DR. Kelly. He wants to schedule an appointment with this surgeon in the nearest future. H/o left ankle surgery with metalic hardware in place. Denies numbness or tingling in his left lower extremity. This improved after seeing chiropractors, NSAIDs and heat therapy. L5-S1 left transforaminal epidural steroid injection 05/03/2020 resulted in improvement activities of daily living pain reduction about 80%, better social interaction, better mobility for 6 months of excellent pain relief. the same procedure was performed on. Before that on 01/18/2021 he went for yet another L5-S1 left TFESI after which he had 5-6 months susteained pain relieve. History of pain for 8 years, without any inciting events or trauma. He denies any surgical history to his back. He had some injections in his lower back about 7 years ago by news librarian at [place] however does not recall if these were particularly helpful. He has previously tried PT, home traction, chiropractic treatment, and Tylenol/Ibuprofen for his pain without significant benefit. [facility] Medical History Nicotine dependence, cigarettes, uncomplicated History of fracture of left ankle Hyperlipidemia Bladder pain Benign prostatic hyperplasia Thoracic outlet syndrome Anxiety COPD (chronic obstructive pulmonary disease) Hypothyroidism Left lumbar radiculopathy Disc degeneration, lumbar Disc degeneration, lumbosacral Blood clot in vein Surgical History History of hemorrhoidectomy History of esophagogastroduodenoscopy (EGD) Hx of hand surgery History of ankle surgery History of lumbar discectomy (12/21/21) History of cholecystectomy (~2004) Hx of colonoscopy Family History Paternal Uncle Colon cancer Paternal Grandmother Colon cancer Other Mental health disorder Social History Housing: House Are you a primary care director to a significant other at home: No Do you presently have visiting nurse or other home services: No Patient Tobacco Use Status: Current everyday Tobacco user Tobacco use type: Cigarette Cigarette Packs Per Day: 0.75 Cigarettes Per Day: 15.0 Years Smoked: 40 e-Cigarette/Vaping Use: Never Used Substance Use Type: Marijuana service: No Current occupational status: disabled Current occupation: left handed Cognitive needs: No Hearing needs: No Vision needs: Yes Review of Systems Const All systems reviewed & are unremarkable except as noted in HPI and below Physical Exam Vital Signs: Last Vital Signs Pulse 70 01/21/25 08:58 Resp 16 01/21/25 08:58 BP 136/88 01/21/25 08:58 Pulse Ox 97 01/21/25 08:58 Oxygen Delivery Method Room Air 01/21/25 08:58 BMI result Body Mass Index 27.3 General: Appears afebrile. Alert and oriented. Mood and affect appropriate. Follows and participates in conversation appropriately. Respiratory effort is unlabored. No cough. Able to transition from sit to stand unassisted. Ambulates with bilaterally normal heel strike and toe off, reports pain with heel walking on the left. Back/Spine/Pelvis Other: Limited back exam due to moderate to severe pain reproduced with extension, flexion and bending. Antalgic gait with limping. Demonstrates 5/5 right and 4/5 left strength of quadriceps as well as flexion/dorsiflexion of bilateral feet against resistance. 2+ pedal pulses bilaterally. Seated straight leg rise with dorsiflexion negative bilaterally. Diminished patellar and achilles reflexes bilaterally. Facet loading test positive bilaterally. Parul sign, Saad?s, Pelvic compression and Stinchfield tests are negative bilaterally. No groin pain with I/E hip rotations. Significant paraspinals tenderness mostly on the left side, lower back. Valsalva maneuver negative. Cervical Spine: cervical ROM normal and No Cervical spine tenderness Thoracic/Lumbar Spine: thoracic and lumbar spine normal to inspection, Thoracic/lumbar spine scar(s), pain with thoraco-lumbar ROM, paraspinal muscle tenderness, thoraco-lumbar ROM limited, No thoracic spinal tenderness and lumbar spinal tenderness at L5 Pelvis: buttock tenderness on the left Sacroiliac joints: bilaterally nontender Extrem Other: On inspection there is large varicosity in the projection of the medial surface of the right arm. Patient states that he has thoracic outlet syndrome. He states that it does not bother him. There is severe tenderness on palpation in projection of the right AC joint. Range of motion in the right arm is significantly limited. Unable to rotate are medially or laterally because it causes him severe pain. Assessment & Plan Assessment & Plan (1) Lumbar post-laminectomy syndrome: Code(s): M96.1 - Postlaminectomy syndrome, not elsewhere classified Category: Medical (2) Muscle spasm of back: Code(s): M62.830 - Muscle spasm of back Category: Medical (3) Left lumbar radiculopathy: Code(s): M54.16 - Radiculopathy, lumbar region Category: Medical (4) Disc degeneration, lumbar: Code(s): M51.36 - Other intervertebral disc degeneration, lumbar region Category: Medical (5) History of lumbar discectomy: Onset Date: 12/21/21 Comment: 04/20/21 Left L5-S1 discectomy Dr. Kelly 12/21/21 Redo Left L5-S1 Minimally invasive discectomy Code(s): Z98.890 - Other specified postprocedural states Category: Surgical Plan In the past the patient received caudal epidural injection with catheter treating his postlaminectomy syndrome. However with time this fade ineffectiveness. Diagnostic medial branch block did not help the pain of this patient. See discussion as above. I will send this patient for psychological evaluation. I offered him spinal cord stimulator [employer]. I will see this patient in 4 weeks after spinal cord stimulator will be ready and we will be getting ready for the trial. Patient Instructions: I here by testify that I spent 30 minutes in conversation with this patient as well as planning his care and organizing this note. Coding Level of Care Code Est Pt Level 4 (93601) Diagnoses Lumbar post-laminectomy syndrome M96.1 Muscle spasm of back M62.830 Left lumbar radiculopathy M54.16 Disc degeneration, lumbar M51.36 History of lumbar discectomy Z98.890
[2025-01-21 08:58] VITALS: BP 136/88; PULSE 70; RESP 16; O2SAT 97; BMI 27.3
--- OUTSIDE RECORDS SUMMARY | 2025-01-21 09:37 | XMS_ITS | Encounter Summary ---
Author Organization [facility] Address [address] [place] [address] Care Team Providers Care Craft Artist Name Role Phone Mallory Locke MD Primary Care Provider [phone] Reason for Visit * Reason Onset Date Comments chest xray report 01/11/2025 Encounter Details Date Type Department Care Team ([facility] st Contact Info) Description 01/11/2025 Telephone Pulmonology - [place] [address] [place] [id number] Arturo Saavedra MD [address] [place] [address] Social History Tobacco Use Types Packs/Day Years Used Date Smoking Tobacco: Light Smoker Cigarettes 0.2 51.2 Started: 11/05/1973 Smokeless Tobacco: Never Comments:Smoking Alcohol Use Standard Drinks/Week Comments No 0 (1 standard drink = 0.6 oz pur e alcohol) Sex and Gender Information Value Date Recorded Sex Assigned at Not on file Legal Sex Male 9:56 AM EST Gender Identity Not on file Sexual Orientation Not on file documented as of this encounter Progress Notes * Kyle Nunez MA - 01/11/2025 3:09 PM EDT BENITA 01/08/25 * Estefany Noble - 01/11/2025 2:05 PM EDT Priority urgent care chest xray report received Attached to encounter documented in this encounter Plan of Treatment Upcoming Encounters Date Type Department Care Team (Late st Contact Info) Description 05/11/2025 9:45 AM EST Office Visit Pulmonology - [place] [address] [place] [address] Arturo Saavedra MD [address] [place] [address] documented as of this encounter Visit Diagnoses Not on filedocumented in this encounter Care Teams Craft Artist Relationship Specialty Start Date End Date Mallory Locke MD [facility] [place] [address] PCP - General Internal Medicine 12/16/24 documented as of this encounter
--- OUTSIDE RECORDS SUMMARY | 2025-01-21 09:37 | XMS_ITS | Clinical Summary ---
Author Organization 175 [facility] Address [address] [place] [address] Phone Care Team Providers Care Manager Language Name Role Phone Mallory Locke MD Primary Care Provider [phone] Allergies Active Allergy Reactions Criticality Noted Date Comments Morphine 07/03/2013 ER years ago Sulfa (Sulfonamide Antibiotics) 08/2005 Medications coenzyme Q-10 200 mg capsule Take by mouth. 300 mg daily Active valsartan (DIOVAN) 80 mg tablet Take 1 tablet (80 mg total) by mouth 1 (one) time each day. Active econazole nitrate 1 % cream APPLY TWICE DAILY TO FEET FOR 3-4 WEEKS THEN ONCE WEEKLY FOR MAINTENANCE 04/18/19 23 Active ketoconazole (NIZORAL) 2 % cream APPLY TWICE DAILY TO FEET FOR 3-4 WEEKS THEN ONCE WEEKLY FOR MAINTENANCE 05/10/19 23 Active levothyroxine sodium (TIROSINT) 50 mcg capsule Take 1 capsule (50 mcg total) by mouth 1 (one) time each day. 06/08/19 23 Active tamsulosin (FLOMAX) 0.4 mg 24 hr capsule TAKE 1 CAPSULE BY MOUTH AT BEDTIME FOR RETENTION OF URINE 09/26/19 22 Active thyroid, pork, (ARMOUR THYROID) 30 mg tablet Take 1 tablet (30 mg total) by mouth 1 (one) time each day. 05/08/19 22 Active aspirin 81 mg EC tablet Take 1 tablet (81 mg total) by mouth 1 (one) time each day. Active nystatin (MYCOSTATIN) 500,000 unit tablet 04/26/19 22 Active testosterone 50 mg/5 gram (1 %) gel 04/05/19 22 Active liothyronine (CYTOMEL) 5 mcg tablet 01/09/20 21 Active citalopram (CeleXA) 10 mg tablet Take 0.5 tablets (5 mg total) by mouth 1 (one) time each day. Active Trelegy Ellipta 100-62.5-25 mcg inhalerIndicati ons:Chronic obstructive pulmonary disease, unspecified (CMS/[facility] V24, CMS/HCC V28) INHALE 1 PUFF INTO THE LUNGS DAILY FOR 30 DAYS. 60 each 11 09/22/19 25 Active citalopram (CeleXA) 20 mg tablet Take 1 tablet (20 mg total) by mouth 1 (one) time each day. Active varenicline tartrate (Chantix Starting Month ) 0.5 mg (11)- 1 mg () tablet Take 0.5 mg by mouth 1 (one) time each day for 3 days (days 1-3), THEN 0.5 mg 2 (two) times a day for 4 days (days 4-7), THEN 1 mg 2 (two) times a day for 12 weeks. 53 tablet 01/09/20 25 026 Active varenicline tartrate (CHANTIX) 1 mg tablet Take 1 tablet (1 mg total) by mouth 2 (two) times daily after breakfast and dinner. Take with full glass of water. 60 each 2 01/09/20 25 026 Active albuterol HFA (PROAIR HFA ; PROVENTIL HFA ; VENTOLIN HFA) 90 mcg/actuation inhaler INHALE 2 PUFFS INTO THE LUNGS EVERY 6 HOURS NEEDED FOR WHEEZING OR SHORTNESS OF BREATH FOR UP TO 90 DAYS. THIS IS A RESCUE MEDICATION. NOT TO EXCEED 12 PUFFS/24 HOURS. 18 each 3 01/14/20 25 Active albuterol HFA (PROAIR HFA ; PROVENTIL HFA ; VENTOLIN HFA) 90 mcg/actuation inhaler INHALE 2 PUFFS INTO THE LUNGS EVERY 6 HOURS NEEDED FOR WHEEZING OR SHORTNESS OF BREATH FOR UP TO 90 DAYS. THIS IS A RESCUE MEDICATION NOT EXCEED 12 INHALATIONS/24 HRS 03/27/20 23 025 Discontinued umeclidinium-vi lanteroL (Anoro Ellipta) 62.5-25 mcg/actuation inhaler Inhale by mouth. 10/10/2 025 Discontinued Active Problems Problem Noted Date Diagnosed Date Lumbar back pain with radicu lopathy affecting left lower extremity 09/15/2021 Overview (03/10/2024): Last Assessment & Plan: Mr. Deal is status post left L5-S1 microlumbar discectomy [...] 2 moderate COPD by GOL D classification (CMS/HCC V24, CMS/[facility] V28) 08/05/2017 Exposure to asbestos 06/27/2016 Lumbar disc herniation with radiculopathy 2015 Overview (03/10/2024): Last Assessment & Plan: Mr. Deal is here for his second postop visit [...] I am glad to see that Mr. Deal is doing so well. We discussed him [...] Encounters Date Type Department Care Team Description 01/11/2025 Telephone Pulmonology [facility] 175 [facility] [address] [place] [phone] Arturo Saavedra MD 01/08/2025 9:15 AM EDT Office Visit Pulmonology [facility] 175 [facility] [address] [place] [phone] Arturo Saavedra MD Chronic obstructive pulmonary disease with emphysema, unspecified emphysema type (CMS/HCC V24, CMS/HCC V28) (Primary Dx); Tobacco abuse from Last 3 Months Immunizations Immunization Administration Dates Next Due Hepatitis B (Ekdwyjd-C-Cgofk , Recombivax HB-Adult) 19yo and older 04/25/2009,10/20/2008,09/21/2008 [...] e; COMMENT: left 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 porphyria [...] 0.2 51.2 Started: 11/05/1973 Smokeless Tobacco: Never Tobacco Cessation:Ready to Q uit: Not Asked; Counseling Given: Not Answered Comments:Smoking Alcohol Use Standard Drinks/Week Comments No 0 (1 standard drink = 0.6 oz pur e alcohol) Sex and Gender Information Value Date Recorded Sex Assigned at Not on file Legal Sex Male 9:56 AM EST Gender Identity Not on file Sexual Orientation Not on file Obstetrics History Last Filed Vital Signs Vital Sign Reading Time Taken Comments Blood Pressure 126/74 01/08/2025 9:17 AM EDT Pulse 83 01/08/2025 9:17 AM EDT Temperature 36.6 C (97.8 F) 01/08/2025 9:17 AM EDT Respiratory Rate 20 01/08/2025 9:17 AM EDT Oxygen Saturation 97% 01/08/2025 9:17 AM EDT Inhaled Oxygen Concentration - - Weight 83.6 kg (184 lb 6.4 oz) 01/08/2025 9:17 A M EDT Height 175.3 cm (5' 9 ) 01/08/2025 9:17 AM EDT Body Mass Index 27.23 01/08/2025 9:17 AM EDT Plan of Treatment Upcoming Encounters Date Type Department Care Team (Late st Contact Info) Description 05/11/2025 9:45 AM EST Office Visit Pulmonology - [place] 175 [facility] [address] [place] [phone] Arturo Saavedra MD 175 [facility] [place] [address] [place] [address] Health Maintenance Due Date Last Done Comments Zoster Vaccines (1 of 2) 2009 Abdominal Aortic Aneurysm (AAA) Screen 03/10/2022 Cholesterol Screening (Lipid Panel) 03/10/2022 08/11/2015 Medicare Annual Wellness Visit 03/10/2022 Social Influencers of Health Screening 03/10/2022 Pneumococcal Vaccine: 50+ Years (2 of 2 - PCV) 03/27/2022 03/27/2021, 11/05/2017 Falls Risk Assessment 02/06/2024 Depression Screening 04/01/2024 COVID-19 Vaccine ( season) 2024 02/14/2022, 01/10/2021, 06/08/2020, Additional history exists Influenza Vaccine (#1) 2024 Colorectal Cancer Screening: [...] to Health Maintenance Results * Colonoscopy (08/24/2016) [facility] Colonoscopy No Interpretation , Abstracted Anatomical Region Laterality Modality Other [facility] Provider HEALTH MAINTENANCE Final Result * Hepatitis C Screening (08/24/2015) [facility] Hepatitis C Screening Abstracted [facility] Provider HEALTH MAINTENANCE Final Result * (ABNORMAL) Lipid panel (08/11/2015) [facility] LDL/HDL Ratio 6(A) 0 - 4 Triglycerides 249(A) 0 - 150 mg/dL Cholesterol 295(A) 0 - 200 mg/dL HDL 50 >=40 mg/dL LDL Cholesterol 196(A) 0 - 100 mg/dL Blood Venous blood specimen / Unknown [facility] Provider LAB BLOOD ORDERABLES Leigh Ann l Result from Last 3 Months or Most Recently Relevant to Health Maintenance Insurance [employer] - [place] MEDICARE ADVANTAGE Care Teams Manager Language Relationship Specialty Start Date End Date Malloyr Locke MD [address] [place] [address] PCP - General Internal Medicine 12/16/24
--- OUTSIDE RECORDS SUMMARY | 2025-01-21 09:38 | XMS_ITS | Patient Health Record ---
Author Organization [facility] Address [address] [place] [address] Care Team Providers Care Goods Layer Name Role Phone Tobias Lau Primary Care Provider Rusty Mark [phone] Allergies Allergen (clinical drug ingredient) Drug/Non Drug [...] Status W/U Status Risk Notes Problem Dysphagia (71261016) Dysphagia, unspecified (787.20) Active confirmed Problem Imaging of gastrointestinal tract abnormal (546531675) Nonspecific abnormal findings on radiological and other examination of gastrointestinal tract (793.4) Active confirmed Problem Family history of malignant neoplasm of gastrointestinal tract (766623188) Family history of malignant neoplasm of gastrointestinal tract (V16.0) Active confirmed Plan Of Treatment Future Test Test Name Order Date UPPER GI ENDOSCOPY 12/08/2010 Insurance Providers Payer Name Payer Address Payer Phone Subscriber Number Group Number Insured Name Patient Relationship to Insured Coverage Start Date Coverage End Date MEDICARE OF [employer] [address] [place] [id number] RADHA DEAL Self - patient is the insured Medical (General) History Medical History History ICD Code Fibromyalgia/CFS Early COPD Allergies Denies DE,DM,CVA,renal disease Surgical History Surgery Date(Month/Year) CCY Hemorrhoids
--- OUTSIDE RECORDS SUMMARY | 2025-01-21 09:38 | XMS_ITS | Patient Health Record ---
Author Organization [facility] Address [address] [place] [address] Care Team Providers Care Wood Milling Machine Tender Name Role Phone Mallory Locke MD Primary Care Provider Yanet Terry Unavailable [phone] Allergies Allergen (clinical drug ingredient) Drug/Non Drug Allergy documented on EMR Reaction Allergy Type Onset Date Status sulfamethoxazole / trimethoprim Bactrim itchy skin Drug Allergy Active morphine Morphine itchy skin Drug Allergy Active Reason For Referral No Information Medications Medication SIG (Take, Route, Frequency, Duration) Notes Start Date End Date Status Levothyroxine Sodium Active Nystatin 916432 UNIT 1 tablet Orally Active Citalopram Hydrobromide [...] End Date [employer] [address] [place] [address] [id number] Francois Howard Self - patient is the insured Medical (General) History Medical History History ICD Code Anxiety Back,Hip,and Knee pain Broken bones Lung disease Psoriasis/eczema Reflux ( GERD) thyroid Measles Mumps Chicken pox Surgical History Surgery Date(Month/Year) ankle surgery left 2019 finger surgery Right index 12/2019
== END 2025-01-21 09:15 | disposition home or self-care (01) ==
LOC: HO.PMC 08:55
PROVIDERS: PCP Nurse Practitioner Family; Visit Provider Anesthesiology
DX: M96.1 Postlaminectomy syndrome, not elsewhere classified (principal); M62.830 Muscle spasm of back; M54.16 Radiculopathy, lumbar region; M51.369 Other intervertebral disc degeneration, lumbar region without mention of lumbar back pain or lower extremity pain; Z98.890 Other specified postprocedural states
CPT/HCPCS: 99214

== ENCOUNTER → 2025-01-21 08:54 | Outpatient (BNVA) | payer MEDICARE, SELFPAY | PROVIDERS: PCP Nurse Practitioner Family; Visit Provider Anesthesiology | DX: M62.830 Muscle spasm of back (principal); M96.1 Postlaminectomy syndrome, not elsewhere classified; M54.16 Radiculopathy, lumbar region; M51.360 Other intervertebral disc degeneration, lumbar region with discogenic back pain only | CPT/HCPCS: 99212 ==

== ENCOUNTER 2025-01-27 08:09 | Outpatient (REF) | payer MEDICARE, SELFPAY ==
--- OUTSIDE RECORDS SUMMARY | 2025-01-27 08:26 | XMS_ITS | Encounter Summary ---
Author Organization [facility] Address [address] [place] [address] Care Team Providers Care Product Safety Technician Name Role Phone Mallory Locke MD Primary Care Provider [phone] Reason for Visit * Reason Onset Date Comments chest xray report 01/11/2025 Encounter Details Date Type Department Care Team ([facility] st Contact Info) Description 01/11/2025 Telephone Pulmonology - [place] 175 [facility] [address] [place] [address] Arturo Saavedra MD [address] [place] [phone] Social History Tobacco Use Types Packs/Day Years [...] as of this encounter Progress Notes * Arturo Saavedra MD - 01/18/2025 11:31 AM EDT Spoke to him * Kyle Nunez MA - 01/11/2025 3:09 PM EDT BENITA 01/08/25 * Estefany Kellyo - 01/11/2025 2:05 PM EDT Priority urgent care chest xray report received Attached to encounter documented in this encounter Plan of Treatment Upcoming Encounters Date Type Department Care Team (Late st Contact Info) Description 05/11/2025 9:45 AM EST Office Visit Pulmonology - [place] [address] [facility] [address] [place] [address] Arturo Savaedra MD [address] [place] [phone] documented as of this encounter Visit Diagnoses Not on filedocumented in this encounter Care Teams Product Safety Technician Relationship Specialty Start Date End Date Mallory Locke MD [facility] [place] [address] PCP - General Internal Medicine 12/16/24 documented as of this encounter
--- OUTSIDE RECORDS SUMMARY | 2025-01-27 08:30 | XMS_ITS | Clinical Summary ---
Author Organization 175 [facility] Address [address] [place] [address] Phone Care Team Providers Care Ladle Liner Name Role Phone Mallory Locke MD Primary Care Provider [phone] Allergies Active Allergy Reactions Criticality Noted Date [...] mcg inhalerIndicati ons:Chronic obstructive pulmonary disease, unspecified (CMS/[facility] V24, CMS/HCC V28) INHALE 1 PUFF INTO [...] COPD by GOL D classification (CMS/HCC V24, CMS/[facility] V28) [...] Department Care Team Description 01/11/2025 Telephone Pulmonology [facility] 175 [facility] [address] [place] [phone] Arturo Saavedra MD 01/08/2025 9:15 AM EDT Office Visit Pulmonology [facility] [address] [facility] [address] [place] [phone] Arturo Saavedra MD Chronic obstructive pulmonary disease with emphysema, unspecified emphysema type (CMS/HCC V24, CMS/HCC V28) (Primary Dx); Tobacco abuse from Last 3 Months Immunizations Immunization Administration Dates Next Due Hepatitis B (Hactvvh-X-Mzqkr , Recombivax HB-Adult) 19yo and older 04/25/2009,10/20/2008,09/21/2008 Pneumococcal polysaccharide 23 valent (Pneumovax 23) 2yo and older 11/05/2017 Td Tetanus diptheria (Tdvax) 7yo and older 11/05 Tdap Tetanus diptheria acell ular pertussis (Boostrix; Adacel) 7yo and older 01/01/2020,10/06/2007 Surgical History Surgery Date Site/Laterality Comments CHOLECYSTECTOMY PROCEDURE: HISTORICAL CHOLECYSTECTOMY OTHER SURGICAL HISTORY PROCEDURE: HISTORY OTHER; COMMENT: anal polyps dr car 2008 ESOPHAGOGASTRODUODENOSCOPY 2007 Lul PROCEDURE: OK ESOPHAGOGASTRODUODENOSCOPY TRANSORAL DIAGNOSTIC; COMMENT: normal ESOPHAGOGASTRODUODENOSCOPY 07/04/2011 PROCEDURE: OK ESOPHAGOGASTRODUODENOSCOPY TRANSORAL DIAGNOSTIC; COMMENT: normal; no Lopez's [...] COMMENT: hemorrhoidectomy OTHER SURGICAL HISTORY 12/21/2021 PROCEDURE: OK LAMOT PRTL FFD EXC DISC REEXPL 1 NTRSPC LUMBAR; COMMENT: Redo left L5-S1 minimally invasive discectomy, Dr. 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 - [...] 9:45 AM EST Office Visit Pulmonology - [address] [place] [address] Arturo Saavedra MD [address] [place] [phone] Health Maintenance Due Date Last Done Comments [...] to Health Maintenance Results * Colonoscopy (08/24/2016) [facility] Colonoscopy No Interpretation , Abstracted Anatomical Region Laterality Modality Other [facility] Provider HEALTH MAINTENANCE Final Result * Hepatitis C Screening (08/24/2015) [facility] Hepatitis C Screening Abstracted [facility] Provider HEALTH MAINTENANCE Final Result * (ABNORMAL) Lipid panel (08/11/2015) [facility] LDL/HDL Ratio 6(A) 0 - 4 Triglycerides 249(A) 0 - 150 mg/dL Cholesterol 295(A) 0 - 200 mg/dL HDL 50 >=40 mg/dL LDL Cholesterol 196(A) 0 - 100 mg/dL Blood Venous blood specimen / Unknown [facility] Provider LAB BLOOD ORDERABLES Leigh Ann l Result from Last 3 Months or Most Recently Relevant to Health Maintenance Insurance [employer] - [place] MEDIC[place] AD[place]ANTAGE Care Teams Ladle Liner Relationship Specialty Start Date End Date Mallory Locke MD [address] [place] [address] PCP - General Internal Medicine 12/16/24
--- OUTSIDE RECORDS SUMMARY | 2025-01-27 08:31 | XMS_ITS | Patient Health Record ---
Author [facility] Address [address] [facility] [place] [address] Care Team Providers Care Psychotherapist Counselor Name Role Phone Mallory Locke MD Primary Care Provider Yanet Terry Unavailable [phone] Allergies Allergen (clinical drug ingredient) Drug/Non Drug Allergy documented on EMR Reaction Allergy Type Onset Date Status sulfamethoxazole / trimethoprim Bactrim itchy skin Drug Allergy Active morphine Morphine itchy skin Drug Allergy Active Reason For Referral No Information Medications Medication SIG (Take, Route, Frequency, Duration) Notes Start Date End Date Status Levothyroxine Sodium Active Nystatin 361227 UNIT 1 tablet Orally Active Citalopram Hydrobromide [...] End Date [employer] [address] [place] [address] [id number] Francois Howard Self - patient is the insured Medical (General) History Medical History History ICD Code Anxiety Back,Hip,and Knee pain Broken bones Lung disease Psoriasis/eczema Reflux ( GERD) thyroid Measles Mumps Chicken pox Surgical History Surgery Date(Month/Year) ankle surgery left 2019 finger surgery Right index 12/2019
--- OUTSIDE RECORDS SUMMARY | 2025-01-27 08:31 | XMS_ITS | Patient Health Record ---
Author Organization [facility] Address [address] [place] [address] Care Team Providers Care Orthotic Technician Name Role Phone Tobias Lau Primary Care Provider Rusty Mark [phone] Allergies Allergen (clinical drug ingredient) Drug/Non Drug [...] Status W/U Status Risk Notes Problem Dysphagia (70868970) Dysphagia, unspecified (787.20) Active confirmed Problem Imaging of gastrointestinal tract abnormal (296961730) Nonspecific abnormal findings on radiological and other examination of gastrointestinal tract (793.4) Active confirmed Problem Family history of malignant neoplasm of gastrointestinal tract (084060064) Family history of malignant neoplasm of gastrointestinal tract (V16.0) Active confirmed Plan Of Treatment Future Test Test Name Order Date UPPER GI ENDOSCOPY 12/08/2010 Insurance Providers Payer Name Payer Address Payer Phone Subscriber Number Group Number Insured Name Patient Relationship to Insured Coverage Start Date Coverage End Date MEDICARE OF [employer] [address] [place] [id number] [phone] [id number] RADHA DEAL Self - patient is the insured Medical (General) History Medical History History ICD Code Fibromyalgia/CFS Early COPD Allergies Denies NC,DM,CVA,renal disease Surgical History Surgery Date(Month/Year) CCY Hemorrhoids
[2025-01-27 09:57] LABS: MANUAL DIFF FLAG NO
[2025-01-27 10:09] LABS: Hematocrit 43.8 % (42.0-52.0); Hemoglobin 14.0 g/dl (14.0-18.0); Imm Gran Abs Auto 0.02 X10*3/uL (0.00-0.03); Imm Gran Pct Auto 0.3 % (0.0-0.4); Lymphocytes Absolute Auto 2.6 X10*3/uL (1.2-4.9); Mean Corpuscular HGB Conc 32.0 g/dl (31.0-36.0); Mean Corpuscular Hemoglobin 29.6 pg (27.0-33.0); Mean Corpuscular Volume 92.6 fL (80.0-98.0); NRBC Abs Auto 0.000 X10*3/uL (0.0-0.012); NRBC Pct Auto 0.0 /100WBC (0.0-0.2); Platelet Count 274 X10*3/uL (160-400); Red Blood Count 4.73 X10*6/uL (4.60-5.80); White Blood Count 7.4 X10*3/uL (4.8-10.8)
[2025-01-27 10:45] LABS: Alanine Aminotransferase 17 U/L (0-40); Albumin Level 4.2 g/dL (3.5-5.0); Alkaline Phosphatase 52 U/L (39-117); Anion Gap 9 (12-20); Aspartate Amino Transferase 21 U/L (5-37); Blood Urea Nitrogen 13 mg/dL (9-16); Calcium 9.0 mg/dL (8.4-10.2); Carbon Dioxide 28 mmol/L (22-29); Chloride 107 mmol/L (96-108); Cholesterol 193 mg/dL (<200); Estimated Glomerular Filt Rate > 60; HDL Cholesterol 42 mg/dL (>40); Potassium 4.6 mmol/L (3.3-5.1); Sodium 139 mmol/L (135-145); Total Protein 6.4 g/dL (6.5-8.0); Triglycerides 141 mg/dL (<150)
== END 2025-01-27 08:10 | disposition home or self-care (01) ==
LOC: HO.HMGCLDS 08:09
PROVIDERS: PCP Nurse Practitioner Family; Visit Provider Nurse Practitioner Family
DX: E78.5 Hyperlipidemia, unspecified (principal); E03.9 Hypothyroidism, unspecified
CPT/HCPCS: 36415; 80053; 80061; 84443; 85025

== ENCOUNTER 2025-02-02 08:00 | Outpatient (AMB) | payer MEDICARE, SELFPAY ==
[2025-02-02 08:03] VITALS: BP 130/78; PULSE 67; O2SAT 98; BMI 27.2
--- NOTE | 2025-02-02 08:03 | MHC.PC.OV ---
Vital Signs 02/02/25 08:03 Height 5 ft 9 in Weight 184 lb BMI 27.2 BP 130/78 Blood Pressure Location Lt brachial Position Sitting Pulse 67 Pulse Source Pulse Oximeter Pulse Oximetry (%) 98 Intake Visit Reasons: r/s from 01/26 Allergies morphine (MORPHINE) Allergy (Intermediate, Verified 02/02/25 08:34) ITCHY Sulfa (Sulfonamide Antibiotics) (SULFA (SULFONAMIDE ANTIBIOTICS)) Allergy (Intermediate, Verified 02/02/25 08:34) ITCHY atorvastatin Adverse Reaction (Intermediate, Verified 02/02/25 08:34) myalgia rosuvastatin (From Crestor) Adverse Reaction (Intermediate, Verified 02/02/25 08:34) Diarrhea Medication List - Last Reconciled 02/02/25 by FADIA FontanezP- albuterol sulfate 90 mcg/actuation inhalation Q4-6H PRN aspirin (Adult Low Dose Aspirin) 81 mg PO DAILY bupropion HCl mg PO citalopram mg PO DAILY ezetimibe 10 mg PO DAILY mzkgbvsheww-jhbtsxshy-iiewgefb 100-62.5-25 mcg (Trelegy Ellipta) 1 ea inhalation DAILY gabapentin 100 mg PO BEDTIME lidocaine 5% 1 patch topical DAILY simvastatin 40 mg PO BEDTIME tamsulosin 0.4 mg PO BEDTIME thyroid (pork) (ONLINE MERCHANDISING MANAGER Thyroid) 45 mg (3 x 15 mg) PO QAM 30 days valsartan 80 mg PO BID varenicline tartrate ea PO Tobacco use date assessed: 07/15/24 Fall risk assessment: No Falls in past year Last assessed Fall Risk: 02/02/25 Dental Screening Dental Screen Date: 07/15/24 HPI r/s from 01/26 HPI Details Chief Complaint Patient presents for a follow-up visit regarding left upper quadrant pain. History of Present Illness The patient is a 64 year old male presenting for follow up on left upper quadrant pain. The pain is located under his last left rib, radiates laterally and posteriorly, and has been ongoing for many months. He reports increased pain with coughing and sneezing, but it does not change with breathing. Associated symptoms are denied, including nausea, vomiting, diarrhea, fevers, chills, skin lesions, or swelling. He denies any history of shingles. The patient had a similar presentation years ago, which he attributed to a chiropractic maladjustment. He has a history of COPD managed by a grocery clerk marking. A previous abdominal CT scan showed lymphadenopathy, which was deemed reactive by a brown stock washer he saw last month. Gastroenterology suspected slipped rib syndrome versus costochondritis and planned to repeat the abdominal and pelvic CT scan to ensure the lymphadenopathy has resolved. Social History Health Maintenance Review of Systems - Constitutional: Denies fevers and chills. - Skin: Denies skin lesions, swelling, or a history of shingles. - Respiratory: Pain is exacerbated by coughing and sneezing but is unchanged with inhalation or exhalation. - Gastrointestinal: Denies diarrhea, nausea, and vomiting. - Musculoskeletal: Reports left upper quadrant pain that radiates laterally to the posterior aspect. - He also reports some back pain. Physical Exam General: Cooperative, healthy appearing, comfortable, no acute distress and well developed Orientation: Patient oriented x3 Limitations: No limitations Head: Normal to inspection Ears: Hearing grossly normal bilaterally Nose: Normal external nose present Face and sinus: Normal facial exam Eyes: Appearance normal, both eyes and all related structures Neck: Normal visual inspection and Yes full ROM Respiratory: Normal respiratory effort and able to speak in complete sentences. Clear/dim to auscultation bilaterally Cardiovascular: Regular rate and rhythm. Normal S1 and S2 GI: Normal to inspection. Soft to palpation and nontender Skin: No rashes or lesions noted. palpation of anterior region of last rib, increase tenderness noted Neuro: Patient oriented x3 Extremities: Normal to inspection Results - Imaging: A previous CT scan of the abdomen revealed lymphadenopathy, which was interpreted by gastroenterology as reactive. Plan 1. Left Upper Quadrant Pain The patient's pain appears to be musculoskeletal or neuropathic in nature, with differential diagnoses including slipped rib syndrome, costochondritis, or thoracic radiculopathy. The plan is to start gabapentin for potential nerve pain. Additionally, a thoracic spine x-ray and rib x-rays will be ordered to assess for underlying pathology. The patient will follow up in two weeks to reassess his symptoms. 2. Reactive Lymphadenopathy This finding was noted on a previous abdominal CT and considered reactive by gastroenterology. A repeat CT of the abdomen and pelvis is planned by the GI service to ensure resolution. 3. Chronic Obstructive Pulmonary Disease The patient will continue to be managed by his grocery clerk marking for this chronic condition. Discussion Notes I explained to the patient that his pain seems to originate from the rib or a nerve rather than an internal organ. I recommended he start the gabapentin he already possesses. I also ordered a thoracic x-ray and rib x-rays to further investigate the cause, explaining it could be related to his back. I instructed him to contact me in about two weeks to report on his condition. Patient Instructions - Start taking your gabapentin medication. - Get the thoracic x-ray and rib x-rays that were ordered. - Contact me in about 2 weeks to let me know how you are doing. - Continue to see your lung specialist for your COPD. - Follow up with your brown stock washer to get the repeat CT scan of your abdomen and pelvis. [facility] Medical History Nicotine dependence, cigarettes, uncomplicated History of fracture of left ankle Hyperlipidemia Bladder pain Benign prostatic hyperplasia Thoracic outlet syndrome Anxiety COPD (chronic obstructive pulmonary disease) Hypothyroidism Left lumbar radiculopathy Disc degeneration, lumbar Disc degeneration, lumbosacral Blood clot in vein Surgical History History of hemorrhoidectomy History of esophagogastroduodenoscopy (EGD) Hx of hand surgery History of ankle surgery History of lumbar discectomy (12/21/21) History of cholecystectomy (~2004) Hx of colonoscopy Family History Paternal Uncle Colon cancer Paternal Grandmother Colon cancer Other Mental health disorder Social History Housing: House Are you a primary manager medicare marketing to a significant other at home: No Do you presently have visiting nurse or other home services: No Patient Tobacco Use Status: Current everyday Tobacco user Tobacco use type: Cigarette Cigarette Packs Per Day: 0.75 Cigarettes Per Day: 15.0 Years Smoked: 40 e-Cigarette/Vaping Use: Never Used Substance Use Type: Marijuana service: No Current occupational status: disabled Current occupation: left handed Cognitive needs: No Hearing needs: No Vision needs: Yes Questionnaire PHQ-9 Over the last 2 weeks, how often have you been bothered by any of the following problems? 1. Little interest or pleasure in doing things: not at all 2. Feeling down, depressed, or hopeless: not at all 3. Trouble falling or staying asleep, or sleeping too much: nearly every day 4. Feeling tired or having little energy: several days 5. Poor appetite or overeating: not at all 6. Feeling bad about yourself - or that you are a failure or have let yourself or your family down: not at all 7. Trouble concentrating on things, such as reading the newspaper or watching television: not at all 8. Moving or speaking so slowly that other people could have noticed. Or the opposite - being so fidgety or restless that you have been moving around a lot more than usual: not at all 9. Thoughts that you would be better off or of hurting yourself in some way: not at all Total score: 4 Depression Screening Interpretation: Negative Depression Screening Done: Yes Source: Developed by Drs. Rusty Morales, Roxana Mercer, Devante Cote and colleagues, with an educational milton from [employer]. Thrive Questionnaire Date Thrive assessed: 07/15/24 I am a: Patient What is your living situation today?: I have a steady place to live Within the past 12 months, did the food you bought not last and you didn't have the money to get more?: I choose not to answer this question Within the past 12 months, did you worry whether your food would run out before you got money to buy more?: I choose not to answer this question Do you have trouble paying for medicines?: Yes Do you have trouble getting transportation to medical appointments?: No Do you have trouble paying your heating and electricity bill?: No Do you have trouble taking care of your child, family member or friend?: No Do you have trouble with day-to-day activities such as bathing, preparing meals, shopping, managing finances, etc.?: I choose not to answer this question Are you currently unemployed and looking for a job?: I choose not to answer this question Are you interested in more education?: I choose not to answer this question Please select the resources that you would like help with: None Currently or been in a relationship where the following occur: I choose not to answer THRIVE Score: 0 AUDIT C Alcohol Use Questionnaire (AUDIT-C) 1. How often do you have a drink containing alcohol?: Never 3. How often do you have six or more drinks on one occasion?: Never Total Score: 0 CLAUDE-7 AMB Questionnaire CLAUDE-7 Date CLAUDE - 7 assessed: 07/15/24 Feeling nervous, anxious, or on edge: 0 = Not at all Not being able to stop or control worryin = Not at all Worrying too much about different things: 0 = Not at all Trouble relaxin = Not at all Being so restless that it is hard to sit still: 0 = Not at all Becoming easily annoyed or irritable: 0 = Not at all Feeling afraid as if something awful might happen: 0 = Not at all Total CLAUDE-7 score (0-4 normal; 5-9 mild; 10-14 moderate; 15-21 severe): 0 Source: Developed by Drs. Rusty Morales, Roxana Mercer, Devante Cote and colleagues, with an educational milton from [employer]. Physical exam (Primary Care) Vital Signs: Last Vital Signs Pulse 67 02/02/25 08:03 BP 130/78 02/02/25 08:03 Pulse Ox 98 02/02/25 08:03 BMI result Body Mass Index 27.2 Tobacco/Smoking Status: Tobacco use Status Tobacco use date assessed 07/15/24 02/02/25 08:07 Patient Tobacco Use Status Current everyday Tobacco 02/02/25 08:07 Tobacco use type Cigarette 02/02/25 08:07 e-Cigarette/Vaping Use Never Used 02/02/25 08:07 PHQ-9: PHQ-9 Score PHQ-9: Total score 4 02/02/25 08:07 Depression Screening Interpretation: Negative Thrive Assessment: Date of Thrive Assessment Date Thrive assessed 07/15/24 02/02/25 08:07 Currently or been in a relationship where the following occur: I choose not to answer Coding Level of Care Code Est Pt Level 4 (10716) Diagnoses Thoracic back pain M54.6 LUQ pain R10.12 Assessment & Plan Assessment & Plan (1) Thoracic back pain: Code(s): M54.6 - Pain in thoracic spine Category: Medical (2) LUQ pain: Code(s): R10.12 - Left upper quadrant pain Category: Medical Plan . Orders: Orders XR ribs LT 2V Today R10.12 - Left upper quadrant pain XR thoracic spine 2V Today M54.6 - Pain in thoracic spine
--- OUTSIDE RECORDS SUMMARY | 2025-02-02 08:07 | XMS_ITS | Clinical Summary ---
Author Organization [address] [facility] Address [address] [place] [address] Phone Care Team Providers Care Tying Machine Operator Lumber Name Role Phone Mallory Locke MD Primary Care Provider [phone] Allergies Active Allergy Reactions Criticality Noted Date [...] mcg inhalerIndicati ons:Chronic obstructive pulmonary disease, unspecified (CMS/[facility] V24, CMS/HCC V28) INHALE 1 PUFF [...] COPD by GOL D classification (CMS/HCC V24, CMS/[facility] V28) 08/05/2017 [...] Department Care Team Description 01/11/2025 Telephone Pulmonology [facility] [address] [facility] [address] [place] [phone] Arturo Saavedra MD 01/08/2025 9:15 AM EDT Office Visit Pulmonology [facility] [address] [facility] [address] [place] [phone] Arturo Saavedra MD Chronic obstructive pulmonary disease with emphysema, unspecified emphysema type (CMS/HCC V24, CMS/HCC V28) (Primary Dx); Tobacco abuse from Last 3 Months Immunizations Immunization Administration Dates Next Due Hepatitis B (Lsewuld-F-Bnhwc , Recombivax HB-Adult) 19yo and older 04/25/2009,10/20/2008,09/21/2008 Pneumococcal polysaccharide 23 valent (Pneumovax 23) 2yo and older 11/05/2017 Td Tetanus diptheria (Tdvax) 7yo and older 11/05 Tdap Tetanus diptheria acell ular pertussis (Boostrix; Adacel) 7yo and older 01/01/2020,10/06/2007 Surgical History Surgery Date Site/Laterality Comments CHOLECYSTECTOMY PROCEDURE: HISTORICAL CHOLECYSTECTOMY OTHER SURGICAL HISTORY PROCEDURE: HISTORY OTHER; COMMENT: anal polyps dr car 2008 ESOPHAGOGASTRODUODENOSCOPY 2007 Lul PROCEDURE: HI ESOPHAGOGASTRODUODENOSCOPY TRANSORAL DIAGNOSTIC; COMMENT: normal ESOPHAGOGASTRODUODENOSCOPY 07/04/2011 PROCEDURE: HI ESOPHAGOGASTRODUODENOSCOPY TRANSORAL DIAGNOSTIC; COMMENT: normal; no Lopez's [...] COMMENT: hemorrhoidectomy OTHER SURGICAL HISTORY 12/21/2021 PROCEDURE: HI LAMOT PRTL FFD EXC DISC REEXPL 1 NTRSPC LUMBAR; COMMENT: Redo left L5-S1 minimally invasive discectomy, Dr. 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 porphyria - [...] 9:45 AM EST Office Visit Pulmonology - [address] [place] [address] Arturo Saavedra MD [address] [place] [phone] Health Maintenance Due Date Last Done Comments [...] to Health Maintenance Results * Colonoscopy (08/24/2016) [facility] Colonoscopy No Interpretation , Abstracted Anatomical Region Laterality Modality Other [facility] Provider HEALTH MAINTENANCE Final Result * Hepatitis C Screening (08/24/2015) [facility] Hepatitis C Screening Abstracted [facility] Provider HEALTH MAINTENANCE Final Result * (ABNORMAL) Lipid panel (08/11/2015) [facility] LDL/HDL Ratio 6(A) 0 - 4 Triglycerides 249(A) 0 - 150 mg/dL Cholesterol 295(A) 0 - 200 mg/dL HDL 50 >=40 mg/dL LDL Cholesterol 196(A) 0 - 100 mg/dL Blood Venous blood specimen / Unknown [facility] Provider LAB BLOOD ORDERABLES Leigh Ann l Result from Last 3 Months or Most Recently Relevant to Health Maintenance Insurance [employer] - [place] MEDICARE ADVANTAGE Care Teams Tying Machine Operator Lumber Relationship Specialty Start Date End Date Mallory oLcke MD [address] [place] [address] PCP - General Internal Medicine 12/16/24
--- OUTSIDE RECORDS SUMMARY | 2025-02-02 08:07 | XMS_ITS | Patient Health Record ---
Author Organization [facility] Address [address] [place] [address] Care Team Providers Care Cable Splicer Apprentice Name Role Phone Tobias Lau Primary Care Provider Rusty Mark [phone] Allergies Allergen (clinical drug ingredient) Drug/Non Drug [...] Status W/U Status Risk Notes Problem Dysphagia (95446381) Dysphagia, unspecified (787.20) Active confirmed Problem Imaging of gastrointestinal tract abnormal (747155541) Nonspecific abnormal findings on radiological and other examination of gastrointestinal tract (793.4) Active confirmed Problem Family history of malignant neoplasm of gastrointestinal tract (085570093) Family history of malignant neoplasm of gastrointestinal tract (V16.0) Active confirmed Plan Of Treatment Future Test Test Name Order Date UPPER GI ENDOSCOPY 12/08/2010 Insurance Providers Payer Name Payer Address Payer Phone Subscriber Number Group Number Insured Name Patient Relationship to Insured Coverage Start Date Coverage End Date MEDICARE OF [employer] [address] [place] [address] [id number] RADHA DEAL Self - patient is the insured Medical (General) History Medical History History ICD Code Fibromyalgia/CFS Early COPD Allergies Denies HI,DM,CVA,renal disease Surgical History Surgery Date(Month/Year) CCY Hemorrhoids
--- OUTSIDE RECORDS SUMMARY | 2025-02-02 08:08 | XMS_ITS | Patient Health Record ---
Author [facility] Address [address] [place] [address] Care Team Providers Care Skid Worker Name Role Phone Mallory Locke MD Primary Care Provider Yanet Terry Unavailable [phone] Allergies Allergen (clinical drug ingredient) Drug/Non Drug Allergy documented on EMR Reaction Allergy Type Onset Date Status sulfamethoxazole / trimethoprim Bactrim itchy skin Drug Allergy Active morphine Morphine itchy skin Drug Allergy Active Reason For Referral No Information Medications Medication SIG (Take, Route, Frequency, Duration) Notes Start Date End Date Status Levothyroxine Sodium Active Nystatin 156685 UNIT 1 tablet Orally Active Citalopram Hydrobromide [...] End Date [employer] [address] [place] [address] [id number] Francois Howard Self - patient is the insured Medical (General) History Medical History History ICD Code Anxiety Back,Hip,and Knee pain Broken bones Lung disease Psoriasis/eczema Reflux ( GERD) thyroid Measles Mumps Chicken pox Surgical History Surgery Date(Month/Year) ankle surgery left 2019 finger surgery Right index 12/2019
== END 2025-02-02 08:31 | disposition home or self-care (01) ==
LOC: HO.HMCC 08:00
PROVIDERS: PCP Nurse Practitioner Family; Visit Provider Nurse Practitioner Family
DX: M54.6 Pain in thoracic spine (principal); R10.12 Left upper quadrant pain

== ENCOUNTER 2025-02-02 08:00 | Outpatient (REF) | payer MEDICARE, SELFPAY ==
--- NOTE | ~2025-02-02 | XR_ITS ---
EXAMINATION: XR THORACIC SPINE CLINICAL INFORMATION: M54.6 - Pain in thoracic spine COMPARISON: Correlated to CT lung screening dated March 12, 2024. TECHNIQUE: AP and lateral views. FINDINGS: Multilevel marginal osteophyte formation and endplate sclerosis and 30% compression deformities throughout the vertebral bodies in the mid to lower thoracic spine. There are few scattered Schmorl nodes in the endplates of the lower thoracic spine. No acute cortical disruption. No gross malalignment. No lytic or blastic lesions. XR/XR thoracic spine 2V IMPRESSION: Multilevel spondylosis without acute fracture or dislocation. Multiple old likely osteoporotic compression deformities of the mid to lower thoracic spine. EXAMINATION: XR RIBS, LEFT CLINICAL INFORMATION: M54.6 - Pain in thoracic spine COMPARISON: Correlated to chest x-ray dated May 14, 2019. TECHNIQUE: AP chest. Oblique views left hemithorax. FINDINGS: Hyperinflated lungs. Pulmonary reticular pattern. No gross consolidation, pleural effusion or pneumothorax. Cardiomediastinal silhouette size is normal. Multilevel spondylosis. No acute displaced cortical disruption in the ribs of the left hemithorax. IMPRESSION: Chronic interstitial lung disease without acute airspace disease. No acute rib fracture, left hemithorax. Electronically signed by: Raleigh Noel MD 02/02/2025 09:06 AM MARISA
--- NOTE | ~2025-02-02 | XR_ITS ---
EXAMINATION: XR THORACIC SPINE CLINICAL INFORMATION: M54.6 - Pain in thoracic spine COMPARISON: Correlated to CT lung screening dated March 12, 2024. TECHNIQUE: AP and lateral views. FINDINGS: Multilevel marginal osteophyte formation and endplate sclerosis and 30% compression deformities throughout the vertebral bodies in the mid to lower thoracic spine. There are few scattered Schmorl nodes in the endplates of the lower thoracic spine. No acute cortical disruption. No gross malalignment. No lytic or blastic lesions. XR/XR ribs LT min 3V w CXR1V IMPRESSION: Multilevel spondylosis without acute fracture or dislocation. Multiple old likely osteoporotic compression deformities of the mid to lower thoracic spine. EXAMINATION: XR RIBS, LEFT CLINICAL INFORMATION: M54.6 - Pain in thoracic spine COMPARISON: Correlated to chest x-ray dated May 14, 2019. TECHNIQUE: AP chest. Oblique views left hemithorax. FINDINGS: Hyperinflated lungs. Pulmonary reticular pattern. No gross consolidation, pleural effusion or pneumothorax. Cardiomediastinal silhouette size is normal. Multilevel spondylosis. No acute displaced cortical disruption in the ribs of the left hemithorax. IMPRESSION: Chronic interstitial lung disease without acute airspace disease. No acute rib fracture, left hemithorax. Electronically signed by: Raleigh Noel MD 02/02/2025 09:06 AM MARISA
== END 2025-02-02 08:01 | disposition home or self-care (01) ==
LOC: HO.HMGCX 08:00
PROVIDERS: PCP Nurse Practitioner Family; Visit Provider Nurse Practitioner Family
DX: M54.6 Pain in thoracic spine (principal); R10.12 Left upper quadrant pain; J44.9 Chronic obstructive pulmonary disease, unspecified; R59.1 Generalized enlarged lymph nodes
CPT/HCPCS: 71101; 72070; 96127; 99212

== ENCOUNTER → 2025-02-02 08:40 | Outpatient (BNV) | payer MEDICARE, SELFPAY | PROVIDERS: PCP Nurse Practitioner Family; Visit Provider Radiology Diagnostic Radiology | DX: R10.12 Left upper quadrant pain (principal); M54.6 Pain in thoracic spine | CPT/HCPCS: 71101; 72070 ==

== ENCOUNTER 2025-02-09 08:27 | Outpatient (REF) | payer MEDICARE, SELFPAY ==
--- NOTE | ~2025-02-09 | CT_ITS ---
EXAMINATION: CT ABDOMEN PELVIS WITH IV CONTRAST HISTORY: R59.1 - Generalized enlarged lymph nodes COMPARISON: Previous CT of the abdomen and pelvis most recent October 2024 TECHNIQUE: CT scan of the abdomen and pelvis was performed following administration of 85 mL Omnipaque 350 using standard departmental protocol. Coronal and sagittal reformatted images were generated and reviewed. This CT exam was performed with one or more of the following dose reduction techniques: automated exposure control, adjustment of the mA and/or kV according to patient size, use of iterative reconstruction technique. DLP: mGy-cm FINDINGS: LOWER CHEST: Minimal subsegmental atelectasis at the lung bases. Previously seen 9 mm right lower lobe nodule October 2024 no longer seen. CARDIOVASCULATURE: The heart is normal in size. There is no pericardial effusion. LIVER: The liver is normal in size and contour. No liver mass is identified. The hepatic and portal veins are patent. GALLBLADDER / BILE DUCTS: Cholecystectomy. There is no intra or extrahepatic biliary ductal dilatation. SPLEEN: The spleen is normal in size. No focal splenic lesion is identified. PANCREAS: The pancreas is unremarkable in appearance. ADRENAL GLANDS: Within normal limits. KIDNEYS/RETROPERITONEUM: No renal calculi are identified. There is no hydronephrosis. Stable small low-attenuation lesions in both kidneys probably representing cortical and peripelvic cysts. LYMPH NODES: Similar appearing small, small bowel mesentery lymph nodes and fat stranding. Similar-appearing upper abdominal retroperitoneal lymph nodes. Largest lymph node is superior to the left renal hilum and medial to the left adrenal gland and measures 8 mm in short axis. No new or increasing adenopathy. VASCULATURE: Mild atherosclerotic disease. No aneurysm. MESENTERY/PERITONEUM: No free fluid. No masses. There is no free intraperitoneal gas. Mild fat stranding of the small bowel mesentery similar to previous exams. STOMACH: Normal SMALL BOWEL: The small bowel is normal in caliber. COLON: Mild diverticulosis of the colon. APPENDIX: Normal. URINARY BLADDER/PELVIC ORGANS: The urinary bladder is not optimally distended and not well evaluated. Slightly enlarged prostate gland measuring 3.8 x 4.6 cm. BONES / SOFT TISSUES: Postsurgical changes in the right inguinal region. No hernia. Mild degenerative changes of the spine. CT/CT abdomen pelvis w IV con IMPRESSION: Stable upper abdominal retroperitoneal lymph nodes. Largest lymph node upper normal in size measuring 8 mm in short axis. Stable small, small bowel mesentery lymph nodes and mild fat stranding probably representing mild mesenteric adenitis or panniculitis. Probable bilateral renal cysts unchanged. Mild diverticulosis of the colon. 9 mm right lower lobe pulmonary nodule seen on October 2024 CT scan no longer seen. Electronically signed by: Nita Langford MD 02/09/2025 09:35 AM EST
--- OUTSIDE RECORDS SUMMARY | 2025-02-09 08:43 | XMS_ITS | Clinical Summary ---
Author Organization [address] [facility] Address [address] [place] [address] Phone Care Team Providers Care Mysql Database Administrator Name Role Phone Mallory Locke MD Primary Care Provider [phone] Allergies Active Allergy Reactions Criticality Noted Date [...] ons:Chronic obstructive pulmonary disease, unspecified (CMS/[facility] V24, CMS/HCC V28) INHALE 1 PUFF [...] 12 INHALATIONS/24 HRS 03/27/20 23 025 Discontinued Active Problems Problem Noted Date [...] 2 moderate COPD by GOL D classification ([facility] V24, [facility] V28) 08/05/2017 Exposure to asbestos 06/27/2016 [...] disorder 02/06/2016 Testosterone deficiency 11/01/2010 COPD, moderate ([facility] V24, [facility] V28) 2010 Overview (03/10/2024): 03/16/10 PFTs Vitamin D deficiency 04/07/2010 Hyperlipidemia 11/04/2009 Anxiety 03/23/2009 HSV-2 (herpes simplex virus 2) infection 009 Erectile dysfunction 05/04/2008 Eustachian tube dysfunction 11/27/2007 Chronic fatigue syndrome 10/27/2005 Overview (03/10/2024): ? porphyria Irritable bowel syndrome 10/27/2005 Encounters Date Type Department Care Team Description 01/11/2025 Telephone Pulmonology [facility] [address] [facility] [address] [place] [phone] Arturo Saavedra MD 01/08/2025 9:15 AM EDT Office Visit Pulmonology [facility] [address] [facility] [address] [place] [phone] Arturo Saavedra MD Chronic obstructive pulmonary disease with emphysema, unspecified emphysema type (CMS/HCC V24, CMS/HCC V28) (Primary Dx); Tobacco abuse from Last 3 Months Immunizations Immunization Administration Dates Next Due Hepatitis B (Xhnageb-A-Rrxaa , Recombivax HB-Adult) 19yo and older 04/25/2009,10/20/2008,09/21/2008 Pneumococcal polysaccharide 23 valent (Pneumovax 23) 2yo and older 11/05/2017 Td Tetanus diptheria (Tdvax) 7yo and older 11/05 Tdap Tetanus diptheria acell ular pertussis (Boostrix; Adacel) 7yo and older 01/01/2020,10/06/2007 Surgical History Surgery Date Site/Laterality Comments CHOLECYSTECTOMY PROCEDURE: HISTORICAL CHOLECYSTECTOMY OTHER SURGICAL HISTORY PROCEDURE: HISTORY OTHER; COMMENT: anal polyps dr car 2009 ESOPHAGOGASTRODUODENOSCOPY 2007 PROCEDURE: CO ESOPHAGOGASTRODUODENOSCOPY TRANSORAL DIAGNOSTIC; COMMENT: normal ESOPHAGOGASTRODUODENOSCOPY 07/04/2011 PROCEDURE: CO ESOPHAGOGASTRODUODENOSCOPY TRANSORAL DIAGNOSTIC; COMMENT: normal; no Lopez's [...] COMMENT: hemorrhoidectomy OTHER SURGICAL HISTORY 12/21/2021 PROCEDURE: CO LAMOT PRTL FFD EXC DISC REEXPL 1 NTRSPC LUMBAR; COMMENT: Redo left L5-S1 minimally invasive discectomy, Dr. Kelly Medical History Medical History Date Comments Irritable bowel syndrome 10/27/2005 DX:Irri table bowel syndrome Thumb fracture 12/01/1979 DX:Thumb fractur e; COMMENT: left Chronic fatigue syndrome 10/27/2005 DX:Seamless Tube Drawer jed fatigue syndrome; COMMENT: ? porphyria - [...] Date Smoking Tobacco: Light Smoker Cigarettes 0.2 51.3 Started: 11/05/1973 Smokeless Tobacco: Never Tobacco Cessation:Ready [...] 9:45 AM EST Office Visit Pulmonology - [address] [place] [address] Arturo Saavedra MD [address] [place] [phone] Health Maintenance Due Date Last Done Comments Zoster Vaccines (1 of 2) 2009 Abdominal Aortic Aneurysm (AAA) Screen 03/10/2022 Cholesterol Screening (Lipid Panel) 03/10/2022 08/11/2015 Medicare Annual Wellness Visit 03/10/2022 Social Influencers of Health Screening 03/10/2022 Pneumococcal Vaccine: 50+ Years (2 of 2 - PCV) 03/27/2022 03/27/2021, 11/05/2017 Falls Risk Assessment 02/06/2024 Depression Screening 04/01/2024 COVID-19 Vaccine ( - season) 2024 02/14/2022, 01/10/2021, 06/08/2020, Additional history [...] to Health Maintenance Results * Colonoscopy (08/24/2016) Pathologist [facility] Colonoscopy No Interpretation , Abstracted Anatomical Region Laterality Modality Other [facility] Provider HEALTH MAINTENANCE Final Result * Hepatitis C Screening (08/24/2015) Pathologist [facility] Hepatitis C Screening Abstracted [facility] Provider HEALTH MAINTENANCE Final Result * (ABNORMAL) Lipid panel (08/11/2015) Pathologist [facility] LDL/HDL Ratio 6(A) 0 - 4 Triglycerides 249(A) 0 - 150 mg/dL Cholesterol 295(A) 0 - 200 mg/dL HDL 50 >=40 mg/dL LDL Cholesterol 196(A) 0 - 100 mg/dL Blood Venous blood specimen / Unknown [facility] Provider LAB BLOOD ORDERABLES Leigh Ann l Result from Last 3 Months or Most Recently Relevant to Health Maintenance Insurance [employer] - [place] MEDICARE ADVANTAGE Care Teams Mysql Database Administrator Relationship Specialty Start Date End Date Mallory Locke MD [address] [place] [address] PCP - General Internal Medicine 12/16/24
--- OUTSIDE RECORDS SUMMARY | 2025-02-09 08:43 | XMS_ITS | Patient Health Record ---
Author Organization [facility] Address [address] [place] [address] Care Team Providers Care Aqua Ammonia Operator Name Role Phone Tobias Lau Primary Care Provider [phone] Rusty Mark [phone] Allergies Allergen (clinical drug ingredient) Drug/Non Drug [...] Status W/U Status Risk Notes Problem Dysphagia (61817497) Dysphagia, unspecified (787.20) Active confirmed Problem Imaging of gastrointestinal tract abnormal (863297830) Nonspecific abnormal findings on radiological and other examination of gastrointestinal tract (793.4) Active confirmed Problem Family history of malignant neoplasm of gastrointestinal tract (722018533) Family history of malignant neoplasm of gastrointestinal tract (V16.0) Active confirmed Plan Of Treatment Future Test Test Name Order Date UPPER GI ENDOSCOPY 12/08/2010 Insurance Providers Payer Name Payer Address Payer Phone Subscriber Number Group Number Insured Name Patient Relationship to Insured Coverage Start Date Coverage End Date MEDICARE OF [employer] [address] [place] [id number] RADHA DEAL Self - patient is the insured Medical (General) History Medical History History ICD Code Fibromyalgia/CFS Early COPD Allergies Denies AR,DM,CVA,renal disease Surgical History Surgery Date(Month/Year) CCY Hemorrhoids
--- OUTSIDE RECORDS SUMMARY | 2025-02-09 08:43 | XMS_ITS | Patient Health Record ---
Author [facility] Address [address] [facility] [place] [address] Care Team Providers Care Mechanical Technologist Name Role Phone Mallory Locke MD Primary Care Provider Yanet Terry Unavailable [phone] Allergies Allergen (clinical drug ingredient) Drug/Non Drug Allergy documented on EMR Reaction Allergy Type Onset Date Status sulfamethoxazole / trimethoprim Bactrim itchy skin Drug Allergy Active morphine Morphine itchy skin Drug Allergy Active Reason For Referral No Information Medications Medication SIG (Take, Route, Frequency, Duration) Notes Start Date End Date Status Levothyroxine Sodium Active Nystatin 535309 UNIT 1 tablet Orally Active Citalopram Hydrobromide [...] End Date [employer] [address] [place] [address] [id number] Francois Howard Self - patient is the insured Medical (General) History Medical History History ICD Code Anxiety Back,Hip,and Knee pain Broken bones Lung disease Psoriasis/eczema Reflux ( GERD) thyroid Measles Mumps Chicken pox Surgical History Surgery Date(Month/Year) ankle surgery left 2019 finger surgery Right index 12/2019
[2025-02-09] MEDS: iohexoL 350 MG/ML 100 ML INFUS..BTL IV (09:03)
== END 2025-02-09 08:28 | disposition home or self-care (01) ==
LOC: HO.CT 08:27
PROVIDERS: PCP Nurse Practitioner Family; Visit Provider Internal Medicine
DX: R59.1 Generalized enlarged lymph nodes (principal)
CPT/HCPCS: 74177; Q9967

== ENCOUNTER → 2025-02-09 08:29 | Outpatient (BNV) | payer MEDICARE, SELFPAY | PROVIDERS: PCP Nurse Practitioner Family; Visit Provider Radiology Diagnostic Radiology | DX: R59.1 Generalized enlarged lymph nodes (principal) | CPT/HCPCS: 74177 ==

== ENCOUNTER 2025-02-18 08:55 | Outpatient (AMB) | payer MEDICARE, SELFPAY ==
[2025-02-18 09:01] VITALS: BP 147/68; PULSE 78; RESP 16; O2SAT 96; BMI 27.5
--- NOTE | 2025-02-18 09:01 | A.OFFVIS_ITS ---
Vital Signs 02/18/25 09:01 Height 5 ft 9 in Weight 186 lb BMI 27.5 BP 147/68 H Blood Pressure Location Lt brachial Position Sitting Respiration 16 Pulse 78 Pulse Source Pulse Oximeter Pulse Oximetry (%) 96 Oxygen Delivery Method Room Air Intake Visit Reasons: 1 Month Follow Up An/Syq 13 Nav/C2 Operator Required: No Allergies morphine (MORPHINE) Allergy (Intermediate, Verified 02/18/25 09:04) ITCHY Sulfa (Sulfonamide Antibiotics) (SULFA (SULFONAMIDE ANTIBIOTICS)) Allergy (Intermediate, Verified 02/18/25 09:04) ITCHY atorvastatin Adverse Reaction (Intermediate, Verified 02/18/25 09:04) myalgia rosuvastatin (From Crestor) Adverse Reaction (Intermediate, Verified 02/18/25 09:04) Diarrhea HPI Comments Details: Francois is back in my office to discuss further treatment of his postlaminectomy syndrome. He was approved by [facility] for the procedure from psychological standpoint. I will schedule him for the a trial of [employer] spinal cord stimulator. This patient exhausted conservative treatment for his postlaminectomy syndrome. He was subject of multiple sessions of physical therapy and chiropractic manipulations in the past before and after his surgeries. He is trying to remain active however pain in the back with radiation into bilateral lower extremities hinders his activities. He is suffering from postlaminectomy syndrome. The list of his surgery see below. I attempted diagnostic medial branch block L3, L4, dorsal ramus L5 bilateral. Patient reports pain aggravation after the procedure and not pain alleviation at all. Prior: H/o left L5-S1 discectomy on 04/20/21 and redo left L5-S1 minimally invasive discectomy on 12/21/[address] Kelly. His last follow up with Dr. Kelly was on 06/15/22 for ongoing left buttock and left leg pain and had another left L5-S1 TFESI at [facility]. He was supposed to follow up if pain is not improved b ky has not made any follow up since last injection by Neurosurgery providers. Immediately after his surgery he experience up to 80% of pain relieve. He enjoyed good pain relieve for 6-8 months until mis December 2022 when he was sitting up into his truck he started to fill again pain to his left buttock and left thigh and into his lower leg laterally and posteriorly with associated intermittent weakness in the left LE. This minimally improved after seeing chiropractors, NSAIDs and heat therapy. Patient reports his movements improved but he continues to be in significant pain that affects his daily functioning, activities, mood, sleep and social interactions. Pain is worse with walking, weight bearing or bending down and relieved in reclined supine position. He rates pain at 8/10 and cannot tolerate standing, sitting or walking during today's visit. Patient constantly adjusts his reclined position to alleviate his symptoms. Denies any fever, chills, weight loss, abdominal or groin pain, bladder or bowel dysfunction or saddle anesthesia. H/o left ankle surgery with metalic hardware in place. Denies numbness or tingling in his left lower extremity. This improved after seeing chiropractors, NSAIDs and heat therapy. L5-S1 left transforaminal epidural steroid injection 05/03/2020 resulted in improvement activities of daily living pain reduction about 80%, better social interaction, better mobility for 6 months of excellent pain relief. the same procedure was performed on. Before that on 01/18/2021 he went for yet another L5-S1 left TFESI after which he had 5-6 months susteained pain relieve. History of pain for 8 years, without any inciting events or trauma. He denies any surgical history to his back. He had some injections in his lower back about 7 years ago by online retailer at [employer] however does not recall if these were particularly helpful. He has previously tried PT, home traction, chiropractic treatment, and Tylenol/Ibuprofen for his pain without significant benefit. [facility] Medical History Nicotine dependence, cigarettes, uncomplicated History of fracture of left ankle Hyperlipidemia Bladder pain Benign prostatic hyperplasia Thoracic outlet syndrome Anxiety COPD (chronic obstructive pulmonary disease) Hypothyroidism Left lumbar radiculopathy Disc degeneration, lumbar Disc degeneration, lumbosacral Blood clot in vein Surgical History History of hemorrhoidectomy History of esophagogastroduodenoscopy (EGD) Hx of hand surgery History of ankle surgery History of lumbar discectomy (12/21/21) History of cholecystectomy (~2004) Hx of colonoscopy Family History Paternal Uncle Colon cancer Paternal Grandmother Colon cancer Other Mental health disorder Social History Housing: House Are you a primary rehab care assistant to a significant other at home: No Do you presently have visiting nurse or other home services: No Patient Tobacco Use Status: Current everyday Tobacco user Tobacco use type: Cigarette Cigarette Packs Per Day: 0.75 Cigarettes Per Day: 15.0 Years Smoked: 40 e-Cigarette/Vaping Use: Never Used Substance Use Type: Marijuana service: No Current occupational status: disabled Current occupation: left handed Cognitive needs: No Hearing needs: No Vision needs: Yes Review of Systems Const All systems reviewed & are unremarkable except as noted in HPI and below Physical Exam Vital Signs: Last Vital Signs Pulse 78 02/18/25 09:01 Resp 16 02/18/25 09:01 BP 147/68 H 02/18/25 09:01 Pulse Ox 96 02/18/25 09:01 Oxygen Delivery Method Room Air 02/18/25 09:01 BMI result Body Mass Index 27.5 General: Appears afebrile. Alert and oriented. Mood and affect appropriate. Follows and participates in conversation appropriately. Respiratory effort is unlabored. No cough. Able to transition from sit to stand unassisted. Ambulates with bilaterally normal heel strike and toe off, reports pain with heel walking on the left. Back/Spine/Pelvis Other: Limited back exam due to moderate to severe pain reproduced with extension, flexion and bending. Antalgic gait with limping. Demonstrates 5/5 right and 4/5 left strength of quadriceps as well as flexion/dorsiflexion of bilateral feet against resistance. 2+ pedal pulses bilaterally. Seated straight leg rise with dorsiflexion negative bilaterally. Diminished patellar and achilles reflexes bilaterally. Facet loading test positive bilaterally. Parul sign, Saad?s, Pelvic compression and Stinchfield tests are negative bilaterally. No groin pain with I/E hip rotations. Significant paraspinals tenderness mostly on the left side, lower back. Valsalva maneuver negative. Cervical Spine: cervical ROM normal and No Cervical spine tenderness Thoracic/Lumbar Spine: thoracic and lumbar spine normal to inspection, Thoracic/lumbar spine scar(s), pain with thoraco-lumbar ROM, paraspinal muscle tenderness, thoraco-lumbar ROM limited, No thoracic spinal tenderness and lumbar spinal tenderness at L5 Pelvis: buttock tenderness on the left Sacroiliac joints: bilaterally nontender Extrem Other: On inspection there is large varicosity in the projection of the medial surface of the right arm. Patient states that he has thoracic outlet syndrome. He states that it does not bother him. There is severe tenderness on palpation in projection of the right AC joint. Range of motion in the right arm is significantly limited. Unable to rotate are medially or laterally because it causes him severe pain. Results Reviewed Results Reviewed: MRI lumbar spine examination 12/05/2021 lumbar vertebral bodies normal in height and alignment. Multilevel thoracolumbar endplate Schmorl's nodes. Overall mild lumbar degenerative disc desiccation. Bone marrow signal intensity within normal limits for the patient's age. Conus tip normal in location at L1 level. Lumbar central spinal canal developmental narrowing and lumbar epidural fat signal. L1-L2 and L2-L3 levels: Well-maintained central spinal canal and neural foramina. L3-L4: Mild disc bulging facet joint hypertrophy dorsal epidural fat results in overall mild central canal stenosis and mild bilateral neural foraminal stenosis. L4-5: Disc bulging facet joint hypertrophy dorsal epidural fat results in overall mild central stenosis, bilateral left greater than right subarticular recess stenosis, mild bilateral neural foraminal stenosis. L5-S1 level disc bulging mild endplate osteophytic ridging partial left hemilaminectomy microdiskectomy as on 11/07/2021 with recurrent peripheral enhancing T2 hyperintense left central subarticular disc herniation resulting in left subarticular recess narrowing. Assessment & Plan Assessment & Plan (1) Lumbar post-laminectomy syndrome: Code(s): M96.1 - Postlaminectomy syndrome, not elsewhere classified Category: Medical (2) Muscle spasm of back: Code(s): M62.830 - Muscle spasm of back Category: Medical (3) Left lumbar radiculopathy: Code(s): M54.16 - Radiculopathy, lumbar region Category: Medical (4) Disc degeneration, lumbar: Code(s): M51.36 - Other intervertebral disc degeneration, lumbar region Category: Medical (5) History of lumbar discectomy: Onset Date: 12/21/21 Comment: 04/20/21 Left L5-S1 discectomy Dr. Kelly 12/21/21 Redo Left L5-S1 Minimally invasive discectomy Code(s): Z98.890 - Other specified postprocedural states Category: Surgical (6) Chronic pain syndrome: Code(s): G89.4 - Chronic pain syndrome Category: Medical Plan In the past the patient received caudal epidural injection with catheter treating his postlaminectomy syndrome. However with time this fade ineffectiveness. Diagnostic medial branch block did not help the pain of this patient. In the past patient received multiple sessions of physical therapy, he received chiropractic manipulations, he received treatment with NSAIDs and steroids. Patient wants to remain active however his pain prevents him to do so. He went for psychological evaluation and was approved for a trial of SCS. I will schedule him for a trial of spinal cord stimulator [employer]. I will see this patient at the trial. Patient Instructions: I here by testify that I spent 30 minutes in conversation with this patient as well as evaluating his prior records, planning his care and organizing this note. Coding Level of Care Code Est Pt Level 4 (86116) Diagnoses Lumbar post-laminectomy syndrome M96.1 Muscle spasm of back M62.830 Left lumbar radiculopathy M54.16 Disc degeneration, lumbar M51.36 History of lumbar discectomy Z98.890 Chronic pain syndrome G89.4
== END 2025-02-18 09:19 | disposition home or self-care (01) ==
LOC: HO.PMC 08:56
PROVIDERS: PCP Nurse Practitioner Family; Visit Provider Anesthesiology
DX: M96.1 Postlaminectomy syndrome, not elsewhere classified (principal); M62.830 Muscle spasm of back; M54.16 Radiculopathy, lumbar region; M51.369 Other intervertebral disc degeneration, lumbar region without mention of lumbar back pain or lower extremity pain; Z98.890 Other specified postprocedural states; G89.4 Chronic pain syndrome
CPT/HCPCS: 99214

== ENCOUNTER → 2025-02-18 08:55 | Outpatient (BNVA) | payer MEDICARE, SELFPAY | PROVIDERS: PCP Nurse Practitioner Family; Visit Provider Anesthesiology | DX: M96.1 Postlaminectomy syndrome, not elsewhere classified (principal); M62.830 Muscle spasm of back; M54.16 Radiculopathy, lumbar region; M51.369 Other intervertebral disc degeneration, lumbar region without mention of lumbar back pain or lower extremity pain; G89.4 Chronic pain syndrome; Z98.890 Other specified postprocedural states | CPT/HCPCS: 99212 ==

== ENCOUNTER 2025-03-17 09:22 | Outpatient (REF) | payer MEDICARE, SELFPAY ==
--- NOTE | ~2025-03-17 | FL_ITS ---
EXAMINATION: XR FLUOROSCOPY BARIUM SWALLOW CLINICAL INFORMATION: Patient complaining of episodic epigastric pain. Minor GERD symptoms. COMPARISON: No prior examination. Correlation made with CT abdomen and pelvis 02/09/2025. TECHNIQUE: Fluoroscopic air contrast barium swallow examination was performed utilizing standard techniques with thin and thick barium and effervescent granules. Numerous spot images were obtained. Several fluoroscopic image hold cine sequences were also obtained. FINDINGS: BARIUM SWALLOW: Lateral cine images of the oropharynx and hypopharynx demonstrate normal swallow mechanism with normal epiglottic inversion and soft palate elevation. No laryngeal penetration, glottic or subglottic aspiration identified. Hypopharyngeal structures appear normal without evidence of mass or diverticulum. There was mild cricopharyngeal achalasia present. Dual and single contrast images of the esophagus demonstrate normal caliber, contour, and mucosal pattern. No evidence of stricture, mass, or ulcerations identified. Esophageal peristalsis is mild to moderately disordered. Feline contraction pattern identified, in keeping with chronic reflux. Small type I hiatus hernia present. No significant gastroesophageal reflux was seen during the course of the examination. Dual contrast and single contrast images of the stomach demonstrated normal contour without evidence of gross mass or large ulceration. There was diffuse thickening of the gastric rugal folds. There was thickening of the areae gastricae. There were several tiny foci of contrast pooling present, suggestive of submucosal aphthous type ulcers , in keeping with erosive gastritis. Contrast freely passed into the gastric antrum and duodenal bulb without delay. Incidentally noted were cholecystectomy clips. FLUOROSCOPY TIME: 3 minutes, 36 seconds Number of Spot Images:8 Number of cines obtained: 14 DOSE AREA PRODUCT: 3663 uGy-m2 (microgray-meter squared) FL/FL barium swallow with air IMPRESSION: 1. Mild cricopharyngeal achalasia noted. 2. Mild to moderately disordered esophageal peristalsis. Feline contraction present pattern in keeping with chronic reflux. 3. Small type I hiatal hernia present. 4. Findings in the stomach suggesting erosive gastritis. Recommend correlation with EGD. 5. No definite gastroesophageal reflux identified during the course of the examination. Electronically signed by: Omari Yarbrough MD 03/17/2025 10:13 AM [facility]
--- OUTSIDE RECORDS SUMMARY | 2025-03-17 10:38 | XMS_ITS | Patient Health Record ---
Author Organization [facility] Address [address] [facility] [place] [address] Care Team Providers Care Field Research Assistant Name Role Phone Mallory Locke MD Primary Care Provider Yanet Terry Unavailable [phone] Allergies Allergen (clinical drug ingredient) Drug/Non Drug Allergy documented on EMR Reaction Allergy Type Onset Date Status sulfamethoxazole / trimethoprim Bactrim itchy skin Drug Allergy Active morphine Morphine itchy skin Drug Allergy Active Reason For Referral No Information Medications Medication SIG (Take, Route, Frequency, Duration) Notes Start Date End Date Status Levothyroxine Sodium Active Nystatin 945725 UNIT 1 tablet Orally Active Citalopram Hydrobromide [...] End Date [employer] [address] [place] [address] [id number] Francois Howard Self - patient is the insured Medical (General) History Medical History History ICD Code Anxiety Back,Hip,and Knee pain Broken bones Lung disease Psoriasis/eczema Reflux ( GERD) thyroid Measles Mumps Chicken pox Surgical History Surgery Date(Month/Year) ankle surgery left 2019 finger surgery Right index 12/2019
--- OUTSIDE RECORDS SUMMARY | 2025-03-17 10:38 | XMS_ITS | Clinical Summary ---
Author Organization [address] [facility] Address [address] [place] [address] Phone Care Team Providers Care Digital Pre Press Operator Name Role Phone Mallory Locke MD Primary Care Provider [phone] Allergies Active Allergy Reactions Criticality Noted Date [...] mcg inhalerIndicatio ns:Chronic obstructive pulmonary disease, unspecified (CMS/HCC V24, CMS/HCC V28) INHALE 1 PUFF INTO THE LUNGS DAILY FOR 30 DAYS. 60 each 11 5 Active citalopram (CeleXA) 20 mg tablet Take 1 tablet (20 mg total) by mouth 1 (one) time each day. Active varenicline tartrate (Chantix Starting Month Box) 0.5 mg (11)- 1 mg (42) tablet Take 0.5 mg by mouth 1 (one) time each day for 3 days (days 1-3), THEN 0.5 mg 2 (two) times a day for 4 days (days 4-7), THEN 1 mg 2 (two) times a day for 12 weeks. 53 tablet 5 04/08/19 26 Active varenicline tartrate (CHANTIX) 1 mg tablet Take 1 tablet (1 mg total) by mouth 2 (two) times daily after breakfast and dinner. Take with full glass of water. 60 each 2 5 04/08/19 26 Active albuterol HFA (PROAIR HFA ; PROVENTIL HFA ; VENTOLIN HFA) 90 mcg/actuation inhaler INHALE 2 PUFFS INTO THE LUNGS EVERY 6 HOURS NEEDED FOR WHEEZING OR SHORTNESS OF BREATH FOR UP TO 90 DAYS. THIS IS A RESCUE MEDICATION. NOT TO EXCEED 12 PUFFS/24 HOURS. 18 each 3 5 Active Active Problems Problem Noted Date [...] Department Care Team Description 01/11/2025 Telephone Pulmonology - [place] [address] [facility] [address] [place] [address] Arturo Saavedra MD 01/08/2025 9:15 AM EDT Office Visit Pulmonology [facility] [address] [facility] [address] [place] [address] Arturo Saavedra MD Chronic obstructive pulmonary disease with emphysema, unspecified emphysema type (CMS/HCC V24, CMS/HCC V28) (Primary Dx); Tobacco abuse from Last 3 Months Immunizations Immunization Administration Dates Next Due Hepatitis B (Wiqecda-G-Nhfwo , Recombivax HB-Adult) 19yo and older 04/25/2009,10/20/2008,09/21/2008 Pneumococcal polysaccharide 23 valent (Pneumovax 23) 2yo and older 11/05/2017 Td Tetanus diptheria (Tdvax) 7yo and older 11/05 Tdap Tetanus diptheria acell ular pertussis (Boostrix; Adacel) 7yo and older 01/01/2020,10/06/2007 Surgical History Surgery Date Site/Laterality Comments CHOLECYSTECTOMY PROCEDURE: HISTORICAL CHOLECYSTECTOMY OTHER SURGICAL HISTORY PROCEDURE: HISTORY OTHER; COMMENT: anal polyps dr car 2008 ESOPHAGOGASTRODUODENOSCOPY 2007 PROCEDURE: TX ESOPHAGOGASTRODUODENOSCOPY TRANSORAL DIAGNOSTIC; COMMENT: normal ESOPHAGOGASTRODUODENOSCOPY 07/04/2011 PROCEDURE: TX ESOPHAGOGASTRODUODENOSCOPY TRANSORAL DIAGNOSTIC; COMMENT: normal; no Lopez's [...] COMMENT: hemorrhoidectomy OTHER SURGICAL HISTORY 12/21/2021 PROCEDURE: TX LAMOT PRTL FFD EXC DISC REEXPL 1 NTRSPC LUMBAR; COMMENT: Redo left L5-S1 minimally invasive discectomy, Dr. 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 porphyria - [...] Date Smoking Tobacco: Light Smoker Cigarettes 0.2 51.4 Started: 11/05/1973 Smokeless Tobacco: Never Tobacco Cessation:Ready to Q uit: Not Asked; Counseling Given: Not Answered Comments:Smoking Alcohol Use Standard Drinks/Week Comments No 0 (1 standard drink = 0.6 oz pur e alcohol) Sex and Gender Information Value Date Recorded Sex Assigned at Not on file Legal Sex Male 9:56 AM EST Gender Identity Not on file Sexual Orientation Not on file Last Filed Vital Signs Vital Sign Reading [...] 9:45 AM EST Office Visit Pulmonology - [place] [address] [place] [id number] Arturo Saavedra MD [address] [place] [phone] Health Maintenance Due Date Last Done Comments Drug Screen 1960 Non-Opioid Controlled Substance Agreement 1960 Zoster Vaccines (1 of 2) 2009 Abdominal [...] , Abstracted Anatomical Region Laterality Modality Other [facility] Provider HEALTH MAINTENANCE Final Result * Hepatitis C Screening (08/24/2015) Pathologist [facility] Hepatitis C Screening Abstracted [facility] Provider MD HEALTH MAINTENANCE Final Result * (ABNORMAL) Lipid panel (08/11/2015) Pathologist [facility] LDL/HDL Ratio 6(A) 0 - 4 Triglycerides 249(A) 0 - 150 mg/dL Cholesterol 295(A) 0 - 200 mg/dL HDL 50 >=40 mg/dL LDL Cholesterol 196(A) 0 - 100 mg/dL Blood Venous blood specimen / Unknown [facility] Provider LAB BLOOD ORDERABLES Leigh Ann l Result from Last 3 Months or Most Recently Relevant to Health Maintenance Insurance [employer] - [place] MEDICARE ADVANTAGE Care Teams Digital Pre Press Operator Relationship Specialty Start Date End Date Mallory Locke MD [facility] [place] [address] PCP - General Internal Medicine 12/16/24
--- OUTSIDE RECORDS SUMMARY | 2025-03-17 10:38 | XMS_ITS | Patient Health Record ---
Author Organization [facility] Address [address] [place] [address] Care Team Providers Care Stoker Erector Name Role Phone Tobias Lau Primary Care Provider Rusty Mark [phone] Allergies Allergen (clinical drug ingredient) Drug/Non Drug Allergy documented on EMR Reaction Allergy Type Onset Date Status Sulfa Unknown Drug Allergy Active Reason For Referral No Information Medications Medication SIG (Take, Route, Fr equency, Duration) Notes Start Date End Date Status Amitriptyline HCl Ac tive Qvar Active LORazepam Active Ibuprofen Active PriLOSEC Active Social History Social History Additional Details Category Social Info Options Details Miscellaneous: Marital status: Occupation: Disability Problems Problem Type SNOMED Code ICD Code Onset Dates Problem Status W/U Status Risk Notes Problem Dysphagia (98781697) Dysphagia, unspecified (787.20) Active confirmed Problem Imaging of gastrointestinal tract abnormal (242933775) Nonspecific abnormal findings on radiological and other examination of gastrointestinal tract (793.4) Active confirmed Problem Family history of malignant neoplasm of gastrointestinal tract (870803129) Family history of malignant neoplasm of gastrointestinal tract (V16.0) Active confirmed Plan Of Treatment Future Test Test Name Order Date UPPER GI ENDOSCOPY 12/08/2010 Insurance Providers Payer Name Payer Address Payer Phone Subscriber Number Group Number Insured Name Patient Relationship to Insured Coverage Start Date Coverage End Date MEDICARE OF [employer] [address] [place] [id number] RADHA DEAL Self - patient is the insured Medical (General) History Medical History History ICD Code Fibromyalgia/CFS Early COPD Allergies Denies CO,DM,CVA,renal disease Surgical History Surgery Date(Month/Year) CCY Hemorrhoids
== END 2025-03-17 09:23 ==
LOC: HO.XRAY 09:22
PROVIDERS: PCP Nurse Practitioner Family; Visit Provider Internal Medicine
DX: K44.9 Diaphragmatic hernia without obstruction or gangrene (principal)
CPT/HCPCS: 74221

== ENCOUNTER → 2025-03-17 09:24 | Outpatient (BNV) | payer MEDICARE, SELFPAY | PROVIDERS: PCP Nurse Practitioner Family; Visit Provider Radiology Diagnostic Radiology | DX: K44.9 Diaphragmatic hernia without obstruction or gangrene (principal); K22.4 Dyskinesia of esophagus | CPT/HCPCS: 74221 ==